=== PATIENT | female | born 1965 | race Caucasian/White ===

== ENCOUNTER 2018-03-05 10:56 | Emergency (ER) | payer BC, SELFPAY ==
[2018-03-05 10:59] VITALS: BP 139/76; PULSE 74; RESP 16; TEMP 37.1; O2SAT 100
--- NOTE | 2018-03-05 11:15 | ED.GENADUL ---
Disposition Clinical Impression: Headache Disposition: HOME Condition: Fair Instructions: General Headache (ED) Additional Instructions: During the time of grieving, please try to care for herself. Take frequent sips of fluids. Today. Taking medications as previously advised. If her headache is worse visual changes, vomiting, fever/chills or the new/worsening symptoms please seek care urgently once again. Tylenol and/or ibuprofen as needed for discomfort. Referrals: Lyn Sinclair NP [Primary Care Provider] - Medical Decision Making - Medical Decision Making Patient presents today with chief complaint of not feeling well. Patient was just here as a visitor grieving over her just passed. Patient is concerned she might be hypoglycemic. Patient reports that she has history of type 2 diabetes but she does report that she has had issues with hypoglycemia historically. Patient typically has glucometer with her but reports that she lost it in all of the tima on this morning. Patient appears teary and distraught but nontoxic. Vital signs within normal limits. Glucose was checked by nursing staff, and to be 187. I discussed this finding with the patient. I did try to encourage some gentle hydration. She reports that she is able to have small sips of fluids. In regard to the headache, patient reports that she has a mild frontal headache. No visual change. Neurologic exam is grossly intact. Pain came on slowly, no thunderclap quality. Given description, the patient's assessment this is likely associated with her intense grieving. We discussed new/worsening symptoms when to seek care urgently once again. I encouraged her to try to care for herself some during this difficult time. All of her questions and concerns were addressed and she is in agreement this plan. Son is present with her and voices agreement and my recommendations will help to care for his grieving mother. History of Present Illness - General Chief complaint: GenMedical Stated complaint: UNKNOWN Time Seen by Provider: 03/05/18 11:04 Source: patient, family, RN notes reviewed Mode of arrival: ambulatory Limitations: no limitations - History of Present Illness Initial comments: Patient is a 53-year-old female with history of type 2 diabetes presenting today for not feeling well. She is concerned she might be hypoglycemic. Patient was already in the department after her was brought here emergently and was found to be 10 on arrival. Patient's been very emotional and crying frequently. She began endorsing a low-grade headache. States that it came on slowly. States the headache is frontal. Associated headache with her crying. Reports it is a crying headache. Secondary to her emotional state, she has not been able to eat or drink today. She continues to decline any p.o. intake. Did not take any of her medications this morning. - Related Data Citalopram [CeleXA] 40 mg PO DAILY 12/29/12 LORazepam [Ativan] 0.5 mg PO as directed PRN 12/29/12 Bupropion HCl [Wellbutrin Xl] 150 mg PO QPM 03/24/13 Bupropion HCl [Wellbutrin Xl] 300 mg PO QAM #1 03/24/13 Cetirizine HCl [Zyrtec] 10 mg PO PRN PRN 05/30/15 Levalbuterol [Xopenex Hfa] 15 gm IH PRN PRN #1 inhaler 10/27/15 Lurasidone HCl [Latuda] 10 mg PO DAILY #30 10/27/15 Levothyroxine [Levothroid] 25 mcg PO DAILY 04/26/16 Calcium Carbonate [Tums Smoothies] 300 mg PO PRN PRN 02/26/17 Ranitidine HCl [Zantac] 150 mg PO BID PRN 06/28/17 Vitamin B Complex 1 each PO DAILY 06/28/17 Cyanocobalamin (Vitamin B-12) [Cyanocobalamin Injection] 1,000 mcg IJ Monthly #1 vial 02/14/18 Cholecalciferol (Vitamin D3) [Vitamin D3] 4,000 unit PO DAILY #90 tab-cap 02/21/18 Ferrous Sulfate [Iron] 325 mg PO TID #270 tab-cap 02/21/18 Folic Acid 1 mg PO DAILY #90 tab-cap 02/21/18 Lisinopril 1.25 mg PO DAILY #45 tab-cap 02/21/18 MetFORMIN [Glucophage] 1,000 mg PO BID #180 tab 02/21/18 Minocycline HCl 100 mg PO DAILY #10 tab-cap 02/21/18 Omeprazole 20 mg PO BID #180 tab-cap 02/21/18 Allergies Allergy/AdvReac Type Severity Reaction Status Date / Time doxycycline Allergy Severe tongue Unverified 03/05/18 11:07 swelling morphine Allergy itch and Unverified 03/05/18 11:07 hives zolpidem tartrate AdvReac Severe suicidal Unverified 03/05/18 11:07 [From Ambien] oxycodone HCl [From Percocet] AdvReac hallucinati Unverified 03/05/18 11:07 ons trazodone AdvReac anxiety Unverified 03/05/18 11:07 Review of Systems Constitutional: no symptoms reported. denies: chills, fever Eyes: denies: vision change Respiratory: no symptoms reported Cardiovascular: denies: chest pain, palpitations Gastrointestinal: denies: abdominal pain, nausea, vomiting Skin: denies: rash Neurological: as per HPI, headache. denies: weakness, numbness, paresthesias Past Medical History - Past Medical History Medical history: hyperlipidemia Anxiety, depression, diabetes General Exam - General Limitations: no limitations General appearance: alert, in no apparent distress (patient is tearing and is clearly upset) - Head Head exam: Present: atraumatic - Eye Eye exam: Present: normal apperance, PERRL. Absent: scleral icterus, conjunctival injection Pupils: Present: normal accommodation - Neck Neck exam: Present: normal inspection - Respiratory Respiratory exam: Present: normal lung sounds bilaterally. Absent: respiratory distress - Cardiovascular Cardiovascular Exam: Present: regular rate, normal rhythm, normal heart sounds - Extremities Exam Extremities exam: Present: normal inspection - Neurological Exam Neurological exam: Present: alert, CN II-XII intact, normal gait. Absent: motor sensory deficit - Psychiatric Psychiatric exam: Present: normal affect, normal mood - Skin Skin exam: Present: warm, dry, normal color Course Vital Signs - 24 hr 03/05/18 10:59 Temperature 37.1 C Pulse 74 Respiratory 16 Rate Blood Pressure 139/76 Pulse Oximetry 100
[2018-03-05 16:58] VITALS: RESP 16
== END 2018-03-05 11:35 | disposition home or self-care (01) ==
LOC: ER 06-20 08:18
PROVIDERS: Emergency Provider Emergency Medicine; PCP Nurse Practitioner Family
DX: R51 Headache (principal); Z63.4 Disappearance and death of family member; E11.9 Type 2 diabetes mellitus without complications; Z79.84 Long term (current) use of oral hypoglycemic drugs
CPT/HCPCS: 36416; 82962; 99282

== ENCOUNTER 2018-05-01 16:05 | Outpatient (CLI) | payer OTHER, SELFPAY ==
[2018-05-01 16:56] LABS: Abs Immature Grans 0.01 k/cumm (0.0-0.09); Absolute Basophil Count 0.05 k/cumm (0.0-0.2); Absolute Eosinophil Count 0.19 k/cumm (0.0-0.7); Absolute Monocyte Count 0.49 k/cumm (0.11-0.7); Absolute Neutrophil Count 6.79 k/cumm (1.2-6.7); Basophils % 0.6; Eosinophils % 2.2; HCT 31.5 % (36.0-46.0); HGB 9.3 g/dL (12.0-15.5); Immature Grans % 0.1; Lymphocytes % 13.7; Mean Corp. HGB Concentration 29.5 g/dL (32.0-36.0); Mean Corpuscular Hemoglobin 21.7 pg (27.0-33.0); Mean Corpuscular Volume 73.6 fL (80-95); Mean Platelet Volume 11.5 fL (8.0-11.0); Monocytes % 5.6; Neutrophils % 77.8; Platelet Count 288 x1000/uL (130-400); RBC 4.28 m/cumm (4.00-5.20); RBC Distribution Width 19.1 % (11.7-14.6); White Blood Cell Count 8.73 k/cumm (4.4-10.8)
[2018-05-01 17:38] LABS: Iron 30 ug/dL (50-175); Total Iron Binding Capacity 482 ug/dL (250-450); Transferrin Sat 6 % (15-50)
[2018-05-01 17:52] LABS: Ferritin 8 ng/mL (8-388)
[2018-05-01 18:03] LABS: Vitamin D 25 Total 15.9 ng/ml (30-100)
[2018-05-01 18:06] LABS: Diff Comment RBC Morph Reviewed
[2018-05-01 18:07] LABS: Anisocytosis 2+; Hypochromasia 2+; Microcytosis 3+
== END 2018-05-01 16:25 ==
PROVIDERS: PCP Nurse Practitioner Family; Visit Provider Nurse Practitioner Family
DX: D50.9 Iron deficiency anemia, unspecified (principal); E55.9 Vitamin D deficiency, unspecified
CPT/HCPCS: 36415; 82306; 82728; 83540; 83550; 85025

== ENCOUNTER 2018-08-21 16:28 | Outpatient (CLI) | payer OTHER, SELFPAY ==
[2018-08-21 17:31] LABS: Abs Immature Grans 0.01 k/cumm (0.0-0.09); Absolute Basophil Count 0.06 k/cumm (0.0-0.2); Absolute Eosinophil Count 0.23 k/cumm (0.0-0.7); Absolute Lymphocyte Count 1.65 k/cumm (1.2-3.4); Absolute Monocyte Count 0.49 k/cumm (0.11-0.7); Absolute Neutrophil Count 4.14 k/cumm (1.2-6.7); Basophils % 0.9; Eosinophils % 3.5; HCT 33.2 % (36.0-46.0); HGB 10.2 g/dL (12.0-15.5); Immature Grans % 0.2; Lymphocytes % 25.1; Mean Corp. HGB Concentration 30.7 g/dL (32.0-36.0); Mean Corpuscular Hemoglobin 23.9 pg (27.0-33.0); Mean Corpuscular Volume 77.8 fL (80-95); Mean Platelet Volume 11.8 fL (8.0-11.0); Monocytes % 7.4; Neutrophils % 62.9; Platelet Count 310 x1000/uL (130-400); RBC 4.27 m/cumm (4.00-5.20); RBC Distribution Width 17.1 % (11.7-14.6); White Blood Cell Count 6.58 k/cumm (4.4-10.8)
[2018-08-21 18:49] LABS: Iron 18 ug/dL (50-175); Total Iron Binding Capacity 423 ug/dL (250-450); Transferrin Sat 4 % (15-50)
[2018-08-21 19:02] LABS: Ferritin 7 ng/mL (8-388); TSH (W/Ref FT4) 3.85 uIU/mL (0.358-3.74)
[2018-08-21 19:38] LABS: FREE T4 0.96 ng/dL (0.76-1.46)
[2018-08-21 19:44] LABS: Vitamin D 25 Total 15.9 ng/ml (30-100)
[2018-08-22 09:52] LABS: Hemoglobin A1C 8.7 % (4.5-6.2)
== END 2018-08-21 16:48 ==
PROVIDERS: PCP Nurse Practitioner Family; Visit Provider Nurse Practitioner Family
DX: D50.9 Iron deficiency anemia, unspecified (principal); E55.9 Vitamin D deficiency, unspecified; E03.9 Hypothyroidism, unspecified; E11.9 Type 2 diabetes mellitus without complications
CPT/HCPCS: 36415; 82306; 82728; 83036; 83540; 83550; 84439; 84443; 85025

== ENCOUNTER 2018-09-12 13:28 | Outpatient (REF) | payer OTHER, SELFPAY | END 2018-09-12 13:48 | LOC: LBN 13:28 | PROVIDERS: PCP Nurse Practitioner Family; Visit Provider Family Medicine | DX: R39.9 Unspecified symptoms and signs involving the genitourinary system (principal) | CPT/HCPCS: 87077; 87086; 87186 ==

== ENCOUNTER 2020-05-09 01:19 | Outpatient (CLI) | payer MEDICAID, SELFPAY ==
--- NOTE | 2020-05-09 09:25 | DI.RAD_ITS ---
EXAM: XR CHEST 2V PA LATERAL CLINICAL HISTORY: positive Quantiferon-TB Gold,Z92.89,H/O TB SKIN TESTING TECHNIQUE: 2D digital imaging was performed. COMPARISON: CR CHEST 2 VIEWS PA,LAT from 05/17/2017 FINDINGS: MEDIASTINUM: Normal. HEART: Normal. PULMONARY VASCULATURE: Normal. LUNGS: Clear. PLEURAL SPACE: No pleural effusion or pneumothorax. BONE:Normal. OTHER FINDINGS:Normal. IMPRESSION: No acute pulmonary findings. DATA REPOSITORY: RADIATION DOSE DELIVERED:
== END 2020-05-09 01:39 ==
PROVIDERS: PCP Nurse Practitioner Family; Visit Provider Student in an Organized Health Care Education/Training Program
DX: R76.12 Nonspecific reaction to cell mediated immunity measurement of gamma interferon antigen response without active tuberculosis (principal); Z92.89 Personal history of other medical treatment
CPT/HCPCS: 71046

== ENCOUNTER 2020-06-22 04:02 | Outpatient (CLI) | payer MEDICAID, SELFPAY ==
[2020-06-22 16:40] LABS: Abs Immature Grans 0.02 10^3/uL (0.0-0.06); Absolute Basophil Count 0.04 10^3/uL (0.0-0.2); Absolute Eosinophil Count 0.24 10^3/uL (0.0-0.7); Absolute Lymphocyte Count 1.51 10^3/uL (1.2-3.4); Absolute Monocyte Count 0.36 10^3/uL (0.1-0.8); Absolute Neutrophil Count 3.83 10^3/uL (1.2-6.7); Basophils % 0.7; HCT 35.8 % (36.0-46.0); HGB 10.8 g/dL (11.2-15.7); Immature Grans % 0.3; Lymphocytes % 25.2; MCH 24.3 pg (27.0-33.0); MCHC 30.2 % (32.0-36.0); MCV 80.4 fL (80-95); MPV 10.9 fL (8.0-11.0); Neutrophils % 63.8; Nucleated RBC 0 %; Platelet Count 239 10^3/uL (130-400); RBC 4.45 10^6/uL (3.93-5.22); RDW 15.3 % (11.7-14.6); RDW-SD 44.6 fL
[2020-06-22 16:51] LABS: Prothrombin Time 9.9 sec (9.3-11.0)
[2020-06-22 17:28] LABS: ALT 21 U/L (14-59); AST 16 U/L (15-37); Alkaline Phosphatase 81 U/L (46-116); Anion Gap 10.4 mmol/L (3-11); BUN 18 mg/dL (7-18); Bilirubin, Total 0.2 mg/dL (0.2-1.0); CO2 26.6 mmol/L (21.0-32.0); CREATININE 0.99 mg/dL (0.55-1.02); Chloride 105 mmol/L (98-107); Estimated GFR 57.82 (mL/min/1.73m2); Glucose 70 mg/dL (74-106); Potassium 4.2 mmol/L (3.5-5.1); Sodium 142 mmol/L (136-145)
== END 2020-06-22 04:22 ==
PROVIDERS: PCP Nurse Practitioner Family; Visit Provider Nurse Practitioner Family
DX: R79.89 Other specified abnormal findings of blood chemistry (principal); Z22.7 Latent tuberculosis; Z51.81 Encounter for therapeutic drug level monitoring
CPT/HCPCS: 36415; 80053; 85025; 85610

== ENCOUNTER 2020-08-05 19:24 | Outpatient (REF) | payer MEDICAID, SELFPAY ==
[2020-08-05 20:08] LABS: C-Reactive Protein 0.18 mg/dL (0.0-0.3); TSH (W/Ref FT4) 2.81 uIU/mL (0.36-3.74)
[2020-08-05 20:46] LABS: ESR 24 mm/hr (0-30)
[2020-08-08 10:07] LABS: Hepatitis C Ab w Rflx HCV PCR Negative (Negative)
[2020-08-08 11:17] LABS: HIV-1/2 Ag & Ab Screen Negative (Negative)
== END 2020-08-05 19:44 ==
LOC: LBN 19:24
PROVIDERS: PCP Nurse Practitioner Family; Visit Provider Nurse Practitioner Family
DX: Z11.59 Encounter for screening for other viral diseases (principal); R63.4 Abnormal weight loss; E03.9 Hypothyroidism, unspecified; Z11.4 Encounter for screening for human immunodeficiency virus [HIV]
CPT/HCPCS: 85652; 86803; 87389; 84443; 86140

== ENCOUNTER 2020-10-12 04:14 | Outpatient (CLI) | payer MEDICAID, SELFPAY ==
[2020-10-12 17:14] LABS: Iron 17 ug/dL (50-170); Total Iron Binding Capacity 388 ug/dL (250-450); Transferrin Sat 4 % (15-50)
[2020-10-12 17:29] LABS: Ferritin 5 ng/mL (8-252)
== END 2020-10-12 04:15 | disposition home or self-care (01) ==
LOC: LBO 04:15
PROVIDERS: PCP Nurse Practitioner Family; Visit Provider Nurse Practitioner Family
DX: D50.9 Iron deficiency anemia, unspecified (principal)
CPT/HCPCS: 36415; 82728; 83540; 83550

== ENCOUNTER 2020-11-04 05:15 | Outpatient (RCR) | payer MEDICAID, SELFPAY ==
[2020-11-04] MEDS: Normal Saline Flush 10 ML SYR IVP (07:50)
[2020-11-04] MEDS: IRON SUCROSE COMPLEX 200 MG in Normal Saline 100 ML 50 MG IVPB (08:00)
== END 2020-11-18 23:59 | disposition home or self-care (01) ==
LOC: INF 05:15
PROVIDERS: PCP Nurse Practitioner Family; Visit Provider Nurse Practitioner Family
DX: D50.9 Iron deficiency anemia, unspecified (principal); D64.9 Anemia, unspecified
CPT/HCPCS: 96365; 96376; J1756

== ENCOUNTER 2021-01-03 02:30 | Outpatient (CLI) | payer MEDICAID, SELFPAY ==
[2021-01-03 10:35] LABS: HCT 33.7 % (36.0-46.0); HGB 10.1 g/dL (11.2-15.7)
[2021-01-03 11:31] LABS: Iron 37 ug/dL (50-170); Total Iron Binding Capacity 439 ug/dL (250-450); Transferrin Sat 8 % (15-50)
[2021-01-03 11:44] LABS: Ferritin 6 ng/mL (8-252)
== END 2021-01-03 02:31 | disposition home or self-care (01) ==
LOC: LBO 02:30
PROVIDERS: PCP Nurse Practitioner Family; Visit Provider Nurse Practitioner Family
DX: D50.9 Iron deficiency anemia, unspecified (principal)
CPT/HCPCS: 36415; 82728; 83540; 83550; 85014; 85018

== ENCOUNTER 2021-01-09 03:23 | Outpatient (CLI) | payer MEDICAID, SELFPAY ==
[2021-01-09 16:48] LABS: HCT 36.5 % (36.0-46.0); HGB 10.8 g/dL (11.2-15.7)
[2021-01-09 18:07] LABS: Iron 15 ug/dL (50-170); Total Iron Binding Capacity 437 ug/dL (250-450); Transferrin Sat 3 % (15-50)
[2021-01-09 18:20] LABS: Ferritin 5 ng/mL (8-252)
== END 2021-01-09 03:24 | disposition home or self-care (01) ==
LOC: LBO 03:23
PROVIDERS: PCP Nurse Practitioner Family; Visit Provider Nurse Practitioner Family
DX: D50.9 Iron deficiency anemia, unspecified (principal)
CPT/HCPCS: 36415; 82728; 83540; 83550; 85014; 85018

== ENCOUNTER 2021-01-10 02:49 | Outpatient (RCR) | payer MEDICAID, SELFPAY ==
[2021-01-10] MEDS: Normal Saline Flush 10 ML SYR IVP (14:05)
[2021-01-10] MEDS: IRON SUCROSE COMPLEX 200 MG in Normal Saline 100 ML 220 MG IVPB (14:05)
== END 2021-01-18 23:59 | disposition home or self-care (01) ==
LOC: INF 02:49
PROVIDERS: PCP Nurse Practitioner Family; Visit Provider Family Medicine
DX: D50.9 Iron deficiency anemia, unspecified (principal)
CPT/HCPCS: 96365; J1756

== ENCOUNTER 2021-01-17 22:10 | Emergency (ER) | payer MEDICAID, SELFPAY ==
--- NOTE | 2021-01-17 22:14 | W.ED.GENAD ---
Discharge Plan Disposition Patient Disposition: HOME Condition: Good Discharge Details Clinical Impression: Contusion, Ankle sprain Primary Care Provider: Lyn Sinclair ED Provider: Blanche Jaramillo Home Meds and New Rx's Prescriptions: Continued folic acid 1 mg tablet 1 mg PO DAILY Qty: 90 RF: 3 cholecalciferol (vitamin D3) 4,000 unit capsule 4,000 unit PO DAILY Qty: 90 RF: 3 aspirin 81 mg tablet,delayed release (DR/EC) 81 mg PO DAILY RF: 0 lactobacillus combination no.8 PO RF: 0 vitamin B complex Tablet 1 tab PO DAILY RF: 0 clobetasol 0.05 % cream 1 applic TP DAILY RF: 0 (DME) blood-glucose meter Misc 1 ea Miscellaneous DAILY Qty: 1 RF: 0 (DME) Blood Glucose Test Strip See Rx Instructions .ROUTE .MEDSUPPLY Qty: 100 RF: 3 (DME) FreeStyle [place] 14 Day [place] Misc See Rx Instructions .ROUTE .MEDSUPPLY Qty: 1 RF: 0 (DME) FreeStyle [place] 14 Day Sensor Kit See Rx Instructions .ROUTE .MEDSUPPLY Qty: 6 RF: 3 omega-3 fatty acids [Fish Oil Concentrate] 1,000 mg capsule 1,000 mg PO DAILY RF: 0 Metamucil (sugar) Powder 1 tbsp PO DAILY PRNRF: 0 docusate sodium [Colace] 100 mg capsule 100 mg PO DAILY RF: 0 cyanocobalamin (vitamin B-12) 1,000 MCG/1 ML solution 1,000 mcg IJ Monthly Qty: 1 RF: 0 lorazepam 0.5 mg tablet 0.5 mg PO BID RF: 0 levothyroxine 25 mcg tablet 25 mcg PO DAILY Qty: 90 RF: 3 albuterol sulfate 90 mcg/actuation HFA aerosol inhaler 1 - 2 puff inhalation Q4H PRN (Reason: shortness of breath or wheezing) Qty: 1 RF: 3 bupropion HCl [Wellbutrin XL] 300 mg tablet extended release 24 hr 300 mg PO QAM RF: 0 lorazepam 0.5 mg tablet See Rx Instructions PO QHS PRNRF: 0 pantoprazole 40 mg tablet,delayed release (DR/EC) 40 mg PO DAILY Qty: 90 RF: 3 Jardiance 25 mg tablet 25 mg PO DAILY AM Qty: 90 RF: 3 minocycline 100 mg tablet 100 mg PO DAILY PRN (Reason: scalp folliculitis) Qty: 10 RF: 0 metformin [Glucophage] 1,000 mg tablet 1,000 mg PO BID Qty: 180 RF: 0 Januvia 25 mg tablet 25 mg PO DAILY Qty: 90 RF: 0 atorvastatin 10 mg tablet 10 mg PO DAILY Qty: 90 RF: 0 cetirizine [Zyrtec] 10 MG tablet 10 mg PO PRN PRNRF: 0 Discharge Instructions Instructions: Ankle Sprain (ED), Contusion in Adults (ED) Additional Instructions: Imaging is reassuring for no new fracture. Please encourage rest, ice, elevation. Tylenol and/or ibuprofen as needed for discomfort. Please continue with splint and Joselo while pain persist. Please avoid activities that cause increased discomfort. If you develop any new or worsening symptoms please seek care urgently once again. Otherwise, please follow-up with primary care in 1 week for reevaluation. Stand Alone Forms: Work Release Referrals: Lyn Sinclair NP [Primary Care Provider] - Medical Decision Making Patient is a pleasant 55-year-old female presenting today with chief complaint of left lower extremity trauma. She reports that she has had 3 fracture to the proximal tibia which was managed nonoperatively several years ago. Also reports that she had disruption of the mortise of the left ankle requiring surgical repair and subsequent removal of hardware. States that this evening she fell from her bed and struck her knee between the bed and area of storage. Believes that she landed on a wheel leading to ecchymosis and swelling and discomfort of the left lateral lower extremity. Patient denies other injuries from the incident. Did not strike her head, no loss of consciousness. She denies any numbness or tingling. Denies any neck, back, chest, abdomen or pelvic pain. Has not taken anything for her discomfort as of yet. She did take a dose of Ativan prior to arrival she was quite anxious about this. On exam, patient appears nontoxic. She does have a focal area of ecchymosis and swelling in the proximal one third of the lateral left lower extremity. Knee appears to be uninvolved, full range of motion, no effusion or pain with palpation at the joint line. She does have some tenderness over the proximal fibula but pain is maximal in. She is in the area of ecchymosis.. Ecchymosis feels most consistent with soft tissue swelling. No palpable bony deformity. 2+ distal pulses, sensation is intact. She has good range of motion of the toes and ankle. She does have pain with palpation of the anterior ankle but no pain over the medial and lateral malleolus, no appreciable instability. Patient has been nonweightbearing. Will give Tylenol and ibuprofen for discomfort. Plan to obtain x-rays for evaluation for possible fracture. XR of left tib/fib reviewed by radiologist: FINDINGS: Bones/joints: Normal. Soft tissues: Normal. IMPRESSION: No acute findings. FINDINGS: Bones/joints: Normal. Soft tissues: Normal. IMPRESSION: No acute findings. Discussed the findings with the patient. Patient is able to weight-bear and walk with minimal discomfort at this time. Reassess with the patient's pain is. Does not seem to be over the fibula as much currently and is more anterior to this. She states that when she had broke her fibula historically, pain is more posterior and deep which she is not experiencing at this time. Diagnosis contusion and ankle sprain. Will apply ankle brace to help with stability and Joselo wrap for area of contusion. Encourage rest, ice and elevation. Tylenol and/or ibuprofen as needed for discomfort. Return precautions were discussed. Advise follow-up with primary care in 1 week for reevaluation. All of her questions and concerns were addressed and she is agreement with plan. HPI General Mode of arrival: wheelchair. Date/Time Provider Initiated Documentation: 01/17/21 22:12. Limitations to Documentation: no limitations. Information obtained by: patient and RN notes reviewed. History of Present Illness 55 year old F presents to the emergency department with the chief complaint of LLE trauma, described as moderate, with intensity rated at 6. Quality is described as aching, and is localized to the left and lower extremity. Patient reports no radiation. Patient started experiencing this hour(s) and it has been constant. Immobilization improves symptom(s), Movement worsens symptoms . Patient notes no other symptoms.. Patient did receive the following treatments prior to arrival, none Related Data Home Medications Medication Instructions Recorded Confirmed cetirizine [Zyrtec] 10 mg PO PRN PRN 05/30/15 10/21/20 cyanocobalamin (vitamin B-12) 1,000 mcg IJ Monthly #1 vial 02/14/18 01/17/21 cholecalciferol (vitamin D3) 100 4,000 unit PO DAILY #90 tab-cap 08/22/18 01/17/21 mcg (4,000 unit) capsule folic acid 1 mg tablet 1 mg PO DAILY #90 tab-cap 08/22/18 01/17/21 omega-3 fatty acids 1,000 mg 1,000 mg PO DAILY 10/31/18 01/17/21 capsule aspirin 81 mg tablet,delayed 81 mg PO DAILY 03/20/19 01/17/21 release lorazepam 0.5 mg tablet 0.5 mg PO BID tab 04/01/19 01/17/21 clobetasol 0.05 % topical cream 1 applic TP DAILY 09/25/19 10/21/20 lactobacillus combination no.8 PO 09/25/19 10/21/20 [Adult Probiotic] vitamin B complex 1 tab PO DAILY 09/25/19 01/17/21 blood sugar diagnostic #100 each 10/19/19 10/21/20 blood-glucose meter #1 unit 10/19/19 10/21/20 levothyroxine 25 mcg tablet 25 mcg PO DAILY #90 tab-cap 05/04/20 01/17/21 albuterol sulfate 90 mcg/actuation 1 - 2 puff INHALATION Q4H PRN #1 05/12/20 10/21/20 aerosol inhaler device flash glucose scanning reader #1 ea 05/27/20 10/21/20 flash glucose sensor #6 ea 05/27/20 10/21/20 bupropion HCl 300 mg 24 hr tablet, 300 mg PO QAM 06/27/20 01/17/21 extended release lorazepam 0.5 mg tablet See Rx Instructions PO QHS PRN 06/27/20 01/17/21 docusate sodium 100 mg capsule 100 mg PO DAILY 08/05/20 01/17/21 psyllium seed (sugar) oral powder 1 tbsp PO DAILY PRN 08/05/20 10/21/20 pantoprazole 40 mg tablet,delayed 40 mg PO DAILY #90 tab-cap 10/26/20 01/17/21 release empagliflozin 25 mg tablet 25 mg PO DAILY AM #90 tab-cap 11/10/20 01/17/21 minocycline 100 mg tablet 100 mg PO DAILY PRN #10 tab-cap 11/18/20 atorvastatin 10 mg tablet 10 mg PO DAILY #90 tab-cap 12/27/20 01/17/21 metformin 1,000 mg tablet 1,000 mg PO BID #180 tab-cap 12/27/20 01/17/21 sitagliptin 25 mg tablet 25 mg PO DAILY #90 tab-cap 12/27/20 01/17/21 Previous Rx's Medication Instructions Recorded cyanocobalamin (vitamin B-12) 1,000 mcg IJ Monthly #1 vial 02/14/18 cholecalciferol (vitamin D3) 100 4,000 unit PO DAILY #90 tab-cap 08/22/18 mcg (4,000 unit) capsule folic acid 1 mg tablet 1 mg PO DAILY #90 tab-cap 08/22/18 blood sugar diagnostic #100 each 10/19/19 blood-glucose meter #1 unit 10/19/19 levothyroxine 25 mcg tablet 25 mcg PO DAILY #90 tab-cap 05/04/20 albuterol sulfate 90 mcg/actuation 1 - 2 puff INHALATION Q4H PRN #1 05/12/20 aerosol inhaler device flash glucose scanning reader #1 ea 05/27/20 flash glucose sensor #6 ea 05/27/20 pantoprazole 40 mg tablet,delayed 40 mg PO DAILY #90 tab-cap 10/26/20 release empagliflozin 25 mg tablet 25 mg PO DAILY AM #90 tab-cap 11/10/20 minocycline 100 mg tablet 100 mg PO DAILY PRN #10 tab-cap 11/18/20 atorvastatin 10 mg tablet 10 mg PO DAILY #90 tab-cap 12/27/20 metformin 1,000 mg tablet 1,000 mg PO BID #180 tab-cap 12/27/20 sitagliptin 25 mg tablet 25 mg PO DAILY #90 tab-cap 12/27/20 Allergies Allergy/AdvReac Type Severity Reaction Status Date / Time doxycycline Allergy Severe tongue Verified 01/17/21 22:20 swelling amoxicillin Allergy Intermediate Swelling/Ed Verified 01/17/21 22:20 domingo metronidazole [From Flagyl] Allergy Unknown Other (See Verified 01/17/21 22:20 Comment) morphine Allergy Unknown itch and Verified 01/17/21 22:20 hives zolpidem tartrate AdvReac Severe suicidal Verified 01/17/21 22:20 [From Ambien] oxycodone HCl [From Percocet] AdvReac Unknown hallucinati Verified 01/17/21 22:20 ons trazodone AdvReac Unknown anxiety Verified 01/17/21 22:20 Review of Systems Constitutional Constitutional: Reports as per HPI, Denies chills, Denies fever(s), Denies headache(s) and Denies weakness ENT Ears, Nose, Mouth, and Throat: Denies headache(s) Cardiovascular Cardiovascular: Reports as per HPI Respiratory Respiratory: Reports as per HPI and Denies cough Musculoskeletal Musculoskeletal: Reports as per HPI and Denies tingling Integumentary/Breasts Skin/Breast: Reports as per HPI, Denies rash and Denies wounds Neurologic Neurologic: Reports as per HPI, Denies headache(s), Denies tingling, Denies paresthesias and Denies weakness [facility] Medical History Allergic rhinitis (05/12/12) Environmental--controlled with Zyrtec and prn Xopenex with known triggers such as moldy basements Anxiety and depression Managed by [facility] Carpal tunnel syndrome (03/09/13) [place] Chronic anemia Multifactorial, s/p gastric bypass with vitamin B12, folate, and iron deficiencies; baseline Hgb ~10 Diabetic retinopathy of both eyes (08/16/20) Esophageal stricture S/p dilatation in 06/2017 (Jennifer Wright) Folate deficiency (05/13/17) Folliculitis (03/14/12) Scalp; managed with Minocycline prn Gastroesophageal reflux disease (03/09/13) EGD 05/30/2015, again 02/2017 with [facility] Hyperlipidemia (03/09/13) 02/2019 labs: 10-year ASCVD risk = ~10% --> started on moderate intensity statin therapy Hypothyroidism (09/08/12) Dr. Westfall follows at [facility] Insomnia Iron deficiency anemia Latent tuberculosis by blood test NL CXR 05/09/2020; 06/09/20 [facility] ID consult --> proceed with 4mo rifampin regimen; complete 10/2020 Megaloblastic anemia (09/06/11) S/p gastric bypass Polycystic ovaries (03/09/13) Restless leg syndrome Sleep apnea (03/09/13) Type 2 diabetes mellitus without complication, without long-term current use of insulin [facility] Endocrinology in the past Vitamin D deficiency (03/14/12) MANAGED BY DR WESTFALL [facility]; dx'ed 2011 Vit D Surgical History EGD - MAC (02/26/17) EGD - MAC (07/02/17) EGD/COLONOSCOPY W/ MAC (05/30/15) DR. 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 What type of physical activity do you participate in: regular exercise Frequency: 5-6 times per week Do you feel safe at home: Yes Do you feel safe in your relationship?: Yes Exam Const General: cooperative, healthy appearing, comfortable, no acute distress, well developed and well groomed Nutritional Appearance: average body habitus and well nourished Orientation: alert and awake Resp Effort & Inspection: normal respiratory effort, able to speak in complete sentences and no respiratory distress Cardio Rate: regular rate Rhythm: regular rhythm Skin General skin exam: ecchymosis Full body images: 1. area of ecchymosis and swelling. No palpable deformity, feels to be more soft tissue swelling at this area. Neuro General: patient alert and patient awake Cognition: normal cognition Speech: speech normal Motor: muscle tone normal throughout Sensory Exam: no sensory deficits noted Extrem Ankle/foot/toe images: 1. Area of ecchymosis, swelling and pain. 2+ distal pulses. Full ROM of toes and ankle. Pain over anterior ankle. No obvious trauma to ankle. Pain over proximal fibula. No pain over the knee joint. Full ROM of knee, no effusion. Able to straight leg raise well. Psych Appearance: grossly normal and well kempt Mental Status: mental status grossly normal Speech and Movement: speech and movement normal
[2021-01-17 22:16] VITALS: BP 103/85; PULSE 81; RESP 18; TEMP 36.2; O2SAT 98
--- NOTE | 2021-01-17 22:30 | DI.RAD_ITS ---
Exam(s) XR TIB/FIB LT EXAM: XR TIB/FIB LT CLINICAL HISTORY: fall, ecchymosis and swelling lateral prox 1. TECHNIQUE: 2D digital imaging was performed. COMPARISON: No exams were available for comparison FINDINGS: No evidence of acute fracture of the tibia and fibula. There is a healed oblique fracture site in th e proximal 3rd of the fibula noted. IMPRESSION: As above but no acute fractures DATA REPOSITORY: RADIATION DOSE DELIVERED:
--- NOTE | 2021-01-17 22:30 | DI.RAD_ITS ---
Exam(s) XR ANKLE LT COMPLETE EXAM: XR ANKLE LT COMPLETE CLINICAL HISTORY: fall, previous surgery with removal of hardware. TECHNIQUE: 2D digital imaging was performed. COMPARISON: CR LEFT ANKLE COMPLETE from 01/07/2014 FINDINGS: There is evidence of previous hardware in the distal tibia-fibula which is been removed and there is no remaining radiopaque material. There is presently no evidence of acute fracture nor widening of t he mortise. Talar dome unremarkable. Parallel channels are noted in the distal tibia-fibula. No ra diographic evidence of osteomyelitis. Inferior calcaneal spur is noted. Subtalar joint appears unre markable. However, there is some degenerative changes on the dorsal aspect talonavicular joint. Tib ial talar joint appears unremarkable. IMPRESSION: DATA REPOSITORY: RADIATION DOSE DELIVERED:
[2021-01-17] MEDS: Ibuprofen 600 MG TAB PO (22:35)
[2021-01-17] MEDS: Acetaminophen 325 MG TAB 650 MG PO (22:35)
--- NOTE | 2021-01-17 23:12 | DI.VRAD_ITS ---
PROCEDURE INFORMATION: Exam: XR Left Ankle Exam date and time: 01/17/2021 10:33 PM Age: 55 years old Clinical indication: Injury or trauma; Blunt trauma; Ankle; Left; Injury date: 01/17/21; Injury details: Fall, previous surgery with removal of hardware; Prior surgery; Surgery date: 6+ months; Surgery type: Hardware and removal TECHNIQUE: Imaging protocol: XR Left ankle. Views: 3 or more views. Total images: 3 COMPARISON: No relevant prior studies available. FINDINGS: Bones/joints: Normal. Soft tissues: Normal. IMPRESSION: No acute findings. Dictated and Authenticated by: Gabriel Suárez MD. Ordering:WAYNE Mancia MD
--- NOTE | 2021-01-17 23:12 | DI.VRAD_ITS ---
PROCEDURE INFORMATION: Exam: XR Left Tibia and Fibula Exam date and time: 01/17/2021 10:33 PM Age: 55 years old Clinical indication: Injury or trauma; Blunt trauma; Lower leg; Left; Injury date: 01/17/21; Injury details: Fall, ecchymosis and swelling lateral prox 1/3; Prior surgery; Surgery date: 6+ months; Surgery type: Hardware and removal TECHNIQUE: Imaging protocol: XR Left tibia and fibula. Views: 2 views. Total images: 2 COMPARISON: No relevant prior studies available. FINDINGS: Bones/joints: Normal. Soft tissues: Normal. IMPRESSION: No acute findings. Dictated and Authenticated by: Gabriel Suárez MD. Ordering:WAYNE Mancia MD
== END 2021-01-17 23:40 | disposition home or self-care (01) ==
PROVIDERS: Emergency Provider Physician Assistant; PCP Nurse Practitioner Family
DX: S93.492A Sprain of other ligament of left ankle, initial encounter (principal); S80.12XA Contusion of left lower leg, initial encounter; W06.XXXA Fall from bed, initial encounter; Z87.81 Personal history of (healed) traumatic fracture
CPT/HCPCS: 99284; 73590; 73610; 99283

== ENCOUNTER 2021-02-14 03:11 | Outpatient (RCR) | payer MEDICAID, SELFPAY ==
[2021-02-03] MEDS: IRON SUCROSE COMPLEX 200 MG in Normal Saline 100 ML 220 MG IVPB (11:38)
[2021-02-03] MEDS: Normal Saline Flush 10 ML SYR IVP (11:39)
[2021-02-14 12:06] LABS: HCT 36.8 % (36.0-46.0); HGB 11.3 g/dL (11.2-15.7)
[2021-02-14] MEDS: IRON SUCROSE COMPLEX 300 MG in Normal Saline 250 ML 160 MG IVPB (12:21)
[2021-02-14] MEDS: Normal Saline Flush 10 ML SYR IVP (12:21)
[2021-02-14 12:22] LABS: Ferritin 49 ng/mL (8-252)
[2021-02-14 12:46] LABS: Total Iron Binding Capacity 363 ug/dL (250-450)
[2021-02-14 12:47] LABS: Iron 53 ug/dL (50-170); Transferrin Sat 15 % (15-50)
== END 2021-02-18 23:59 | disposition home or self-care (01) ==
LOC: INF 03:11
PROVIDERS: PCP Nurse Practitioner Family; Visit Provider Family Medicine
DX: D50.9 Iron deficiency anemia, unspecified (principal)
CPT/HCPCS: 36415; 96365; 96366; 82728; 83540; 83550; 85014; 85018; J1756

== ENCOUNTER 2021-03-17 02:15 | Outpatient (CLI) | payer MEDICAID, SELFPAY ==
[2021-03-17 11:53] LABS: HCT 39.6 % (36.0-46.0); HGB 12.5 g/dL (11.2-15.7)
[2021-03-17 12:55] LABS: Iron 92 ug/dL (50-170); Total Iron Binding Capacity 356 ug/dL (250-450)
[2021-03-17 13:05] LABS: Ferritin 68 ng/mL (8-252)
== END 2021-03-17 02:16 | disposition home or self-care (01) ==
PROVIDERS: PCP Nurse Practitioner Family; Visit Provider Nurse Practitioner Family
DX: D50.9 Iron deficiency anemia, unspecified (principal); Z98.84 Bariatric surgery status
CPT/HCPCS: 36415; 82728; 83540; 83550; 85014; 85018

== ENCOUNTER 2021-08-16 06:38 | Emergency (ER) | payer OTHER, SELFPAY ==
[2021-08-16 06:50] VITALS: BP 114/61; PULSE 67; RESP 16; TEMP 36.7; O2SAT 97
--- NOTE | 2021-08-16 07:03 | ED.GENADUL_ITS ---
Discharge Plan Disposition Patient Disposition: HOME Condition: Stable Discharge Details Clinical Impression: Depression Primary Care Provider: Lyn Sinclair ED Provider: Marcus Sage Home Meds and New Rx's Prescriptions: Continued folic acid 1 mg tablet 1 mg PO DAILY Qty: 90 RF: 3 cholecalciferol (vitamin D3) 4,000 unit capsule 4,000 unit PO DAILY Qty: 90 RF: 3 aspirin 81 mg tablet,delayed release (DR/EC) 81 mg PO DAILY RF: 0 lactobacillus combination no.8 PO RF: 0 vitamin B complex Tablet 1 tab PO DAILY RF: 0 clobetasol 0.05 % cream 1 applic TP DAILY RF: 0 (DME) blood-glucose meter Misc 1 ea Miscellaneous DAILY Qty: 1 RF: 0 chlorhexidine gluconate [Antiseptic Skin Clnsr(chlorhe)] 4 % liquid 1 applic topical DAILY Qty: 960 RF: 0 omega-3 fatty acids [Fish Oil Concentrate] 1,000 mg capsule 1,000 mg PO DAILY RF: 0 Metamucil (sugar) Powder 1 tbsp PO DAILY PRNRF: 0 docusate sodium [Colace] 100 mg capsule 100 mg PO DAILY RF: 0 albuterol sulfate 90 mcg/actuation HFA aerosol inhaler 1 - 2 puff inhalation Q4H PRN (Reason: shortness of breath or wheezing) Qty: 1 RF: 3 atorvastatin 10 mg tablet 10 mg PO DAILY Qty: 90 RF: 3 (DME) Blood Glucose Test Strip See Rx Instructions .ROUTE .MEDSUPPLY Qty: 100 RF: 3 Jardiance 25 mg tablet 25 mg PO DAILY AM Qty: 90 RF: 3 levothyroxine 25 mcg tablet 25 mcg PO DAILY Qty: 90 RF: 3 metformin 1,000 mg tablet 1,000 mg PO BID Qty: 180 RF: 3 pantoprazole 40 mg tablet,delayed release (DR/EC) 40 mg PO DAILY Qty: 90 RF: 3 Januvia 25 mg tablet 25 mg PO DAILY Qty: 90 RF: 3 cyanocobalamin (vitamin B-12) 1,000 MCG/1 ML solution 1,000 mcg IJ Monthly Qty: 1 RF: 0 bupropion HCl [Wellbutrin XL] 300 mg tablet extended release 24 hr 300 mg PO QAM RF: 0 minocycline 100 mg capsule 100 mg PO DAILY RF: 0 cetirizine [Zyrtec] 10 MG tablet 10 mg PO PRN PRNRF: 0 lorazepam 0.5 mg tablet 0.5 mg PO BID PRNRF: 0 lorazepam 0.5 mg tablet 1 mg PO HS RF: 0 Discharge Instructions Instructions: Depression (ED) Additional Instructions: follow up as scheduled with Dr. Waite today at 1130. you should be having frequent check ins with [facility] if you feel more ill or have worsening thoughts of self harm return to the emergency department Stand Alone Forms: Work Release Medical Decision Making <Mario Alberto Marr DO - Last Filed: 08/16/21 07:09> 56-year-old female with a past medical history of anxiety, reflux, type 2 diabetes, high cholesterol, reactive airway disease, who presents today for evaluation of depression and suicidality. Over the last 36 hours the patient has had a few notable life stressors, causing notable stress and strain. Today she states that I do not want to live anymore, I just want to feel like a normal person. She states that she would end her life by taking extra medications. Her daughter has removed the medications from her at her home. She denies any auditory or visual hallucinations. She denies any previous suicide attempts but does admit to a history of depression in the past. She has no other complaints at this time. No other modifying factors. Exam demonstrates a well-appearing female who is notably crying, currently very emotional, appearing notably sad. She does have a plan to harm herself however if she is truly seeking help point. I have reached out to mental health and inform them of the scenario. We will perform medical screening exams, case will be signed out to my colleague Dr. Sage for follow-up on labs, and then reaching out again to mental health for reassessment. <Marcus Sage MD - Last Filed: 08/16/21 10:18> pt met with arnold from [facility]. She has been calm and cooperative and after discussing with mental health and is safe for d/c with safety plan. She has an appointment with Dr. Waite today at 1130, family is going to administer her meds and she will have daily checkins with mental health. She currently denies si on my exam, endorsing feeling depressed and has normal affet. Return precautions given HPI <Mario Alberto Marr DO - Last Filed: 08/16/21 07:09> General Date/Time Provider Initiated Documentation: 08/16/21 06:49 . HPI Narrative: 56-year-old female with a past medical history of anxiety, reflux, type 2 diabetes, high cholesterol, reactive airway disease, who presents today for evaluation of depression and suicidality. Over the last 36 hours the patient has had a few notable life stressors, causing notable stress and strain. Today she states that I do not want to live anymore, I just want to feel like a normal person. She states that she would end her life by taking extra medications. Her daughter has removed the medications from her at her home. She denies any auditory or visual hallucinations. She denies any previous suicide attempts but does admit to a history of depression in the past. She has no other complaints at this time. No other modifying factors. Related Data Home Medications Medication Instructions Recorded Confirmed cetirizine [Zyrtec] 10 mg PO PRN PRN 05/30/15 08/16/21 cyanocobalamin (vitamin B-12) 1,000 mcg IJ Monthly #1 vial 02/14/18 08/16/21 cholecalciferol (vitamin D3) 100 4,000 unit PO DAILY #90 tab-cap 08/22/18 08/16/21 mcg (4,000 unit) capsule folic acid 1 mg tablet 1 mg PO DAILY #90 tab-cap 08/22/18 08/16/21 omega-3 fatty acids 1,000 mg 1,000 mg PO DAILY 10/31/18 08/16/21 capsule aspirin 81 mg tablet,delayed 81 mg PO DAILY 03/20/19 08/16/21 release clobetasol 0.05 % topical cream 1 applic TP DAILY 09/25/19 08/16/21 lactobacillus combination no.8 PO 09/25/19 08/11/21 [Adult Probiotic] vitamin B complex 1 tab PO DAILY 09/25/19 08/16/21 blood-glucose meter #1 unit 10/19/19 08/16/21 bupropion HCl 300 mg 24 hr tablet, 300 mg PO QAM 06/27/20 08/16/21 extended release docusate sodium 100 mg capsule 100 mg PO DAILY 08/05/20 08/16/21 psyllium seed (sugar) oral powder 1 tbsp PO DAILY PRN 08/05/20 08/16/21 chlorhexidine gluconate 4 % 1 applic TOPICAL DAILY #960 ml 01/27/21 08/16/21 topical liquid minocycline 100 mg capsule 100 mg PO DAILY 05/26/21 08/16/21 albuterol sulfate 90 mcg/actuation 1 - 2 puff INHALATION Q4H PRN #1 08/11/21 08/16/21 aerosol inhaler unit atorvastatin 10 mg tablet 10 mg PO DAILY #90 tab-cap 08/11/21 08/16/21 blood sugar diagnostic #100 each 08/11/21 08/16/21 empagliflozin 25 mg tablet 25 mg PO DAILY AM #90 tab-cap 08/11/21 08/16/21 levothyroxine 25 mcg tablet 25 mcg PO DAILY #90 tab-cap 08/11/21 08/16/21 metformin 1,000 mg tablet 1,000 mg PO BID #180 tab-cap 08/11/21 08/16/21 pantoprazole 40 mg tablet,delayed 40 mg PO DAILY #90 tab-cap 08/11/21 08/16/21 release sitagliptin 25 mg tablet 25 mg PO DAILY #90 tab-cap 08/11/21 08/16/21 lorazepam 0.5 mg PO BID PRN 08/16/21 08/16/21 lorazepam 1 mg PO HS 08/16/21 08/16/21 Previous Rx's Medication Instructions Recorded cyanocobalamin (vitamin B-12) 1,000 mcg IJ Monthly #1 vial 02/14/18 cholecalciferol (vitamin D3) 100 4,000 unit PO DAILY #90 tab-cap 08/22/18 mcg (4,000 unit) capsule folic acid 1 mg tablet 1 mg PO DAILY #90 tab-cap 08/22/18 blood-glucose meter #1 unit 10/19/19 chlorhexidine gluconate 4 % 1 applic TOPICAL DAILY #960 ml 01/27/21 topical liquid albuterol sulfate 90 mcg/actuation 1 - 2 puff INHALATION Q4H PRN #1 08/11/21 aerosol inhaler unit atorvastatin 10 mg tablet 10 mg PO DAILY #90 tab-cap 08/11/21 blood sugar diagnostic #100 each 08/11/21 empagliflozin 25 mg tablet 25 mg PO DAILY AM #90 tab-cap 08/11/21 levothyroxine 25 mcg tablet 25 mcg PO DAILY #90 tab-cap 08/11/21 metformin 1,000 mg tablet 1,000 mg PO BID #180 tab-cap 08/11/21 pantoprazole 40 mg tablet,delayed 40 mg PO DAILY #90 tab-cap 08/11/21 release sitagliptin 25 mg tablet 25 mg PO DAILY #90 tab-cap 08/11/21 Allergies Allergy/AdvReac Type Severity Reaction Status Date / Time doxycycline Allergy Severe tongue Verified 08/16/21 07:03 swelling amoxicillin Allergy Intermediate Swelling/Ed Verified 08/16/21 07:03 domingo morphine Allergy Unknown itch and Verified 08/16/21 07:03 hives zolpidem tartrate AdvReac Severe suicidal Verified 08/16/21 07:03 [From Ambien] metronidazole [From Flagyl] AdvReac Unknown GI UPSET Verified 08/16/21 07:03 oxycodone HCl [From Percocet] AdvReac Unknown hallucinati Verified 08/16/21 07:03 ons trazodone AdvReac Unknown anxiety Verified 08/16/21 07:03 General Stated Complaint: PsychEval SHAUNA: 2 Review of Systems <Mario Alberto Marr DO - Last Filed: 08/16/21 07:09> All systems reviewed & are unremarkable except as noted in HPI and below PFSH <Mario Alberto Marr DO - Last Filed: 08/16/21 07:09> All Active Problems (Updated 08/16/21 @ 07:09 by Mario Alberto Marr DO) Depression (Chronic) Neuropathy (Acute) Iron deficiency anemia (Acute) Diabetic retinopathy of both eyes (Chronic 08/16/20) Esophageal stricture (Chronic) S/p dilatation in 06/2017 (Jennifer Wright) Chronic anemia (Chronic) Multifactorial, s/p gastric bypass with vitamin B12, folate, and iron deficiencies; baseline Hgb ~10 Type 2 diabetes mellitus without complication, without long-term current use of insulin (Chronic) [facility] [place] Anxiety and depression (Chronic) Managed by [facility] Restless leg syndrome (Chronic) Insomnia (Chronic) Vitamin D deficiency (Chronic 03/14/12) [place]NAG[place] JOSEPH [facility] [place] Vit D Sleep apnea (Chronic 03/09/13) Polycystic ovaries (Chronic 03/09/13) Megaloblastic anemia (Chronic 09/06/11) S/p gastric bypass Hypothyroidism (Chronic 09/08/12) Hyperlipidemia (Chronic 03/09/13) 02/2019 labs: 10-year ASCVD risk = ~10% --> started on moderate intensity statin therapy Gastroesophageal reflux disease (Chronic 03/09/13) EGD 05/30/2015, again 02/2017 with [facility] Folliculitis (Chronic 03/14/12) Scalp; managed with Minocycline prn Folate deficiency (Chronic 05/13/17) Carpal tunnel syndrome (Chronic 03/09/13) [place] Allergic rhinitis (Chronic 05/12/12) Environmental--controlled with Zyrtec and prn Xopenex with known triggers such as moldy basements Medical History Latent tuberculosis by blood test NL CXR 05/09/2020; 06/09/20 [facility] [place] --> proceed with 4mo rifampin regimen; complete 10/2020 Surgical History EGD - MAC (02/26/17) EGD - MAC (07/02/17) EGD/COLONOSCOPY W/ MAC (05/30/15) DR. VIRAMONTES Endometrial Biopsy (04/11/16) History of local excision of skin lesion (06/06/21) Dr. Paez 1) pilar cyst scalp 2) nevus left nasal alar crease Family History Brother Colon cancer Daughter Asthma Son Asthma Hypertension Father Prostate cancer Depression Diabetes Heart disease Hypertension Paternal Grandmother Cancer Pancreatic Aunt Breast cancer Mother Diabetes Heart disease Hypertension Social History Smoking/Tobacco Use Status: Never Smoking risk assessment performed?: Yes Alcohol Intake: current Alcohol Intake frequency: holidays/special occasions only Drug use: Never Substance use type: does not use Adopted: No Caregiver/Support person: No Foster care: No Household members: significant other and children Housing: house Number of Children: 4 number of grandchildren: 0 Communication Needs: None Education Level: college Details: Associate's degree 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 Pets and animals: Yes (1 cat) Pets and animals: cat(s) Sexually active: Yes Do you think of yourself as: straight/heterosexual Current gender identity: female What is your relationship status?: living with partner How often do you talk on the phone with friends or family?: three or more times per week How often do you get together with friends or relatives?: three or more times per week Do you belong to any clubs or organized social groups?: no Panel score (0-1 are the most socially isolated patients): 2 NHANES result reviewed/action taken: Yes What type of physical activity do you participate in: none Frequency: 5-6 times per week Adry/Methodist: None Special adry needs: No Seatbelt use: always Drive intox or ride w/intox tow driver: No Do you feel safe at home: Yes Do you feel safe in your relationship?: Yes Exam <Mario Alberto Marr DO - Last Filed: 08/16/21 07:09> Narrative Exam Narrative: 1.Const: Well-nourished, Well-developed, appearing stated age 2.Eyes: PERRL, no conjunctival injection, and symmetrical lids. 3.ENT: Atraumatic external nose and ears. Moist MM. Neck: Symmetric, trachea midline, No thyromegaly. 4.CVS: +S1/S2, No murmurs or gallops. Peripheral pulses 2+ and equal in all extremities. Brisk capillary refill in all extremities. 5.RESP: Unlabored respiratory effort. Clear to auscultation bilaterally. No wheezes rales or rhonchi 6.GI: Soft, Nontender/Nondistended, No hepatosplenomegaly. No guarding or rebound. 7.MSK: Normocephalic/Atraumatic, Extremities w/o deformity or ttp No cyanosis or clubbing, Normal movement of all extremities 8.Skin: Warm, Dry. No rashes or lesions. 9.Neuro: bander and cellophaner machine II-XII grossly intact. Sensation grossly intact, no focal neurologic deficits. 10.Psych: (AAO) x3. Crying, notably emotional, very sad. Course <Mario Alberto Marr DO - Last Filed: 08/16/21 07:09> Vital Signs Vital signs: Vital Signs Temperature 36.7 C 08/16/21 06:50 Pulse 67 08/16/21 06:50 Respiratory Rate 16 08/16/21 06:50 Blood Pressure 114/61 08/16/21 06:50 Pulse Oximetry 97 08/16/21 06:50 Temperature 36.7 C 08/16/21 06:50 Temperature Source Skin 08/16/21 06:50 Pulse 67 08/16/21 06:50 Respiratory Rate 16 08/16/21 06:50 Respiratory Effort 08/16/21 06:50 Blood Pressure 114/61 08/16/21 06:50 Blood Pressure Position Sitting 08/16/21 06:50 Pulse Oximetry 97 08/16/21 06:50 Oxygen Delivery Method Room Air 08/16/21 06:50 Oxygen Flow Rate 0 08/16/21 06:50 Pain Level 6 08/16/21 06:50 Sign Out <Mario Alberto Marr DO - Last Filed: 08/16/21 07:09> Sign Out Data: Sign Out Comment: Depressed, suicidal. Needs medical clearance and then reach out to mental health. Last updated by Mario Alberto Marr DO at 08/16/21 07:09
[2021-08-16 07:34] LABS: Source Nasal/Nares
[2021-08-16 07:35] LABS: Abs Immature Grans 0.03 10^3/uL (0.0-0.06); Absolute Basophil Count 0.09 10^3/uL (0.0-0.2); Absolute Eosinophil Count 0.41 10^3/uL (0.0-0.7); Absolute Lymphocyte Count 1.59 10^3/uL (1.2-3.4); Absolute Monocyte Count 0.47 10^3/uL (0.1-0.8); Absolute Neutrophil Count 3.98 10^3/uL (1.2-6.7); Basophils % 1.4; Eosinophils % 6.2; HCT 41.2 % (36.0-46.0); HGB 12.9 g/dL (11.2-15.7); Immature Grans % 0.5; Lymphocytes % 24.2; MCH 28.2 pg (27.0-33.0); MCHC 31.3 % (32.0-36.0); MPV 10.9 fL (8.0-11.0); Monocytes % 7.2; Neutrophils % 60.5; Nucleated RBC 0 %; Platelet Count 221 10^3/uL (130-400); RBC 4.58 10^6/uL (3.93-5.22); RDW-SD 42.9 fL; WBC 6.57 10^3/uL (4.4-10.8)
[2021-08-16] MEDS: Ibuprofen 600 MG TAB (07:46)
[2021-08-16 07:53] LABS: *AMPHETAMINES SCREEN URINE Negative (Negative); *BARBITURATES SCREEN URINE Negative (Negative); *BENZODIAZEPINES SCREEN URINE Negative (Negative); Cannabinoids THC Negative (Negative); Cocaine Screen,Urine Negative (Negative); METHADONE URINE SCREEN Negative (Negative); OPIATES URINE SCREEN Negative (Negative)
[2021-08-16 07:55] LABS: Tricyclic Antidepressants Negative (Negative)
[2021-08-16 08:00] LABS: Acetaminophen < 2 ug/mL (10-30); Salicylate < 2.8 mg/dL (<2.8)
[2021-08-16 08:01] LABS: ALT 36 U/L (14-59); AST 23 U/L (15-37); Albumin 3.9 g/dL (3.4-5.0); Alkaline Phosphatase 106 U/L (46-116); Anion Gap 8.5 mmol/L (3-11); BUN 15 mg/dL (7-18); Bilirubin, Total 0.6 mg/dL (0.2-1.0); CO2 29.5 mmol/L (21.0-32.0); CREATININE 0.8 mg/dL (0.55-1.02); Calcium 9.5 mg/dL (8.5-10.1); Chloride 102 mmol/L (98-107); ETHANOL BLOOD < 3.0 mg/dL (<10); Glucose 105 mg/dL (74-106); Potassium 4.1 mmol/L (3.5-5.1); Sodium 140 mmol/L (136-145); TSH (W/Ref FT4) 7.15 uIU/mL (0.36-3.74); Total Protein 7.5 g/dL (6.4-8.2)
[2021-08-16 08:18] LABS: FREE T4 0.96 ng/dL (0.76-1.46)
[2021-08-16 10:23] VITALS: BP 127/70; PULSE 68; TEMP 36.7; O2SAT 97
--- NOTE | 2021-08-16 12:55 | PDOC.MHCN_ITS ---
Date of service: 08/16/21 Time of Service: 12:55 Mental Health Crisis Note Presenting Issue How did you arrive at the ED and why did you come: Pt arrived on 08.16.2021 via herself due to thoughts of wanting to . Precipitating Factors Pt reported that she is having thoughts of wanting to be but does not want to . She has thoughts to overdose on her Ativan however, reported when she has these thoughts she calls her daughter who holds on to them for her. She denied HI and NSSI. Pt is not showing any signs of delusions. Disposition BEHAVIOR: Pt is cooperative and circumstantial and repetitive in her report of events. She has clearly had a lot that has happened in her life the past few months and this has caused her a great deal of stress and inability to function outside of work. She has good insight and judgment at the same time. EYE CONTACT: Pt made fair eye contact. MOOD: Pt described her mood as depressed and anxious. AFFECT: Pt's affect is congruent with her mood. APPETITE: Pt reported her appetite is good. SLEEP(trouble falling/staying asleep: Pt reported her sleep is not good reporting only 3 hours a night. Plan Pt was discharged home with a excuse from work note for the remainder of the week. She will do daily check in calls with [facility] and will meet with Dr. Waite to discuss her sleep issues at 11:30 today. She will focus this week on self care and have a discussion with her family about chores and meals to get help from others. She will also ask her daughter to continue to hold the medications for the time being and only dispense what she needs for the day. Signature Clinician's Name/Title: Jemima Cabrera MS, [facility] Emergency Services Clinician, [facility]
[2021-08-16 15:08] LABS: COVID-19 PCR Negative (Negative)
== END 2021-08-16 10:36 | disposition home or self-care (01) ==
PROVIDERS: Student in an Organized Health Care Education/Training Program; Emergency Provider Emergency Medicine; PCP Nurse Practitioner Family
DX: F32.A Depression, unspecified (principal); R45.851 Suicidal ideations
CPT/HCPCS: 36415; 80053; 80307; 87635; 99283; 99285; 80320; 80329; 84439; 84443; 85025

== ENCOUNTER 2021-09-12 14:34 | Outpatient (CLI) | payer OTHER, SELFPAY ==
--- NOTE | 2021-09-12 10:30 | DI.RAD_ITS ---
Exam(s) XR LUMBAR SPINE COMPLETE EXAM: XR LUMBAR SPINE COMPLETE CLINICAL HISTORY: Dorsalgia, back pain s/p fall, M54.9, W19.XXXA TECHNIQUE: COMPARISON: No exams were available for comparison FINDINGS: Five views were obtained. The SI joints appear well maintained. The intervertebral disc spaces appe ar of normal height throughout the lumbar region. No compression fracture identified. There are mod erate hypertrophic degenerative changes of the facet joints throughout the lumbar region. Mild endpl ate hypertrophic changes are also noted. 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 RADIATION DOSE DELIVERED: Total DLP
--- NOTE | 2021-09-12 10:30 | DI.RAD_ITS ---
Exam(s) XR HIP RT COMPLETE AP PELVIS EXAM: XR HIP RT COMPLETE AP PELVIS CLINICAL HISTORY: Rt hip pain s/p fall on 09/06/21, M25.551, W19.XXX TECHNIQUE: COMPARISON: CR LEFT HIP COMPLETE from 09/15/2008 FINDINGS: Three views were obtained. The cartilaginous joint spaces of both hips appear fairly well maintained . There are hypertrophic degenerative changes of the acetabula E and greater trochanters of the femu rs bilaterally. No other significant bony abnormality seen. IMPRESSION: Mild DJD both hips. RADIATION DOSE DELIVERED: Total DLP
== END 2021-09-12 14:54 ==
LOC: DI 14:43
PROVIDERS: PCP Nurse Practitioner Family; Visit Provider Nurse Practitioner
DX: M54.59 Other low back pain (principal); M25.551 Pain in right hip; M47.816 Spondylosis without myelopathy or radiculopathy, lumbar region; M16.11 Unilateral primary osteoarthritis, right hip; Z91.81 History of falling
CPT/HCPCS: 72110; 73502

== ENCOUNTER 2022-06-17 10:21 | Emergency (ER) | payer OTHER, SELFPAY ==
[2022-06-17 10:29] VITALS: BP 138/69; PULSE 68; RESP 18; TEMP 36.3; O2SAT 97
--- NOTE | 2022-06-17 10:45 | DI.RAD_ITS ---
Exam(s) XR KNEE RT 4V+ EXAM: XR KNEE RT 4V+ CLINICAL HISTORY: fall/pain. TECHNIQUE: 2D digital imaging was performed. Four views. COMPARISON: No exams were available for comparison FINDINGS: BONES: No acute fracture is present. No bony destructive lesion is seen. JOINTS: The knee is normally aligned. No joint effusion is seen. Joint spaces are maintained SOFT TISSUE: Normal. IMPRESSION: Unremarkable radiographs of the right knee. DATA REPOSITORY: RADIATION DOSE DELIVERED:
--- NOTE | 2022-06-17 11:38 | DI.VRAD_ITS ---
PROCEDURE INFORMATION: Exam: XR Right Knee Exam date and time: 06/17/2022 11:24 AM Age: 57 years old Clinical indication: Injury or trauma; Fall; Sprain or strain; Patella or knee; Right TECHNIQUE: Imaging protocol: Radiologic exam of the Right knee. Views: 4 or more views. COMPARISON: CR RIGHT TIB/FIB 12/20/2016 16:10 FINDINGS: Bones/joints: No fracture or other osseous abnormality. Joint spaces are well preserved. No significant effusion. No varus or valgus angulation. Soft tissues: Normal. IMPRESSION: Normal knee. Dictated and Authenticated by: Babar Saeed MD. Ordering:NNAMDI Kelly MD
--- NOTE | 2022-06-17 11:42 | W.ED.GENAD ---
Discharge Plan Disposition Patient Disposition: Home Condition: Stable Discharge Details Clinical Impression: Pain in right knee Primary Care Provider: Lyn Sinclair ED Provider: Robin Luz Home Meds and New Rx's Prescriptions: Continued folic acid 1 mg tablet 1 mg PO DAILY Qty: 90 3RF cholecalciferol (vitamin D3) 4,000 unit capsule 4,000 unit PO DAILY Qty: 90 3RF aspirin 81 mg tablet,delayed release (DR/EC) 81 mg PO DAILY lactobacillus combination no.8 PO vitamin B complex Tablet 1 tab PO DAILY clobetasol 0.05 % cream 1 applic TP DAILY (DME) blood-glucose meter Misc 1 ea Miscellaneous DAILY Qty: 1 0RF Rx Instructions: Dx: E11.9 to maintain HbA1c less than 7%. No insulin. Please dispense brand covered by insurance. chlorhexidine gluconate [Antiseptic Skin Clnsr(chlorhe)] 4 % liquid 1 applic topical DAILY Qty: 960 0RF Rx Instructions: Rinse skin with water, then apply minimum amount needed to cover skin. Wash gently, then rinse. hydrocodone-acetaminophen 5-325 mg tablet 1 tab PO TID MDD 15mg PRN (Reason: pain) Qty: 9 0RF capsaicin 0.075 % cream 1 applic topical QID PRN (Reason: diabetic neuropathy) Qty: 120 1RF Rx Instructions: Avoid contact with eyes and mucous membranes. Gently rub into painful area until thoroughly absorbed. Wash hands with soap and water immediately after applying (unless hands are part of the treatment area). Do not wash area for at least 30 min after application. omega-3 fatty acids [Fish Oil Concentrate] 1,000 mg capsule 1,000 mg PO DAILY Metamucil (sugar) Powder 1 tbsp PO DAILY PRN docusate sodium [Colace] 100 mg capsule 100 mg PO DAILY albuterol sulfate 90 mcg/actuation HFA aerosol inhaler 1 - 2 puff inhalation Q4H PRN (Reason: shortness of breath or wheezing) Qty: 1 3RF Rx Instructions: Dispense brand of albuterol inhaler covered by patient's insurance magnesium 250 mg tablet 250 mg PO DAILY cyanocobalamin (vitamin B-12) 1,000 mcg tablet 2,000 mcg PO DAILY Qty: 180 3RF bupropion HCl [Wellbutrin XL] 300 mg tablet extended release 24 hr 300 mg PO QAM Rx Instructions: 05/14/20-[facility] note: increase to 300mg daily. per [facility] note-05/24/20-to take 300mg during winter Ailyn minocycline 100 mg capsule 100 mg PO DAILY atorvastatin 10 mg tablet 10 mg PO DAILY Qty: 90 3RF Jardiance 25 mg tablet 25 mg PO DAILY AM Qty: 90 3RF Rx Instructions: Administer once daily in the morning, with or without food levothyroxine 25 mcg tablet 25 mcg PO DAILY Qty: 90 3RF metformin 1,000 mg tablet 1,000 mg PO BID Qty: 180 3RF pantoprazole 40 mg tablet,delayed release (DR/EC) 40 mg PO DAILY Qty: 90 3RF Rx Instructions: Take 40 mg daily once daily at least 30-60 minutes before first meal of the day (DME) Blood Glucose Test Strip See Rx Instructions .ROUTE .MEDSUPPLY Qty: 100 0RF Rx Instructions: As directed to check daily morning fasting blood glucose. No insulin. Dispense covered brand. Januvia 25 mg tablet 25 mg PO DAILY Qty: 90 3RF cetirizine [Zyrtec] 10 MG tablet 10 mg PO PRN PRN lorazepam 0.5 mg tablet 0.5 mg PO BID PRN lorazepam 0.5 mg tablet 1 mg PO HS Discharge Instructions Instructions: Knee Pain (ED) Additional Instructions: X-ray of your knee is unremarkable. Wear knee wrapping as needed, advance activity as tolerated. Rest, elevate, cool and/or warm compresses every 2 hours for 20 minutes. [id number] medications as directed for symptomatic control. Please watch for new or worsening symptoms and return to the ER for any concerns. If conservative measures are not helping with your discomfort I recommend outpatient follow-up through your PCP and likely outpatient MRI. Discharge Data Discharge Date/Time-TO BE ENTERED AT DEPARTURE: 06/17/22 12:21 Medical Decision Making 57-year-old female reports mechanical fall directly onto her right knee 3 days ago. Has been ambulatory but reports ongoing pain. Clinically she appears well, nontoxic. Knee with full range of motion, stable. No laxity. Will obtain x-ray and reassess X-ray unremarkable. Discussed x-ray findings with patient and family. Declines crutches. We will apply a bulky knee wrap for stability. Discussed [id number] medications for symptomatic control and the importance of outpatient follow-up if conservative measures are not helping with her discomfort over the next week or so. Standard discharge and return precautions were provided. Patient understands, is agreeable to this plan, and has no additional questions or concerns upon discharge. This documentation was generated using [employer] dictation system, please disregard any oddities of phrase or misspellings. Imaging Data Radiologic Study: Attestation: I personally reviewed and interpreted this imaging study as follows: Imaging: X-Ray Radiologist's impression: PROCEDURE INFORMATION: Exam: XR Right Knee Exam date and time: 06/17/2022 11:24 AM Age: 57 years old Clinical indication: Injury or trauma; Fall; Sprain or strain; Patella or knee; Right TECHNIQUE: Imaging protocol: Radiologic exam of the Right knee. Views: 4 or more views. COMPARISON: CR RIGHT TIB/FIB 12/20/2016 16:10 FINDINGS: Bones/joints: No fracture or other osseous abnormality. Joint spaces are well preserved. No significant effusion. No varus or valgus angulation. Soft tissues: Normal. IMPRESSION: Normal knee. Thank you for allowing us to participate in the care of your patient. Sign Out No HPI General Mode of arrival: ambulatory. Date/Time Provider Initiated Documentation: 06/17/22 10:42. Limitations to Documentation: no limitations. Information obtained by: patient. History of Present Illness 57 year old F presents to the emergency department with the chief complaint of R knee pain, described as moderate, with intensity rated at 5. Quality is described as aching, and is localized to the right and lower extremity. Patient reports no radiation. Patient started experiencing this day(s) (3) and it has been constant. Immobilization improves symptom(s), Movement worsens symptoms . Patient notes no other symptoms.. Patient did receive the following treatments prior to arrival, NSAID Related Data Home Medications Medication Instructions Recorded Confirmed cetirizine 10 mg tablet (Zyrtec) 10 mg PO PRN PRN 05/30/15 06/08/22 cholecalciferol (vitamin D3) 100 4,000 unit PO DAILY #90 tab-caps 08/22/18 06/08/22 mcg (4,000 unit) capsule folic acid 1 mg tablet 1 mg PO DAILY #90 tab-caps 08/22/18 06/08/22 omega-3 fatty acids 1,000 mg 1,000 mg PO DAILY 10/31/18 06/17/22 capsule (Fish Oil Concentrate) aspirin 81 mg tablet,delayed 81 mg PO DAILY 03/20/19 06/08/22 release clobetasol 0.05 % topical cream 1 applic topical DAILY 09/25/19 06/08/22 lactobacillus combination no.8 PO 09/25/19 06/08/22 [Adult Probiotic] vitamin B complex 1 tab PO DAILY 09/25/19 06/17/22 blood-glucose meter #1 unit 10/19/19 06/08/22 bupropion HCl 300 mg 24 hr tablet, 300 mg PO QAM 06/27/20 06/08/22 extended release (Wellbutrin XL) docusate sodium 100 mg capsule 100 mg PO DAILY 08/05/20 06/08/22 (Colace) psyllium seed (sugar) oral powder 1 tbsp PO DAILY PRN 08/05/20 06/17/22 (Metamucil (sugar) oral powder) chlorhexidine gluconate 4 % 1 applic topical DAILY 01/27/21 06/08/22 topical liquid (Antiseptic Skin folliculitis prevention #960 mL Cleanser (chlorhexidine)) minocycline 100 mg capsule 100 mg PO DAILY 05/26/21 06/17/22 albuterol sulfate 90 mcg/actuation 1 - 2 puff inhalation Q4H PRN 08/11/21 06/08/22 aerosol inhaler shortness of breath or wheezing #1 unit lorazepam 0.5 mg tablet 0.5 mg PO BID PRN 08/16/21 06/17/22 lorazepam 0.5 mg tablet 1 mg PO HS 08/16/21 06/17/22 hydrocodone 5 mg-acetaminophen 325 1 tab PO TID PRN pain #9 tabs 09/12/21 06/08/22 mg tablet atorvastatin 10 mg tablet 10 mg PO DAILY #90 tab-caps 10/26/21 06/08/22 empagliflozin 25 mg tablet 25 mg PO DAILY AM #90 tab-caps 10/26/21 06/08/22 (Jardiance) levothyroxine 25 mcg tablet 25 mcg PO DAILY #90 tab-caps 10/26/21 06/08/22 metformin 1,000 mg tablet 1,000 mg PO BID #180 tab-caps 10/26/21 06/17/22 pantoprazole 40 mg tablet,delayed 40 mg PO DAILY #90 tab-caps 10/26/21 06/17/22 release capsaicin 0.075 % topical cream 1 applic topical QID PRN diabetic 11/24/21 06/08/22 neuropathy #120 grams cyanocobalamin (vitamin B-12) 2,000 mcg PO DAILY #180 tab-caps 03/08/22 06/08/22 1,000 mcg tablet magnesium 250 mg tablet 250 mg PO DAILY Leg cramps 03/08/22 06/17/22 blood sugar diagnostic (Blood #100 ea 04/16/22 06/08/22 Glucose Test strips) sitagliptin phosphate 25 mg tablet 25 mg PO DAILY #90 tab-caps 05/12/22 06/17/22 (Januvia) Previous Rx's Medication Instructions Recorded cholecalciferol (vitamin D3) 100 4,000 unit PO DAILY #90 tab-caps 08/22/18 mcg (4,000 unit) capsule folic acid 1 mg tablet 1 mg PO DAILY #90 tab-caps 08/22/18 blood-glucose meter #1 unit 10/19/19 chlorhexidine gluconate 4 % 1 applic topical DAILY 01/27/21 topical liquid (Antiseptic Skin folliculitis prevention #960 mL Cleanser (chlorhexidine)) albuterol sulfate 90 mcg/actuation 1 - 2 puff inhalation Q4H PRN 08/11/21 aerosol inhaler shortness of breath or wheezing #1 unit hydrocodone 5 mg-acetaminophen 325 1 tab PO TID PRN pain #9 tabs 09/12/21 mg tablet atorvastatin 10 mg tablet 10 mg PO DAILY #90 tab-caps 10/26/21 empagliflozin 25 mg tablet 25 mg PO DAILY AM #90 tab-caps 10/26/21 (Jardiance) levothyroxine 25 mcg tablet 25 mcg PO DAILY #90 tab-caps 10/26/21 metformin 1,000 mg tablet 1,000 mg PO BID #180 tab-caps 10/26/21 pantoprazole 40 mg tablet,delayed 40 mg PO DAILY #90 tab-caps 10/26/21 release capsaicin 0.075 % topical cream 1 applic topical QID PRN diabetic 11/24/21 neuropathy #120 grams cyanocobalamin (vitamin B-12) 2,000 mcg PO DAILY #180 tab-caps 03/08/22 1,000 mcg tablet blood sugar diagnostic (Blood #100 ea 04/16/22 Glucose Test strips) sitagliptin phosphate 25 mg tablet 25 mg PO DAILY #90 tab-caps 05/12/22 (Januvia) Allergies Allergy/AdvReac Type Severity Reaction Status Date / Time doxycycline Allergy Severe tongue Verified 06/17/22 10:33 swelling amoxicillin Allergy Intermediate Swelling/Ed Verified 06/17/22 10:33 domingo morphine Allergy Unknown itch and Verified 06/17/22 10:33 hives zolpidem tartrate AdvReac Severe suicidal Verified 06/17/22 10:33 [From Ambien] metronidazole [From Flagyl] AdvReac Unknown GI UPSET Verified 06/17/22 10:33 oxycodone HCl [From Percocet] AdvReac Unknown hallucinati Verified 06/17/22 10:33 ons trazodone AdvReac Unknown anxiety Verified 06/17/22 10:33 General Stated Complaint: Fall/Non TraumaCriteria SHAUNA: 4 Review of Systems Constitutional Constitutional: Denies fever(s) and Denies weakness Musculoskeletal Musculoskeletal: Reports arthralgias, Denies numbness, Reports stiffness and Denies tingling Integumentary/Breasts Skin/Breast: Denies erythema Neurologic Neurologic: Denies numbness, Denies tingling and Denies weakness PFSH All Active Problems Pain in right knee (Acute) Diabetic peripheral neuropathy (Acute) 12/19/21 Podiatry [facility] Vitamin B12 deficiency (Acute) Neuropathy (Acute) Iron deficiency anemia (Acute) Diabetic retinopathy of both eyes (Chronic 08/16/20) 08/29/21-mild bilat-[facility] Esophageal stricture (Chronic) S/p dilatation in 06/2017 (Jennifer Wright) Chronic anemia (Chronic) Multifactorial, s/p gastric bypass with vitamin B12, folate, and iron deficiencies; baseline Hgb ~10 Type 2 diabetes mellitus without complication, without long-term current use of insulin (Chronic) [facility] Endocrinology in the past Anxiety and depression (Chronic) Managed by [facility] Restless leg syndrome (Chronic) Insomnia (Chronic) Vitamin D deficiency (Chronic 03/14/12) MANAGED BY DR JOSEPH [facility]; dx'ed 2011 Vit D Sleep apnea (Chronic 03/09/13) Polycystic ovaries (Chronic 03/09/13) Megaloblastic anemia (Chronic 09/06/11) S/p gastric bypass Hypothyroidism (Chronic 09/08/12) Hyperlipidemia (Chronic 03/09/13) 02/2019 labs: 10-year ASCVD risk = ~10% --> started on moderate intensity statin therapy Gastroesophageal reflux disease (Chronic 03/09/13) EGD 05/30/2015, again 02/2017 with [facility] Folliculitis (Chronic 03/14/12) Scalp; managed with Minocycline prn Folate deficiency (Chronic 05/13/17) Carpal tunnel syndrome (Chronic 03/09/13) [place] Allergic rhinitis (Chronic 05/12/12) Environmental--controlled with Zyrtec and prn Xopenex with known triggers such as moldy basements Medical History Latent tuberculosis by blood test NL CXR 05/09/2020; 06/09/20 [facility] ID consult --> proceed with 4mo rifampin regimen; complete 10/2020 Surgical History EGD - MAC (02/26/17) EGD - MAC (07/02/17) EGD/COLONOSCOPY W/ MAC (05/30/15) DR. VIRAMONTES Endometrial Biopsy (04/11/16) History of local excision of skin lesion (06/06/21) Dr. Paez 1) pilar cyst scalp 2) nevus left nasal alar crease Family History Brother Colon cancer Daughter Asthma Son Asthma Hypertension Father Prostate cancer Depression Diabetes Heart disease Hypertension Paternal Grandmother Cancer Pancreatic Aunt Breast cancer Mother Diabetes Heart disease Hypertension Social History Smoking/Tobacco Use Status: Never Smoking risk assessment performed?: Yes Alcohol Intake: current Alcohol Intake frequency: holidays/special occasions only Drug use: Never Substance use type: does not use Adopted: No Caregiver/Support person: No Foster care: No Household members: significant other and children Housing: house Number of Children: 4 number of grandchildren: 0 Communication Needs: None Education Level: college Details: Associate's degree 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 Pets and animals: Yes (1 cat) Pets and animals: cat(s) Sexually active: Yes Do you think of yourself as: straight/heterosexual Current gender identity: female What is your relationship status?: living with partner How often do you talk on the phone with friends or family?: three or more times per week How often do you get together with friends or relatives?: three or more times per week Do you belong to any clubs or organized social groups?: no Panel score (0-1 are the most socially isolated patients): 2 NHANES result reviewed/action taken: Yes What type of physical activity do you participate in: none Frequency: 5-6 times per week Adry/Sikh: None Special adry needs: No Seatbelt use: always Drive intox or ride w/intox airport driver: No Do you feel safe at home: Yes Do you feel safe in your relationship?: Yes Exam Const General: cooperative, healthy appearing, comfortable and no acute distress Orientation: alert and awake [facility] Head: normal to inspection, normocephalic and atraumatic Eyes Conjunctivae: conjunctivae normal Neck Neck: normal visual inspection, full ROM, trachea midline and supple Resp Effort & Inspection: normal respiratory effort and able to speak in complete sentences Cardio Rate: regular rate Rhythm: regular rhythm Skin General skin exam: no rashes or lesions noted Neuro General: patient alert, patient awake, moves all extremities and no focal motor deficits Cognition: normal cognition Speech: speech normal Gait: antalgic (Slightly) Motor: muscle tone normal throughout Sensory Exam: no sensory deficits noted Extrem General: full ROM and capillary refill normal Other: Right knee anterior aspect with diffuse tenderness and centrally there is an abrasion. There is no erythema or warmth. Full range of motion. Knee is stable. Negative anterior draw sign. Hip and ankle unremarkable. Normal dorsalis pedal pulse and capillary refill. Psych Appearance: grossly normal Mental Status: mental status grossly normal Course Vital Signs Vital signs: Vital Signs Temperature 36.3 C L 06/17/22 10:29 Pulse 68 06/17/22 10:29 Respiratory Rate 18 06/17/22 10:29 Blood Pressure 138/69 06/17/22 10:29 Pulse Oximetry 97 06/17/22 10:29 Temperature 36.3 C L 06/17/22 10:29 Temperature Source Temporal Artery Scan 06/17/22 10:29 Pulse 68 06/17/22 10:29 Respiratory Rate 18 06/17/22 10:29 Respiratory Effort Non-Labored 06/17/22 10:33 Blood Pressure 138/69 06/17/22 10:29 Blood Pressure Position Sitting 06/17/22 10:29 Pulse Oximetry 97 06/17/22 10:29 Oxygen Delivery Method Room Air 06/17/22 10:29 Oxygen Flow Rate 0 06/17/22 10:29
== END 2022-06-17 12:21 | disposition home or self-care (01) ==
PROVIDERS: Emergency Provider Physician Assistant; PCP Nurse Practitioner Family
DX: G89.11 Acute pain due to trauma (principal); M25.561 Pain in right knee; W19.XXXA Unspecified fall, initial encounter
CPT/HCPCS: 99283; 73564; 99282

== ENCOUNTER 2022-08-06 16:03 | Outpatient (CLI) | payer BC, SELFPAY ==
--- NOTE | 2022-08-06 15:45 | DI.RAD_ITS ---
Exam(s) XR HAND RT COMPLETE XR WRIST RT COMPLETE EXAM: XR WRIST RT COMPLETE and XR hand right complete CLINICAL HISTORY: hand and wrist pain, weakness, M79.641, R29.898, W19.XXXA. TECHNIQUE: 2D digital imaging was performed of the right wrist. Six views were obtained. PA, later al and oblique views were obtained. COMPARISON: None. FINDINGS: BONES: No acute fracture is present. No bony destructive lesion is seen. There is a small benign-appe aring cyst in the ulnar styloid process. JOINTS: The carpal bones are normally aligned. There are moderate degenerative changes seen at the 1s t CMC joint with joint space narrowing and marginal osteophytes. SOFT TISSUE: Normal. 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 DATA REPOSITORY: RADIATION DOSE DELIVERED:
== END 2022-08-06 16:23 ==
PROVIDERS: PCP Nurse Practitioner Family; Visit Provider Nurse Practitioner
DX: M18.11 Unilateral primary osteoarthritis of first carpometacarpal joint, right hand (principal); R29.898 Other symptoms and signs involving the musculoskeletal system; W19.XXXA Unspecified fall, initial encounter
CPT/HCPCS: 73110; 73130

== ENCOUNTER 2022-09-07 00:50 | Outpatient (CLI) | payer BC, SELFPAY ==
--- OUTSIDE RECORDS SUMMARY | 2022-09-07 00:52 | XMS_ITS ---
Author Name Fernando Pearl Address [address] [place], [place] [id number] Organization [facility] Address [address] [place], [place] [address] Care Team Providers Care Shank Pinner Name Role Phone Fernando Pearl Unavailable [phone] PROBLEMS Type Condition ICD9-CM Code [id number] Code Onset Dates Condition Status SNOMED Code Problem Dyspareunia in female N94.10 Active 79537833 Problem History of endometrial ablation Z98.890 Active 035667547425860 Problem Polycystic ovaries E28.2 Active 08539 008 Problem Hirsutism L68.0 Active 908073314 Problem Rectocele N81.6 Active 228767307 Problem Acquired hypothyroidism E03.9 Active 109964323 ALLERGIES Substance Reaction Event Type Date Status Doxycycline tongue itches Drug Allergy Dec, Active Amoxicillin mouth swelling Drug Allergy Dec, Activ e Penicillin V Potassium mouth swelling Drug Allergy Dec, Active Morphine Sulfate hives Drug Allergy Dec, Acti ve Trazodone HCl hyperactivity Drug Allergy Dec, Acti ve Ambien suicidal Drug Allergy Dec, Active Percocet hallucination Drug Allergy Dec, Active ENCOUNTERS Encounter Location Date Diagnosis [facility] [address] [id number] Feb, [facility] [address] [facility] [address] [place], [place] [id number] November, [facility] [address] [place] [address] [id number] Oct, Pre-employment health screening examination Z02.[address] [id number] Oct, [facility] [address] [id number] 16 Jul, 2021 Encounter for screening laboratory testing for COVID-19 virus Z20.[address] [id number] 16 Jun, 2021 Dyspareunia in female N94.10 [facility] [address] [place] [address] [id number] May, [address] [id number] 04 Nov, 2020 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) w/o abn findings Z01.419 ; Encounter for screening for malignant neoplasm of cervix Z12.4 ; Breast cancer screening by mammogram Z12.31 ; History of endometrial ablation Z98.890 ; Candidiasis B37.9 and Dyspareunia in female N94.10 [facility] Occupational Health Department [address] [place] [address] [id number] 03 Sep, 2020 COVID-19 vaccine administered Z23 [facility] Occup[facility] Department [address] [place] [address] [id number] 11 Aug, 2020 COVID-19 vaccine administered Z23 [address] [id number] Feb, Encounter for other screening for malignant neoplasm of breast Z12.[address] [id number] Feb, LGSIL on Pap smear of cervix R87.612 and Vulvovaginitis bee albicans B37.[address] [id number] Aug, [address] [id number] Aug, LGSIL on Pap smear of cervix R87.612 and Screening examination for infectious disease Z11.[address] [id number] May, Vulvovaginitis bee albicans B37.[address] [id number] Feb, [address] [id number] Feb, LGSIL on Pap smear of cervix R87.612 ; 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) w/o abn findings Z01.419 ; Encounter for screening for malignant neoplasm of cervix Z12.4 and Screening for breast cancer Z12.[address] [id number] Dec, Vulvovaginitis bee albicans B37.3 ; Cervical cancer screening Z12.4 and Screening examination for infectious disease Z11.[address] [id number] Aug, [address] [id number] Oct, Acute vulvitis N76.[address] [id number] Sep, [address] [id number] Sep, Acute vulvitis N76.[address] [id number] Sep, [address] [id number] Mar, [address] [id number] Mar, 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) w/o abn findings Z01.419 ; Encounter for screening for malignant neoplasm of cervix Z12.4 ; Acquired hypothyroidism E03.9 ; Visit for screening mammogram Z12.31 ; Abnormal uterine bleeding (AUB) N93.9 and Rectocele N81.[address] [id number] Aug, Metrorrhagia 626.6 and Rectocele 618.04 [facility] [address] [place] [address] [place] [address] [id number] Jun, Hirsutism 704.1 and Polycystic ovarian disease 256.4 [facility] [address] [id number] Dec, FOLLOW-UP SURGERY NOS V67.00 [facility] Op [address] [place], [place] [id number] November, Menorrhagia 626.2 and Rectocele 618.04 UNKNOWN Oct, UNKNOWN Oct, [facility] [address] [id number] Oct, [address] [id number] Oct, [address] [id number] Oct, [address] [id number] Oct, Menorrhagia 626.2 and Rectocele 618.04 [facility] [address] [id number] Aug, Lump in breast 611.72 [facility] [address] [id number] Aug, Lump in breast 611.[address] [id number] Aug, IMMUNIZATIONS Vaccine Route Administration Date Status COVID-19 (Moderna BOOSTER) mRNA,LNP-S,PF 50 mcg/0.25mL dose IM Intramuscular Mar 12, 2022 Adminis tered COVID-19 (Moderna) mRNA,LNP- S,PF 100 mcg/0.5mL dose IM Intramuscular Jun 09, 2021 Administered COVID-19 (Moderna) mRNA,LNP- S,PF 100 mcg/0.5mL dose Unknown Aug 24, 2020 Administered COVID-19 (Moderna) mRNA,LNP- S,PF 100 mcg/0.5mL dose Unknown Jul 27, 2020 Administered SOCIAL HISTORY Qualifiers Date Former Smoker REASON FOR REFERRAL FUNCTIONAL STATUS PLAN OF CARE VITAL SIGNS Height 64.5 in 2020-11-22 Height 64.5 in 2020-03-09 Height 64.5 in 2019-09-09 Height 64.5 in 2019-03-11 Height 64.5 in 2019-01-14 Height 64.5 in 2016-10-19 Height 64.5 in 2016-04-11 Height 64.5 in 2013-09-14 Height N/A in 2012-06-30 Height N/A in 2012-01-11 Height 64.5 in 2011-10-22 Height 64.5 in 2011-09-13 Weight 158 lbs 2020-11-22 Weight 158.2 lbs 2020-03-09 Weight 159.2 lbs 2019-09-09 Weight 163.6 lbs 2019-03-11 Weight 175.2 lbs 2019-01-14 Weight 210.4 lbs 2016-10-19 Weight 215.6 lbs 2016-04-11 Weight 209.4 lbs 2013-09-14 Weight 202 lbs 2012-06-30 Weight 202.8 lbs 2012-01-11 Weight 206.6 lbs 2011-09-13 BMI 26.70 kg/m2 2020-11-22 BMI 26.73 kg/m2 2020-03-09 BMI 26.90 kg/m2 2019-09-09 BMI 27.65 kg/m2 2019-03-11 BMI 29.61 kg/m2 2019-01-14 BMI 35.55 kg/m2 2016-10-19 BMI 36.43 kg/m2 2016-04-11 BMI 35.38 kg/m2 2013-09-14 BMI 34.13 kg/m2 2012-06-30 BMI 34.27 kg/m2 2012-01-11 BMI 34.91 kg/m2 2011-09-13 Blood pressure systolic 130 mm Hg Blood pressure diastolic 68 mm Hg 2020-11 MEDICATIONS Medication Instructions Dosage Frequency Start Date End Date Duration Status Minocycline HCl 100 MG TK 1 T PO D FOR 7 TO 10 DAYS NEEDED FOR SCALP FOLLICULITIS 10 Active Zyrtec 10mg 1 24h Acti ve Omeprazole 20 MG Orally twice daily 1 capsule Not-Taki ng Ativan 0.5 MG Orally up to 2mg daily as needed Active Vitamin D3 1000 UNIT Orally Once a day 1 tablet 24h Active Atorvastatin Calcium 10 MG Orally Once a day 1 tablet 24h Active Januvia 25 MG 90 Ac tive Fish Oil 1000 MG Orally Once a day 1 capsule 24h Active Jardiance 25 MG Orally Once a day 1 tablet 24h Active Multivitamin - Orally Once a day 1 tablet 24h 30 day(s) Active Vitamin C 500 MG Orally Once a day 1 tablet 24h 30 day(s) Active Colace 100 MG Orally Once a day 1 capsule as needed 24h 30 day(s) Active metFORMIN HCl 1000 MG Orally Twice a day 1 tablet with meals 12h Active Folic Acid 1 MG Orally Once a day 1 tablet 24h 30 day(s) Active Clobetasol Propionate 0.05 % Externally Twice a day 1 application to affected area 12h Dec, 7 day(s) Active F79-Tisbrv 1 MG as directed Active Vitamin B12 1000 MCG Orally Once a day 1 tablet 24h 30 day(s) Active Pantoprazole Sodium 40 MG 90 Active Vitamin B Complex - as directed Active Cyanocobalamin 1000 MCG/ML 1 ml 30 day(s) Active Motrin IB 200 MG Orally every 6 hrs 1 tablet as needed 6h Active Estradiol 0.1 MG/GM Vaginal Three nights a week 1 gram as directed Jun, 90 days Active Wellbutrin XL 150 MG Orally Once a day 1 tablet in the morning 24h Active Ferrous Sulfate 325 (65 Fe) MG Orally Once a day 1 tablet 24h Not-Taki ng Venofer 20 MG/ML as directed Active Aspirin 81 81 MG Orally Once a day 1 tablet 24h 30 day(s) Active Levothyroxine Sodium 25 MCG 90 Active PROCEDURES Procedure Date Ordered Result Body Site COVID-19 (SARS-CoV-2) vaccine, 100 mcg/0.5mL dosage No v 2020 ZOHRA -PHONE E/M PHYS/QHP 5-10 MIN Aug 06, 2021 CRISTINA/WET MOUNT VAGINAL January 14, 2019 COLPOSCOPY CERVIX AND UPPER VAGINA Mar 11, 2019 ENDOMETRIAL BIOPSY W/O CERVICAL DILATION Apr 11, 2016 CRISTINA/WET [place]OUNT VAGINAL October 19, 2016 RESULTS Name Result Date Reference Range QUANTIFERON TB GOLD PLUS (474452) 2021-12 QuantiFERON Criteria Comment QuantiFERON TB1 Ag Value 0.44 QuantiFERON TB2 Ag Value 0.47 QuantiFERON Nil Value 0.00 QuantiFERON Mitogen Value >10.00 QuantiFERON TB Gold Plus Positive Neg ative COVID 19 (POS) SOFIA2 SARS Ag 2021-08-06 Flu A Flu B SARS negative MG MAMMOGRAPHY BILATERAL SCREENING -19 Pap Lb, rfx HPV all pth 2020-11-22 . Note: . Clinical history: DIAGNOSIS: Specimen adequacy: Additional comment: Recommendation: Performed by: Electronically signed by: Test ordered: Maturation index: Amended report: Addendum: QC reviewed by: Cytology history: Special procedure: QA comment: Diagnosis provided by: Source: Pathologist provided ICD9: Clinician provided ICD9: Interpretation LBP CPT Code Automation MG MAMMOGRAPHY BILATERAL SCREENING 2019-07 Pap Lb, rfx HPV all pth 2020-03-09 . Note: . Clinical history: DIAGNOSIS: Specimen adequacy: Additional comment: Recommendation: Performed by: Electronically signed by: Test ordered: Maturation index: Amended report: Addendum: QC reviewed by: Cytology history: Special procedure: QA comment: Diagnosis provided by: Source: Pathologist provided ICD9: Clinician provided ICD9: Interpretation LBP CPT Code Automation Pap Lb, Ct-Ng, rfx HPV all 2019-09-09 . Chlamydia, Nuc. Acid Amp Gonococcus, Nuc. Acid Amp Note: . Clinical history: DIAGNOSIS: Specimen adequacy: Additional comment: Recommendation: Performed by: Electronically signed by: Test ordered: Maturation index: Amended report: Addendum: QC reviewed by: Cytology history: Special procedure: QA comment: Diagnosis provided by: Source: Pathologist provided ICD9: Clinician provided ICD9: Interpretation LBP CPT Code Automation MG MAMMOGRAPHY BILATERAL SCREENING 2018-07 Pap Lb, Ct-Ng, rfx HPV all 2019-01-14 . Chlamydia, Nuc. Acid Amp Gonococcus, Nuc. Acid Amp Note: . Clinical history: DIAGNOSIS: Specimen adequacy: Additional comment: Recommendation: Performed by: Electronically signed by: Test ordered: Maturation index: Amended report: Addendum: QC reviewed by: Cytology history: Special procedure: QA comment: Diagnosis provided by: Source: Pathologist provided ICD9: Clinician provided ICD9: Interpretation LBP CPT Code Automation TSH / Reflexed FT4 2016-04-11 TSH 5.543 0.358-3.740 T4F 0.80 0.76-1.46 MG MAMMOGRAPHY BILATERAL SCREENING 2015-07 004 Pap Lb, rfx HPV all pth 2016-04-11 . Note: . 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, 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, Pre-employment TB screening orders, FYI-Estradiol rx, zohra diarrhea-de león escape silver-patient here, Point of Service COVID 19 Screening, Prior Auth needed , moderna, Open Cut Examiner est well woman , would like a refill of fluconazole, COVID-19 Vaccine Record Updated,COVID-19 Vaccine Administered, COVID-19 Vaccine Administered, Open Cut Examiner est well woman , COVID-19 VaccineRecord Updated, COVID-19 Vaccine Administered, * Mammogram needed, BREEDER HEN SERVICE TECHNICIAN 6 month follow up , she would like a refill Fluconazole and Clobetasol , HPV vaccine, BREEDER HEN SERVICE TECHNICIAN EST 6 MO F/U PAP, Diflucan refill, Schedule Mammogram , 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 , HPV vaccine not covered., ? Colpo, BREEDER HEN SERVICE TECHNICIAN vaginal irritation, vaginal irritation started over the weekend, on new med for DM that can cause yeast infections. Has tried Diflucan and otc topical things without improvement, Yeast infection wants diflucan, Rx failed, Wonders if two prescriptions, BREEDER HEN SERVICE TECHNICIAN rectal burning and extreme itchiness, Yeast Infection, , Would like Results if Available, please, BREEDER HEN SERVICE TECHNICIAN EST , BREEDER HEN SERVICE TECHNICIAN discharge, Pt states as above but It's pretty much gone away, Pt would like to dicuss the pain she has been having in her ovaries with you as well, BREEDER HEN SERVICE TECHNICIAN discharge, BREEDER HEN SERVICE TECHNICIAN discharge/req 03/30 appt, ENT-Laser to face, laser, discuss laser to face, BREEDER HEN SERVICE TECHNICIAN 6 week post op-still feeling tired. can feel some poky stitches when she takes a bath, davon 3 mo f/u left breast, OB ablation/rectocele repair, Preop Update, error, pre op phone call, Schedule surg , ins benefits, FYI benefits, BREEDER HEN SERVICE TECHNICIAN heavy cycles, Preop for endometrial ablation and rectocele repair, mammo, davon breast lump L. Pt noticed small lump 3 days ago left upper breast., FYI-consult Insurance Providers Health Insurance Type Health Plan Insurance Address Health Plan Insurance Phone Health Plan Insurance Name Health Plan Coverage Dates Member ID Patient Relationship to Subscriber Patient Address Patient Phone Patient Name Patient Date of Subscriber ID Subscriber Name Subscriber Date of Group No [facility] [address] [facility] [id number] [facility] self Linda Baldauf [id number] [employer] [address] [place] [address] [phone] [employer] [address] Linda Baldauf [id number] [place] [address] [facility] [id number] [place] self Linda Baldauf [id number] [facility] [address] [place] [id number] [facility] self Linda Baldauf [id number] [place] [address] [facility] [address] [phone] [place] Linda Baldauf [id number] [id number]
[2022-09-07 08:06] LABS: Abs Immature Grans 0.06 10^3/uL (0.0-0.06); Absolute Basophil Count 0.08 10^3/uL (0.0-0.2); Absolute Eosinophil Count 0.27 10^3/uL (0.0-0.7); Absolute Lymphocyte Count 1.36 10^3/uL (1.2-3.4); Absolute Monocyte Count 0.56 10^3/uL (0.1-0.8); Absolute Neutrophil Count 5.59 10^3/uL (1.2-6.7); Eosinophils % 3.4; HCT 40.8 % (36.0-46.0); Immature Grans % 0.8; Lymphocytes % 17.2; MCH 27.7 pg (27.0-33.0); MCHC 31.9 % (32.0-36.0); MCV 87 fL (80-95); MPV 11.2 fL (8.0-11.0); Monocytes % 7.1; Neutrophils % 70.5; Platelet Count 232 10^3/uL (130-400); RDW 13.6 % (11.7-14.6); RDW-SD 42.8 fL; WBC 7.92 10^3/uL (4.4-10.8)
[2022-09-07 08:54] LABS: Iron 71 ug/dL (50-170); Total Iron Binding Capacity 386 ug/dL (250-450); Transferrin Sat 18 % (15-50)
[2022-09-07 08:54] LABS: COMMENT (LAB VIEW ONLY) 133.73 mg/dL
[2022-09-07 09:16] LABS: Vitamin D 25 Total 38.5 ng/mL (30-100)
[2022-09-07 09:21] LABS: ALT 34 U/L (14-59); AST 22 U/L (15-37); Albumin 4.1 g/dL (3.4-5.0); Alkaline Phosphatase 127 U/L (46-116); Anion Gap 8.6 mmol/L (3-11); BUN 16 mg/dL (7-18); Bilirubin, Total 0.4 mg/dL (0.2-1.0); CO2 30.4 mmol/L (21.0-32.0); CREATININE 1.1 mg/dL (0.55-1.02); Calcium 9.5 mg/dL (8.5-10.1); Calculated LDL 88 mg/dL (<100); Chloride 101 mmol/L (98-107); Cholesterol 158 mg/dL (<200); Estimated GFR 57.88 (mL/min/1.73m2); Ferritin 17 ng/mL (8-252); Glucose 138 mg/dL (74-106); HDL Cholesterol 40 mg/dL (40-60); Potassium 3.7 mmol/L (3.5-5.1); Sodium 140 mmol/L (136-145); Total Protein 7.6 g/dL (6.4-8.2); Triglyceride 150 mg/dL (<150); Vitamin B12 1197 pg/mL (193-986)
== END 2022-09-07 00:51 | disposition home or self-care (01) ==
LOC: LBO 00:51
PROVIDERS: PCP Nurse Practitioner Family; Visit Provider Nurse Practitioner Family
DX: E11.9 Type 2 diabetes mellitus without complications (principal); D50.8 Other iron deficiency anemias; E55.9 Vitamin D deficiency, unspecified; E78.5 Hyperlipidemia, unspecified; E53.8 Deficiency of other specified B group vitamins
CPT/HCPCS: 36415; 80053; 80061; 82306; 82043; 82570; 82607; 82728; 83036; 83540; 83550; 85025

== ENCOUNTER 2023-01-03 20:02 | Emergency (ER) | payer OTHER, SELFPAY ==
--- NOTE | 2023-01-03 20:15 | RT.EKG_ITS ---
APPROVED REPORT Exam: Resting ECG Reason for Exam: chest pain Patient Location: E HR:69 bpm ECG Measurements Heart Rate 69 AXIS FL 138 P 48 QRSd 129 QRS -32 QT 406 T 66 QTc 437 Conclusion Sinus rhythm...normal P axis, V-rate 60- 99 IVCD, consider RBBB...QRSd>120mS, terminal axis(90,270) Left ventricular hypertrophy...multiple LVH criteria
[2023-01-03 20:21] VITALS: BP 149/68; PULSE 76; RESP 16; TEMP 36.4; O2SAT 100
--- OUTSIDE RECORDS SUMMARY | 2023-01-03 20:26 | XMS_ITS ---
Author Name Fernando Pearl Address [address] [place], [place] [id number] Organization [facility] Address [address] [place], [place] [address] Care Team Providers Care Spare Hand Name Role Phone Fernando Pearl Unavailable [phone] PROBLEMS Type Condition ICD9-CM Code [id number] Code Onset Dates Condition Status SNOMED Code Problem Dyspareunia in female N94.10 Active 32775715 Problem History of endometrial ablation Z98.890 Active 858147879799610 Problem Polycystic ovaries E28.2 Active 85014 008 Problem Hirsutism L68.0 Active 422437905 Problem Rectocele N81.6 Active 882608263 Problem Acquired hypothyroidism E03.9 Active 284140431 ALLERGIES Substance Reaction Event Type Date Status Amoxicillin mouth swelling Drug Allergy Dec, Activ e Percocet hallucination Drug Allergy Dec, Active Penicillin V Potassium mouth swelling Drug Allergy Dec, Active Morphine Sulfate hives Drug Allergy Dec, Acti ve Trazodone HCl hyperactivity Drug Allergy Dec, Acti ve Ambien suicidal Drug Allergy Dec, Active Doxycycline tongue itches Drug Allergy Dec, Active ENCOUNTERS Encounter Location Date Diagnosis [facility] [address] [place] [address] [id number] Feb, [facility] [address] [facility] [address] [place], [place] [id number] November, [facility] [address] [place] [address] [id number] Oct, Pre-employment health screening examination Z02.[address] [id number] Oct, [facility] [address] [id number] 16 Jul, 2021 Encounter for screening laboratory testing for COVID-19 virus Z20.[address] [id number] 16 Jun, 2021 Dyspareunia in female N94.10 [facility] [address] [place] [address] [id number] May, [address] [id number] 04 Nov, 2020 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) (routine) w/o abn findings Z01.419 ; Encounter for screening for malignant neoplasm of cervix Z12.4 ; Breast cancer screening by mammogram Z12.31 ; History of endometrial ablation Z98.890 ; Candidiasis B37.9 and Dyspareunia in female N94.10 [facility] Occupational Health Department [address] [place] [address] [id number] 03 Sep, 2020 COVID-19 vaccine administered Z23 [facility] Occupational Health Department [address] [place] [address] [id number] 11 Aug, 2020 COVID-19 vaccine administered Z23 [address] [id number] Feb, Encounter for other screening for malignant neoplasm of breast Z12.[address] [id number] Feb, LGSIL on Pap smear of cervix R87.612 and Vulvovaginitis bee albicans B37.[address] [id number] Aug, [address] [id number] Aug, LGSIL on Pap smear of cervix R87.612 and Screening examination for infectious disease Z11.[address] [id number] May, Vulvovaginitis bee albicans B37.[address] [id number] Feb, [address] [id number] Feb, LGSIL on Pap smear of cervix R87.612 ; Encntr for 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) (routine) w/o abn findings Z01.419 ; Encounter for screening for malignant neoplasm of cervix Z12.4 and Screening for breast cancer Z12.[address] [id number] Dec, Vulvovaginitis bee albicans B37.3 ; Cervical cancer screening Z12.4 and Screening examination for infectious disease Z11.[address] [id number] Aug, [address] [id number] Oct, Acute vulvitis N76.[address] [id number] Sep, [address] [id number] Sep, Acute vulvitis N76.[address] [id number] Sep, [address] [id number] Mar, [address] [id number] Mar, Encntr for 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) (routine) w/o abn findings Z01.419 ; Encounter for screening for malignant neoplasm of cervix Z12.4 ; Acquired hypothyroidism E03.9 ; Visit for screening mammogram Z12.31 ; Abnormal uterine bleeding (AUB) N93.9 and Rectocele N81.[address] [id number] Aug, Metrorrhagia 626.6 and Rectocele 618.04 [facility] [address] [place] [address] [place] [address] [id number] Jun, Hirsutism 704.1 and Polycystic ovarian disease 256.4 [facility] [address] [id number] Dec, FOLLOW-UP SURGERY NOS V67.00 [facility] Op [address] [place], [place] [id number] November, Menorrhagia 626.2 and Rectocele 618.04 UNKNOWN Oct, UNKNOWN Oct, [facility] [address] [id number] Oct, [address] [id number] Oct, [address] [id number] Oct, [address] [id number] Oct, Menorrhagia 626.2 and Rectocele 618.04 [facility] [address] [id number] Aug, Lump in breast 611.72 [facility] [address] [id number] Aug, Lump in breast 611.[address] [id number] Aug, IMMUNIZATIONS Vaccine Route Administration Date Status [...] affected area 12h Dec, 7 day(s) Active D36-Zshpfp 1 MG as directed Active Vitamin B12 [...] vaccine, 100 mcg/0.5mL dosage No v 2020 COLPOSCOPY CERVIX AND UPPER VAGINA Mar 11, 2019 ZOHRA -PHONE E/M PHYS/QHP 5-10 MIN Aug 06, 2021 ENDOMETRIAL BIOPSY W/O CERVICAL DILATION Apr 11, 2016 CRISTINA/WET MOUNT VAGINAL October 19, 2016 CRISTINA/WET MOUNT VAGINAL January 14, 2019 RESULTS Name Result Date Reference Range QUANTIFERON TB GOLD PLUS (397011) 2021-12 QuantiFERON Criteria Comment QuantiFERON TB1 Ag [...] LEFT 2011-09-13 REASON FOR VISIT #4 Moderna, ROLLED HAM LACER well woman, ROLLED HAM LACER well woman, Pre-employment TB screening orders, FYI-Estradiol rx, zohra diarrhea-de león escape silver-patient here, Point of Service COVID 19 Screening, Prior Auth needed , moderna, 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 Colpo, ROLLED HAM LACER vaginal irritation, vaginal irritation started over the weekend, on new med for DM that can cause yeast infections. Has tried Diflucan and otc topical things without improvement, Yeast infection wants diflucan, Rx failed, Wonders if two prescriptions, ROLLED HAM LACER rectal burning and extreme itchiness, Yeast Infection, , Would like Results if Available, please, ROLLED HAM LACER EST , ROLLED HAM LACER discharge, Pt states as above but It's pretty much gone away, Pt would like to dicuss the pain she has been having in her ovaries with you as well, ROLLED HAM LACER discharge, ROLLED HAM LACER discharge/req 03/30 appt, ENT-Laser to face, laser, discuss laser to face, ROLLED HAM LACER 6 week post op-still feeling tired. can feel some poky stitches when she takes a bath, davon 3 mo f/u left breast, OB ablation/rectocele repair, Preop Update, error, pre op phone call, Schedule surg , ins benefits, FYI benefits, ROLLED HAM LACER heavy cycles, Preop for endometrial ablation and [...] Subscriber Name Subscriber Date of Group No [place] [address] [facility] [id number] [place] self Linda Baldauf [id number] [facility] [address] [facility] [address] [facility] self Linda Baldauf [id number] [facility] [address] [facility] [id number] [facility] self Linda Baldauf [id number] [place] [address] [facility] [address] [phone] [place] Linda Baldauf [id number] [employer] [address] [place] [address] [employer] [address] Linda Baldauf [id number]
[2023-01-03 20:39] LABS: Bilirubin Negative (Negative); Blood Negative (Negative); Clarity Clear (Clear); Glucose >=1000 mg/dL (Negative); Ketones Negative (Negative); Leukocyte Esterase Negative (Negative); Nitrite Negative (Negative); Urobilinogen 0.2 mg/dL (Up to 0.2)
--- NOTE | 2023-01-03 20:45 | DI.RAD_ITS ---
Exam(s) XR PORTABLE CHEST AP EXAM: XR PORTABLE CHEST AP CLINICAL HISTORY: Atypical chest pain. TECHNIQUE: 2D digital imaging was performed. COMPARISON: CR XR CHEST 2V PA LATERAL from 05/09/2020 FINDINGS: Single AP portable view. Heart size is upper normal. The mediastinum is not widened. Lungs are clear. No infiltrates nor obvious pleural effusions. IMPRESSION: No acute pulmonary findings on this single AP portable view of the chest. DATA REPOSITORY: RADIATION DOSE DELIVERED:
[2023-01-03 20:54] VITALS: RESP 18
[2023-01-03 21:12] LABS: Abs Immature Grans 0.02 10^3/uL (0.0-0.06); Absolute Basophil Count 0.05 10^3/uL (0.0-0.2); Absolute Eosinophil Count 0.45 10^3/uL (0.0-0.7); Absolute Lymphocyte Count 1.72 10^3/uL (1.2-3.4); Absolute Monocyte Count 0.59 10^3/uL (0.1-0.8); Absolute Neutrophil Count 4.56 10^3/uL (1.2-6.7); Basophils % 0.7; Eosinophils % 6.1; HCT 34.3 % (36.0-46.0); Immature Grans % 0.3; Lymphocytes % 23.3; MCH 27.5 pg (27.0-33.0); MCHC 32.1 % (32.0-36.0); MCV 86 fL (80-95); Neutrophils % 61.6; Platelet Count 231 10^3/uL (130-400); RDW 13.5 % (11.7-14.6); RDW-SD 42.3 fL; WBC 7.39 10^3/uL (4.4-10.8)
[2023-01-03 21:40] LABS: D-Dimer 294 ng/mlFEU (<500)
[2023-01-03 21:42] LABS: ALT 28 U/L (14-59); AST 18 U/L (15-37); Albumin 3.7 g/dL (3.4-5.0); Alkaline Phosphatase 108 U/L (46-116); Anion Gap 11.1 mmol/L (3-11); BUN 19 mg/dL (7-18); Bilirubin, Total 0.3 mg/dL (0.2-1.0); CO2 26.9 mmol/L (21.0-32.0); Calcium 9.3 mg/dL (8.5-10.1); Chloride 105 mmol/L (98-107); Glucose 159 mg/dL (74-106); Potassium 3.9 mmol/L (3.5-5.1); Sodium 143 mmol/L (136-145); Total Protein 7.1 g/dL (6.4-8.2)
[2023-01-03 21:43] LABS: NT-proBNP 109 pg/mL (<300); Troponin I < 50 ng/L (<or=60)
--- NOTE | 2023-01-03 21:52 | DI.VRAD_ITS ---
PROCEDURE INFORMATION: Exam: XR Chest Exam date and time: 01/03/2023 21:09 Age: 57 years old Clinical indication: Pain; Chest pressure; Additional info: Chest pain TECHNIQUE: Imaging protocol: Radiologic exam of the chest. Views: 1 view. COMPARISON: CR XR CHEST 2V PA LATERAL 05/09/2020 09:20 FINDINGS: Lungs: No consolidation. Pleural spaces: No pleural effusion. No pneumothorax. Heart/Mediastinum: No cardiomegaly. Bones/joints: No acute fracture. IMPRESSION: Negative portable chest. Dictated and Authenticated by: Maria M Foley MD. Ordering:CRYSTAL Sierra MD
[2023-01-03 22:00] VITALS: BP 129/60; PULSE 66; RESP 13; O2SAT 99
--- NOTE | 2023-01-03 22:23 | W.ED.GENAD ---
Discharge Plan Disposition Patient Disposition: Home Discharge Details Clinical Impression: Atypical chest pain, Near syncope Primary Care Provider: Lyn Sinclair ED Provider: Rigo Hardy Home Meds and New Rx's Prescriptions: Continued aspirin 81 mg tablet,delayed release (DR/EC) 81 mg PO DAILY lactobacillus combination no.8 PO vitamin B complex Tablet 1 tab PO DAILY clobetasol 0.05 % cream 1 applic TP DAILY chlorhexidine gluconate [Antiseptic Skin Clnsr(chlorhe)] 4 % liquid 1 applic topical DAILY Qty: 960 0RF Rx Instructions: Rinse skin with water, then apply minimum amount needed to cover skin. Wash gently, then rinse. hydrocodone-acetaminophen 5-325 mg tablet 1 tab PO TID MDD 15mg PRN (Reason: pain) Qty: 9 0RF capsaicin 0.075 % cream 1 applic topical QID PRN (Reason: diabetic neuropathy) Qty: 120 1RF Rx Instructions: Avoid contact with eyes and mucous membranes. Gently rub into painful area until thoroughly absorbed. Wash hands with soap and water immediately after applying (unless hands are part of the treatment area). Do not wash area for at least 30 min after application. omega-3 fatty acids [Fish Oil Concentrate] 1,000 mg capsule 1,000 mg PO DAILY Metamucil (sugar) Powder 1 tbsp PO DAILY PRN docusate sodium [Colace] 100 mg capsule 100 mg PO DAILY magnesium 250 mg tablet 250 mg PO DAILY bupropion HCl [Wellbutrin XL] 150 mg tablet extended release 24 hr 150 mg PO QAM minocycline 100 mg capsule 100 mg PO DAILY (DME) blood-glucose meter Misc See Rx Instructions .Route Qty: 1 0RF Rx Instructions: as directed to check daily morning fasting blood glucose.ONE TOUCH GLUCOMETER to use with the one touch ultra test strips. DX E11.9, to maintain HbA1c less than 7%. No insulin. bupropion HCl [Wellbutrin XL] 300 mg tablet extended release 24 hr 300 mg PO QPM Rx Instructions: 12/03/19-[facility] [place] note: increase to 300mg daily. per [facility] [place] note-05/24/20-to take 300mg during winter caleb-Rosemarie albuterol sulfate 90 mcg/actuation HFA aerosol inhaler 1 - 2 puff inhalation .Q4-6H PRN (Reason: shortness of breath or wheezing) Qty: 1 3RF Rx Instructions: Dispense brand of albuterol inhaler covered by patient's insurance (DME) Blood Glucose Test Strip See Rx Instructions .ROUTE .MEDSUPPLY Qty: 100 3RF Rx Instructions: As directed to check blood glucose daily. No insulin. Dispense covered brand. cetirizine [Zyrtec] 10 mg tablet 10 mg PO DAILY PRN (Reason: allergy symptoms) Qty: 90 3RF cholecalciferol (vitamin D3) 100 mcg (4,000 unit) capsule 4,000 unit PO DAILY Qty: 90 3RF cyanocobalamin (vitamin B-12) 1,000 mcg tablet 2,000 mcg PO DAILY Qty: 180 3RF Jardiance 25 mg tablet 25 mg PO DAILY AM Qty: 90 3RF Rx Instructions: Administer once daily in the morning, with or without food folic acid 1 mg tablet 1 mg PO DAILY Qty: 90 3RF (DME) lancets Misc See Rx Instructions .ROUTE .MEDSUPPLY Qty: 100 3RF Rx Instructions: As directed to check blood glucose daily. No insulin. Dispense covered brand. Januvia 25 mg tablet 25 mg PO DAILY Qty: 90 3RF atorvastatin 10 mg tablet 10 mg PO DAILY Qty: 90 3RF levothyroxine 25 mcg tablet 25 mcg PO DAILY Qty: 90 3RF metformin 1,000 mg tablet 1,000 mg PO BID Qty: 180 3RF pantoprazole 40 mg tablet,delayed release (DR/EC) 40 mg PO DAILY Qty: 90 3RF Rx Instructions: Take 40 mg daily once daily at least 30-60 minutes before first meal of the day lorazepam 0.5 mg tablet 0.5 mg PO BID PRN lorazepam 0.5 mg tablet 1 mg PO HS Discharge Data Discharge Date/Time-TO BE ENTERED AT DEPARTURE: 01/03/23 22:53 Medical Decision Making Exam without evidence of volume overload so doubt heart failure. EKG without signs of active ischemia. Given the timing of pain to ER presentation, single troponin was negative so doubt NSTEMI. Presentation not consistent with acute PE (Wells low risk _ PERC negative_),pneumothorax (not visualized on chest xr), thoracic aortic dissection, pericarditis, tamponade, pneumonia (no infectious symptoms, clear chest xr), myocarditis (no recent illness, neg trop). HEART score:1 discharge patient home with PMD follow up. Differential Diagnosis Differential Diagnosis: Atypical chest pain/near syncope/cardiac dysrhythmia. Medical Records Medical records reviewed: Yes I reviewed the patient's medical records. Imaging Data Radiologic Study: Attestation: I personally reviewed and interpreted this imaging study as follows: Imaging: X-Ray Lab Data Lab results reviewed: Yes I reviewed the patient's lab results. ECG Data Attestation: I personally reviewed and interpreted this ECG (s) as follows: (Nonspecific intraventricular conduction delay. No ST changes consistent with ischemia) HPI General Date/Time Provider Initiated Documentation: 01/03/23 20:31. Limitations to Documentation: no limitations. Information obtained by: patient. HPI Narrative: Patient with a [id number]-[id number] diabetic history also with a history of a surgical gastric bypass now presents to the emergency department after having an episode of acute onset of dizziness and chest heaviness. 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 She states that once she got into her car and was driving home she felt weak slightly dizzy and had to cake puller her car. She presented to the emergency department and in route began to experience some atypical chest heaviness that was nonradiating not associate with diaphoresis or shortness of breath. Patient denies unilateral leg swelling or pain. States that she had a stress test performed 2 years ago that was normal when she was having similar symptoms. Her symptoms have improved since presenting to the emergency department and shortly after presentation she was chest pain-free. Related Data Home Medications Medication Instructions Recorded Confirmed omega-3 fatty acids 1,000 mg 1,000 mg PO DAILY 10/31/18 01/03/23 capsule (Fish Oil Concentrate) aspirin 81 mg tablet,delayed 81 mg PO DAILY 03/20/19 01/03/23 release clobetasol 0.05 % topical cream 1 applic topical DAILY 09/25/19 01/03/23 lactobacillus combination no.8 PO 09/25/19 09/14/22 [Adult Probiotic] vitamin B complex 1 tab PO DAILY 09/25/19 01/03/23 docusate sodium 100 mg capsule 100 mg PO DAILY 08/05/20 01/03/23 (Colace) psyllium seed (sugar) oral powder 1 tbsp PO DAILY PRN 08/05/20 01/03/23 (Metamucil (sugar) oral powder) chlorhexidine gluconate 4 % 1 applic topical DAILY 01/27/21 09/14/22 topical liquid (Antiseptic Skin folliculitis prevention #960 mL Cleanser (chlorhexidine)) minocycline 100 mg capsule 100 mg PO DAILY 05/26/21 01/03/23 lorazepam 0.5 mg tablet 0.5 mg PO BID PRN 08/16/21 01/03/23 lorazepam 0.5 mg tablet 1 mg PO HS 08/16/21 01/03/23 hydrocodone 5 mg-acetaminophen 325 1 tab PO TID PRN pain #9 tabs 09/12/21 01/03/23 mg tablet capsaicin 0.075 % topical cream 1 applic topical QID PRN diabetic 11/24/21 01/03/23 neuropathy #120 grams magnesium 250 mg tablet 250 mg PO DAILY Leg cramps 03/08/22 01/03/23 blood-glucose meter #1 ea 07/02/22 09/14/22 bupropion HCl 150 mg 24 hr tablet, 150 mg PO QAM 08/06/22 01/03/23 extended release (Wellbutrin XL) bupropion HCl 300 mg 24 hr tablet, 300 mg PO QPM 08/06/22 01/03/23 extended release (Wellbutrin XL) albuterol sulfate 90 mcg/actuation 1 - 2 puff inhalation .Q4-6H PRN 08/10/22 01/03/23 aerosol inhaler shortness of breath or wheezing #1 unit blood sugar diagnostic (Blood #100 ea 08/10/22 09/14/22 Glucose Test strips) cetirizine 10 mg tablet (Zyrtec) 10 mg PO DAILY PRN allergy 08/10/22 01/03/23 symptoms #90 tabs cholecalciferol (vitamin D3) 100 4,000 unit PO DAILY #90 tab-caps 08/10/22 09/14/22 mcg (4,000 unit) capsule cyanocobalamin (vitamin B-12) 2,000 mcg PO DAILY #180 tab-caps 08/10/22 01/03/23 1,000 mcg tablet empagliflozin 25 mg tablet 25 mg PO DAILY AM #90 tab-caps 08/10/22 01/03/23 (Jardiance) folic acid 1 mg tablet 1 mg PO DAILY #90 tab-caps 08/10/22 01/03/23 lancets #100 ea 08/10/22 09/14/22 sitagliptin phosphate 25 mg tablet 25 mg PO DAILY #90 tab-caps 08/10/22 01/03/23 (Januvia) atorvastatin 10 mg tablet 10 mg PO DAILY #90 tab-caps 12/21/22 01/03/23 levothyroxine 25 mcg tablet 25 mcg PO DAILY #90 tab-caps 12/21/22 01/03/23 metformin 1,000 mg tablet 1,000 mg PO BID #180 tab-caps 12/21/22 01/03/23 pantoprazole 40 mg tablet,delayed 40 mg PO DAILY #90 tab-caps 12/21/22 01/03/23 release Previous Rx's Medication Instructions Recorded chlorhexidine gluconate 4 % 1 applic topical DAILY 01/27/21 topical liquid (Antiseptic Skin folliculitis prevention #960 mL Cleanser (chlorhexidine)) hydrocodone 5 mg-acetaminophen 325 1 tab PO TID PRN pain #9 tabs 09/12/21 mg tablet capsaicin 0.075 % topical cream 1 applic topical QID PRN diabetic 11/24/21 neuropathy #120 grams blood-glucose meter #1 ea 07/02/22 albuterol sulfate 90 mcg/actuation 1 - 2 puff inhalation .Q4-6H PRN 08/10/22 aerosol inhaler shortness of breath or wheezing #1 unit blood sugar diagnostic (Blood #100 ea 08/10/22 Glucose Test strips) cetirizine 10 mg tablet (Zyrtec) 10 mg PO DAILY PRN allergy 08/10/22 symptoms #90 tabs cholecalciferol (vitamin D3) 100 4,000 unit PO DAILY #90 tab-caps 08/10/22 mcg (4,000 unit) capsule cyanocobalamin (vitamin B-12) 2,000 mcg PO DAILY #180 tab-caps 08/10/22 1,000 mcg tablet empagliflozin 25 mg tablet 25 mg PO DAILY AM #90 tab-caps 08/10/22 (Jardiance) folic acid 1 mg tablet 1 mg PO DAILY #90 tab-caps 08/10/22 lancets #100 ea 08/10/22 sitagliptin phosphate 25 mg tablet 25 mg PO DAILY #90 tab-caps 08/10/22 (Januvia) atorvastatin 10 mg tablet 10 mg PO DAILY #90 tab-caps 12/21/22 levothyroxine 25 mcg tablet 25 mcg PO DAILY #90 tab-caps 12/21/22 metformin 1,000 mg tablet 1,000 mg PO BID #180 tab-caps 12/21/22 pantoprazole 40 mg tablet,delayed 40 mg PO DAILY #90 tab-caps 12/21/22 release Allergies Allergy/AdvReac Type Severity Reaction Status Date / Time doxycycline Allergy Severe tongue Verified 01/03/23 20:30 swelling amoxicillin Allergy Intermediate Swelling/Ed Verified 01/03/23 20:30 domingo morphine Allergy Unknown itch and Verified 01/03/23 20:30 hives zolpidem tartrate AdvReac Severe suicidal Verified 01/03/23 20:30 [From Ambien] metronidazole [From Flagyl] AdvReac Unknown GI UPSET Verified 01/03/23 20:30 oxycodone HCl [From Percocet] AdvReac Unknown hallucinati Verified 01/03/23 20:30 ons trazodone AdvReac Unknown anxiety Verified 01/03/23 20:30 General Stated Complaint: GenMedical SHAUNA: 3 Review of Systems Narrative: CONST: Negative for fever, body aches and chills. HENT: Negative for neck pain/stiffness, headache, congestion, sore throat, swelling. EYES: Negative for discharge/pain or vision changes. RESP: Negative for cough/hemoptysis and shortness of breath. CV: + chest pain, difficulty breathing, palpitations. ABD: Negative pain, nausea, vomiting. : Negative increase frequency, dysuria, blood in urine or stool. MUSC: Negative for muscle aches, edema. SKIN: Negative rash, lesions/sores. NEURO: Negative headache,+dizziness, weakness. PFSH All Active Problems (Updated 01/03/23 @ 22:25 by Rigo Hardy MD) Atypical chest pain (Acute) Near syncope (Acute) Diabetic macular edema, left eye (Acute 09/07/22) Diabetic peripheral neuropathy (Acute) 12/19/21 Podiatry [facility] Vitamin B12 deficiency (Acute) Neuropathy (Acute) Iron deficiency anemia (Acute) Diabetic retinopathy of both eyes (Chronic 08/16/20) 08/29/21-mild [facility] Chronic anemia (Chronic) Multifactorial, s/p gastric bypass with vitamin B12, folate, and iron deficiencies; baseline Hgb ~10 Type 2 diabetes mellitus without complication, without long-term current use of insulin (Chronic) [facility] Endocrinology in the past Anxiety and depression (Chronic) Managed by [facility] [place] Restless leg syndrome (Chronic) Insomnia (Chronic) Vitamin D deficiency (Chronic 03/14/12) Sleep apnea (Chronic 03/09/13) Polycystic ovaries (Chronic 03/09/13) Megaloblastic anemia (Chronic 09/06/11) S/p gastric bypass Hypothyroidism (Chronic 09/08/12) Hyperlipidemia (Chronic 03/09/13) 02/2019 labs: 10-year ASCVD risk = ~10% --> started on moderate intensity statin therapy Gastroesophageal reflux disease (Chronic 03/09/13) EGD 05/30/2015, again 02/2017 with [facility] Folliculitis (Chronic 03/14/12) Scalp; managed with Minocycline prn Folate deficiency (Chronic 05/13/17) Carpal tunnel syndrome (Chronic 03/09/13) [place] Allergic rhinitis (Chronic 05/12/12) Environmental--controlled with Zyrtec and prn Xopenex with known triggers such as moldy basements Medical History (Updated 01/03/23 @ 22:25 by Rigo Hardy MD) Esophageal stricture S/p dilatation in 06/2017 (Jennifer Wright) Latent tuberculosis by blood test NL CXR 05/09/2020; 06/09/20 [facility] ID consult --> proceed with 4mo rifampin regimen; complete 10/2020 Surgical History EGD - MAC (02/26/17) EGD - MAC (07/02/17) EGD/COLONOSCOPY W/ MAC (05/30/15) DR. VIRAMONTES Endometrial Biopsy (04/11/16) History of local excision of skin lesion (06/06/21) Dr. Paez 1) pilar cyst scalp 2) nevus left nasal alar crease Family History Brother Colon cancer Daughter Asthma Son Asthma Hypertension Father Prostate cancer Depression Diabetes Heart disease Hypertension Paternal Grandmother Cancer Pancreatic Aunt Breast cancer Mother Diabetes Heart disease Hypertension Social History Smoking/Tobacco Use Status: Never Smoking risk assessment performed?: Yes Alcohol Intake: current Alcohol Intake frequency: holidays/special occasions only Drug use: Never Substance use type: does not use Adopted: No Caregiver/Support person: No Foster care: No Household members: significant other and children Housing: house Number of Children: 4 number of grandchildren: 0 Communication Needs: None Education Level: college Details: Associate's degree 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 Pets and animals: Yes (1 cat) Pets and animals: cat(s) Sexually active: Yes Do you think of yourself as: straight/heterosexual Current gender identity: female What is your relationship status?: living with partner How often do you talk on the phone with friends or family?: three or more times per week How often do you get together with friends or relatives?: three or more times per week Do you belong to any clubs or organized social groups?: no Panel score (0-1 are the most socially isolated patients): 2 NHANES result reviewed/action taken: Yes What type of physical activity do you participate in: none Frequency: 5-6 times per week Adry/Zoroastrianism: None Special adry needs: No Seatbelt use: always Drive intox 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 EYES lids/conjunctiva normal. EARS/NOSE/THROAT Mucous membranes moist, nares normal, lips/teeth normal uvula midline without oral pharyngeal erythema, exudate or swelling No lymphangitis/lymphedema. HEAD/NECK normocephalic atraumatic, no facial trauma, neck is supple. RESPIRATORY respiratory effort normal, speaks in full sentences, no tripod position, no accessory muscle use. Lungs clear to auscultation without rhonchi, wheezes, rales CARDIAC Regular rate and rhythm, no edema. ABDOMINAL Soft, ND/NT. No evidence of fluid wave. No pulsatile masses on exam, rebound tenderness, Yang sign or pain over Mcburney's point. MUSCLES/EXTREMITIES No abnormal range of motion, no swelling. SKIN Warm, pink and dry. No rashes, dermatoses, petechiae or lesions. NEUROLOGICAL Speech is clear and appropriate. Normal level of consciousness. Gait and coordination are normal. 5/5 strength in all extremities. PSYCH Normal mood and affect. Judgement/competence is appropriate Course Reevaluation(s) Reevaluation: Atypical chest pain in the setting of a patient with cha-xkwdecq-cgnmcgjbm diabetes. EKG nonischemic troponin negative x1 D-dimer negative. Patient asymptomatic at this time has good outpatient follow-up suitable for discharge. Vital Signs Vital signs: Vital Signs Temperature 36.4 C L 01/03/23 20:21 Pulse 76 01/03/23 20:21 Respiratory Rate 16 01/03/23 20:21 Blood Pressure 149/68 H 01/03/23 20:21 Pulse Oximetry 100 01/03/23 20:21 Temperature 36.4 C L 01/03/23 20:21 Pulse 76 01/03/23 20:21 Respiratory Rate 18 01/03/23 20:54 Respiratory Effort Normal, Non-Labored 01/03/23 20:54 Respiratory Depth Normal 01/03/23 20:54 Respiratory Pattern Normal 01/03/23 20:54 Blood Pressure 149/68 H 01/03/23 20:21 Blood Pressure Position Sitting 01/03/23 20:21 Pulse Oximetry 100 01/03/23 20:21 Oxygen Delivery Method Room Air 01/03/23 20:21 Oxygen Flow Rate 0 01/03/23 20:21 Pain Level 3 01/03/23 20:21 Comment back and L shoulder hurt 01/03/23 20:21 Lab/Test Results Lab/Test Results: Laboratory Tests Range/Units 01/03/23 01/03/23 01/03/23 20:20 21:03 21:03 WBC (4.4-10.8) 10^3/uL RBC (3.93-5.22) 10^6/uL Hgb (11.2-15.7) g/dL Hct (36.0-46.0) % MCV (80-95) fL MCH (27.0-33.0) pg MCHC (32.0-36.0) % RDW (11.7-14.6) % Plt Count (130-400) 10^3/uL MPV (8.0-11.0) fL Immature Gran % Neutrophils % Lymphocytes % Monocytes % Eosinophils % Basophils % Nucleated RBC % (0.0-0.3) % Absolute Neutrophils (1.2-6.7) 10^3/uL Absolute Lymphocytes (1.2-3.4) 10^3/uL Absolute Monocytes (0.1-0.8) 10^3/uL Absolute Eosinophils (0.0-0.7) 10^3/uL Absolute Basophils (0.0-0.2) 10^3/uL D-Dimer (<500) ng/mlFEU 294 Sodium (136-145) mmol/L Potassium (3.5-5.1) mmol/L Chloride (98-107) mmol/L Carbon Dioxide (21.0-32.0) mmol/L Anion Gap (3-11) mmol/L BUN (7-18) mg/dL Creatinine (0.55-1.02) mg/dL Est GFR (CKD-EPI 2020) (mL/min/1.73m2) Glucose (74-106) mg/dL Calcium (8.5-10.1) mg/dL Magnesium (1.8-2.4) mg/dL Total Bilirubin (0.2-1.0) mg/dL AST (15-37) U/L ALT (14-59) U/L Alkaline Phosphatase (46-116) U/L Troponin I (<or=60) ng/L NT-Pro-B Natriuret Pep (<300) pg/mL 109 Total Protein (6.4-8.2) g/dL Albumin (3.4-5.0) g/dL Urine Color (Yellow) Yellow Urine Clarity (Clear) Clear Urine pH (5-8) 5.0 Ur Specific [place] (1.005-1.025) 1.020 Urine Protein (Negative) mg/dL Negative Urine Ketones (Negative) mg/dL Negative Urine Blood (Negative) Negative Urine Nitrite (Negative) Negative Urine Bilirubin (Negative) Negative Urine Urobilinogen (Up to 0.2) mg/dL 0.2 Ur Leukocyte Esterase (Negative) Negative Urine Glucose (Negative) mg/dL >=1000 H Range/Units 01/03/23 01/03/23 21:03 21:03 WBC (4.4-10.8) 10^3/uL 7.39 RBC (3.93-5.22) 10^6/uL 4.00 Hgb (11.2-15.7) g/dL 11.0 L Hct (36.0-46.0) % 34.3 L MCV (80-95) fL 86 MCH (27.0-33.0) pg 27.5 MCHC (32.0-36.0) % 32.1 RDW (11.7-14.6) % 13.5 Plt Count (130-400) 10^3/uL 231 MPV (8.0-11.0) fL 11.0 Immature Gran % 0.3 Neutrophils % 61.6 Lymphocytes % 23.3 Monocytes % 8.0 Eosinophils % 6.1 Basophils % 0.7 Nucleated RBC % (0.0-0.3) % 0.0 Absolute Neutrophils (1.2-6.7) 10^3/uL 4.56 Absolute Lymphocytes (1.2-3.4) 10^3/uL 1.72 Absolute Monocytes (0.1-0.8) 10^3/uL 0.59 Absolute Eosinophils (0.0-0.7) 10^3/uL 0.45 Absolute Basophils (0.0-0.2) 10^3/uL 0.05 D-Dimer (<500) ng/mlFEU Sodium (136-145) mmol/L 143 Potassium (3.5-5.1) mmol/L 3.9 Chloride (98-107) mmol/L 105 Carbon Dioxide (21.0-32.0) mmol/L 26.9 Anion Gap (3-11) mmol/L 11.1 H BUN (7-18) mg/dL 19 H Creatinine (0.55-1.02) mg/dL 1.0 Est GFR (CKD-EPI 2020) (mL/min/1.73m2) 64.90 Glucose (74-106) mg/dL 159 H Calcium (8.5-10.1) mg/dL 9.3 Magnesium (1.8-2.4) mg/dL 2.0 Total Bilirubin (0.2-1.0) mg/dL 0.3 AST (15-37) U/L 18 ALT (14-59) U/L 28 Alkaline Phosphatase (46-116) U/L 108 Troponin I (<or=60) ng/L < 50 NT-Pro-B Natriuret Pep (<300) pg/mL Total Protein (6.4-8.2) g/dL 7.1 Albumin (3.4-5.0) g/dL 3.7 Urine Color (Yellow) Urine Clarity (Clear) Urine pH (5-8) Ur Specific [place] (1.005-1.025) Urine Protein (Negative) mg/dL Urine Ketones (Negative) mg/dL Urine Blood (Negative) Urine Nitrite (Negative) Urine Bilirubin (Negative) Urine Urobilinogen (Up to 0.2) mg/dL Ur Leukocyte Esterase (Negative) Urine Glucose (Negative) mg/dL
[2023-01-03 22:30] VITALS: BP 131/67; PULSE 64; RESP 21; O2SAT 98
== END 2023-01-03 22:53 | disposition home or self-care (01) ==
PROVIDERS: Emergency Provider Emergency Medicine; PCP Nurse Practitioner Family
DX: R42 Dizziness and giddiness (principal); R07.89 Other chest pain; F41.9 Anxiety disorder, unspecified; R55 Syncope and collapse; E11.9 Type 2 diabetes mellitus without complications
CPT/HCPCS: 36415; 80053; 93005; 99284; 71045; 81003; 83735; 83880; 84484; 85025; 85379; 93010

== ENCOUNTER 2023-01-20 16:05 | Emergency (ER) | payer OTHER, SELFPAY ==
[2023-01-20] VITALS (47 sets, daily range): BP systolic 113–163; BP diastolic 57–94; PULSE 59–92; RESP 8–28; TEMP 36.3; O2SAT 97–100
--- NOTE | 2023-01-20 16:00 | RT.EKG_ITS ---
APPROVED REPORT Exam: Resting ECG Reason for Exam: chest pain Patient Location: E HR:79 bpm ECG Measurements Heart Rate 79 AXIS NM 122 P 27 QRSd 127 QRS -39 QT 398 T 33 QTc 457 Conclusion Sinus rhythm...normal P axis, V-rate 60- 99 Right bundle branch block...QRSd>120, terminal axis(90,270)
--- NOTE | 2023-01-20 16:30 | DI.RAD_ITS ---
Exam(s) XR CHEST 2V PA LATERAL EXAM: XR CHEST 2V PA LATERAL CLINICAL HISTORY: severe chest pain TECHNIQUE: 2D digital imaging was performed. COMPARISON: CR,XR XR PORTABLE CHEST AP from 01/03/2023 FINDINGS: HEART: Normal size. Aorta: Not dilated. PULMONARY VASCULATURE: Normal. LUNGS: Clear. PLEURAL SPACE: No pleural effusion or pneumothorax. BONE:Unremarkable for age. IMPRESSION: No acute abnormality. DATA REPOSITORY: RADIATION DOSE DELIVERED:
[2023-01-20 16:56] LABS: Abs Immature Grans 0.02 10^3/uL (0.0-0.06); Absolute Basophil Count 0.07 10^3/uL (0.0-0.2); Absolute Eosinophil Count 0.33 10^3/uL (0.0-0.7); Absolute Lymphocyte Count 1.79 10^3/uL (1.2-3.4); Absolute Monocyte Count 0.59 10^3/uL (0.1-0.8); Absolute Neutrophil Count 3.55 10^3/uL (1.2-6.7); Basophils % 1.1; Eosinophils % 5.2; HCT 38.1 % (36.0-46.0); HGB 12.2 g/dL (11.2-15.7); Immature Grans % 0.3; Lymphocytes % 28.2; MCH 27.2 pg (27.0-33.0); MCV 85 fL (80-95); MPV 10.9 fL (8.0-11.0); Monocytes % 9.3; Neutrophils % 55.9; Platelet Count 285 10^3/uL (130-400); RBC 4.48 10^6/uL (3.93-5.22); RDW-SD 40.2 fL; WBC 6.35 10^3/uL (4.4-10.8)
--- NOTE | 2023-01-20 17:17 | W.ED.GENAD ---
Discharge Plan Disposition Patient Disposition: Home Condition: Good Discharge Details Clinical Impression: Atypical chest pain Primary Care Provider: Lyn Sinclair ED Provider: Rigo Hardy Home Meds and New Rx's Prescriptions: New lorazepam [Ativan] 0.5 mg tablet 0.5 mg PO DAILY MDD 1 mg PRN (Reason: anxiety) Qty: 10 0RF Continued aspirin 81 mg tablet,delayed release (DR/EC) 81 mg PO DAILY lactobacillus combination no.8 PO vitamin B complex Tablet 1 tab PO DAILY clobetasol 0.05 % cream 1 applic TP DAILY chlorhexidine gluconate [Antiseptic Skin Clnsr(chlorhe)] 4 % liquid 1 applic topical DAILY Qty: 960 0RF Patient Comments: does not take anymore Rx Instructions: Rinse skin with water, then apply minimum amount needed to cover skin. Wash gently, then rinse. capsaicin 0.075 % cream 1 applic topical QID PRN (Reason: diabetic neuropathy) Qty: 120 1RF Patient Comments: does not use Rx Instructions: Avoid contact with eyes and mucous membranes. Gently rub into painful area until thoroughly absorbed. Wash hands with soap and water immediately after applying (unless hands are part of the treatment area). Do not wash area for at least 30 min after application. omega-3 fatty acids [Fish Oil Concentrate] 1,000 mg capsule 1,000 mg PO DAILY Metamucil (sugar) Powder 1 tbsp PO DAILY PRN docusate sodium [Colace] 100 mg capsule 100 mg PO DAILY magnesium 250 mg tablet 250 mg PO DAILY bupropion HCl [Wellbutrin XL] 150 mg tablet extended release 24 hr 150 mg PO QAM (DME) blood-glucose meter [facility] [place] See Rx Instructions .Route Qty: 1 0RF Rx Instructions: as directed to check daily morning fasting blood glucose.ONE TOUCH GLUCOMETER to use with the one touch ultra test strips. DX E11.9, to maintain HbA1c less than 7%. No insulin. minocycline 100 mg capsule 100 mg PO DAILY bupropion HCl [Wellbutrin XL] 300 mg tablet extended release 24 hr 300 mg PO QPM Rx Instructions: 12/03/19-[facility] note: increase to 300mg daily. per [facility] note-05/24/20-to take 300mg during winter caleb-CRupesh albuterol sulfate 90 mcg/actuation HFA aerosol inhaler 1 - 2 puff inhalation .Q4-6H PRN (Reason: shortness of breath or wheezing) Qty: 1 3RF Rx Instructions: Dispense brand of albuterol inhaler covered by patient's insurance (DME) Blood Glucose Test Strip See Rx Instructions .ROUTE .MEDSUPPLY Qty: 100 3RF Rx Instructions: As directed to check blood glucose daily. No insulin. Dispense covered brand. cholecalciferol (vitamin D3) 100 mcg (4,000 unit) capsule 4,000 unit PO DAILY Qty: 90 3RF cyanocobalamin (vitamin B-12) 1,000 mcg tablet 2,000 mcg PO DAILY Qty: 180 3RF Jardiance 25 mg tablet 25 mg PO DAILY AM Qty: 90 3RF Rx Instructions: Administer once daily in the morning, with or without food folic acid 1 mg tablet 1 mg PO DAILY Qty: 90 3RF (DME) lancets Misc See Rx Instructions .ROUTE .MEDSUPPLY Qty: 100 3RF Rx Instructions: As directed to check blood glucose daily. No insulin. Dispense covered brand. Januvia 25 mg tablet 25 mg PO DAILY Qty: 90 3RF atorvastatin 10 mg tablet 10 mg PO DAILY Qty: 90 3RF levothyroxine 25 mcg tablet 25 mcg PO DAILY Qty: 90 3RF metformin 1,000 mg tablet 1,000 mg PO BID Qty: 180 3RF pantoprazole 40 mg tablet,delayed release (DR/EC) 40 mg PO DAILY Qty: 90 3RF Rx Instructions: Take 40 mg daily once daily at least 30-60 minutes before first meal of the day cetirizine [Zyrtec] 10 mg tablet 10 mg PO PRN PRN (Reason: allergy symptoms) lorazepam 0.5 mg tablet 0.5 mg PO BID PRN lorazepam 0.5 mg tablet 1 mg PO HS Discharge Instructions Instructions: Chest Pain (ED) Additional Instructions: Please follow-up as an outpatient with your PCP and you have been provided a referral to cardiology. Should you have a repeat episode of your symptoms please return emergency department immediately for repeat EKG. She develop any other symptoms outlined in your discharge instructions that are of concern such as shortness of breath one-sided leg swelling or concerns for any other reason these would also be indications to return to the room. Referrals: Pascale Nickerson MD [ [facility]FF [facility]YSICIAN] - 1 day (Please call for for follow up appointment. ) Niles Smith [ NON-[facility] STAFF PHYSICIAN] - Medical Decision Making EKG shows a right bundle branch block no ST changes consistent with ischemia unchanged from previous. Reviewed all her EKGs back to 2010 and it appears that this is a newer development that initially was slowly progressing. Unclear etiology of patient's developing bundle branch block. Patient is already taken aspirin. Will obtain a troponin. Restratify patient and determine disposition. Exam without evidence of volume overload so doubt heart failure. EKG without signs of active ischemia. Given the timing of pain to ER presentation, delta troponin_ was negative_ so doubt NSTEMI. Presentation not consistent with acute PE , negative DDIMER on previous ED visit,pneumothorax (not visualized on chest xr), thoracic aortic dissection, pericarditis, tamponade, pneumonia (no infectious symptoms, clear chest xr), myocarditis (no recent illness, neg trop). HEART score:3 so plan to discharge patient home with PMD follow up with Cardiology. PMD has ordered outpatient echocardiogram. HPI General Date/Time Provider Initiated Documentation: 01/20/23 16:30. HPI Narrative: Patient with a history of significant anxiety, type 2 diabetes, hypercholesterolemia presents the emergency department with complaints of palpitations, anxiety, pain in the left jaw and a sharp left-sided chest pain. Patient seen in the emergency department 2 weeks ago for atypical chest pain. She was evaluated in the ED with serial troponin serial EKGs and D-dimer which was negative. In the interim saw her primary care provider 48 hours ago who is going to set her up for an echocardiogram. 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 States that she has been using her prescribed Ativan for increased levels of anxiety. Currently she is out of this prescription and is concerns that this will affect her ability to function at work and deal with the stress of work. Before her nap this afternoon where she woke up with chest pain and she stated that she was in her normal state of health with no chest pain no shortness of breath no lower leg edema, no unilateral leg edema. She was in her normal state of health. Patient transported by private vehicle to the emergency department. Related Data Home Medications Medication Instructions Recorded Confirmed omega-3 fatty acids 1,000 mg 1,000 mg PO DAILY 10/31/18 01/20/23 capsule (Fish Oil Concentrate) aspirin 81 mg tablet,delayed 81 mg PO DAILY 03/20/19 01/20/23 release clobetasol 0.05 % topical cream 1 applic topical DAILY 09/25/19 01/18/23 lactobacillus combination no.8 PO 09/25/19 01/18/23 [Adult Probiotic] vitamin B complex 1 tab PO DAILY 09/25/19 01/20/23 docusate sodium 100 mg capsule 100 mg PO DAILY 08/05/20 01/20/23 (Colace) psyllium seed (sugar) oral powder 1 tbsp PO DAILY PRN 08/05/20 01/20/23 (Metamucil (sugar) oral powder) chlorhexidine gluconate 4 % 1 applic topical DAILY 01/27/21 01/18/23 topical liquid (Antiseptic Skin folliculitis prevention #960 mL Cleanser (chlorhexidine)) minocycline 100 mg capsule 100 mg PO DAILY 05/26/21 01/20/23 lorazepam 0.5 mg tablet 0.5 mg PO BID PRN 08/16/21 01/20/23 lorazepam 0.5 mg tablet 1 mg PO HS 08/16/21 01/20/23 capsaicin 0.075 % topical cream 1 applic topical QID PRN diabetic 11/24/21 01/18/23 neuropathy #120 grams magnesium 250 mg tablet 250 mg PO DAILY Leg cramps 03/08/22 01/20/23 bupropion HCl 150 mg 24 hr tablet, 150 mg PO QAM 08/06/22 01/20/23 extended release (Wellbutrin XL) bupropion HCl 300 mg 24 hr tablet, 300 mg PO QPM 08/06/22 01/20/23 extended release (Wellbutrin XL) albuterol sulfate 90 mcg/actuation 1 - 2 puff inhalation .Q4-6H PRN 08/10/22 01/20/23 aerosol inhaler shortness of breath or wheezing #1 unit blood sugar diagnostic (Blood #100 ea 08/10/22 01/18/23 Glucose Test strips) cholecalciferol (vitamin D3) 100 4,000 unit PO DAILY #90 tab-caps 08/10/22 01/20/23 mcg (4,000 unit) capsule cyanocobalamin (vitamin B-12) 2,000 mcg PO DAILY #180 tab-caps 08/10/22 01/20/23 1,000 mcg tablet empagliflozin 25 mg tablet 25 mg PO DAILY AM #90 tab-caps 08/10/22 01/20/23 (Jardiance) folic acid 1 mg tablet 1 mg PO DAILY #90 tab-caps 08/10/22 01/20/23 lancets #100 ea 08/10/22 01/18/23 sitagliptin phosphate 25 mg tablet 25 mg PO DAILY #90 tab-caps 08/10/22 01/20/23 (Januvia) atorvastatin 10 mg tablet 10 mg PO DAILY #90 tab-caps 12/21/22 01/20/23 levothyroxine 25 mcg tablet 25 mcg PO DAILY #90 tab-caps 12/21/22 01/20/23 metformin 1,000 mg tablet 1,000 mg PO BID #180 tab-caps 12/21/22 01/20/23 pantoprazole 40 mg tablet,delayed 40 mg PO DAILY #90 tab-caps 12/21/22 01/20/23 release blood-glucose meter #1 ea 01/18/23 01/18/23 cetirizine 10 mg tablet (Zyrtec) 10 mg PO PRN PRN allergy symptoms 01/20/23 01/20/23 lorazepam 0.5 mg tablet (Ativan) 0.5 mg PO DAILY PRN anxiety #10 01/20/23 tabs Previous Rx's Medication Instructions Recorded chlorhexidine gluconate 4 % 1 applic topical DAILY 01/27/21 topical liquid (Antiseptic Skin folliculitis prevention #960 mL Cleanser (chlorhexidine)) capsaicin 0.075 % topical cream 1 applic topical QID PRN diabetic 11/24/21 neuropathy #120 grams albuterol sulfate 90 mcg/actuation 1 - 2 puff inhalation .Q4-6H PRN 08/10/22 aerosol inhaler shortness of breath or wheezing #1 unit blood sugar diagnostic (Blood #100 ea 08/10/22 Glucose Test strips) cholecalciferol (vitamin D3) 100 4,000 unit PO DAILY #90 tab-caps 08/10/22 mcg (4,000 unit) capsule cyanocobalamin (vitamin B-12) 2,000 mcg PO DAILY #180 tab-caps 08/10/22 1,000 mcg tablet empagliflozin 25 mg tablet 25 mg PO DAILY AM #90 tab-caps 08/10/22 (Jardiance) folic acid 1 mg tablet 1 mg PO DAILY #90 tab-caps 08/10/22 lancets #100 ea 08/10/22 sitagliptin phosphate 25 mg tablet 25 mg PO DAILY #90 tab-caps 08/10/22 (Januvia) atorvastatin 10 mg tablet 10 mg PO DAILY #90 tab-caps 12/21/22 levothyroxine 25 mcg tablet 25 mcg PO DAILY #90 tab-caps 12/21/22 metformin 1,000 mg tablet 1,000 mg PO BID #180 tab-caps 12/21/22 pantoprazole 40 mg tablet,delayed 40 mg PO DAILY #90 tab-caps 12/21/22 release blood-glucose meter #1 ea 01/18/23 lorazepam 0.5 mg tablet (Ativan) 0.5 mg PO DAILY PRN anxiety #10 01/20/23 tabs Allergies Allergy/AdvReac Type Severity Reaction Status Date / Time doxycycline Allergy Severe tongue Verified 01/20/23 16:15 swelling amoxicillin Allergy Intermediate Swelling/Ed Verified 01/20/23 16:15 domingo morphine Allergy Unknown itch and Verified 01/20/23 16:15 hives zolpidem tartrate AdvReac Severe suicidal Verified 01/20/23 16:15 [From Ambien] metronidazole [From Flagyl] AdvReac Unknown GI UPSET Verified 01/18/23 14:27 oxycodone HCl [From Percocet] AdvReac Unknown hallucinati Verified 01/20/23 16:15 ons trazodone AdvReac Unknown anxiety Verified 01/20/23 16:15 General Stated Complaint: Chest Pain SHAUNA: 3 Review of Systems Narrative: REVIEW OF SYSTEMS: CONST: Negative for fever, body aches and chills. HENT: Negative for neck pain/stiffness, headache, congestion, sore throat, swelling. EYES: Negative for discharge/pain or vision changes. RESP: Negative for cough/hemoptysis and shortness of breath. CV: Ne ABD: Negative pain, nausea, vomiting. : Negative increase frequency, dysuria, blood in urine or stool. MUSC: Negative for muscle aches, edema. SKIN: Negative rash, lesions/sores. NEURO: Negative headache, dizziness, weakness. PFSH All Active Problems (Updated 01/20/23 @ 20:09 by Rigo Hardy MD) Atypical chest pain (Acute) LVH (left ventricular hypertrophy) (Acute) RBBB (Acute) Atypical chest pain (Acute) Near syncope (Acute) Diabetic macular edema, left eye (Acute 09/07/22) Diabetic peripheral neuropathy (Acute) 12/19/21 Podiatry [facility] Vitamin B12 deficiency (Acute) Neuropathy (Acute) Iron deficiency anemia (Acute) Diabetic retinopathy of both eyes (Chronic 08/16/20) 08/29/21-mild bilat-[facility] Chronic anemia (Chronic) Multifactorial, s/p gastric bypass with vitamin B12, folate, and iron deficiencies; baseline Hgb ~10 Type 2 diabetes mellitus without complication, without long-term current use of insulin (Chronic) [facility] in the past Anxiety and depression (Chronic) Managed by [facility] Restless leg syndrome (Chronic) Insomnia (Chronic) Vitamin D deficiency (Chronic 03/14/12) Sleep apnea (Chronic 03/09/13) Polycystic ovaries (Chronic 03/09/13) Megaloblastic anemia (Chronic 09/06/11) S/p gastric bypass Hypothyroidism (Chronic 09/08/12) Hyperlipidemia (Chronic 03/09/13) 02/2019 labs: 10-year ASCVD risk = ~10% --> started on moderate intensity statin therapy Gastroesophageal reflux disease (Chronic 03/09/13) EGD 05/30/2015, again 02/2017 with [facility] Folliculitis (Chronic 03/14/12) Scalp; managed with Minocycline prn Folate deficiency (Chronic 05/13/17) Carpal tunnel syndrome (Chronic 03/09/13) [place] Allergic rhinitis (Chronic 05/12/12) Environmental--controlled with Zyrtec and prn Xopenex with known triggers such as moldy basements Medical History Esophageal stricture S/p dilatation in 06/2017 (Jennifer Wright) Latent tuberculosis by blood test NL CXR 05/09/2020; 06/09/20 [facility] consult --> proceed with 4mo rifampin regimen; complete 10/2020 Surgical History EGD - MAC (02/26/17) EGD - MAC (07/02/17) EGD/COLONOSCOPY W/ MAC (05/30/15) DR. VIRAMONTES Endometrial Biopsy (04/11/16) History of local excision of skin lesion (06/06/21) Dr. Paez 1) pilar cyst scalp 2) nevus left nasal alar crease Family History Brother Colon cancer Daughter Asthma Son Asthma Hypertension Father Prostate cancer Depression Diabetes Heart disease Hypertension Paternal Grandmother Cancer Pancreatic Aunt Breast cancer Mother Diabetes Heart disease Hypertension Social History Smoking/Tobacco Use Status: Never Smoking risk assessment performed?: Yes Alcohol Intake: current Alcohol Intake frequency: holidays/special occasions only Drug use: Never Substance use type: does not use Adopted: No Caregiver/Support person: No Foster care: No Household members: significant other and children Housing: house Number of Children: 4 number of grandchildren: 0 Communication Needs: None Education Level: college Details: Associate's degree 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 Pets and animals: Yes (1 cat) Pets and animals: cat(s) Sexually active: Yes Do you think of yourself as: straight/heterosexual Current gender identity: female What is your relationship status?: living with partner How often do you talk on the phone with friends or family?: three or more times per week How often do you get together with friends or relatives?: three or more times per week Do you belong to any clubs or organized social groups?: no Panel score (0-1 are the most socially isolated patients): 2 NHANES result reviewed/action taken: Yes What type of physical activity do you participate in: none Frequency: 5-6 times per week Adry/Anabaptism: None Special adry needs: No Seatbelt use: always Drive intox or ride w/intox solo truck driver: No Do you feel safe at home: Yes Do you feel safe in your relationship?: Yes Exam Narrative Exam Narrative: GENERAL APPEARANCE NAD, activity normal for age, well developed/ well nourished, no cyanosis, pallor, or diaphoresis. EYES lids/conjunctiva normal. EARS/NOSE/THROAT Mucous membranes moist, nares normal, lips/teeth normal uvula midline without oral pharyngeal erythema, exudate or swelling No lymphangitis/lymphedema. HEAD/NECK normocephalic atraumatic, no facial trauma, neck is supple. RESPIRATORY respiratory effort normal, speaks in full sentences, no tripod position, no accessory muscle use. Lungs clear to auscultation without rhonchi, wheezes, rales CARDIAC Regular rate and rhythm, no edema. ABDOMINAL Soft, ND/NT. No evidence of fluid wave. No pulsatile masses on exam, rebound tenderness, Yang sign or pain over Mcburney's point. MUSCLES/EXTREMITIES No abnormal range of motion, no swelling. SKIN Warm, pink and dry. No rashes, dermatoses, petechiae or lesions. NEUROLOGICAL Speech is clear and appropriate. Normal level of consciousness. Gait and coordination are normal. 5/5 strength in all extremities. PSYCH anxious in appearance on initial presentation. Tearful. Judgement/competence is appropriate Course Reevaluation(s) Time: 19:48 Reevaluation: Patient asymptomatic at this time heart rate is 70 she states that she is much less anxious. She intermittently takes a small dose of Ativan to combat panic attacks and anxiety disorder and has requested a short-term prescription while she receives the proper refill from her mental health professional. I feel like this is reasonable. At this time with no EKG signs of ischemia and no symptoms if her delta troponin is negative I feel she is suitable for discharge. Unclear etiology of the patient's right bundle on EKG but it is moderate to minimal and review of all her old EKGs it appears as though its been slowly developing. An echocardiogram will certainly help elucidate the etiology of this EKG finding. It is not an acute change today. I discussed this with the patient and she is in agreement with this plan. Time: 20:08 Reevaluation #2: 3-hour interval troponin is below detectable threshold and the patient is asymptomatic. Suitable for outpatient management at this time with the understanding that should she have a repeat episode of chest pain she is to return the emergency department immediately for repeat EKG and evaluation. Vital Signs Vital signs: Vital Signs Temperature 36.3 C L 01/20/23 16:07 Pulse 88 01/20/23 16:07 Respiratory Rate 20 01/20/23 16:07 Blood Pressure 152/94 H 01/20/23 16:07 Pulse Oximetry 100 01/20/23 16:07 Temperature 36.3 C L 01/20/23 16:07 Temperature Source Oral 01/20/23 16:07 Pulse 62 01/20/23 17:16 Pulse 61 01/20/23 17:16 Respiratory Rate 8 L 01/20/23 17:16 Respiratory Effort Normal, Non-Labored 01/20/23 16:31 Respiratory Depth Shallow 01/20/23 16:31 Blood Pressure 116/88 01/20/23 17:16 Blood Pressure Mean 94 01/20/23 17:16 Blood Pressure Position Supine 01/20/23 16:07 Pulse Oximetry 99 01/20/23 17:16 Oxygen Delivery Method Room Air 01/20/23 16:07 Oxygen Flow Rate 0 01/20/23 16:07 Lab/Test Results Lab/Test Results: Laboratory Tests Range/Units 01/20/23 16:20 WBC (4.4-10.8) 10^3/uL 6.35 RBC (3.93-5.22) 10^6/uL 4.48 Hgb (11.2-15.7) g/dL 12.2 Hct (36.0-46.0) % 38.1 MCV (80-95) fL 85 MCH (27.0-33.0) pg 27.2 MCHC (32.0-36.0) % 32.0 RDW (11.7-14.6) % 13.0 Plt Count (130-400) 10^3/uL 285 MPV (8.0-11.0) fL 10.9 Immature Gran % 0.3 Neutrophils % 55.9 Lymphocytes % 28.2 Monocytes % 9.3 Eosinophils % 5.2 Basophils % 1.1 Nucleated RBC % (0.0-0.3) % 0.0 Absolute Neutrophils (1.2-6.7) 10^3/uL 3.55 Absolute Lymphocytes (1.2-3.4) 10^3/uL 1.79 Absolute Monocytes (0.1-0.8) 10^3/uL 0.59 Absolute Eosinophils (0.0-0.7) 10^3/uL 0.33 Absolute Basophils (0.0-0.2) 10^3/uL 0.07 PAWSS Have you Been Recently Intoxicated or Drunk Within the Last 30 days?: No Have you Ever Experienced Previous Episodes of Alcohol Withdrawal?: No Have you ever Experienced Withdrawal Seizures?: No Have you ever Experienced Delirium Tremens(DT)s?: No Have you ever undergone Alcohol Rehabilitation Treatment (i.e, inpt ot outpatient treatment programs)?: No Have you ever Experienced Blackouts?: No Have you ever Combined Alcohol with other Downers within the last 90 days?: No Have you ever Combined Alcohol with any other Substance of Abuse during the last 90 days?: No Result: 0
[2023-01-20 17:23] LABS: ALT 32 U/L (14-59); AST 21 U/L (15-37); Albumin 3.9 g/dL (3.4-5.0); Alkaline Phosphatase 110 U/L (46-116); BUN 16 mg/dL (7-18); Bilirubin, Total 0.5 mg/dL (0.2-1.0); CREATININE 1.2 mg/dL (0.55-1.02); Calcium 9.4 mg/dL (8.5-10.1); Chloride 103 mmol/L (98-107); Estimated GFR 52.14 (mL/min/1.73m2); Glucose 91 mg/dL (74-106); Magnesium 1.8 mg/dL (1.8-2.4); NT-proBNP 185 pg/mL (<300); Potassium 3.9 mmol/L (3.5-5.1); Sodium 142 mmol/L (136-145); Total Protein 7.6 g/dL (6.4-8.2); Troponin I < 50 ng/L (<or=60)
[2023-01-20] MEDS: Acetaminophen 500 MG TAB 1000 MG PO (17:24)
--- NOTE | 2023-01-20 17:32 | DI.VRAD_ITS ---
PROCEDURE INFORMATION: Exam: XR Chest Exam date and time: 01/20/2023 5:10 PM Age: 57 years old Clinical indication: Other: Severe chest pain TECHNIQUE: Imaging protocol: Radiologic exam of the chest. Views: 2 views. COMPARISON: CR XR PORTABLE CHEST AP 01/03/2023 9:09 PM FINDINGS: Lungs: Unremarkable. No consolidation. Pleural spaces: Unremarkable. No pleural effusion. No pneumothorax. Heart/Mediastinum: Unremarkable. No cardiomegaly. Bones/joints: Unremarkable. IMPRESSION: No acute findings. Dictated and Authenticated by: Vahe Delgadillo MD. Ordering:CRYSTAL Sierra MD
--- NOTE | 2023-01-20 18:15 | RT.EKG_ITS ---
APPROVED REPORT Exam: Resting ECG Reason for Exam: chest pain repeat EKG Patient Location: E HR:63 bpm ECG Measurements Heart Rate 63 AXIS WV 126 P 24 QRSd 128 QRS -34 QT 429 T 22 QTc 439 Conclusion Sinus rhythm...normal P axis, V-rate 60- 99 IVCD, consider RBBB...QRSd>120mS, terminal axis(90,270)
[2023-01-20 20:01] LABS: Troponin I < 50 ng/L (<or=60)
== END 2023-01-20 20:29 | disposition home or self-care (01) ==
PROVIDERS: Emergency Provider Emergency Medicine; PCP Nurse Practitioner Family
DX: R07.89 Other chest pain (principal); R51.9 Headache, unspecified; F41.9 Anxiety disorder, unspecified
CPT/HCPCS: 36416; 80053; 82962; 93005; 99284; 71046; 83735; 83880; 84484; 85025; 93010

== ENCOUNTER 2023-07-16 15:36 | Outpatient (REF) | payer OTHER, SELFPAY ==
[2023-07-16 15:01] LABS: Abs Immature Grans 0.03 10^3/uL (0.0-0.06); Absolute Basophil Count 0.08 10^3/uL (0.0-0.2); Absolute Eosinophil Count 0.67 10^3/uL (0.0-0.7); Absolute Lymphocyte Count 1.25 10^3/uL (1.2-3.4); Absolute Monocyte Count 0.55 10^3/uL (0.1-0.8); Absolute Neutrophil Count 4.31 10^3/uL (1.2-6.7); Basophils % 1.2; Eosinophils % 9.7; HCT 33.7 % (36.0-46.0); HGB 10.4 g/dL (11.2-15.7); Immature Grans % 0.4; Lymphocytes % 18.1; MCH 25.2 pg (27.0-33.0); MCHC 30.9 % (32.0-36.0); MCV 82 fL (80-95); MPV 12.1 fL (8.0-11.0); Neutrophils % 62.6; Platelet Count 236 10^3/uL (130-400); RBC 4.13 10^6/uL (3.93-5.22); RDW 14.2 % (11.7-14.6); RDW-SD 41.7 fL; WBC 6.89 10^3/uL (4.4-10.8)
[2023-07-16 15:21] LABS: ALT 29 U/L (14-59); AST 21 U/L (15-37); Albumin 3.5 g/dL (3.4-5.0); Alkaline Phosphatase 120 U/L (46-116); Anion Gap 7.7 mmol/L (3-11); BUN 19 mg/dL (7-18); Bilirubin, Total 0.4 mg/dL (0.2-1.0); CO2 29.3 mmol/L (21.0-32.0); Chloride 106 mmol/L (98-107); Estimated GFR 64.49 (mL/min/1.73m2); Glucose 189 mg/dL (74-106); Lipase 60 U/L (16-77); Potassium 4.4 mmol/L (3.5-5.1); Sodium 143 mmol/L (136-145); Total Protein 6.4 g/dL (6.4-8.2)
== END 2023-07-16 15:37 | disposition home or self-care (01) ==
LOC: LBN 15:36
PROVIDERS: PCP Nurse Practitioner Family; Visit Provider Physician Assistant
DX: B34.9 Viral infection, unspecified (principal); E11.9 Type 2 diabetes mellitus without complications; E03.9 Hypothyroidism, unspecified; D50.9 Iron deficiency anemia, unspecified
CPT/HCPCS: 80053; 83690; 85025

== ENCOUNTER 2023-08-03 13:30 | Emergency (ER) | payer OTHER, SELFPAY ==
[2023-08-03 13:33] VITALS: BP 138/58; PULSE 84; RESP 18; TEMP 37.4; O2SAT 99
--- NOTE | 2023-08-03 13:41 | ED.GENADUL_ITS ---
HPI General Stated Complaint: Orthopedic SHAUNA: 4 Date/Time Provider Initiated Documentation: 08/03/23 13:41. HPI Narrative: MDM Chronic conditions affecting the care of the patient: [] History obtained from an outside historian: [] External record review: [] [Diagnostic interpretations performed by me: Per my independent interpretation chest x-ray shows: Per my independent interpretation EKG shows: ]Medications: [] Social determinants of health affecting disposition: [] Management discussed with: [] Treatment/interventions considered: [] Response to therapies provided: [] HPI [ ] Exam General: Well-appearing in no acute distress speaking in complete sentences. Head: Normocephalic, atraumatic. Eye:[Pupils equal, round reactive to light.] Extraocular eye movements intact. No conjunctival injection. No scleral icterus. Ear, nose, mouth, throat: Grossly normal inspection. Normal voice, handling secretions normally. Neck: Trachea midline. Cardiovascular: Well-perfused distal extremities. Respiratory: Nonlabored respiration. Gastrointestinal: Nondistended abdomen. Musculoskeletal: No edema. Moving all 4 extremities spontaneously. Skin: Normal for age and race, grossly normal temperature and turgor. No acute rash. Neurologic: Alert and appropriate, no apparent acute deficits. Psychiatric: Mood and manner are appropriate. Grooming and personal hygiene are appropriate. Related Data Home Medications Medication Instructions Recorded Confirmed omega-3 fatty acids 1,000 mg 1,000 mg PO DAILY 10/31/18 08/03/23 capsule (Fish Oil Concentrate) aspirin 81 mg tablet,delayed 81 mg PO DAILY 03/20/19 08/03/23 release clobetasol 0.05 % topical cream 1 applic topical DAILY 09/25/19 08/03/23 lactobacillus combination no.8 1 cap PO DAILY 09/25/19 08/03/23 vitamin B complex 1 tab PO DAILY 09/25/19 08/03/23 docusate sodium 100 mg capsule 100 mg PO DAILY 08/05/20 08/03/23 (Colace) psyllium seed (sugar) oral powder 1 tbsp PO DAILY PRN 08/05/20 08/03/23 (Metamucil (sugar) oral powder) minocycline 100 mg capsule 100 mg PO DAILY 05/26/21 08/03/23 lorazepam 0.5 mg tablet 0.5 mg PO BID PRN 08/16/21 08/03/23 lorazepam 0.5 mg tablet 1 mg PO HS 08/16/21 08/03/23 magnesium 250 mg tablet 250 mg PO DAILY Leg cramps 03/08/22 08/03/23 bupropion HCl 300 mg 24 hr tablet, 300 mg PO QPM 08/06/22 08/03/23 extended release (Wellbutrin XL) albuterol sulfate 90 mcg/actuation 1 - 2 puff inhalation .Q4-6H PRN 08/10/22 08/03/23 aerosol inhaler shortness of breath or wheezing #1 unit cholecalciferol (vitamin D3) 100 4,000 unit PO DAILY #90 tab-caps 08/10/22 08/03/23 mcg (4,000 unit) capsule cyanocobalamin (vitamin B-12) 2,000 mcg (2 x 1,000 mcg) PO DAILY 08/10/22 08/03/23 1,000 mcg tablet #180 tab-caps empagliflozin 25 mg tablet 25 mg PO DAILY AM #90 tab-caps 08/10/22 08/03/23 (Jardiance) folic acid 1 mg tablet 1 mg PO DAILY #90 tab-caps 08/10/22 08/03/23 lancets #100 ea 08/10/22 08/03/23 atorvastatin 10 mg tablet 10 mg PO DAILY #90 tab-caps 12/21/22 08/03/23 levothyroxine 25 mcg tablet 25 mcg PO DAILY #90 tab-caps 12/21/22 08/03/23 metformin 1,000 mg tablet 1,000 mg PO BID #180 tab-caps 12/21/22 08/03/23 pantoprazole 40 mg tablet,delayed 40 mg PO DAILY #90 tab-caps 12/21/22 08/03/23 release cetirizine 10 mg tablet (Zyrtec) 10 mg PO PRN PRN allergy symptoms 01/20/23 08/03/23 lorazepam 0.5 mg tablet (Ativan) 0.5 mg PO DAILY PRN anxiety #10 01/20/23 08/03/23 tabs linagliptin 5 mg tablet 5 mg PO DAILY #90 tabs 02/15/23 08/03/23 blood sugar diagnostic (Blood #100 ea 03/18/23 08/03/23 Glucose Test strips) blood-glucose meter #1 ea 03/18/23 08/03/23 capsaicin 0.075 % topical cream 1 applic topical QID PRN diabetic 04/05/23 08/03/23 neuropathy #120 grams Previous Rx's Medication Instructions Recorded albuterol sulfate 90 mcg/actuation 1 - 2 puff inhalation .Q4-6H PRN 08/10/22 aerosol inhaler shortness of breath or wheezing #1 unit cholecalciferol (vitamin D3) 100 4,000 unit PO DAILY #90 tab-caps 08/10/22 mcg (4,000 unit) capsule cyanocobalamin (vitamin B-12) 2,000 mcg (2 x 1,000 mcg) PO DAILY 08/10/22 1,000 mcg tablet #180 tab-caps empagliflozin 25 mg tablet 25 mg PO DAILY AM #90 tab-caps 08/10/22 (Jardiance) folic acid 1 mg tablet 1 mg PO DAILY #90 tab-caps 08/10/22 lancets #100 ea 08/10/22 atorvastatin 10 mg tablet 10 mg PO DAILY #90 tab-caps 12/21/22 levothyroxine 25 mcg tablet 25 mcg PO DAILY #90 tab-caps 12/21/22 metformin 1,000 mg tablet 1,000 mg PO BID #180 tab-caps 12/21/22 pantoprazole 40 mg tablet,delayed 40 mg PO DAILY #90 tab-caps 12/21/22 release lorazepam 0.5 mg tablet (Ativan) 0.5 mg PO DAILY PRN anxiety #10 01/20/23 tabs linagliptin 5 mg tablet 5 mg PO DAILY #90 tabs 02/15/23 blood sugar diagnostic (Blood #100 ea 03/18/23 Glucose Test strips) blood-glucose meter #1 ea 03/18/23 capsaicin 0.075 % topical cream 1 applic topical QID PRN diabetic 04/05/23 neuropathy #120 grams Allergies Allergy/AdvReac Type Severity Reaction Status Date / Time doxycycline Allergy Severe tongue Verified 08/03/23 13:36 swelling amoxicillin Allergy Intermediate Swelling/Ed Verified 08/03/23 13:36 domingo morphine Allergy Unknown itch and Verified 08/03/23 13:36 hives zolpidem tartrate AdvReac Severe suicidal Verified 08/03/23 13:36 [From Ambien] metronidazole [From Flagyl] AdvReac Unknown GI UPSET Verified 08/03/23 13:36 oxycodone HCl [From Percocet] AdvReac Unknown hallucinati Verified 08/03/23 13:36 ons trazodone AdvReac Unknown anxiety Verified 08/03/23 13:36 [facility] Active Problems (Updated 04/06/23 @ 08:49 by yLn Sinclair NP) LVH (left ventricular hypertrophy) (Acute) RBBB (Acute) Diabetic macular edema, left eye (Acute 09/07/22) Diabetic peripheral neuropathy (Acute) 12/19/21 Podiatry [facility] Vitamin B12 deficiency (Acute) Iron deficiency anemia (Acute) Diabetic retinopathy of both eyes (Chronic 08/16/20) 08/29/21-mild bilat-[facility] Chronic anemia (Chronic) Multifactorial, s/p gastric bypass with vitamin B12, folate, and iron deficiencies; baseline Hgb ~10 Type 2 diabetes mellitus without complication, without long-term current use of insulin (Chronic) [facility] [place] past Anxiety and depression (Chronic) Managed by [facility] Restless leg syndrome (Chronic) Insomnia (Chronic) Vitamin D deficiency (Chronic 03/14/12) Sleep apnea (Chronic 03/09/13) Polycystic ovaries (Chronic 03/09/13) Megaloblastic anemia (Chronic 09/06/11) S/p gastric bypass Hypothyroidism (Chronic 09/08/12) Hyperlipidemia (Chronic 03/09/13) 02/2019 labs: 10-year ASCVD risk = ~10% --> started on moderate intensity statin therapy Gastroesophageal reflux disease (Chronic 03/09/13) EGD 05/30/2015, again 02/2017 with [facility] Folliculitis (Chronic 03/14/12) Scalp; managed with Minocycline prn Folate deficiency (Chronic 05/13/17) Carpal tunnel syndrome (Chronic 03/09/13) [place] Allergic rhinitis (Chronic 05/12/12) Environmental--controlled with Zyrtec and prn Xopenex with known triggers such as moldy basements Medical History (Updated 04/06/23 @ 08:49 by Lyn Sinclair NP) Latent tuberculosis by blood test NL CXR 05/09/2020; 06/09/20 [facility] [place] consult --> proceed with 4mo rifampin regimen; complete 10/2020 Esophageal stricture S/p dilatations in the past (most recent with [facility]) Surgical History History of local excision of skin lesion (06/06/21) Dr. Paez 1) pilar cyst scalp 2) nevus left nasal alar crease Endometrial Biopsy (04/11/16) EGD/COLONOSCOPY W/ MAC (05/30/15) DR. VIRAMONTES EGD - MAC (07/02/17) EGD - MAC (02/26/17) Family History Brother Colon cancer Daughter Asthma Son Asthma Hypertension Father Prostate cancer Depression Diabetes Heart disease Hypertension Paternal Grandmother Cancer Pancreatic Aunt Breast cancer Mother Diabetes Heart disease Hypertension Social History Smoking/Tobacco Use Status: Never Smoking risk assessment performed?: Yes Alcohol Intake: current Alcohol Intake frequency: holidays/special occasions only Drug use: Never Substance use type: does not use Adopted: No Caregiver/Support person: No Foster care: No Household members: significant other and children Housing: house Number of Children: 4 number of grandchildren: 0 Communication Needs: None Education Level: college Details: Associate's degree 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 Pets and animals: Yes (1 cat) Pets and animals: cat(s) Sexually active: Yes Do you think of yourself as: straight/heterosexual Current gender identity: female What is your relationship status?: living with partner How often do you talk on the phone with friends or family?: three or more times per week How often do you get together with friends or relatives?: three or more times per week Do you belong to any clubs or organized social groups?: no Panel score (0-1 are the most socially isolated patients): 2 NHANES result reviewed/action taken: Yes What type of physical activity do you participate in: none Frequency: 5-6 times per week Adry/Congregation: None Special adry needs: No Seatbelt use: always Drive intox or ride w/intox refrigerated 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 driver: No Do you feel safe at home: Yes Do you feel safe in your relationship?: Yes Course Vital Signs Vital signs: Vital Signs Temperature 37.4 C 08/03/23 13:33 Pulse 84 08/03/23 13:33 Respiratory Rate 18 08/03/23 13:33 Blood Pressure 138/58 L 08/03/23 13:33 Pulse Oximetry 99 08/03/23 13:33 Temperature 37.4 C 08/03/23 13:33 Temperature Source Skin 08/03/23 13:33 Pulse 84 08/03/23 13:33 Respiratory Rate 18 08/03/23 13:33 Blood Pressure 138/58 L 08/03/23 13:33 Blood Pressure Position Sitting 08/03/23 13:33 Pulse Oximetry 99 08/03/23 13:33 Oxygen Delivery Method Room Air 08/03/23 13:33 Oxygen Flow Rate 0 08/03/23 13:33 Pain Level 6 08/03/23 13:33 Medical Decision Making Quality:SDOH Health Related Social Needs: No Data to Display Discharge Plan Discharge Details Chief Complaint: Orthopedic Primary Care Provider: Lyn Sinclair ED Provider: Barron Carrasco Home Meds and New Rx's Prescriptions: No Action aspirin 81 mg tablet,delayed release (DR/EC) 81 mg PO DAILY lactobacillus combination no.8 [Adult Probiotic] 1 cap PO DAILY vitamin B complex Tablet 1 tab PO DAILY clobetasol 0.05 % cream 1 applic TP DAILY omega-3 fatty acids [Fish Oil Concentrate] 1,000 mg capsule 1,000 mg PO DAILY Metamucil (sugar) Powder 1 tbsp PO DAILY PRN docusate sodium [Colace] 100 mg capsule 100 mg PO DAILY magnesium 250 mg tablet 250 mg PO DAILY capsaicin 0.075 % cream 1 applic topical QID PRN (Reason: diabetic neuropathy) Qty: 120 1RF Patient Comments: does not use Rx Instructions: Avoid contact with eyes and mucous membranes. Gently rub into painful area until thoroughly absorbed. Wash hands with soap and water immediately after a pplying (unless hands are part of the treatment area). Do not wash area for at least 30 min after application. minocycline 100 mg capsule 100 mg PO DAILY bupropion HCl [Wellbutrin XL] 300 mg tablet extended release 24 hr 300 mg PO QPM Rx Instructions: 12/03/19-[facility] note: increase to 300mg daily. per HS note-05/24/20-to take 300mg during winter caleb-Rosemarie albuterol sulfate 90 mcg/actuation HFA aerosol inhaler 1 - 2 puff inhalation .Q4-6H PRN (Reason: shortness of breath or wheezing) Qty: 1 3RF Rx Instructions: Dispense brand of albuterol inhaler covered by patient's insurance cholecalciferol (vitamin D3) 100 mcg (4,000 unit) capsule 4,000 unit PO DAILY Qty: 90 3RF cyanocobalamin (vitamin B-12) 1,000 mcg tablet 2,000 mcg PO DAILY Qty: 180 3RF Jardiance 25 mg tablet 25 mg PO DAILY AM Qty: 90 3RF Rx Instructions: Administer once daily in the morning, with or without food folic acid 1 mg tablet 1 mg PO DAILY Qty: 90 3RF (DME) lancets [facility] See Rx Instructions .ROUTE .MEDSUPPLY Qty: 100 3RF Rx Instructions: As directed to check blood glucose daily. No insulin. Dispense covered brand. atorvastatin 10 mg tablet 10 mg PO DAILY Qty: 90 3RF levothyroxine 25 mcg tablet 25 mcg PO DAILY Qty: 90 3RF metformin 1,000 mg tablet 1,000 mg PO BID Qty: 180 3RF pantoprazole 40 mg tablet,delayed release (DR/EC) 40 mg PO DAILY Qty: 90 3RF Rx Instructions: Take 40 mg daily once daily at least 30-60 minutes before first meal of the day linagliptin 5 mg tablet 5 mg PO DAILY Qty: 90 3RF (DME) Blood Glucose Test Strip See Rx Instructions .ROUTE .MEDSUPPLY Qty: 100 3RF Rx Instructions: As directed to check blood glucose daily. No insulin. Dispense covered brand. (DME) blood-glucose meter [facility] [place] See Rx Instructions .Route Qty: 1 0RF Rx Instructions: as directed to check daily morning fasting blood glucose.ONE TOUCH GLUCOMETER to use with the one touch ultra test strips. DX E11.9, to maintain HbA1c less than 7%. No insulin. cetirizine [Zyrtec] 10 mg tablet 10 mg PO PRN PRN (Reason: allergy symptoms) lorazepam [Ativan] 0.5 mg tablet 0.5 mg PO DAILY MDD 1 mg PRN (Reason: anxiety) Qty: 10 0RF lorazepam 0.5 mg tablet 0.5 mg PO BID PRN lorazepam 0.5 mg tablet 1 mg PO HS
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
--- NOTE | 2023-08-03 14:00 | DI.CT_ITS ---
Exam(s) CT THORACIC LUMBAR SPINE WO EXAM: CT THORACIC LUMBAR SPINE WO CLINICAL HISTORY: Lumbar spinal pain. TECHNIQUE: Imaging Protocol: Axial computed tomography images with coronal and sagittal reformatted images were created and reviewed. CONTRAST MATERIAL: Intravenous: None COMPARISON: CT CT PELVIC WO from 08/03/2023 FINDINGS: THORACIC SPINAL COLUMN: No evidence of compression fracture or listhesis. There is no facet malalign ment. No acute compromise of the spinal canal. LUMBOSACRAL SPINAL COLUMN: No evidence of fracture or listhesis. No pars defects. No osseous lesion s. No acute compromise of the spinal canal. IMPRESSION: No significant acute osseous findings in the thoracic and lumbar spinal columns. RADIATION DOSE DELIVERED: 1557.01 mGy.cm Total DLP DATA REPOSITORY: All CT scans at this facility are submitted to the National Radiology Data Registry (NRDR) Dose Index Registry (DIR) with the [employer] (A[employer]). RADIATION OPTIMIZATION: All CT scans at this facility use at least one of these dose optimization te chniques: automated exposure control; mA and/or kV adjustment per patient size (includes targeted exa ms where dose is matched to clinical indication); or iterative reconstruction.
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
--- NOTE | 2023-08-03 14:00 | DI.CT_ITS ---
Exam(s) CT PELVIC WO EXAM: CT PELVIC WO CLINICAL HISTORY: Left-sided SI joint pain trauma. TECHNIQUE: Imaging Protocol: Axial computed tomography images with coronal and sagittal reformatted images were created and reviewed CONTRAST MATERIAL: Intravenous: none Oral: None COMPARISON: No exams were available for comparison FINDING: PELVIS: OSSEOUS: No pelvic nor hip fractures evident.No significant osseous lesions evident.Sacroiliac joints appear unremarkable. No sacral fractures evident. No pubic rami fractures. No coccyx fracture. ANTERIOR ABDOMINAL WALL/GI:No evidence of significant anterior abdominal wall nor inguinal hernia in the pelvis evident. There is an anastomosis in a bowel loop in left side of the pelvis. No evidence of bowel obstruction. No free air. No abscess. Appendix is not included in the field of view here .Entire sigmoid is not included in the field of view. There is no obvious diverticulitis.No free flu id in the pelvis. LYMPH NODES: There is no intrapelvic nor inguinal adenopathy. URINARY BLADDER: No calculi nor obvious masses evident REPRODUCTIVE: Age-appropriate. IMPRESSION: 1. No acute osseous findings, as per request. 2. Bowel anastomosis noted in the pelvis. No bowel obstruction, free air, nor abscess in the pelvis. 3. RADIATION DOSE DELIVERED: Total DLP DATA REPOSITORY: All CT scans at this facility are submitted to the National Radiology Data Registry (NRDR) Dose Index Registry (DIR) with the [employer] (ACR). RADIATION OPTIMIZATION: All CT scans at this facility use at least one of these dose optimization te chniques: automated exposure control; mA and/or kV adjustment per patient size (includes targeted exa ms where dose is matched to clinical indication); or iterative reconstruction.
[2023-08-03] MEDS: HYDROmorphone 2 MG TAB 1 MG PO (14:43)
[2023-08-03] MEDS: Acetaminophen 500 MG TAB 1000 MG PO (14:43)
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
--- NOTE | 2023-08-03 15:37 | DI.VRAD_ITS ---
PROCEDURE INFORMATION: Exam: CT Thoracic Spine Without Contrast Exam date and time: 08/03/2023 2:53 PM Age: 58 years old Clinical indication: Other: Lumbar spine pain TECHNIQUE: Imaging protocol: Computed tomography of the thoracic spine without contrast. Radiation optimization: All CT scans at this facility use at least one of these dose optimization techniques: automated exposure control; mA and/or kV adjustment per patient size (includes targeted exams where dose is matched to clinical indication); or iterative reconstruction. COMPARISON: CR XR CHEST 2V PA LATERAL 01/20/2023 5:10 PM FINDINGS: Bones/joints: There is no evidence of acute fracture.There is no evidence of malalignment or dislocation. Soft tissues: Unremarkable. IMPRESSION: There is no evidence of acute fracture.There is no evidence of malalignment or dislocation. PROCEDURE INFORMATION: Exam: CT Lumbar Spine Without Contrast Exam date and time: 08/03/2023 2:53 PM Age: 58 years old Clinical indication: Other: Lumbar spine pain TECHNIQUE: Imaging protocol: Computed tomography of the lumbar spine without contrast. Radiation optimization: All CT scans at this facility use at least one of these dose optimization techniques: automated exposure control; mA and/or kV adjustment per patient size (includes targeted exams where dose is matched to clinical indication); or iterative reconstruction. COMPARISON: CT PELVIC WO 08/03/2023 2:53 PM FINDINGS: Bones/joints: There is no evidence of acute fracture.There is no evidence of malalignment or dislocation. Broad-based disc bulge at L5/S1 may represent degenerative disc disease. Soft tissues: Unremarkable. IMPRESSION: 1. There is no evidence of acute fracture.There is no evidence of malalignment or dislocation. 2. Broad-based disc bulge at L5/S1 may represent degenerative disc disease. Dictated and Authenticated by: Joanna Leon MD. Ordering:HEYDI Mart MD
== END 2023-08-03 16:08 | disposition home or self-care (01) ==
PROVIDERS: Emergency Provider Emergency Medicine; PCP Nurse Practitioner Family
DX: M25.552 Pain in left hip (principal); M54.50 Low back pain, unspecified; Z91.81 History of falling; W19.XXXA Unspecified fall, initial encounter
CPT/HCPCS: 99284; 71045; 72128; 72131; 72192; 99283

== ENCOUNTER 2023-08-03 21:03 | Emergency (ER) | payer OTHER, SELFPAY ==
[2023-08-03 21:07] VITALS: BP 147/54; PULSE 72; RESP 16; TEMP 36.7; O2SAT 98
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
[2023-08-03] MEDS: HYDROmorphone 2 MG TAB PO (21:44)
[2023-08-03] MEDS: Lidocaine 5% Patch 1 PATCH TP (21:44)
[2023-08-03] MEDS: HYDROmorphone 2 MG TAB 4 MG PO (22:25)
== END 2023-08-03 22:27 | disposition home or self-care (01) ==
PROVIDERS: Emergency Provider Emergency Medicine; PCP Nurse Practitioner Family
DX: S70.02XA Contusion of left hip, initial encounter (principal); E11.319 Type 2 diabetes mellitus with unspecified diabetic retinopathy without macular edema; Z79.82 Long term (current) use of aspirin; Z79.84 Long term (current) use of oral hypoglycemic drugs; W07.XXXA Fall from chair, initial encounter; Y93.89 Activity, other specified
CPT/HCPCS: 99283

== ENCOUNTER 2023-12-27 05:46 | Outpatient (CLI) | payer OTHER, SELFPAY ==
--- NOTE | 2023-12-27 10:59 | W.NUTRFU ---
Date of service: 12/27/23 Time of Service: 09:00 Nutrition Note NOTE: Linda comes in for referred nutrition appt for diabetes education/mgt - A1C was 7.5 at appointment with provider in last month Linda has type II diabetes and has needed insulin in the past during but reports she is not taking insulin currently and prefers to avoid it. She takes 1gm Metformin BID and 100mg Januvia daily. She reports being getting symptoms of low glucose at ~100mg/dL. She reports being lactose sensitive and resulting diarrhea from lactose can contribute to hypoglycemia for her. Mostly drinks water and tea, occasional soda and juice. 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 She takes B12 supplment and reprts PICA symptoms when it gets low - used to receive injections. She takes 5,000IU vitamin D3 and has increaed and decreased depending on level of sun exposure and lab levels. She also takes folic acid and a fish oil supplement recommended by her eye dr. She reports no exercise and often feels exhausted from work. She has a history of gastric bp surgery and 24 years ago and the last 1.5 yrs has started gaining significant weight back with ~3kg wt gain x 2years. Estimated energy needs: 1732kcals (REEx1.3), 129g protein (30% of kcals) Reviewed recommended goal of ~170g total carbs per day with <30coming from added sugars and goal of increasing fiber to 25-30g of this total as well. Reviewed food sources, reading labels and tips on increasing fiber. Linda's job responsibilities and demand for time away from consistent food intake does seem to be a significant barrier for her to have a routine healthy diet. We discussed setting up an ideal meal plan with at least 3 meals and 0-2planned snacks per day so she can have a reference for what an ideal day is going to look like. Then the work comes with trouble shooting and coming up with convenient foods she can pair up quickly for meals and snacks when time is short. Reviewed suggestions like cottage cheese, fruit and nuts or baby carrots with hummus and small yogurt. Linda will continue to try to do a better job with being proactive with meal planning so she is not left to eat whatever is available at the time she is able to eat. She took my card with contact info should she want more extensive help with menu planning or follow up visits Time Spent in Nutritional Counseling and Treatment: 45 minutes
== END 2023-12-27 05:47 | disposition home or self-care (01) ==
LOC: DS 05:46
PROVIDERS: PCP Nurse Practitioner Family; Visit Provider Dietitian, Registered
DX: E11.9 Type 2 diabetes mellitus without complications (principal); Z79.84 Long term (current) use of oral hypoglycemic drugs; Z71.3 Dietary counseling and surveillance
CPT/HCPCS: 00123; 97802

== ENCOUNTER 2024-05-15 09:40 | Outpatient (CLI) | payer OTHER, SELFPAY ==
[2024-05-15 09:04] LABS: Abs Immature Grans 0.02 10^3/uL (0.0-0.06); Absolute Basophil Count 0.05 10^3/uL (0.0-0.2); Absolute Eosinophil Count 0.27 10^3/uL (0.0-0.7); Absolute Lymphocyte Count 1.42 10^3/uL (1.2-3.4); Absolute Monocyte Count 0.42 10^3/uL (0.1-0.8); Absolute Neutrophil Count 3.86 10^3/uL (1.2-6.7); Basophils % 0.8 %; Eosinophils % 4.5 %; HCT 32.9 % (36.0-46.0); Immature Grans % 0.3 %; Lymphocytes % 23.5 %; MCH 24.2 pg (27.0-33.0); MCHC 30.4 % (32.0-36.0); MCV 80 fL (80-95); MPV 11.1 fL (8.0-11.0); Neutrophils % 63.9 %; Platelet Count 227 10^3/uL (130-400); RBC 4.13 10^6/uL (3.93-5.22); RDW 16.8 % (11.7-14.6); RDW-SD 48.1 fL; WBC 6.04 10^3/uL (4.4-10.8)
[2024-05-15 09:18] LABS: Hemoglobin A1C 6.9 % (<5.7)
--- OUTSIDE RECORDS SUMMARY | 2024-05-15 09:45 | XMS_ITS | Encounter Summary ---
Author Organization [facility] Address [address] [place] [address] Care Team Providers Care Avionics Systems Integration Specialist Name Role Phone Lashae Castaneda BUILDING COMPONENTS DESIGNER Primary Care Provider [phone] Encounter Details Date Type Department Care Team (Latest Contact Info) Description 05/30/2015 15:34 EST - 05/30/2015 23:59 EST Hospital Encounter [address] [address] Unknown, Provider, Discharge Disposition: Home or Self Care Social History Tobacco Use Types Packs/Day Years Used Date Smoking Tobacco: Never Assessed Sex and Gender Information Value Date Recorded Sex Assigned at Not on file Gender Identity Not on file Sexual Orientation Not on file documented as of this encounter Discharge Disposition Disposition Code Departure Means Destination Home or Self [facility] documented in this encounter Plan of Treatment Not on file documented as of this encounter Visit Diagnoses Not on filedocumented in this encounter Care Teams Avionics Systems Integration Specialist Relationship Specialty Start Date End Date Lashae Castaneda NP [address] [place] [address] PCP - General 07/10/10 documented as of this encounter
--- OUTSIDE RECORDS SUMMARY | 2024-05-15 09:45 | XMS_ITS | Encounter Summary ---
Author Organization [facility] Address [address] [place] [address] Care Team Providers Care Stain Dipper Name Role Phone Unavailable Primary Care Provider Unavailabl e Encounter Details Date Type Department Care Team (Late st Contact Info) Description 10/06/2007 Results Only [facility] [place] [facility] [address] [place] [address] Lashae Pardo, DATABASE REPORT WRITER [address] [place] [id number] Social History Tobacco Use Types Packs/Day Years Used Date Smoking Tobacco: Never Assessed Sex and Gender Information Value Date Recorded Sex Assigned at Not on file Gender Identity Not on file Sexual Orientation Not on file documented as of this encounter Plan of Treatment Not on file documented as of this encounter Procedures Procedure Name Priority Date/Time Associated Diagnosis Comments CYTOPATHOLOGY Routine 10/06/2007 0:00 EDT documented in this encounter Results * CYTOPATHOLOGY (10/06/2007 0:00 EDT) Pathology Report: CYTOPATHOLOGY REPORT Reports generated via electronic interface contain original data; however they are lacking the format of the original report. Caution should be taken when reading/interpreti ng unformatted reports. Name: ? LEOLINDA CONNELLY ? Accession #: ? [id number] : ? 1965 (Age: 42) ??F ?Collect Date: ? 10/06/2007 Location: ? [facility] ? Receive Date: ? 10/06/2007 Provider: ?LASHAE PARDO DATABASE REPORT WRITER Copy to: ? Specimen/Source: ?ThinPrep Pap Test, Endocervix, processed on PovioPrep Imaging System, with manual evaluation Last Menstrual Period: ? 09/24/07 Other: ? HPVA - HPV testing requested if ASC-US on the current ThinPrep Pap test. ? SPECIMEN ADEQUACY ? Satisfactory for Evaluation - transformation zone component present GENERAL CATEGORIZATION ? Negative for Intraepithelial Lesion or Malignancy INTERPRETATION ? Reactive cellular changes associated with inflammation present (includes repair). ? Document reviewed and electronically signed by: ? DEO CRAWFORD MD ? Report Date: ??10/15/2007 15:38 End of Report ADELFO CAMPOVERDE 10/06/2007 10/06/2007 Lashae Pardo NP PATHOLOGY ORDERABLE S Performing Organization Address City/State/[facility] Co de Phone Number ADELFO CAMPOVERDE [address] [place] [address] documented in this encounter Visit Diagnoses Not on filedocumented in this encounter
--- OUTSIDE RECORDS SUMMARY | 2024-05-15 09:45 | XMS_ITS | Encounter Summary ---
Author Organization [facility] Address [address] [place] [address] Care Team Providers Care Forestry Technician Name Role Phone Lashae Pardo NP Primary Care Provider Encounter Details Date Type Department Care Team (Late st Contact Info) Description 05/30/2015 Results Only [facility] [phone] Dakota Resendez, DO [address] [facility] [address] [place], [place] [phone] Social History Tobacco Use Types Packs/Day Years Used Date Smoking Tobacco: Never Assessed Sex and Gender Information Value Date Recorded Sex Assigned at Not on file Gender Identity Not on file Sexual Orientation Not on file documented as of this encounter Plan of Treatment Not on file documented as of this encounter Procedures Procedure Name Priority Date/Time Associated Diagnosis Comments SURGICAL PATHOLOGY Routine 05/30/2015 18 :16 EST documented in this encounter Results * SURGICAL PATHOLOGY (05/30/2015 18:16 EST) Pathology Report: SURGICAL PATHOLOGY REPORT Reports generated via electronic interface contain original data; however they are lacking the format of the original report. Caution should be taken when reading/interpret ing unformatted reports. Name: ? LINDA GARCIA ? Accession #: ? [id number] ? : ? 1965 (Age: 50) ??F ? Collect Date: ? 05/30/2015 ? Location: ? [facility] ? Receive Date: ? 05/30/2015 ? Provider: DAKOTA RESENDEZ DO Copy to: LASHAE PARDO RADIOLOGY TRANSCRIPTIONIST ? Final Pathologic Diagnosis: A. ??STOMACH, GASTRIC REMNANT, BIOPSY: - Gastric body mucosa with reactive (chemical) gastropathy. B. ??ESOPHAGUS, DISTAL, BIOPSY: - Squamous mucosa with mild reactive changes. C. ??ESOPHAGUS, PROXIMAL, BIOPSY: - Squamous mucosa with no specific pathologic features. Document reviewed and electronically signed by: MARICRUZ WANG MD Report ??Date: 06/02/2015 17:15 By the signature above, the attending physician certifies that he/she has personally conducted a gross and/or microscopic examination of the described specimens and rendered or confirmed the above diagnosis. Specimen(s) Received: A. ?Bx gastric remnant B. ? Bx distal esophagus C. ? Bx proximal esophagus Clinical History: GERD, dysphagia Gross Description: A. ?Received in formalin labelled with proper patient identification (initials B, B) and biopsy gastric remnant are three pink-giordano tissues (0.3 x 0.2 x 0.1 cm to 0.5 x 0.4 x 0.2 cm). Entirely submitted in block A1. B. ?Received in formalin labelled with proper patient identification (initials B, B) and biopsy distal esophagus are three white tissues (0.3 x 0.2 x 0.1 cm to 0.5 x 0.4 x 0.1 cm). Entirely submitted in block B1. C. ?Received in formalin labelled with proper patient identification (initials B, B) and biopsy proximal esophagus are two white tissues (0.4 x 0.3 x 0.1 cm and 0.4 x 0.3 x 0.1 cm). Entirely submitted in block C1. Luba Shanks 05/31/2015 9:01 AM End of Report [facility] 05/30/2015 18:1 6 EST 05/30/2015 18:16 EST Dakota Resendez DO PATHOLOGY ORDER BANDAR [facility] [address] [place] [address] documented in this encounter Visit Diagnoses Not on filedocumented in this encounter Care Teams Forestry Technician Relationship Specialty Start Date End Date Lashae Pardo, RADIOLOGY TRANSCRIPTIONIST [address] [place] [phone] PCP - General 07/10/10 documented as of this encounter
--- OUTSIDE RECORDS SUMMARY | 2024-05-15 09:45 | XMS_ITS | Encounter Summary ---
Author Organization [facility] Address [address] [place] [address] Care Team Providers Care Straightening Press Operator Helper Name Role Phone Lashae Castaneda NP Primary Care Provider Encounter Details Date Type Department Care Team (Late st Contact Info) Description 07/02/2017 Results Only [facility] [phone] Dakota Resendez, DO [address] [facility] [address] [place], [place] [address] Social History Tobacco Use Types Packs/Day Years Used Date Smoking Tobacco: Never Assessed Sex and Gender Information Value Date Recorded Sex Assigned at Not on file Gender Identity Not on file Sexual Orientation Not on file documented as of this encounter Plan of Treatment Not on file documented as of this encounter Procedures Procedure Name Priority Date/Time Associated Diagnosis Comments SURGICAL PATHOLOGY Routine 07/02/2017 18 :31 EST documented in this encounter Results * SURGICAL PATHOLOGY (07/02/2017 18:31 EST) Pathology Report: SURGICAL PATHOLOGY REPORT Reports generated via electronic interface contain original data; however they are lacking the format of the original report. Caution should be taken when reading/interpreting unformatted reports. Name: ? LINDA GARCIA ? Accession #: ? [id number] ? : ? 1965 (Age: 52) ??F ? Collect Date: ? 07/02/2017 ? Location: ? [facility] ? Receive Date: ? 07/02/2017 ? Provider: DAKOTA RESENDEZ DO Copy to: ANAY IYER FULL SERVICE VENDING DRIVER ? Final Pathologic Diagnosis: GASTROJEJUNAL ANASTOMOSIS, BIOPSY: - Enteric and gastric-type mucosa with marked chronic inflammation and regenerative changes. - See comment. Comment: These biopsies show changes consistent with an anastomotic site. ??There is a marked degree of chronic inflammation and regenerative hyperplasia. Immunohistochemical stain for Helicobacter pylori performed on a previous biopsy from this site ([id number]; February 2017) and was found to be negative. ??This case was reviewed at the intradepartmental GI consensus conference. ?? Document reviewed and electronically signed by: MARICRUZ WANG MD Report ??Date: 07/05/2017 15:24 By the signature above, the attending physician certifies that he/she has personally conducted a gross and/or microscopic examination of the described specimens and rendered or confirmed the above diagnosis. Specimen(s) Received: Bx gastrojejunal anastomosis Clinical History: GERD; gastrojejunal anastomosis stricture Gross Description: ? Received in formalin labelled with proper patient identification (initials B, B) and gastrojejunal anastomosis bx are four white tissues (0.4 x 0.1 x 0.1 cm to 0.1 x 0.1 x 0.1 cm). Entirely submitted in 1 and 2. Jeremy Trejo 07/03/2017 9:04 AM End of Report [facility] 07/02/2017 18:3 1 EST 07/02/2017 18:31 EST Dakota Resendez DO PATHOLOGY ORDER BANDAR [facility] [address] [place] [address] documented in this encounter Visit Diagnoses Not on filedocumented in this encounter Care Teams Straightening Press Operator Helper Relationship Specialty Start Date End Date Lashae Castaneda, CULINARY MANAGER [address] [place] [phone] PCP - General 07/10/10 documented as of this encounter
--- OUTSIDE RECORDS SUMMARY | 2024-05-15 09:45 | XMS_ITS | Encounter Summary ---
Author Organization [facility] Address [address] [place] [address] Care Team Providers Care Glass Belt Sander Name Role Phone Lashae Castaneda NP Primary Care Provider Encounter Details Date Type Department Care Team (Late st Contact Info) Description 09/07/2020 Results Only [facility] - Main [place] [address] [place], [place] [address] Joselo Segura MD [facility] [address] [place] [address] Social History Tobacco Use Types Packs/Day Years Used Date Smoking Tobacco: Never Assessed Interpersonal Safety Answer Date Record ed Physically Hurt Never 2020 Verbally Threaten Not on file 2020 Sex and Gender Information Value Date Recorded Sex Assigned at Not on file Gender Identity Not on file Sexual Orientation Not on file documented as of this encounter Plan of Treatment Not on file documented as of this encounter Procedures Procedure Name Priority Date/Time Associated Diagnosis Comments POCT GLUCOSE, INTERFACED Routine 09/07/2020 14:45 EST documented in this encounter Results * (ABNORMAL) POCT GLUCOSE, INTERFACED (09/07/2020 14:45 EST) Glucose, POC 142(H) 70 - 100 mg/dL 09/07/2020 16:15 EST [facility] 09/07/2020 14:4 5 EST 09/07/2020 16:15 EST Joselo Segura MD POINT OF CARE TEST O RDERABLES [facility] [address] [place] [address] documented in this encounter Visit Diagnoses Not on filedocumented in this encounter Care Teams Glass Belt Sander Relationship Specialty Start Date End Date Lashae Castaneda, SUPERVISOR QUALITY CONTROL [address] [place] [phone] PCP - General 07/10/10 documented as of this encounter
--- OUTSIDE RECORDS SUMMARY | 2024-05-15 09:45 | XMS_ITS | Referral Summary ---
Author Organization [facility] Address [address] [place] [address] Care Team Providers Care Esthetician Makeup Artist Name Role Phone Lashae Castaneda HULL GRINDER Primary Care Provider [phone] Social History Tobacco Use Types Packs/Day Years Used Date Smoking Tobacco: Never Assessed Interpersonal Safety Answer Date Record ed Physically Hurt Never 2020 Verbally Threaten Not on file 2020 Sex and Gender Information Value Date Recorded Sex Assigned at Not on file Gender Identity Not on file Sexual Orientation Not on file Plan of Treatment Not on file Procedures Procedure Name Priority Date/Time Associated Diagnosis Comments HEPATITIS C AB W REFLEX TO HCV RNA BY PCR Routine 08/05/2020 16:55 EST from Last 3 Months or Most Recently Relevant to Health Maintenance Results * HEPATITIS C AB W REFLEX TO HCV RNA BY PCR (08/05/2020 16:55 EST) Hep C Antibody Negative Negative 08/08/2020 10:04 EST [facility] Blood VENOUS BLOOD / Unknown 08/05/2020 16:55 EST 08/07/2020 16:23 EST Provider Outr Resulting Lab CHEMISTRY & BLOOD GAS ORDERABLES [facility] [address] [place] [address] from Last 3 Months or Most Recently Relevant to Health Maintenance Care Teams Esthetician Makeup Artist Relationship Specialty Start Date End Date Lashae Castaneda NP [address] [place] [address] [facility] - General 07/10/10
--- OUTSIDE RECORDS SUMMARY | 2024-05-15 09:45 | XMS_ITS | Encounter Summary ---
Author Organization [facility] Address [address] [place] [address] Care Team Providers Care Grinder Operator Automatic Name Role Phone Unavailable Primary Care Provider Unavailabl e Encounter Details Date Type Department Care Team (Late st Contact Info) Description 12/22/2002 Results Only [facility] - [place] conversion [address] [place] [address] Lashae Pardo, EDI CONSULTANT [address] [place] [phone] Social History Tobacco Use Types Packs/Day Years Used Date Smoking Tobacco: Never Assessed Sex and Gender Information Value Date Recorded Sex Assigned at Not on file Gender Identity Not on file Sexual Orientation Not on file documented as of this encounter Plan of Treatment Not on file documented as of this encounter Procedures Procedure Name Priority Date/Time Associated Diagnosis Comments CYTOPATHOLOGY Routine 12/22/2002 0:00 EDT documented in this encounter Results * CYTOPATHOLOGY (12/22/2002 0:00 EDT) Pathology Report: CYTOPATHOLOGY REPORT Reports generated via electronic interface contain original data; however they are lacking the format of the original report. Caution should be taken when reading/interpreti ng unformatted reports. Name: ? LEOLINDA CONNELLY ? Accession #: ? [id number] : ? 1965 (Age: 37) ??F ?Collect Date: ? 12/22/2002 Location: ? [facility] ? Receive Date: ? 12/25/2002 Provider: ?LASHAE PARDO EDI CONSULTANT Copy to: ? Specimen/Source: ?ThinPrep Pap Test, Cervix/Endocervix Last Menstrual Period: ? 11/21/02 ? SPECIMEN ADEQUACY ? Satisfactory for Evaluation - transformation zone component present GENERAL CATEGORIZATION ? Negative for Intraepithelial Lesion or Malignancy ? Document reviewed and electronically signed by: ? PEREZ Mendez(ASCP) ? Report Date: ??12/29/2002 08:23 End of Report [facility] 12/22/2002 12/25/2002 Lashae Pardo NP PATHOLOGY ORDERABLE S [facility] [address] [place] [address] documented in this encounter Visit Diagnoses Not on filedocumented in this encounter
--- OUTSIDE RECORDS SUMMARY | 2024-05-15 09:45 | XMS_ITS | Encounter Summary ---
Author Organization [facility] Address [address] [place] [address] Care Team Providers Care Skin Tanner Name Role Phone Lashae Castaneda DIETITIAN RESEARCH Primary Care Provider Encounter Details Date Type Department Care Team (Latest Contact Info) Description 02/26/2017 8:14 EDT - 02/26/2017 23:59 EDT Hospital Encounter [address] [address] Unknown, Provider, Discharge Disposition: Home or Self Care Social History Tobacco Use Types Packs/Day Years Used Date Smoking Tobacco: Never Assessed Sex and Gender Information Value Date Recorded Sex Assigned at Not on file Gender Identity Not on file Sexual Orientation Not on file documented as of this encounter Discharge Disposition Disposition Code Departure Means Destination Home or Self Group Home documented in this encounter Plan of Treatment Not on file documented as of this encounter Visit Diagnoses Not on filedocumented in this encounter Care Teams Skin Tanner Relationship Specialty Start Date End Date Lashae Castaneda NP [address] [place] [phone] PCP - General 07/10/10 documented as of this encounter
--- OUTSIDE RECORDS SUMMARY | 2024-05-15 09:45 | XMS_ITS | Encounter Summary ---
Author Organization [facility] Address [address] [place] [address] Care Team Providers Care Insurance Premium Auditor Name Role Phone Lashae Castaneda BIGHT MAKER Primary Care Provider [phone] Encounter Details Date Type Department Care Team (Latest Contact Info) Description 04/12/2016 8:16 EDT - 04/12/2016 23:59 EDT Hospital Encounter [address] [address] Unknown, Provider, Discharge Disposition: Home or Self Care Social History Tobacco Use Types Packs/Day Years Used Date Smoking Tobacco: Never Assessed Sex and Gender Information Value Date Recorded Sex Assigned at Not on file Gender Identity Not on file Sexual Orientation Not on file documented as of this encounter Discharge Disposition Disposition Code Departure Means Destination Home or Self Senior Living documented in this encounter Plan of Treatment Not on file documented as of this encounter Visit Diagnoses Not on filedocumented in this encounter Care Teams Insurance Premium Auditor Relationship Specialty Start Date End Date Lashae Castaneda NP [address] [place] [phone] PCP - General 07/10/10 documented as of this encounter
--- OUTSIDE RECORDS SUMMARY | 2024-05-15 09:45 | XMS_ITS | Encounter Summary ---
Author Organization [facility] Address [address] [place] [address] Care Team Providers Care Pitting Machine Operator Name Role Phone Unavailable Primary Care Provider Unavailabl e Encounter Details Date Type Department Care Team (Late st Contact Info) Description 06/08/2004 Results Only [facility] - Maple conversion [address] [place] [address] Lashae Pardo, EDUCATION OFFICER [address] [place] [phone] Social History Tobacco Use Types Packs/Day Years Used Date Smoking Tobacco: Never Assessed Sex and Gender Information Value Date Recorded Sex Assigned at Not on file Gender Identity Not on file Sexual Orientation Not on file documented as of this encounter Plan of Treatment Not on file documented as of this encounter Procedures Procedure Name Priority Date/Time Associated Diagnosis Comments CYTOPATHOLOGY Routine 06/08/2004 0:00 EST documented in this encounter Results * CYTOPATHOLOGY (06/08/2004 0:00 EST) Pathology Report: CYTOPATHOLOGY REPORT Reports generated via electronic interface contain original data; however they are lacking the format of the original report. Caution should be taken when reading/interpreti ng unformatted reports. Name: ? LEOLINDA CONNELLY ? Accession #: ? [id number] : ? 1965 (Age: 39) ??F ?Collect Date: ? 06/08/2004 Location: ? [facility] ? Receive Date: ? 06/12/2004 Provider: ?LASHAE PARDO EDUCATION OFFICER Copy to: ? Specimen/Source: ?ThinPrep Pap Test, Cervix/Endocervix Last Menstrual Period: ? 05/10/04 ? SPECIMEN ADEQUACY ? Satisfactory for Evaluation - transformation zone component present GENERAL CATEGORIZATION ? Negative for Intraepithelial Lesion or Malignancy INTERPRETATION ? Fungal organisms present morphologically consistent with Yudelka species. ? Document reviewed and electronically signed by: ? PEREZ Archer(ASCP) ? Report Date: ??06/21/2004 07:40 End of Report [facility] 06/08/2004 06/12/2004 Lashae Pardo NP PATHOLOGY ORDERABLE S [facility] [address] [place] [address] documented in this encounter Visit Diagnoses Not on filedocumented in this encounter
--- OUTSIDE RECORDS SUMMARY | 2024-05-15 09:45 | XMS_ITS | Encounter Summary ---
Author Organization [facility] Address [address] [place] [address] Care Team Providers Care Housing Project Manager Name Role Phone Unavailable Primary Care Provider Unavailabl e Encounter Details Date Type Department Care Team (Late st Contact Info) Description 07/07/[address] [facility] - [facility] ([facility] [address] [place], [place] [phone] Dakota Resendez, [address] [facility] [address] [place] [address] Social History Tobacco Use Types Packs/Day Years Used Date Smoking Tobacco: Never Assessed Sex and Gender Information Value Date Recorded Sex Assigned at Not on file Gender Identity Not on file Sexual Orientation Not on file documented as of this encounter Plan of Treatment Not on file documented as of this encounter Procedures Procedure Name Priority Date/Time Associated Diagnosis Comments SURGICAL PATHOLOGY Routine 07/07/2010 0:00 EST documented in this encounter Results * SURGICAL PATHOLOGY (07/07/2010 0:00 EST) Pathology Report: SURGICAL PATHOLOGY REPORT ? Reports generated via electronic interface contain original data; ? however they are lacking the format of the original report. ? Caution should be taken when reading/interpreti ng unformatted reports. ? Name: ? LINDA GARCIA ? Accession #: ? [id number] ? : ? 1965 (Age: 45) ??F ? Collect Date: ? 07/07/2010 ? Location: ? [facility] ? Receive Date: ? 07/07/2010 ? Provider: DAKOTA RESENDEZ DO ? Copy to: DIA L PARDO FRAME CARVER SPINDLE ? Final Pathologic Diagnosis: ? A. ?Gastrojejunostom y anastomosis, biopsies: ? 1. ?Gastric body mucosa with reactive gastropathy associated with ? foveolar hyperplasia, consistent with anastomotic site. ? B. ?Esophagus, distal, biopsies: ? 1. ?Squamous mucosa with histologic features of mild reflux esophagitis. ? 2. ? Gastric body type mucosa with foveolar hyperplasia. ? 3. ? Negative for specialized intestinal metaplasia/Negativ e for dysplasia. ? Document reviewed and electronically signed by: ? MARICRUZ WANG MD ? Report ??Date: 07/10/2010 16:44 ? By the signature above, the attending physician certifies that he/she has ? personally conducted a gross and/or microscopic examination of the described ? specimens and rendered or confirmed the above diagnosis. ? Specimen(s) Received: ? A. ?Gastrojejunostom y anastomosis ? B. ? Distal esophagus bx ? Clinical History: ? Epigastric pain, s/p gastric bypass, GERD, anemia ? Gross Description: ? Received in [place]'s fixative labelled Linda Garcia and ? gastrojejunostomy anastomosis are two irregular pieces of giordano-pink soft tissue measuring 0.3 x 0.2 x 0.2 cm and 0.3 x 0.2 x 0.2 cm. ??The specimens are entirely submitted in (A). ? Received in [facility]'s fixative labelled Linda Garcia and distal esophagus biopsy are two irregular pieces of giordano-pink soft tissue measuring 0.2 x 0.2 x ?? 0.2 cm and 0.3 x 0.3 x 0.3 cm. ??The specimens are entirely submitted in (B). (A. Horn). ? End of Report ? ADELFO CAMPOVERDE 07/07/2010 07/07/2010 19: 36 EST Dakota Resendez DO PATHOLOGY ORDER BANDAR [facility] [address] [place] [address] documented in this encounter Visit Diagnoses Not on filedocumented in this encounter
--- OUTSIDE RECORDS SUMMARY | 2024-05-15 09:45 | XMS_ITS | Encounter Summary ---
Author Organization [facility] Address [address] [place] [address] Care Team Providers Care Drying Equipment Operator Name Role Phone Unavailable Primary Care Provider Unavailabl e Encounter Details Date Type Department Care Team (Late st Contact Info) Description 10/22/2006 Results Only [facility] - Maple conversion [address] [place] [address] Dakota Resendez, DO [address] [facility] [address] [place], [place] [address] Social History Tobacco Use Types Packs/Day Years Used Date Smoking Tobacco: Never Assessed Sex and Gender Information Value Date Recorded Sex Assigned at Not on file Gender Identity Not on file Sexual Orientation Not on file documented as of this encounter Plan of Treatment Not on file documented as of this encounter Procedures Procedure Name Priority Date/Time Associated Diagnosis Comments SURGICAL PATHOLOGY Routine 10/22/2006 0:00 EDT documented in this encounter Results * SURGICAL PATHOLOGY (10/22/2006 0:00 EDT) Pathology Report: SURGICAL PATHOLOGY REPORT Reports generated via electronic interface contain original data; however they are lacking the format of the original report. Caution should be taken when reading/interpreti ng unformatted reports. Name: ? LINDA GARCIA ? Accession #: ? [id number] ? : ? 1965 (Age: 41) ??F ? Collect Date: ? 10/22/2006 ? Location: ? [facility] ? Receive Date: ? 10/22/2006 ? Provider: DAKOTA RESENDEZ DO Copy to: DIA PARDO QUALITY ASSURANCE QA LAB TECHNICIAN ? Final Pathologic Diagnosis: A. ?Stomach, antrum, biopsy: 1. ?Oxyphilic mucosa with no specific histopathologic features. 2. ? No Helicobacter pylori-like microorganisms identified on H+E stain. B. ?Esophagus, distal, biopsy: 1. ?Squamocolumnar mucosa with epithelial reactive changes and chronic inflammation. 2. ? No intestinal metaplasia identified. C. ?Esophagus, mid, biopsy: 1. ?Squamous mucosa with mild reactive changes. D. ?Esophagus, proximal, biopsy: 1. ?Squamous mucosa with mild reactive changes. Document reviewed and electronically signed by: Emiliano Ball MD Report ??Date: 10/24/2006 15:07 By the signature above, the attending physician certifies that he/she has personally conducted a gross and/or microscopic examination of the described specimens and rendered or confirmed the above diagnosis. Specimen(s) Received: A. ?Bx antrum (#1) B. ? Distal esophagus (#2) C. ? Mid esophagus (#3) D. ? Proximal esophagus (#4) Clinical History: ? Dysplasia & reflux; S/P gastric bypass Gross Description: ? Received in [employer]'s fixative labelled Carmine and bx antrum #1 is a giordano-pink irregular soft tissue fragment which measures 0.3 x 0.2 x 0.2 cm. This is submitted entirely as (A). Received in [place]'s fixative labelled Boldauf and #2 ??bx distal esophagus are three giordano-pink irregular soft tissue fragments which range in size from 0.2 x 0.2 x 0.2 cm to 0.4 x 0.2 x 0.1 cm. ??These are submitted entirely as (B). Received in [employer]'s fixative labelled Boldauf and bx mid esophagus #3 are two giordano-pink irregular soft tissue fragments which measure 0.2 x 0.2 x 0.1 cm and 0.7 x 0.2 x 0.1 cm. ??These are submitted entirely as (C). Received in [employer]'s fixative labelled Boldauf and bx proximal esophagus #4 is a giordano-pink irregular soft tissue fragment which measure 0.3 x 0.2 x 0.2 cm. ??This is submitted entirely as (D). ??(Dr. Dela Cruz)/[facility] End of Report ADELFO CAMPOVERDE 10/22/2006 10/22/2006 15: 32 EDT Dakota Resendez DO PATHOLOGY ORDER BANDAR [facility] [address] [place] [address] documented in this encounter Visit Diagnoses Not on filedocumented in this encounter
--- OUTSIDE RECORDS SUMMARY | 2024-05-15 09:45 | XMS_ITS | Encounter Summary ---
Author Organization [facility] Address [address] [place] [address] Care Team Providers Care Teaching Artist Name Role Phone Lashae Castaneda NP Primary Care Provider [phone] Encounter Details Date Type Department Care Team (Late st Contact Info) Description 11/30/2011 Results Only [facility] Laboratory Services - [facility] ([facility] [address] [place], [place] [phone] Ryan Hylton MD [address] [place] [address] Social History Tobacco Use Types Packs/Day Years Used Date Smoking Tobacco: Never Assessed Sex and Gender Information Value Date Recorded Sex Assigned at Not on file Gender Identity Not on file Sexual Orientation Not on file documented as of this encounter Plan of Treatment Not on file documented as of this encounter Procedures Procedure Name Priority Date/Time Associated Diagnosis Comments SURGICAL PATHOLOGY Routine 11/30/2011 0:00 EDT documented in this encounter Results * SURGICAL PATHOLOGY (11/30/2011 0:00 EDT) Pathology Report: SURGICAL PATHOLOGY REPORT Reports generated via electronic interface contain original data; however they are lacking the format of the original report. Caution should be taken when reading/interpreti ng unformatted reports. Name: ? CLIFTONARMANDOOLIVIERLINDA ? Accession #: ? [id number] ? : ? 1965 (Age: 46) ??F ? Collect Date: ? 11/30/2011 ? Location: ? [facility] ? Receive Date: ? 11/30/2011 ? Provider: RYAN HYLTON MD Copy to: ? Final Pathologic Diagnosis: A. ?Skin of groin, right, shave biopsy: 1. ?Melanocytic nevus, intradermal type. ??See comment. ? B. ?? Endometrium, curettage: ? 1. ?? Proliferative endometrium with focal stromal breakdown. ? 2. ?? Scant benign endocervical tissue. ? 3. ?? No cytologic atypia identified. Comment: ? Specimen (A) was reviewed in consultation with Dr. Soniya Odell who agrees with the diagnosis. ??(Dr. Cancino)/[facility] Document reviewed and electronically signed by: RASTA CANCINO MD Report ??Date: 12/04/2011 09:03 By the signature above, the attending physician certifies that he/she has personally conducted a gross and/or microscopic examination of the described specimens and rendered or confirmed the above diagnosis. Specimen(s) Received: A. ?Skin tag right groin B. ? Endometrial curettings Clinical History: ? Menorrhagia; rectocele; skin tag; clinical diagnosis code: ??626.2, 618.04 Gross Description: ? Received in formalin labelled Linda Garcia and skin tag right groin is a 0.4 x 0.3 x 0.4 cm shave biopsy of a giordano-pink, wrinkled papule. ??The margin is inked blue. ??The specimen is bisected and entirely submitted as (A). Received in formalin labelled Baldauf, Linda and endometrial curettings is a 2.5 x 2.5 x 0.5 cm aggregate of multiple irregular, giordano-pink soft tissue fragments admixed with blood clot. ??The specimen is entirely submitted as (B1) through (B3). ??(Dr. Tuttle)/[facility] End of Report [facility] 11/30/2011 11/30/2011 16: 07 EDT Ryan Hylton MD PATHOLOGY ORDERABLES [facility] [address] [place] [address] documented in this encounter Visit Diagnoses Not on filedocumented in this encounter Care Teams Teaching Artist Relationship Specialty Start Date End Date Lashae Castaneda NP [address] [place] [address] PCP - General 07/10/10 documented as of this encounter
--- OUTSIDE RECORDS SUMMARY | 2024-05-15 09:45 | XMS_ITS | Encounter Summary ---
Author Organization [facility] Address [address] [place] [address] Care Team Providers Care Motorcycle Mechanic Name Role Phone Lashae Castaneda NP Primary Care Provider [phone] Encounter Details Date Type Department Care Team (Late st Contact Info) Description 04/11/2016 Results Only [facility]- [facility] [phone] Ryan Hylton MD [address] [place] [phone] Social History Tobacco Use Types Packs/Day Years Used Date Smoking Tobacco: Never Assessed Sex and Gender Information Value Date Recorded Sex Assigned at Not on file Gender Identity Not on file Sexual Orientation Not on file documented as of this encounter Plan of Treatment Not on file documented as of this encounter Procedures Procedure Name Priority Date/Time Associated Diagnosis Comments SURGICAL PATHOLOGY Routine 04/11/2016 18 :21 EDT documented in this encounter Results * SURGICAL PATHOLOGY (04/11/2016 18:21 EDT) Pathology Report: SURGICAL PATHOLOGY REPORT Reports generated via electronic interface contain original data; however they are lacking the format of the original report. Caution should be taken when reading/interpret ing unformatted reports. Name: ? LINDA GARCIA ? Accession #: ? [id number] ? : ? 1965 (Age: 51) ??F ? Collect Date: ? 04/11/2016 ? Location: ? [facility] ? Receive Date: ? 04/13/2016 ? Provider: RYAN HYLTON MD Copy to: ED LARA HEAVY MOBILE EQUIPMENT OPERATOR ? Final Pathologic Diagnosis: ENDOMETRIUM, BIOPSY: - ??Scant strips of superficial endometrium with tubal metaplasia and benign endocervical mucosa. Document reviewed and electronically signed by: GA HART MD Report ??Date: 04/16/2016 16:17 By the signature above, the attending physician certifies that he/she has personally conducted a gross and/or microscopic examination of the described specimens and rendered or confirmed the above diagnosis. Specimen(s) Received: Endometrial biopsy Clinical History: Abnormal uterine bleeding; clinical diagnosis code: N93.9 Gross Description: ? Received in formalin labelled with proper patient identification (initials B, B) and endometrial biopsy is an aggregate of giordano-brown to red friable tissue (0.5 x 0.3 x 0.2 cm in aggregate). Submitted in toto in 1. Dr. Peters 04/14/2016 8:56 AM End of Report [facility] 04/11/2016 18:2 1 EDT 04/13/2016 18:21 EDT Ryan Hylton MD PATHOLOGY ORDERABLES [facility] [address] [place] [address] documented in this encounter Visit Diagnoses Not on filedocumented in this encounter Care Teams Motorcycle Mechanic Relationship Specialty Start Date End Date Lashae Castaneda NP [address] [place] [phone] PCP - General 07/10/10 documented as of this encounter
--- OUTSIDE RECORDS SUMMARY | 2024-05-15 09:45 | XMS_ITS | Encounter Summary ---
Author Organization [facility] Address [address] [place] [address] Care Team Providers Care Commercial Finance Manager Name Role Phone Lashae Castaneda NP Primary Care Provider Encounter Details Date Type Department Care Team (Late st Contact Info) Description 02/26/2017 Results Only [facility]- [facility] [phone] Dakota Resendez, DO [address] [facility] [address] [place], [place] [phone] Social History Tobacco Use Types Packs/Day Years Used Date Smoking Tobacco: Never Assessed Sex and Gender Information Value Date Recorded Sex Assigned at Not on file Gender Identity Not on file Sexual Orientation Not on file documented as of this encounter Plan of Treatment Not on file documented as of this encounter Procedures Procedure Name Priority Date/Time Associated Diagnosis Comments SURGICAL PATHOLOGY Routine 02/26/2017 17 :29 EDT documented in this encounter Results * SURGICAL PATHOLOGY (02/26/2017 17:29 EDT) Pathology Report: SURGICAL PATHOLOGY REPORT Reports generated via electronic interface contain original data; however they are lacking the format of the original report. Caution should be taken when reading/interpreting unformatted reports. Name: ? LINDA GARCIA ? Accession #: ? [id number] ? : ? 1965 (Age: 52) ??F ? Collect Date: ? 02/26/2017 ? Location: ? [facility] ? Receive Date: ? 02/26/2017 ? Provider: DAKOTA RESENDEZ DO Copy to: ANAY Fernando IYER COMPUTER ART INSTRUCTOR ? Final Pathologic Diagnosis: GASTRIC JEJUNUM ANASTOMOSIS, BIOPSY: - ??Ulcer bed and necroinflammatory exudate. See comment. - ??Gastric oxyntic mucosa with reactive (chemical) gastropathy. Comment: ----- Immunoperoxidase staining was performed on this case to further characterize the lesion. ? ANTIBODY(CLONE)(BLOC K):RESULT H. pylori (Rabbit Monoclonal (SP48), [place]) (1) negative: ? NOTE: ??One or more of the reagents used in immunoperoxidase testing in this case may not have been cleared or approved by the U.S. Food and Drug Administration (FDA). ??The FDA has determined that such clearance or approval is not necessary. ??These tests are used for clinical purposes. ??They should not be regarded as investigational or for research. ??These reagents' performance characteristics have been determined by the [facility]. ??The positive and negative controls worked appropriately. ??If immunoperoxidase staining has been performed on alcohol fixed cytology specimens, which has not been fully validated, the assays should be interpreted with caution and correlated with clinical data. ??This laboratory is certified under the Clinical Laboratory Improvement Amendments of 1988 (CLIA-88) as qualified to perform high complexity clinical laboratory testing. ?? ___ Document reviewed and electronically signed by: MEIR PRADO MD Report ??Date: 02/28/2017 11:34 By the signature above, the attending physician certifies that he/she has personally conducted a gross and/or microscopic examination of the described specimens and rendered or confirmed the above diagnosis. Specimen(s) Received: Gastric jejunum anastomosis bx Clinical History: Dysphagia Gross Description: ? Received in formalin labelled with proper patient identification (initials B, B) and gastric jejunum anastomosis bx are three fragments of giordano-pink tissue ranging from 0.2-0.4 cm in greatest dimension in addition to an aggregate of smith-brown soft tissue (0.5 x 0.5 x 0.1 cm). The specimens are submitted entirely in 1 and 2. DOMINIQUE Summers (ASCP) 02/27/2017 8:24 AM End of Report [facility] 02/26/2017 17:2 9 EDT 02/26/2017 17:29 EDT Dakota Resendez DO PATHOLOGY ORDER BANDAR [facility] [address] [place] [address] documented in this encounter Visit Diagnoses Not on filedocumented in this encounter Care Teams Commercial Finance Manager Relationship Specialty Start Date End Date Lashae Castaneda, KRISTI [address] [place] [address] PCP - General 07/10/10 documented as of this encounter
--- OUTSIDE RECORDS SUMMARY | 2024-05-15 09:45 | XMS_ITS | Encounter Summary ---
Author Organization [facility] Address [address] [place] [address] Care Team Providers Care Author Name Role Phone Unavailable Primary Care Provider Unavailabl e Encounter Details Date Type Department Care Team (Late st Contact Info) Description 06/21/2005 Results Only [facility] - [facility] [address] [place] [address] Lashae Pardo, MAYONNAISE MIXER [address] [place] [address] Social History Tobacco Use Types Packs/Day Years Used Date Smoking Tobacco: Never Assessed Sex and Gender Information Value Date Recorded Sex Assigned at Not on file Gender Identity Not on file Sexual Orientation Not on file documented as of this encounter Plan of Treatment Not on file documented as of this encounter Procedures Procedure Name Priority Date/Time Associated Diagnosis Comments CYTOPATHOLOGY Routine 06/21/2005 0:00 EST documented in this encounter Results * CYTOPATHOLOGY (06/21/2005 0:00 EST) Pathology Report: CYTOPATHOLOGY REPORT Reports generated via electronic interface contain original data; however they are lacking the format of the original report. Caution should be taken when reading/interpreti ng unformatted reports. Name: ? LEOLINDA CONNELLY ? Accession #: ? [id number] : ? 1965 (Age: 40) ??F ?Collect Date: ? 06/21/2005 Location: ? [facility] ? Receive Date: ? 06/22/2005 Provider: ?LASHAE PARDO MAYONNAISE MIXER Copy to: ? Specimen/Source: ?ThinPrep Pap Test, Cervix, processed on PARKE NEW YORKPrep Imaging System, with manual evaluation Last Menstrual Period: ? 05/28/05 ? SPECIMEN ADEQUACY ? Satisfactory for Evaluation - transformation zone component present GENERAL CATEGORIZATION ? Negative for Intraepithelial Lesion or Malignancy ? Document reviewed and electronically signed by: ? PEREZ Joyce(ASCP) ? Report Date: ??06/25/2005 16:09 End of Report [facility] 06/21/2005 06/22/2005 Lashae Pardo NP PATHOLOGY ORDERABLE S [facility] [address] [place] [address] documented in this encounter Visit Diagnoses Not on filedocumented in this encounter
--- OUTSIDE RECORDS SUMMARY | 2024-05-15 09:45 | XMS_ITS | Encounter Summary ---
Author Organization [facility] Address [address] [place] [address] Care Team Providers Care Pizza Cook Name Role Phone Lashae Castaneda NP Primary Care Provider Encounter Details Date Type Department Care Team (Late st Contact Info) Description 08/06/2020 Lab Requisition [facility] Pathology & Laboratory Medicine - [facility] [address] [place] [address] Outr Resulting Lab, Provider Social History Tobacco Use Types Packs/Day Years [...] Procedure Name Priority Date/Time Associated Diagnosis Comments HIV 1/2 ANTIGEN AND ANTIBODY, 4TH GENERATION Routine 08/05/2020 16:55 EST documented in this encounter Results * HIV 1/2 ANTIGEN AND ANTIBODY, 4TH GENERATION (08/05/2020 16:55 EST) HIV 1 and 2 Antibody/p24 Antigen, 4th Generation Negative Negative 08/08/2020 11:13 EST [facility] Comment: If acute HIV-1 infection is suspected in a high risk ??patient, submit plasma specimen for HIV-1 RNA quantitation test. Fourth Generation assay performed on the Siemens Redeemaur. Blood VENOUS BLOOD / Unknown 08/05/2020 16:55 EST 08/07/2020 16:23 EST Provider Outr Resulting Lab IMMUNOLOGY A ND SEROLOGY ORDERABLES [facility] [address] [place] [address] documented in this encounter Visit Diagnoses Not on filedocumented in this encounter Care Teams Pizza Cook Relationship Specialty Start Date End Date Lashae Castaneda, INTERNATIONAL FLIGHT ATTENDANT [address] [place] [address] PCP - General 07/10/10 documented as of this encounter
--- OUTSIDE RECORDS SUMMARY | 2024-05-15 09:45 | XMS_ITS | Encounter Summary ---
Author Organization [facility] Address [address] [place] [address] Care Team Providers Care Records Assistant Name Role Phone Lashae Castaneda NP Primary Care Provider [phone] Encounter Details Date Type Department Care Team (Late st Contact Info) Description 08/06/2020 Lab Requisition [facility] Pathology & Laboratory Medicine - [facility] [address] [place] [address] Outr Resulting Lab, Provider Social History Tobacco [...] RNA BY PCR Routine 08/05/2020 16:55 EST documented in this encounter Results * HEPATITIS C AB W REFLEX TO HCV RNA BY PCR (08/05/2020 16:55 EST) Hep C Antibody Negative Negative 08/08/2020 10:04 EST [facility] Blood VENOUS BLOOD / Unknown 08/05/2020 16:55 EST 08/07/2020 16:23 EST Provider Outr Resulting Lab CHEMISTRY & BLOOD GAS ORDERABLES [facility] [address] [place] [address] documented in this encounter Visit Diagnoses Not on filedocumented in this encounter Care Teams Records Assistant Relationship Specialty Start Date End Date Lashae Castaneda, KRISTI [address] [place] [address] PCP - General 07/10/10 documented as of this encounter
--- OUTSIDE RECORDS SUMMARY | 2024-05-15 09:45 | XMS_ITS | Encounter Summary ---
Author Organization [facility] Address [address] [place] [address] Care Team Providers Care Career Technology Teacher Name Role Phone Lashae Castaneda DIRECTOR OF ELEMENTARY EDUCATION Primary Care Provider [phone] Encounter Details Date Type Department Care Team (Latest Contact Info) Description 07/02/2017 15:42 EST - 07/02/2017 23:59 EST Hospital Encounter [address] [address] Unknown, Provider, Discharge Disposition: Home or Self Care Social History Tobacco Use Types Packs/Day Years Used Date Smoking Tobacco: Never Assessed Sex and Gender Information Value Date Recorded Sex Assigned at Not on file Gender Identity Not on file Sexual Orientation Not on file documented as of this encounter Discharge Disposition Disposition Code Departure Means Destination Home or Self Prison documented in this encounter Plan of Treatment Not on file documented as of this encounter Visit Diagnoses Not on filedocumented in this encounter Care Teams Career Technology Teacher Relationship Specialty Start Date End Date Lashae Castaneda NP [address] [place] [phone] PCP - General 07/10/10 documented as of this encounter
--- OUTSIDE RECORDS SUMMARY | 2024-05-15 09:45 | XMS_ITS | Encounter Summary ---
Author Organization [facility] Address [address] [place] [address] Care Team Providers Care Mining Speculator Name Role Phone Unavailable Primary Care Provider Unavailabl e Encounter Details Date Type Department Care Team (Late st Contact Info) Description 03/09/2009 Orders Only [facility] - [facility] [place] [address] [place], [place] [phone] Lashae Pardo, KRISTI [address] [place] [phone] Social History Tobacco Use Types Packs/Day Years Used Date Smoking Tobacco: Never Assessed Sex and Gender Information Value Date Recorded Sex Assigned at Not on file Gender Identity Not on file Sexual Orientation Not on file documented as of this encounter Plan of Treatment Not on file documented as of this encounter Procedures Procedure Name Priority Date/Time Associated Diagnosis Comments CYTOPATHOLOGY Routine 03/09/2009 0:00 EDT documented in this encounter Results * CYTOPATHOLOGY (03/09/2009 0:00 EDT) Pathology Report: CYTOPATHOLOGY REPORT ? Reports generated via electronic interface contain original data; ? however they are lacking the format of the original report. ? Caution should be taken when reading/interpreti ng unformatted reports. ? Name: ? LINDA GARCIA ? Accession #: ? [id number] ? : ? 1965 (Age: 44) ??F ?Collect Date: ? 03/09/2009 ? Location: ? [facility] ? Receive Date: ? 03/09/2009 ? Provider: ?LASHAE L PARDO SPECIAL NEEDS NANNY ? Copy to: ? Specimen/Source: ?Pap Test, Cervix, ThinPrep Imaging System with manual ?? evaluation ? Last Menstrual Period: ? 07/10/09 ? Other: ? HPVA - HPV testing requested if ASC-US on the current ThinPrep Pap test. ? SPECIMEN ADEQUACY ? Satisfactory for Evaluation ? - transformation zone component present ? GENERAL CATEGORIZATION ? Negative for Intraepithelial Lesion or Malignancy ? Document reviewed and electronically signed by: ? Serina [place], [place](ASCP) ? Report Date: ??03/15/2009 10:31 ? End of Report ? [facility] 03/09/2009 03/09/2009 Lashae Pardo NP PATHOLOGY ORDERABLE S [facility] [address] [place] [address] documented in this encounter Visit Diagnoses Not on filedocumented in this encounter
--- OUTSIDE RECORDS SUMMARY | 2024-05-15 09:45 | XMS_ITS | Encounter Summary ---
Author Organization [facility] Address [address] [place] [address] Care Team Providers Care Fruit Grader Operator Name Role Phone Unavailable Primary Care Provider Unavailabl e Encounter Details Date Type Department Care Team (Late st Contact Info) Description 06/19/2010 Results Only [facility] Laboratory Services - [facility] ([facility] [address] [place], [place] [address] Lashae Pardo, KRISTI [address] [place] [phone] Social History Tobacco Use Types Packs/Day Years Used Date Smoking Tobacco: Never Assessed Sex and Gender Information Value Date Recorded Sex Assigned at Not on file Gender Identity Not on file Sexual Orientation Not on file documented as of this encounter Plan of Treatment Not on file documented as of this encounter Procedures Procedure Name Priority Date/Time Associated Diagnosis Comments CYTOPATHOLOGY Routine 06/19/2010 0:00 EST documented in this encounter Results * CYTOPATHOLOGY (06/19/2010 0:00 EST) Pathology Report: CYTOPATHOLOGY REPORT ? Reports generated via electronic interface contain original data; ? however they are lacking the format of the original report. ? Caution should be taken when reading/interpreti ng unformatted reports. ? Name: ? LINDA GARCIA ? Accession #: ? [id number] ? : ? 1965 (Age: 45) ??F ?Collect Date: ? 06/19/2010 ? Location: ? [facility] ? Receive Date: ? 06/20/2010 ? Provider: LASHAE L PARDO CABLE TOOL OPERATOR ? Copy to: ? Final Report ? SPECIMEN ADEQUACY ? Satisfactory for Evaluation ? - transformation zone component present ? GENERAL CATEGORIZATION ? Negative for Intraepithelial Lesion or Malignancy ? Last Menstural Period: 11/28/10 ? Specimen/Source: ??Pap Test, Cervix, ThinPrep Imaging System with manual ? evaluation ? Document reviewed and electronically signed by: ? Mikala Nogueiralogg, CT(ASCP) ? Report ??Date: 06/22/2010 13:25 ? HPV with Pap Test ? Date Ordered: ? 06/22/2010 ? Status: ?? Signed Out ?Date Complete: ? 06/27/2010 ? By: ??System Interface ? Date Reported: ? 06/27/2010 ? Interpretation ? RESULT: Negative for HPV types 16, 18, 31, 33, 35, 39, 45, 51, 52, ? 56, 58, 59, and 68. ? Comments ? Document reviewed and electronically signed by: ? System Interface ? Report date: 06/27/2010 ? By the signature above, the attending physician certifies that he/she has ? personally conducted a gross and/or microscopic examination of the described ? specimens and rendered or confirmed the above diagnosis. ? End of Report ? [facility] 06/19/2010 06/20/2010 Lashae Pardo CABLE TOOL OPERATOR PATHOLOGY ORDERABLE S [facility] [address] [place] [address] documented in this encounter Visit Diagnoses Not on filedocumented in this encounter
--- OUTSIDE RECORDS SUMMARY | 2024-05-15 09:45 | XMS_ITS | Clinical Summary ---
Author Organization [facility] Address [address] [place] [address] Care Team Providers Care Manager Shipping Name Role Phone Lashae Castaneda NP Primary Care Provider [phone] Social History Tobacco Use Types Packs/Day Years Used Date Smoking Tobacco: Never Assessed Interpersonal Safety Answer Date Record ed Physically Hurt Never 2020 Verbally Threaten Not on file 2020 Sex and Gender Information Value Date Recorded Sex Assigned at Not on file Gender Identity Not on file Sexual Orientation Not on file Plan of Treatment Health Maintenance Due Date Last Done Comments RSV Immunization ( o r 60+ Years) (1 - 1-dose 60+ series) 2023 Hepatitis C Screen Completed 08/05/2020 COVID-19 Vaccine Completed 07/26/2023 Procedures Procedure Name Priority Date/Time Associated Diagnosis Comments HEPATITIS C AB W REFLEX TO HCV RNA BY PCR Routine 08/05/2020 16:55 EST from Last 3 Months or Most Recently Relevant to Health Maintenance Results * HEPATITIS C AB W REFLEX TO HCV RNA BY PCR (08/05/2020 16:55 EST) Hep C Antibody Negative Negative 08/08/2020 10:04 EST [facility] Blood VENOUS BLOOD / Unknown 08/05/2020 16:55 EST 08/07/2020 16:23 EST Provider Outr Resulting Lab CHEMISTRY & BLOOD GAS ORDERABLES [facility] [address] [place] [address] from Last 3 Months or Most Recently Relevant to Health Maintenance Care Teams Manager Shipping Relationship Specialty Start Date End Date Lashae Castaneda, PROJECT ACCOUNTANT [facility] [address] [facility] [address] [place] [phone] PCP - General 07/10/10
--- OUTSIDE RECORDS SUMMARY | 2024-05-15 09:45 | XMS_ITS | Encounter Summary ---
Author Organization [facility] Address [address] [place] [address] Care Team Providers Care Social Worker Masters Name Role Phone Unavailable Primary Care Provider Unavailabl e Encounter Details Date Type Department Care Team (Late st Contact Info) Description 08/06/2006 Results Only [facility] [address] [place] [address] Lashae Pardo, BACKUP SAWYER [address] [place] [address] Social History Tobacco Use Types [...] Priority Date/Time Associated Diagnosis Comments CYTOPATHOLOGY Routine 08/06/2006 0:00 EST documented in this encounter Results * CYTOPATHOLOGY (08/06/2006 0:00 EST) Pathology Report: CYTOPATHOLOGY REPORT Reports generated via electronic interface contain original data; however they are lacking the format of the original report. Caution should be taken when reading/interpreti ng unformatted reports. Name: ? LINDA GARCIA ? Accession #: ? [id number] : ? 1965 (Age: 41) ??F ?Collect Date: ? 08/06/2006 Location: ? [facility] ? Receive Date: ? 08/07/2006 Provider: ?LASHAE PARDO BACKUP SAWYER Copy to: ? Specimen/Source: ?ThinPrep Pap Test, Cervix/Endocervix, processed on [employer] ThinPrep Imaging System, with manual evaluation Last Menstrual Period: ? 07/31/06 Other: ? HPVA - HPV testing requested if ASC-US on the current ThinPrep Pap test. ? SPECIMEN ADEQUACY ? Satisfactory for Evaluation - transformation zone component present GENERAL CATEGORIZATION ? Negative for Intraepithelial Lesion or Malignancy ? Document reviewed and electronically signed by: ? PEREZ Spears(ASCP) ? Report Date: ??08/09/2006 09:47 End of Report ADELFO CAMPOVERDE 08/06/2006 08/07/2006 Lashae Pardo NP PATHOLOGY ORDERABLE S ADELFO CAMPOVERDE [address] [place] [address] documented in this encounter Visit Diagnoses Not on filedocumented in this encounter
--- OUTSIDE RECORDS SUMMARY | 2024-05-15 09:46 | XMS_ITS | Encounter Summary ---
[facility] [place] [address] Care Team Providers Care Valve Seater Operator Name Role Phone Lyn Sinclair APRN Primary Care Provider Encounter Details Date Type Department Care Team (Latest Contact Info) Description 04/07/2024 Travel Social History Tobacco Use Types Packs/Day Years Used Date Smoking Tobacco: Never Smokeless Tobacco: Never Sex and Gender Information Value Date Recorded Sex Assigned at Female 10/25/2022 12:28 AM EDT Gender Identity Female 10/25/2022 12:28 AM EDT Sexual Orientation Straight 10/25/2022 12 :28 AM EDT documented as of this encounter Plan of Treatment Not on file documented as of this encounter Visit Diagnoses Not on filedocumented in this encounter Care Teams Valve Seater Operator Relationship Specialty Start Date End Date Lyn Sinclair APRN PCP - General Family Medicine 07/17/17 04/20/24 documented as of this encounter
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
--- OUTSIDE RECORDS SUMMARY | 2024-05-15 09:46 | XMS_ITS | Encounter Summary ---
[facility] [place] [address] Care Team Providers Care Branch Operations Specialist Name Role Phone Lyn Sinclair APRN Primary Care Provider Encounter Details Date Type Department Care Team (Latest Contact Info) Description 03/29/2023 Travel Social History Tobacco Use Types Packs/Day [...] on filedocumented in this encounter Care Teams Branch Operations Specialist Relationship Specialty Start Date End Date Lyn Sinclair APRN PCP - General Family Medicine 07/17/17 04/20/24 documented as of this encounter
--- OUTSIDE RECORDS SUMMARY | 2024-05-15 09:46 | XMS_ITS | Encounter Summary ---
[place] [address] Care Team Providers Care Switchboard Operator Name Role Phone Lyn Sinclair APRN Primary Care Provider [phone] Reason for Referral * Diagnostic Test (STAT) - Closed Specialty Diagnoses / Procedures Referred By Contac t Referred To Contact Cardiology Diagnoses LVH (left ventricular hypertrophy) RBBB (right bundle branch block) Other chest pain Syncope and collapse Procedures Echocardiogram Transthoracic Lyn Sinclair APRN [address] [address] [facility] [place] [address] Referral ID Status Reason Start Date Expiration Date V isits Requested Visits Authorized [id number] Closed Specialty Service Requested 01/24/2023 01/24/2024 1 1 Reason for Visit * Diagnostic Test (STAT) - Closed Specialty Diagnoses / Procedures Referred By Contac t Referred To Contact Cardiology Diagnoses LVH (left ventricular hypertrophy) RBBB (right bundle branch block) Other chest pain Syncope and collapse Procedures Echocardiogram Transthoracic Lyn Sinclair APRN [address] [place] [address] [facility] [place] [address] Referral ID Status Reason Start Date Expiration Date V isits Requested Visits Authorized [id number] Closed Specialty Service Requested 01/24/2023 01/24/2024 1 1 Encounter Details Date Type Department Care Team (Latest Contact Info) Description 02/26/2023 9:58 AM EDT - 02/26/2023 10:42 AM EDT Hospital Encounter [place] [address] Yahir Lyn E, MOTOR RACER [address] [facility] [address] [place] [address] LVH (left ventricular hypertrophy); RBBB (right bundle branch block); Other chest pain; Syncope and collapse Discharge Disposition: Home Social History Tobacco Use Types Packs/Day Years Used Date Smoking Tobacco: Never Smokeless Tobacco: Never Sex and Gender Information Value Date Recorded Sex Assigned at Female 10/25/2022 12:28 AM EDT Gender Identity Female 10/25/2022 12:28 AM EDT Sexual Orientation Straight 10/25/2022 12 :28 AM EDT documented as of this encounter Medications at Time of Discharge Medication Sig Dispensed Refills Start Date End Date lactobacillus combination no.8 3 billion cell Capsule 09/25/2019 fish oil-omega-3 fatty acids (Fish Oil) 1,000 mg capsule daily. 10/31/2018 psyllium (METAMUCIL) Powder as needed. 08/05/2020 cetirizine (ZyrTEC) 10 mg tablet as needed. 08/27/2022 estradioL (ESTRACE) 0.01 % (0.1 mg/gram) Cream Place vaginally as needed. 01/02/2023 minocycline (Minocin) 100 mg capsule Take 100 mg by mouth every other day. 05/26/2021 cyanocobalamin, Vitamin B-12, 1,000 mcg/mL Solution Inject as directed every 30 days. omega-3 acid ethyl esters (Lovaza) 1 gram Capsule Take 1 g by mouth daily. aspirin EC 81 mg Tablet, Delayed Release (E.C.) Take 81 mg by mouth daily. folic acid (Folvite) 1 mg Tablet Take 1 mg by mouth daily. docusate sodium (Colace) 100 mg Capsule Take 100 mg by mouth as needed. Betamethasone Valerate (Luxiq) 0.12 % Foam 05/01/2021 clobetasoL (Temovate) 0.05 % Ointment Apply 1 each topically as needed. 12/27/2020 Premarin 0.625 mg/gram Cream Place vaginally three times a week. 02/13/2021 metFORMIN (GLUCOPHAGE) 1,000 mg Tablet Take 1,000 mg by mouth 2 times daily. 03/16/2021 pantoprazole EC (Protonix) 40 mg Tablet, Delayed Release (E.C.) 03/21/2021 buPROPion XL (Wellbutrin XL) 300 mg Tablet Extended Release 24 hr 05/12/2021 Jardiance 25 mg Tablet Take 25 mg by mouth daily. 06/06/2020 FreeStyle Carina 14 Day Preston Misc 05/30/2020 FreeStyle Carina 14 Day Sensor Kit Inject 1 each subcutaneously every 14 days. 05/31/2020 atorvastatin (Lipitor) 10 mg Tablet Take 10 mg by mouth daily. 05/10/2020 Januvia 25 mg Tablet Take 25 mg by mouth daily. 05/11/2020 cholecalciferol, Vitamin D3, 1,000 unit Capsule Take 1,000 Units by mouth daily. b complex vitamins Capsule Take 1 capsule by mouth daily. cyanocobalamin 1,000 mcg Tablet Take 3,000 mcg by mouth daily. ACCU-CHEK WANDER PLUS TEST STRP Strip 1 each by Other route 5 times daily. Dx code E11.9 Check glucose 5 times daily 450 each 3 07/17/2017 levothyroxine (SYNTHROID) 25 mcg Tablet Take 1 tablet by mouth daily. 90 tablet 06/05/2017 omeprazole (PRILOSEC) 20 mg Capsule, Delayed Release(E.C.) Take 20 mg by mouth daily. 01/30/2016 Lancets (ACCU-CHEK MULTICLIX LANCET) Misc 1 each by Misc.(Non-Drug; Combo Route) route 2 times daily. Diagnosis code 250.00 180 each 3 03/09/2013 Blood-Glucose Meter Misc Use 1-2 times daily 1 each 0 11/24/2012 LORazepam (ATIVAN) 0.5 mg tablet 0.5mg, PO, Q8H,PRN 07/24/2010 albuterol (VENTOLIN HFA) 90 mcg/Actuation inhaler Inhale into the lungs as needed. 07/24/2010 documented as of this encounter Plan of Treatment Not on file documented as of this encounter Procedures Procedure Name Priority Date/Time Associated Diagnosis Comments ECHO COMPLETE STAT 02/26/2023 11:01 AM EDT LVH (left ventricular hypertrophy) RBBB (right bundle branch block) Other chest pain Syncope and collapse documented in this encounter Results * ECHO COMPLETE (02/26/2023 11:01 AM EDT) Anatomical Region Laterality Modality Cardiac Other 02/26/2023 10:2 7 AM EDT Narrative 02/26/2023 11:07 AM EDT ? Echocardiogram Report Name: LINDA GARCIA ?Study Date: 02/26/2023 10:27 AMBP: 129/50 mmHg ? Patient Location: 4A ? HR: 82 : 1965 ? Height: 165 cm ? Account: [id number] Age: 58 yrs ? Weight: 71 kg Gender: Female ?BSA: 1.8 m2 Ordering Physician: LYN SINCLAIR Referring Physician: LYN SICNLAIR Performed By: Kai Aguilar RDCS Reason For Study: Syncope, chest pain, ECG changes Exam Location: [facility]. Interpretation Summary Left ventricle is of normal size. Left ventricular systolic function is hyperdynamic. The left ventricular ejection fraction is 74% by Valerio's biplane. There are no segmental wall motion abnormalities. The right ventricle is of normal size. Right ventricular systolic function is normal. There is no hemodynamically significant valve disease. No prior for comparison. Procedure Complete-[id number]. Satisfactory quality. There is normal sinus rhythm. Left Ventricle Left ventricle is of normal size. There is no ventricular septal defect. Wall thickness is normal. Left ventricular systolic function is hyperdynamic. The left ventricular ejection fraction is 74% by Valerio's biplane. There are no segmental wall motion abnormalities. Right Ventricle The right ventricle is of normal size. Right ventricular systolic function is normal. Left Atrium The left atrium is normal. The interatrial septum is thickened. Right Atrium The right atrium is normal. Aortic Valve The aortic valve is tricuspid. The aortic valve is mildly thickened. There is no aortic stenosis. There is trace aortic regurgitation. Mitral Valve The mitral valve is structurally and functionally normal. There is trace mitral regurgitation. Tricuspid Valve The tricuspid valve is structurally normal. There is mild tricuspid regurgitation. Pulmonic Valve The pulmonic valve appears to be structurally and functionally normal. Great Arteries The aortic root is of normal size. No abnormalities are identified. Venous Inferior vena cava is normal in size. Inferior vena cava collapse greater than 50% with respiration. Pericardium/Pleural The pericardium appears normal. Hemodynamics The peak right ventricular systolic pressure is 26 mmHg. The estimated right atrial pressure is 3mmHg. Left ventricular diastolic function is normal. Left ventricular filling pressure is normal. Ejection Fraction ?2D Measurements ? Volumes EF(MOD-bp): 74.1 % ?IVSd: 0.87 cm ?LAV(MOD- bp) Indexed: ?LVIDd: 4.0 cm ?LVIDs: 2.2 cm ?24.2 ml/m2 ?LVPWd: 0.92 cm ? RA A4Cs_phl: 11.1 cm2 ? EDV (MOD-bp) Index: 37.1 ?LV mass(C)d: 108.5 grams ? ESV (MOD-bp) Index: 9.6 ?LV mass(C)dI: 60.9 grams/m2 ?SV(LVOT): 70.6 ml ?Ao root diam: 2.9 cm ? LV Stroke Volume: 70.6 ml ?Ao root diam index: 1.6 ?asc Aorta Diam: 3.4 cm ? SI(LVOT): 39.6 ml/m2 ?LVOT diam: 2.0 cm Doppler TR max david: 239.0 cm/sec LV V1 VTI: 22.8 cm LVOT max Velocity: 125.3 cm/sec MV E max david: 81.4 cm/sec MV A max david: 128.6 cm/sec MV E/A: 0.63 MV dec time: 0.21 sec Lat Peak E' David: 9.7 cm/sec E/ e' (lat): 8.4 Med Peak E' David: 8.2 cm/sec E/e' (med): 9.9 E/e' Average: 9.2 I ?WMSI = 1.00 ? % Normal = 100 ?Segments ??Size X - Cannot ?2 - ?4 - ?1-2 ? small Interpret ?1 - Normal ?? Hypokinetic 3 - Akinetic Dyskinetic ?? 3-5 ? moderate 5 - ? 6-14 ?large Aneurysmal ?15-16 ?? diffuse Procedure Note Baldemar Pitts MD - 02/26/2023 Echocardiogram Report Name: LINDA GARCIA Study Date: 310:27 AMBP: 129/50 mmHg Patient Location: HR: 82 : 1965 Height: 165 cm Account: [id number] Age: 58 yrs Weight: 71 kg Gender: Female BSA: 1.8 m2 Ordering Physician: LYN SINCLAIR Referring Physician: LYN SINCLAIR Performed By: Kai Aguilar RDCS Reason For Study: Syncope, chest pain, ECG changes Exam Location: [facility]. Interpretation Summary Left ventricle is of normal size. Left ventricular systolic function is hyperdynamic. The left ventricular ejection fraction is 74% by Valerio'sbiplane. There are no segmental wall motion abnormalities. The right ventricle is of normal size. Right ventricular systolic functionis normal. There is no hemodynamically significant valve disease. No prior for comparison. Procedure Complete-[id number]. Satisfactory quality. There is normal sinus rhythm. Left Ventricle Left ventricle is of normal size. There is no ventricular septal defect.Wall thickness is normal. Left ventricular systolic function is hyperdynamic.The left ventricular ejection fraction is 74% by Valerio's biplane. There are nosegmental wall motion abnormalities. Right Ventricle The right ventricle is of normal size. Right ventricular systolic functionis normal. Left Atrium The left atrium is normal. The interatrial septum is thickened. Right Atrium The right atrium is normal. Aortic Valve The aortic valve is tricuspid. The aortic valve is mildly thickened. Thereis no aortic stenosis. There is trace aortic regurgitation. Mitral Valve The mitral valve is structurally and functionally normal. There is tracemitral regurgitation. Tricuspid Valve The tricuspid valve is structurally normal. There is mild tricuspidregurgitation. Pulmonic Valve The pulmonic valve appears to be structurally and functionally normal. Great Arteries The aortic root is of normal size. No abnormalities are identified. Venous Inferior vena cava is normal in size. Inferior vena cava collapse greaterthan 50% with respiration. Pericardium/Pleural The pericardium appears normal. Hemodynamics The peak right ventricular systolic pressure is 26 mmHg. The estimatedright atrial pressure is 3mmHg. Left ventricular diastolic function is normal.Left ventricular filling pressure is normal. Ejection Fraction 2D Measurements Volumes EF(MOD-bp): 74.1 % IVSd: 0.87 cm LAV(MOD-bp)Indexed: LVIDd: 4.0 cm LVIDs: 2.2 cm 24.2 ml/m2 LVPWd: 0.92 cm RA A4Cs_phl: 11.1cm2 EDV (MOD-bp)Index: 37.1 LV mass(C)d: 108.5 grams ESV (MOD-bp)Index: 9.6 LV mass(C)dI: 60.9 grams/m2 SV(LVOT): 70.6ml Ao root diam: 2.9 cm LV Stroke Volume:70.6 ml Ao root diam index: 1.6 asc Aorta Diam: 3.4 cm SI(LVOT): 39.6ml/m2 LVOT diam: 2.0 cm Doppler TR max david: 239.0 cm/sec LV V1 VTI: 22.8 cm LVOT max Velocity: 125.3 cm/sec MV E max david: 81.4 cm/sec MV A max david: 128.6 cm/sec MV E/A: 0.63 MV dec time: 0.21 sec Lat Peak E' David: 9.7 cm/sec E/ e' (lat): 8.4 Med Peak E' David: 8.2 cm/sec E/e' (med): 9.9 E/e' Average: 9.2 I WMSI = 1.00 % Normal = 100 SegmentsSize X - Cannot 2 - 4 - 1-2small Interpret 1 - Normal Hypokinetic 3 - Akinetic Dyskinetic 3-5moderate 5 - 6-14large Aneurysmal 15-16diffuse Lyn Sinclair APRN ECHO ORDERABLES documented in this encounter Visit Diagnoses Diagnosis LVH (left ventricular hypertrophy) Cardiomegaly RBBB (right bundle branch block) Right bundle branch block Other chest pain Syncope and collapse documented in this encounter Care Teams Switchboard Operator Relationship Specialty Start Date End Date Lyn Sinclair APRN PCP - General Family Medicine 07/17/17 04/20/24 documented as of this encounter
--- OUTSIDE RECORDS SUMMARY | 2024-05-15 09:46 | XMS_ITS | Encounter Summary ---
[place] [address] Care Team Providers Care Telephone Maintainer Name Role Phone Lyn Sinclair APRN Primary Care Provider Encounter Details Date Type Department Care Team (Latest Contact Info) Description 03/29/2023 1:35 PM EDT Laboratory Appointment Lab [address] [id number] Restless leg syndrome Social History Tobacco Use Types Packs/Day Years [...] Procedure Name Priority Date/Time Associated Diagnosis Comments TSH CASCADE Routine 03/29/2023 1:42 PM EDT Restless leg syndrome HEMOGRAM Routine 03/29/2023 1:42 PM EDT Restless leg syndrome DIFFERENTIAL, AUTOMATED Routine 03/29/2023 1:42 PM EDT Restless leg syndrome IRON AND TIBC Routine 03/29/2023 1:42 PM EDT Restless leg syndrome CBC (WITH DIFF) Routine 03/29/2023 1:42 PM EDT Restless leg syndrome FERRITIN Routine 03/29/2023 1:42 PM EDT Restless leg syndrome COMPREHENSIVE METABOLIC PANEL Routine 03/29/2023 1:42 PM EDT Restless leg syndrome documented in this encounter Results * Differential, Automated (03/29/2023 1:42 PM EDT) Neutrophil % 67.3 % [facility] Neutrophil Absolute 5.01 1.70 - 6.10 x10(3)/[facility] Lymph % 19.6 % [facility] Lymphocytes Abs 1.5 0.9 - 3.2 x10(3)/[facility] LABORATORY Monocyte % 6.8 % [facility] Monocyte Abs 0.5 0.3 - 0.9 x10(3)/[facility] Eos % 5.0 % [facility] Eosinophils Abs 0.4 0.0 - 0.4 x10(3)/[facility] Basophil % 0.9 % [facility] Baso Absolute 0.1 0.0 - 0.1 x10(3)/[facility]ORATORY Immature Gran % 0.40 % [facility] Comment: Immature granulocytes(IG's)percentage and absolute count will include metamyelocytes, myelocytes, and promyelocytes. Blood smears from CBCs yielding IG's will be scanned manually for concordance. If this scan disagrees with the automated IG or if promyelocytes are noted, a manual differential will be performed. Immature Gran Absolute 0.03 0.00 - 0.04 x10(3)/[facility]ORY Blood 03/29/2023 1:42 PM EDT 03/29/2023 1:52 PM EDT Narrative Resulting Agency Comment Spec In Lab Lyn Sinclair APRN HEMATOLOGY ORDERABL ES Performing Organization Address City/[facility]/ZIP Co de Phone Number [facility] [place] [address] * (ABNORMAL) Hemogram (03/29/2023 1:42 PM EDT) White Blood Cell 7.4 4.0 - 9.5 x10(3)/mc L [facility] Red Blood Cell 4.11 4.00 - 5.21 x10(6)/mc L [facility] Hemoglobin 11.1(L) 11.7 - 15.5 g/dL [facility] Hematocrit 34.3(L) 35.7 - 45.8 % [facility] Mean Cell Volume 83.5 82.6 - 94.4 fL [facility] Mean Cell Hemoglobin 27.0(L) 27.1 - 32.0 pg [facility] Mean Cell Hemoglobin Concentration 32.4 31.7 - 35.0 g/dL [facility] Platelet 239 145 - 357 x10(3)/mc L [facility] RDW Standard Deviation 40.5 37.0 - 46.0 fL [facility] RDW coefficient of variation 13.3 11.5 - 14.1 % [facility] Mean Platelet Volume 11.3 7.6 - 12.9 fL [facility] NRBC% auto 0.0 % [facility] NRBC Absolute 0.000 0.000 - 0.000 x10(3)/mc L [facility] Blood 03/29/2023 1:42 PM EDT 03/29/2023 1:52 PM EDT Narrative Resulting Agency Comment Spec In Lab Lyn Sinclair APRN HEMATOLOGY ORDERABL ES Performing Organization Address City/[facility]/ZIP Co de Phone Number [facility] [place] [address] * (ABNORMAL) Ferritin (03/29/2023 1:42 PM EDT) Pathologist [facility] Ferritin 9(L) 30 - 400 ng/mL [facility] Comment: Pediatric reference ranges not verified at [facility], interpret with caution. Reference ranges for females greater than 50 years of age approach values for men, i.e., 30-400 ng/mL. Blood 03/29/2023 1:42 PM EDT 03/29/2023 1:52 PM EDT Narrative Resulting Agency Comment Spec In Lab Lyn Fernando CokerYahir CLINICAL NURSING DIRECTOR CHEMISTRY ORDERABLE S Performing Organization Address City/[facility]/ZIP Co de Phone Number [facility] [place] [address] * (ABNORMAL) Iron and TIBC (03/29/2023 1:42 PM EDT) Iron 44 30 - 150 mcg/dL [facility] TIBC 417 250 - 450 mcg/dL [facility] Iron Saturation 11(L) 20 - 50 % [facility] Blood 03/29/2023 1:42 PM EDT 03/29/2023 1:52 PM EDT Narrative Resulting Agency Comment Spec In Lab Lyn Fernando Yahir HARDINGN CHEMISTRY ORDERABLE S Performing Organization Address [facility] Co de Phone Number [facility] [place] [address] * TSH [place] (03/29/2023 1:42 PM EDT) Thyroid Stimulating Hormone 3.57 0.27 - 4.20 mcIU/mL [facility] Comment: Reference Interval (mcIU/mL): Females: ??First Trimester: 0.23-3.88 ??Second Trimester: 0.22-3.90 ??Third Trimester: 0.44-4.66 Blood 03/29/2023 1:42 PM EDT 03/29/2023 1:52 PM EDT Narrative Resulting Agency Comment Spec In Lab Lyn Fernando Yahir HARDINGN CHEMISTRY ORDERABLE S Performing Organization Address [facility] Co de Phone Number [facility] [place] [address] * (ABNORMAL) Comprehensive metabolic panel (non-fasting) (03/29/2023 1:42 PM EDT) Glucose 133 65 - 199 mg/dL [facility] Comment:Diabetes: >=200 mg/d L plus symptoms Blood Urea Nitrogen 18 8 - 18 mg/dL [facility] Creatinine 0.94 0.70 - 1.20 mg/dL [facility] Sodium 142 135 - 145 mmol/L [facility] Potassium 4.5 3.5 - 5.0 mmol/L [facility] Comment: Please note: ??Patients with WBC >100,000 may have falsely elevated Potassium levels. ??For accurate Potassium quantification in these patients send serum separator tube (gold top) for subsequent determinations. ??Contact the Clinical Chemistry Laboratory if there are any questions. Chloride 105 98 - 107 mmol/L [facility] Carbon Dioxide 24 22 - 31 mmol/L [facility] Anion Gap 13 5 - 15 mmol/L [facility] Calcium 9.5 8.5 - 10.5 mg/dL [facility] Protein, Total 7.0 6.1 - 8.0 g/dL [facility] Albumin 4.3 3.2 - 5.2 g/dL [facility] Aspartate Aminotransferase 15 0 - 30 unit/L [facility] Alanine Aminotransferase 10 0 - 30 unit/L [facility] Alkaline Phosphatase 123(H) 35 - 105 unit/L [facility] Bilirubin, Total 0.3 0.2 - 1.3 mg/dL [facility] Est Glomerular Filtration Rate 69 >=60 mL/min/1. 73 m?? [facility] Comment: This patient's estimated GFR was calculated using the 2020 CKD-EPI equation. The estimated GFR can vary from the measured GFR by up to 30% in the absence of rapidly changing kidney function. Assessment of the estimated GFR is not appropriate when creatinine concentrations are rapidly changing. For clinical situations in which a more precise estimate of GFR is necessary, consider alternative methods of GFR estimation such as a 24-hour urine creatinine clearance. Assignment of CKD stage 1-5 for patients with an eGFR near the transition point between stages may be based on clinical assessment of muscle mass and symptoms in addition to eGFR. Blood 03/29/2023 1:42 PM EDT 03/29/2023 1:52 PM EDT Narrative Resulting Agency Comment Spec In Lab Lyn Sinclair APRN CHEMISTRY ORDERABLE S [facility] [place] [address] documented in this encounter Visit Diagnoses Diagnosis Restless leg syndrome Restless legs syndrome (RLS) documented in this encounter Care Teams Telephone Maintainer Relationship Specialty Start Date End Date Lyn Sinclair APRN PCP - General Family Medicine 07/17/17 04/20/24 documented as of this encounter
--- OUTSIDE RECORDS SUMMARY | 2024-05-15 09:46 | XMS_ITS | Encounter Summary ---
Author Organization [facility] [place] [address] Care Team Providers Care Golf Sales Manager Name Role Phone Lyn Sinclair APRN Primary Care Provider [phone] Encounter Details Date Type Department Care Team (Late st Contact Info) Description 10/25/2022 Orders Only [place] [address] Suzanne Traore POWER HOUSE ENGINEER [facility] [place] [address] Social History Tobacco Use Types Packs/Day Years [...] Procedure Name Priority Date/Time Associated Diagnosis Comments MUMPS ANTIBODY, IGG Routine 10/25/2022 1 1:07 AM EDT documented in this encounter Results * Mumps Antibody, IgG (10/25/2022 11:07 AM EDT) Mumps Antibody IgG Positive Positive [facility] Comment: A positive result for this assay is considered to be an indicator of positive immune status. Blood Venous Draw / Unknown 10/25/2022 11:07 AM EDT 10/25/2022 1:02 PM EDT Narrative Resulting Agency Comment Spec In Lab Suzanne Traore POWER HOUSE ENGINEER IMMUNOLOGY ORDERABLE S Performing Organization Address City/State/[facility] Co de Phone Number [facility] [place] [address] documented in this encounter Visit Diagnoses Not on filedocumented in this encounter Care Teams Golf Sales Manager Relationship Specialty Start Date End Date Lyn Sinclair APRN PCP - General Family Medicine 07/17/17 04/20/24 documented as of this encounter
--- OUTSIDE RECORDS SUMMARY | 2024-05-15 09:46 | XMS_ITS | Encounter Summary ---
Author Organization [facility] [place] [address] Care Team Providers Care Slope Tender Name Role Phone Valentina Garnica APRN Primary Care Provider [phone] Encounter Details Date Type Department Care Team (Latest Contact Info) Description 04/21/2024 Travel Social History Tobacco Use Types Packs/Day [...] on filedocumented in this encounter Care Teams Slope Tender Relationship Specialty Start Date End Date Valentina Garnica APRN [address] [place], [place] [id number] PCP - General Internal Medicine 04/21/24 documented as of this encounter
--- OUTSIDE RECORDS SUMMARY | 2024-05-15 09:46 | XMS_ITS | Encounter Summary ---
[place] [address] Care Team Providers Care Business Objects Name Role Phone Lyn Sinclair APRN Primary Care Provider [phone] Encounter Details Date Type Department Care Team (Late st Contact Info) Description 10/25/2022 Orders Only [place] [address] Suzanne Traore FRINGING MACHINE OPERATOR [facility] [place] [address] Social History Tobacco Use Types Packs/Day Years [...] Procedure Name Priority Date/Time Associated Diagnosis Comments VARICELLA ZOSTER ANTIBODY, IGG Routine 10/25/2022 11:07 AM EDT documented in this encounter Results * Varicella zoster Antibody, IgG (10/25/2022 11:07 AM EDT) Varicella Zoster Antibody IgG Positive Positive [facility] Comment: A positive result for this assay is considered to be an indicator of positive immune status. Blood Venous Draw / Unknown 10/25/2022 11:07 AM EDT 10/25/2022 1:02 PM EDT Narrative Resulting Agency Comment Spec In Lab Suzanne Traore FRINGING MACHINE OPERATOR IMMUNOLOGY ORDERABLE S Performing Organization Address City/State/[facility] Co de Phone Number [facility] [place] [address] documented in this encounter Visit Diagnoses Not on filedocumented in this encounter Care Teams Business Objects Relationship Specialty Start Date End Date Lyn Sinclair APRN PCP - General Family Medicine 07/17/17 04/20/24 documented as of this encounter
--- OUTSIDE RECORDS SUMMARY | 2024-05-15 09:46 | XMS_ITS | Encounter Summary ---
[facility] [place] [address] Care Team Providers Care Muleser Name Role Phone Lyn Sinclair APRN Primary Care Provider [phone] Encounter Details Date Type Department Care Team (Latest Contact Info) Description 03/17/2024 Travel Social History Tobacco Use Types Packs/Day [...] on filedocumented in this encounter Care Teams Muleser Relationship Specialty Start Date End Date Lyn Sinclair APRN PCP - General Family Medicine 07/17/17 04/20/24 documented as of this encounter
--- OUTSIDE RECORDS SUMMARY | 2024-05-15 09:46 | XMS_ITS | Encounter Summary ---
Author Organization [facility] [place] [address] Care Team Providers Care Elementary Assistant Teacher Name Role Phone Lyn Sinclair APRN Primary Care Provider [phone] Encounter Details Date Type Department Care Team (Late st Contact Info) Description 04/07/2024 3:00 PM EDT Office [place] [id number] Suzanne Traore APRN [facility] [place] [address] Coccyx contusion, initial encounter (Primary Dx); Contusion of lower back, initial encounter Social History Tobacco Use Types Packs/Day Years Used Date Smoking Tobacco: Never Smokeless Tobacco: Never Sex and Gender Information Value Date Recorded Sex Assigned at Female 10/25/2022 12:28 AM EDT Gender Identity Female 10/25/2022 12:28 AM EDT Sexual Orientation Straight 10/25/2022 12 :28 AM EDT documented as of this encounter Last Filed Vital Signs Vital Sign Reading Time Taken Comments Blood Pressure 129/61 04/07/2024 3:18 PM EDT Pulse 70 04/07/2024 3:18 PM EDT Temperature - - Respiratory Rate - - Oxygen Saturation - - Inhaled Oxygen Concentration - - Weight - - Height - - Body Mass Index - - documented in this encounter Patient Instructions * Patient Instructions* Suzanne Traore APRN - 04/07/2024 3:00 PM EDT Continue Ketorolace 10 mg at bedtime tonight then you may take 10 mg orally every 4-6 hours as needed for pain, not to exceed 40 mg per day for the following 4 days. NO ADDITIONAL IBUPROFEN CONTAINING PRODUCTS, TYLENOL IS OKAY. You may use lidoderm patches 1-2 applied to lower back at a time, on for 12 hours then off for 12 hours. numerical analysis group manager a donut pillow to sit on. Follow up in 1-2 weeks. documented in this encounter Progress Notes * Suzanne Traore APRN - 04/07/2024 3:00 PM EDT Images from the original note were not included. Occupational and Environmental Medicine HISTORY OF PRESENT ILLNESS Linda Garcia is a 59 y.o. female patient who presents to Occupational Medicine with complaint(s)of work related injury. 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 The leg of the stool came up and made contact with her tailbone. HPI: Increased discomfort with climbing stairs, going from standing to sitting or sitting ot standing. Pain level of 5/10 that is constant that climbs to an 8/10. Pain is a constant 3/10 in the thoracic back where she hit the cabinet. No difficulty with bowel or bladder movements, just increased discomfort. No bloody stools. No blood in her urine. She is finding it very difficult to find a comfortable position to sit or sleep in. She has not tried any additional tylenol with this. She feels a sensation of numbness across the lower back down into the tailbone in a triangle shape, does not radiate down into legs. No weakness with lifting her legs to walk, just increased pain. Was able to stand right away and bear weight. Management of Injury to date: Taking Motrin 600 mg during the day and 800 mg at bedtime with some relief, but not great relief. RELEVANT PAST MEDICAL HISTORY none RELEVANT CURRENT MEDICATIONS none ROS Pertinent positive findings discussed above. No other findings on review of constitutional visual, cardiovascular, respiratory, gastrointestinal, genitourinary, musculoskeletal, dermatologic, neurological, psychiatric, endocrine, hematologic or immunologic systems, except as noted. PHYSICAL EXAMINATION There were no vitals taken for this visit. Physical Exam Constitutional: General: She is not in acute distress. HENT: Head: Normocephalic and atraumatic. Musculoskeletal: Cervical back: Normal range of motion. Thoracic back: Tenderness present. No bony tenderness. Lumbar back: Tenderness present. No bony tenderness. Normal range of motion. Negative right straight leg raise test and negative left straight leg raise test. Skin: Findings: Ecchymosis present. Neurological: Mental Status: She is alert. Sensory: Sensation is intact. Motor: Motor function is intact. Coordination: Heel to Owens Test normal. Gait: Gait is intact. Deep Tendon Reflexes: Reflexes are normal and symmetric. RELEVANT IMAGING STUDIES pending ASSESSMENT Linda Garcia is a 59 y.o. female patient who presents status post fall from stool with direct impact of leg of stool into sacral/coccygeal region and ecchymosis present on exam today, no crepitus.X-ray to confirm no fracture and patient was given IM ketorolac for pain control then continued on a 4-day regimen of oral ketorolac as this has been previously helpful to her. Also given a prescription for lidoderm patches to apply to the lower lumbar region. PLAN Treatment plan: Pain control to promote movement, x-ray to rule out fracture and follow up in two weeks Diagnostic orders: plain films Medication orders/pain management: Prescription pain medication indicated, see order associated with this diagnosis. Physical therapy: not indicated Specialty Referrals: not indicated Work status: No functional restrictions are indicated based on Linda's current clinical evaluation,however management of the injury/illness is ongoing and Maximal Medical Improvement (MMI) has not been reached at this time. The [place] WC form was completed today; if completed, a copy was given to the employee to share with their telemarketing manager. Causality: It is my professional opinion that Linda's injury/illness was caused by or is directly related to the employment-related incident/exposure described. Follow-up plan: Will plan to see Linda Garcia in 2 weeks to re-assess their condition and/or functional status. Recovery duration timeframe based on [place]: Coccyx contusion or other: case prediction = 25 days, date 05/04; population median = 58 days, date06/06 Linda Garcia voiced understanding of the discussion and the treatment/follow- up plan. Suzanne Traore APRN 04/07/2024 documented in this encounter Plan of Treatment Not on file documented as of this encounter Results * XR Sacrum & Coccyx (Generic) (04/07/2024 4:29 PM EDT) [employer] WORKSTATION ID [id number] RAD Anatomical Region Laterality Modality Pelvis, Hip, L-spine N/A Digital Rad iography Impressions 04/09/2024 8:39 AM EDT Normal sacrum/coccyx radiographs. Thank you for letting us participate in the care of this patient. ??If you are a health care provider and have any questions regarding this report, please contact the number below. ??For patients who have questions please contact the health laboratory animal caretaker that requested your imaging first. ? Electronically signed by: Argentina Pruitt MD, [facility] ([phone]), at 04/09/2024 8:39 AM Narrative 04/09/2024 8:39 AM EDT EXAMINATION: XR SACRUM AND COCCYX (GENERIC) CLINICAL HISTORY: status post fall from chair height to floor and chair leg came into contact with sacrum S30.0XXA, Contusion of lower back and pelvis, initial encounter TECHNIQUE: AP and lateral sacrococcygeal radiographs (3 images) COMPARISON: None FINDINGS: No fracture or destructive bone lesion. Normal alignment at the lumbosacral and sacrococcygeal junctions. Preserved spacing and alignment at the sacroiliac joints and hips without erosion or periostitis. Surgical clips in the abdomen. Scant vascular calcifications. No focal soft tissue abnormality. Procedure Note Argentina Pruitt MD - 04/09/2024 EXAMINATION: XR SACRUM AND COCCYX (GENERIC) CLINICAL HISTORY: status post fall from chair height to floor and chairleg came into contact with sacrum S30.0XXA, Contusion of lower back and pelvis, initial encounter TECHNIQUE: AP and lateral sacrococcygeal radiographs (3 images) COMPARISON: None FINDINGS: No fracture or destructive bone lesion. Normal alignment at the lumbosacral and sacrococcygeal junctions. Preserved spacing and alignment at the sacroiliac joints and hipswithout erosion or periostitis. Surgical clips in the abdomen. Scant vascular calcifications. No focalsoft tissue abnormality. IMPRESSION Normal sacrum/coccyx radiographs. Thank you for letting us participate in the care of this patient. If youare a health care provider and have any questions regarding this report,please contact the number below. For patients who have questions please contactthe health laboratory animal caretaker that requested your imaging first. Electronically signed by: Argentina Pruitt MD, [facility]([phone]), at 04/09/2024 8:39 AM Suzanne Marre CYNTHIA IMG DX ORDERABLES documented in this encounter Visit Diagnoses Diagnosis Coccyx contusion, initial encounter- Primary Contusion of lower back, initial encounter Coccyx contusion, initial encounter documented in this encounter Administered Medications Inactive Administered Medications - up to 3 most recent administrations Medication Order MAR Action Action Date Dose Rate Site ketorolac (Toradol) (30 mg/mL) injection 30 mg 30 mg, Intramuscular, ONCE, 1 dose, On Sat04/07/24 at 1600, Routine Given 04/07/2024 4:00 PM EDT 30 mg Left Deltoid documented in this encounter Care Teams Elementary Assistant Teacher Relationship Specialty Start Date End Date Lyn Sinclair, CYNTHIA PCP - General Family Medicine 07/17/17 04/20/24 documented as of this encounter
--- OUTSIDE RECORDS SUMMARY | 2024-05-15 09:46 | XMS_ITS | Encounter Summary ---
Author Organization [facility] [place] [address] Care Team Providers Care Sprinkler Inspector Name Role Phone Valentina Garnica APRN Primary Care Provider [phone] Encounter Details Date Type Department Care Team (Late st Contact Info) Description 04/21/2024 3:30 PM EDT Office [place] [phone] Suzanne Traore APRN [facility] [place] [address] Coccyx contusion, subsequent encounter (Primary Dx); Contusion of lower back, subsequent encounter Social History Tobacco Use Types Packs/Day Years Used Date Smoking Tobacco: Never Smokeless Tobacco: Never Sex and Gender Information Value Date Recorded Sex Assigned at Female 10/25/2022 12:28 AM EDT Gender Identity Female 10/25/2022 12:28 AM EDT Sexual Orientation Straight 10/25/2022 12 :28 AM EDT documented as of this encounter Last Filed Vital Signs Vital Sign Reading Time Taken Comments Blood Pressure 118/54 04/21/2024 3:01 PM EDT Pulse 70 04/21/2024 3:01 PM EDT Temperature - - Respiratory Rate - - Oxygen Saturation - - Inhaled Oxygen Concentration - - Weight - - Height - - Body Mass Index - - documented in this encounter Progress Notes * Suzanne Traore, OR ASSISTANT - 04/21/2024 3:30 PM EDT Occupational and Environmental Medicine HISTORY OF PRESENT ILLNESS Linda Garcia is a 59 y.o. female patient who presents to Occupational Medicine with complaint(s)of work related injury. 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 Her coccyx imaging was negative for any fractures. She reports improvement since our last visit. Continues to have discomfortwith stairs and use of the foot to pump stretchers up, but otherwise noting significant improvementfrom prior visit. No longer using Lidoderm patches and denies any new symptoms. Occasional sharp spa sm type pain to the left of the sacral area, but nothing worse than previously reported. Injury History Date of Injury: 04/05/24 Mechanism/description [...] immunologic systems, except as noted. PHYSICAL EXAMINATION BP 118/54 (BP Location (NBP): Left arm, Patient Position: Sitting, BP Cuff Sizes: Adult (25-34 cm)) Pulse 70 Physical Exam Constitutional: General: She is not in acute distress. HENT: Head: Normocephalic and atraumatic. Musculoskeletal: Cervical back: Normal range of motion. Lumbar back: Normal range of motion. Negative right straight leg raise test and negative left straight leg raise test. Comments: Normal heel and toe walk, reports of increased sacral discomfort with toe walk Neurological: Mental Status: She is alert. Motor: Motor function is intact. Gait: Gait is intact. Deep Tendon Reflexes: Reflexes are normal and symmetric. RELEVANT IMAGING STUDIES XR Sacrum & Coccyx (Generic) Narrative: EXAMINATION: XR SACRUM AND COCCYX (GENERIC) CLINICAL [...] vascular calcifications. No focal soft tissue abnormality. Impression: Normal sacrum/coccyx radiographs. Thank you for letting us participate in the care of this patient. If you are a health care provider and have any questions regarding this report, please contact the number below. For patients who have questions please contact the health care transition mgr that requested your imaging first. Electronically signed by: Argentina Pruitt MD, [facility] ([phone]), at 04/09/2024 8:39 AM ASSESSMENT Linda Garcia is a 59 y.o. female patient who presents status post fall from stool with direct impact of leg of stool into sacral/coccygeal region. X-ray imaging confirmed no fracture and patient treated conservatively with Ketorolac and Lidoderm patches with good relief of pain. Anticipate full resolution over the course of the next few weeks. PLAN Treatment plan: No new treatment, advised on exercises Diagnostic orders: none Medication orders/pain management: None. Physical therapy: not indicated Specialty Referrals: not indicated Work status: No functional restrictions are indicated based on Linda's current clinical evaluation,however management of the injury/illness is ongoing and Maximal Medical Improvement (MMI) has not been reached at this time. The [place] WC form was completed today; if completed, a copy was given to the employee to share with their strategic accounts manager. Causality: It is my professional opinion that Martis injury/illness was caused by or is directly related to the employment-related incident/exposure described. Follow-up plan: Will plan to see Linda Garcia in prn to re-assess their condition and/or functional status. Recovery duration timeframe based on [place]: Coccyx contusion or other: case prediction = 25 days, date 05/04; population median = 58 days, date06/06 Linda Garcia voiced understanding of the discussion and the treatment/follow- up plan. Suzanne Traore APRN 04/21/2024 documented in this encounter Plan of Treatment Not on file documented as of this encounter Visit Diagnoses Diagnosis Coccyx contusion, subsequent encounter- Primary Contusion of lower back, subsequent encounter documented in this encounter Care Teams Sprinkler Inspector Relationship Specialty Start Date End Date Valentina Garnica APRN [address] [facility] [place] [address] PCP - General Internal Medicine 04/21/24 documented as of this encounter
--- OUTSIDE RECORDS SUMMARY | 2024-05-15 09:46 | XMS_ITS | Clinical Summary ---
Author Organization [facility] [place] [address] Care Team Providers Care Car Repairer Name Role Phone Valentina Garnica Silvia MARIE Primary Care Provider [phone] Allergies Active Allergy Reactions Criticality Noted Date Comments Amoxicillin Other (See Comments) Medium 01/12/2022 mouth swelling Doxycycline Hcl Other (See Comments) High 04/26/2014 Tongue swelling Metronidazole 01/18/2023 Other Reaction(s): GI UPSET Morphine Sulfate Itching Medium Oxycodone Hcl Other (See Comments) 01/20/2023 Oxycodone-Acetaminophen Other (See Comments) Medium hallucinations Penicillin Medium 01/21/2023 Other Reaction(s): mouth swelling Trazodone Anxiety Medium 05/07/2011 Zolpidem Medium 01/12/2022 Other Reaction(s): suicidal, Suicidal ideation Zolpidem Tartrate Other (See Comments) High 01/21/20 23 Medications Medication Sig Dispensed Refills Start Date End Date Status LORazepam (ATIVAN) 0.5 mg tablet 0.5mg, PO, Q8H,PRN 07/24/2010 Act willem albuterol (VENTOLIN HFA) 90 mcg/Actuation inhaler Inhale into the lungs as needed. 07/24/2010 Active Blood-Glucose Meter Misc Use 1-2 times daily 1 each 0 11/24/2012 Active Lancets (ACCU-CHEK MULTICLIX LANCET) Mis 1 each by [facility]Non-Drug; Combo Route) route 2 times daily. Diagnosis code 250.00 180 each 3 03/09/2013 Active omeprazole (PRILOSEC) 20 mg Capsule, Delayed Release(E.C.) Take 20 mg by mouth daily. 01/30/2016 Active levothyroxine (SYNTHROID) 25 mcg Tablet Take 1 tablet by mouth daily. 90 tablet 06/05/2017 Active cholecalciferol, Vitamin D3, 1,000 unit Capsule Take 1,000 Units by mouth daily. Active b complex vitamins Capsule Take 1 capsule by mouth daily. Active cyanocobalamin 1,000 mcg Tablet Take 3,000 mcg by mouth daily. Active ACCU-CHEK WANDER PLUS TEST STRP Strip 1 each by Other route 5 times daily. Dx code E11.9 Check glucose 5 times daily 450 each 3 07/17/2017 Active Additional Information Patient taking differently:1 each OtherPRN, (No instructions reported), Reported on 06/13/2021 Jardiance 25 mg Tablet Take 25 mg by mouth daily. 06/06/2020 Active FreeStyle Carina 14 Day [place] Misc 05/30/2020 Active FreeStyle Carina 14 Day Sensor Kit Inject 1 each subcutaneously every 14 days. 05/31/2020 Active atorvastatin (Lipitor) 10 mg Tablet Take 10 mg by mouth daily. 05/10/2020 Active Januvia 25 mg Tablet Take 25 mg by mouth daily. 05/11/2020 Active Betamethasone Valerate (Luxiq) 0.12 % Foam 05/01/2021 Active clobetasoL (Temovate) 0.05 % Ointment Apply 1 each topically as needed. 12/27/2020 Active Premarin 0.625 mg/gram Cream Place vaginally three times a week. 02/13/2021 Active metFORMIN (GLUCOPHAGE) 1,000 mg Tablet Take 1,000 mg by mouth 2 times daily. 03/16/2021 Active pantoprazole EC (Protonix) 40 mg Tablet, Delayed Release (E.C.) 03/21/2021 Active buPROPion XL (Wellbutrin XL) 300 mg Tablet Extended Release 24 hr 05/12/2021 Active cyanocobalamin, Vitamin B-12, 1,000 mcg/mL Solution Inject as directed every 30 days. Active omega-3 acid ethyl esters (Lovaza) 1 gram Capsule Take 1 g by mouth daily. Active aspirin EC 81 mg Tablet, Delayed Release (E.C.) Take 81 mg by mouth daily. Active folic acid (Folvite) 1 mg Tablet Take 1 mg by mouth daily. Active docusate sodium (Colace) 100 mg Capsule Take 100 mg by mouth as needed. Active lactobacillus combination no.8 3 billion cell Capsule 09/25/2019 Active fish oil-omega-3 fatty acids (Fish Oil) 1,000 mg capsule daily. 10/31/2018 Active psyllium (METAMUCIL) Powder as needed. 08/05/2020 Active cetirizine (ZyrTEC) 10 mg tablet as needed. 08/27/2022 Active estradioL (ESTRACE) 0.01 % (0.1 mg/gram) Cream Place vaginally as needed. 01/02/2023 Active Tradjenta 5 mg tablet Take 5 mg by mouth daily. 05/06/2023 Active minocycline (Minocin) 100 mg capsule Take 100 mg by mouth every other day. 05/26/2021 Active atovaquone-proguan iL (Malarone) 250-100 mg tabletIndications: Counseling about travel Take 1 tablet by mouth daily. Take one dose the day before entering a malarious area. Take the whole time you are in a malarious area. Continue to take 7 days after leaving malarious area. 26 tablet 03/18/2024 Active azithromycin (Zithromax) 500 mg tabletIndications: Counseling about travel Take 1 tablet by mouth daily. Take one dose when diarrhea is accompanied by fever. Wait 24 hours, if symptoms persist, continue with second and third dose on day two and three. 3 tablet 03/18/2024 Active typhoid (VIVOTIF) Capsule, Delayed Release(E.C.)Indic ations:Counseling about travel Take 1 capsule by mouth every other day. Keep medication refridgerated. Do not eat or drink one hour before taking or for two hours after taking. Take with lukewarm water. 4 capsule 03/18/2024 Active Active Problems Problem Noted Date Diagnosed Date Acid reflux 01/21/2023 Acquired hypothyroidism 01/21/2023 Anxiety 01/21/2023 Depression 01/21/2023 Familial hypercholesterolemia 01/21/2023 Hirsutism 01/21/2023 History of endometrial ablation 01/21/2023 Pain in female genitalia on intercourse 01/22/20 Panic disorder 01/21/2023 Polycystic ovary syndrome 01/21/2023 Rectocele 01/21/2023 Chest pain 10/29/2018 Vitamin D deficiency 11/24/2012 Warts 09/01/2012 DM2 (diabetes mellitus, type 2) 07/22/1994 Anemia Dyslipidemia Hypertension Obesity Overview (09/26/2010): s/p gastric bypass 07/21/99 Vitamin D deficiency Resolved Problems Problem Noted Date Diagnosed Date Resolved Date CIS - GERD 01/21/2023 Encounters Date Type Department Care Team Description 05/08/2024 Travel 04/21/2024 3:30 PM EDT Office [place] [address] Suzanne Traore APRN Coccyx contusion, subsequent encounter (Primary Dx); Contusion of lower back, subsequent encounter 04/21/2024 Travel 04/16/2024 3:30 PM EDT Clinical [place] [phone] Aleksander Arellano, RN Counseling about travel 04/16/2024 Travel 04/14/2024 [place] [address] Aleksander Arellano, RN 04/14/2024 Orders [place] [address] Dixon Yee MD Counseling about travel 04/07/2024 4:10 PM EDT - 04/07/2024 11:59 PM EDT Hospital Encounter XRay at [address] [place] [phone] Suzanne Traore APRN Coccyx contusion, initial encounter Discharge Disposition: Home 04/07/2024 3:00 PM EDT Office [place] [phone] Suzanne Traore APRN Coccyx contusion, initial encounter (Primary Dx); Contusion of lower back, initial encounter 04/07/2024 Travel 03/17/2024 3:00 PM EDT Office [place] [phone] Aleksander Arellano, RN Counseling about travel 03/17/2024 Travel 03/11/2024 [place] [address] Demetra Rao LNA 03/03/2024 [place] [address] Unknown Appointment from Last 3 Months Immunizations Name Administration Dates Next Due Covid-19 (Moderna Spikevax) 12yrs+ ([id number]) 05/08/2024,07/26/2023 Hepatitis A Adult (Havrix, Vaqta) 03/17/2024 Hepatitis B Recombinant Adju vanted (HepLisav-B) 04/16/2024,03/17/2024 Influenza Quadrivalent, Pres ervative Free 04/19/2023,05/14/2022,06/02/2021,05/06,04/21/2018,04/23/2015 Influenza Trivalent, Preservative Free Pneumococcal 13-Valent Conju gate (Prevnar 13) 04/25/2016 Pneumococcal 23-Valent Polys accharide (Pneumovax 23) 10/06/2007 Td Adult (Decavac, Tenivac) 04/19/2011 Tdap (Adacel, Boostrix) 04/28/2021 Yellow Fever Vaccine 04/16/2024 Zoster Recombinant (ShingRix) 11/03/2021, 022 Social History Tobacco Use Types Packs/Day Years Used Date Smoking Tobacco: Never Smokeless Tobacco: Never Tobacco Cessation:Counseling Given: Not Answered Sex and Gender Information Value Date Recorded Sex Assigned at Female 10/25/2022 12:28 AM EDT Gender Identity Female 10/25/2022 12:28 AM EDT Sexual Orientation Straight 10/25/2022 12 :28 AM EDT Last Filed Vital Signs Vital Sign Reading Time Taken Comments Blood Pressure 118/54 04/21/2024 3:01 PM EDT Pulse 70 04/21/2024 3:01 PM EDT Temperature 36.1 ??C (96.9 ??F) 03/17/2024 2:54 PM ED T Respiratory Rate 16 03/17/2024 2:54 PM EDT Oxygen Saturation 100% 03/17/2024 2:54 PM EDT Inhaled Oxygen Concentration - - Weight 77.1 kg (170 lb) 03/17/2024 2:54 PM EDT Height 165.1 cm (5' 5) 03/17/2024 2:54 PM EDT Body Mass Index 28.29 03/17/2024 2:54 PM EDT Plan of Treatment Health Maintenance Due Date Last Done Comments CT Colonography 1963 Colonoscopy 1963 Colorectal Cancer Screening 1963 FIT DNA 1963 FIT 1963 Sigmoidoscopy (10 year) with FIT yearly 1963 Sigmoidoscopy 1963 DM Opthalmology Exam 1973 HIV screen 1981 Hepatitis C Screening 1981 HPV test 1993 PAP Smear 1993 Breast Cancer Share Decision Needed 2003 Breast Cancer screening 2003 DM Hemoglobin A1c 10/15/2017 07/17/2017, , 04/26/2014, Additional history exists Advance Directive 2018 DM Urine Microalbumin yearly 07/17/2018, 04/25/2016, 04/26/2014, Additional history exists DM Creatinine yearly 03/29/2024 03/29/2023, 07/17/2017, 04/25/2016, Additional history exists Pneumococcal Vaccine: At-Ris k 5-64yrs (3 of 3 - PPSV23 or PCV20) 02/22/2028 04/25/2016, 10/06/2007 Tetanus/Diphtheria/Pertussis Vaccines (2 - Td or Tdap) 04/28/2031 04/28/2021, 04/19/2011 Lipid Screening Discontinued 07/17/2017, 1011/2015, 04/26/2014, Additional history exists Zoster vaccine Completed 11/03/2021, 08/11/2021 Diabetes Screening (HgbA1C o r Glucose) Discontinued 03/29/2023, 07/17/2017, 07/17/2017, Additional history exists Covid-19 Vaccine Completed 05/08/2024, 11/2023, 03/12/2022, Additional history exists Influenza (Flu) vaccine Completed 05/08/20, 04/19/2023, 05/14/2022, Additional history exists Procedures Procedure Name Priority Date/Time Associated Diagnosis Comments XR SACRUM AND COCCYX Routine 04/07/2024 4:29 PM EDT Coccyx contusion, initial encounter COMPREHENSIVE METABOLIC PANEL Routine 03/29/2023 1:42 PM EDT Restless leg syndrome U ALBUMIN/CRE RATIO Routine 07/17/2017 3 :41 PM EST Type 2 diabetes mellitus without complication, unspecified termite treater insulin use status HDL/CHOL PROFILE Routine 07/17/2017 3:34 PM EST Type 2 diabetes mellitus without complication, unspecified long-term insulin use status HEMOGLOBIN A1C Routine 07/17/2017 3:34 PM EST Type 2 diabetes mellitus without complication, unspecified long-term insulin use status from Last 3 Months or Most Recently Relevant to Health Maintenance Results * XR Sacrum & Coccyx (Generic) (04/07/2024 4:29 PM EDT) Five minutes WORKSTATION ID [id number] RAD Anatomical Region Laterality Modality Pelvis, Hip, L-spine N/A Digital Rad iography Impressions 04/09/2024 8:39 AM EDT Normal sacrum/coccyx radiographs. Thank you for letting us participate in the care of this patient. ??If you are a health care provider and have any questions regarding this report, please contact the number below. ??For patients who have questions please contact the health customer care representative that requested your imaging first. ? Electronically signed by: Argentina Pruitt MD, [facility] ([phone]), at 04/09/2024 8:39 AM Narrative 04/09/2024 8:39 [...] patients who have questions please contactthe health customer care representative that requested your imaging first. Electronically signed by: Argentina Pruitt MD, [facility]([phone]), at 04/09/2024 8:39 AM Suzanne Traore APRN IMG DX ORDERABLES * (ABNORMAL) Comprehensive metabolic panel (non-fasting) (03/29/2023 1:42 PM EDT) Glucose 133 65 - 199 mg/dL [facility] Comment:Diabetes: >=200 mg/d L plus symptoms Blood Urea Nitrogen 18 8 - 18 mg/dL [facility] Creatinine 0.94 0.70 - 1.20 mg/dL [facility] Sodium 142 135 - 145 mmol/L [facility] Potassium 4.5 3.5 - 5.0 mmol/L [facility] Comment: Please note: ??Patients with WBC >100,000 may have falsely elevated Potassium levels. ??For accurate Potassium quantification in these patients send serum separator tube (gold top) for subsequent determinations. ??Contact the Clinical Chemistry Laboratory if there are any questions. Chloride 105 98 - 107 mmol/L [facility] Carbon Dioxide 24 22 - 31 mmol/L [facility] Anion Gap 13 5 - 15 mmol/L [facility] Calcium 9.5 8.5 - 10.5 mg/dL [facility] Protein, Total 7.0 6.1 - 8.0 g/dL [facility] Albumin 4.3 3.2 - 5.2 g/dL [facility] Aspartate Aminotransferase 15 0 - 30 unit/L [facility] Alanine Aminotransferase 10 0 - 30 unit/L [facility] Alkaline Phosphatase 123(H) 35 - 105 unit/L [facility] Bilirubin, Total 0.3 0.2 - 1.3 mg/dL [facility] Est Glomerular Filtration Rate 69 >=60 mL/min/1. 73 m?? [facility] Comment: This patient's estimated GFR was [...] Resulting Agency Comment Spec In Lab Lyn Lory Sinclair CYNTHIA CHEMISTRY ORDERABLE S Performing Organization Address [facility]/ZIP Co de Phone Number [facility] [place] [address] * U Albumin/Cre Ratio (07/17/2017 3:41 PM EST) Albumin / Creatinin Ratio, Urine 3 0 - 29 mcg/mg Cr [facility] Comment: Reference Ranges: <30 mcg/mg: Normal 30-300 mcg/mg: Moderately increased albuminuria.* >300 mcg/mg: Severely increased albuminuria. * ACEI or ARB recommended if diabetic; suggested if BP>130/80 without diabetes ACEI or ARB strongly recommended if diabetic; recommended if BP>130/80 without diabetes Two of three specimens collected within a 3 to 6 month period should be abnormal before considering a patient to have albuminuria. Transient causes: exercise, fever, infection, CHF, marked hyperglycemia or hypertension. Persistent albuminuria indicates CKD and is an independent risk factor for ASCVD. ADA Standards of Medical Care in Diabetes-2016; KDIGO: Kidney International Supplements (2012) 2, 357? 362 Albumin, Urine 3.3 mg/L [facility] Creatinine, Urine 126 mg/dL [facility] Urine specimen (specimen) 07/17/2017 3:41 PM EST 07/17/2017 3:47 PM EST Narrative Resulting Agency Comment Spec In Lab Ambreen Vora SHERIFF SERGEANT URINE ORDERABLES Performing Organization Address City/[facility]/ZIP Co de Phone Number [facility] [place] [address] * (ABNORMAL) HDL/Cholesterol Profile (07/17/2017 3:34 PM EST) Cholesterol, Total 160 <=239 mg/dL [facility] HDL Cholesterol 23(L) >=40 mg/dL [facility] Cholesterol/HDL Ratio 7.[address] [facility] Chol/HDL Interpretation See Note [facility] Comment: Lipid management should be guided by a patient? s ASCVD risk, goals and preferences. ACC/AHA Guidelines recommend high intensity statin if clinical ASCVD or LDL greater than or equal to 190 mg/dL. http://Employee Benefit Plans.com/RRM-EXS-Hnmmnagdr Measure LDL if Total Cholesterol minus HDL Cholesterol is greater than 220 mg/dL. Adults aged 40-75 with LDL 70-189 mg/dL should have their 10 year ASCVD risk estimated with the ACC/AHA ASCVD risk electrical line worker http://tools.acc.org/IGEWC-Otez-Uofkafjhq/ Statin should be discussed if risk greater than or equal to 7.5% in non-diabetics. With diabetes, moderate intensity statin is recommended if risk less than 7.5%, high intensity if risk greater than or equal to 7.5%. Annual lipid monitoring on statins is not necessary. Lifestyle modification is a critical component of ASCVD risk reduction. Blood specimen (specimen) 07/17/2017 3:34 PM EST 07/17/2017 3:45 PM EST Narrative Resulting Agency Comment Spec In Lab Ambreen Vora APRN CHEMISTRY ORDERABLE S [facility] [place] [address] * (ABNORMAL) Hemoglobin A1c (07/17/2017 3:34 PM EST) Hemoglobin A1c 7.7(H) 4.3 - 5.6 % [facility] Comment: Reference Range: 4.3 - 5.6% 5.7 - 6.4% - Increased Risk of Developing Diabetes Mellitus >=6.5% - Consistent with diagnosis of Diabetes Mellitus In the absence of hyperglycemia (i.e. plasma glucose > 200 mg/dL) or classic symptoms of hyperglycemia a repeat measurement of HbA1c should be performed on a separate sample to confirm the diagnosis. Diagnosis and Classification of Diabetes Mellitus, Diabetes Care 2013; 36: Suppl. 1, T31-93 Estimated Average Glucose 174 mg/dL [facility] Comment: eAG equivalents for HbA1c percentages: HbA1c(%) ?eAG(mg/dL) 6.0 ?126 6.5 ?140 7.0 ?154 7.5 ?169 8.0 ?183 8.5 ?197 9.0 ?212 9.5 ?226 10.0 ? 240 Limitations: The eAG calculation has not been validated on women, individuals below 18 years old and above 70 years old, and individuals with hemoglobinopathies. Additional resources are available on the ADA website. Mayank BRISENO, Tomeka J, Hussein R, et al. ??Translating the A1C assay into estimated average glucose values. ??Diabetes Care 2008:31(8):3142-0472. Blood specimen (specimen) 07/17/2017 3:34 PM EST 07/17/2017 3:45 PM EST Narrative Resulting Agency Comment Spec In Lab Ambreen Vora SHERIFF SERGEANT CHEMISTRY ORDERABLE S Performing Organization Address City/State/[facility] Co de Phone Number [facility] [place] [address] from Last 3 Months or Most Recently Relevant to Health Maintenance Care Teams Car Repairer Relationship Specialty Start Date End Date Valentina Garnica APRN [address] [place] [address] PCP - General Internal Medicine 04/21/24
--- OUTSIDE RECORDS SUMMARY | 2024-05-15 09:46 | XMS_ITS | Encounter Summary ---
[place] [address] Care Team Providers Care Staff Writer Name Role Phone Lyn Sinclair APRN Primary Care Provider [phone] Encounter Details Date Type Department Care Team (Late st Contact Info) Description 03/11/2024 Telephone [place] [phone] Demetra Rao LNA Social History Tobacco Use Types Packs/Day Years Used Date Smoking Tobacco: Never Smokeless Tobacco: Never Sex and Gender Information Value Date Recorded Sex Assigned at Female 10/25/2022 12:28 AM EDT Gender Identity Female 10/25/2022 12:28 AM EDT Sexual Orientation Straight 10/25/2022 12 :28 AM EDT documented as of this encounter Miscellaneous Notes * Telephone Encounter - Demetra Rao LNA - 03/11/2024 2:05 PM EDT Called and left a message for the patient in regards to completing travel questionnaire and immunizations form before appointment on Saturday(03/17) and to call with any questions. documented in this encounter Plan of Treatment Not on file documented as of this encounter Visit Diagnoses Not on filedocumented in this encounter Care Teams Staff Writer Relationship Specialty Start Date End Date Lyn Sinclair, GLASS INSTALLER PCP - General Family Medicine 07/17/17 04/20/24 documented as of this encounter
--- OUTSIDE RECORDS SUMMARY | 2024-05-15 09:46 | XMS_ITS | Encounter Summary ---
[place] [address] Care Team Providers Care Haul Truck Driver Name Role Phone Lyn Sinclair APRN Primary Care Provider Encounter Details Date Type Department Care Team (Late st Contact Info) Description 03/17/2024 3:00 PM EDT Office [place] [phone] Aleksander Arellano, RN Counseling about travel Social History Tobacco Use Types Packs/Day Years Used Date Smoking Tobacco: Never Smokeless Tobacco: Never Sex and Gender Information Value Date Recorded Sex Assigned at Female 10/25/2022 12:28 AM EDT Gender Identity Female 10/25/2022 12:28 AM EDT Sexual Orientation Straight 10/25/2022 12 :28 AM EDT documented as of this encounter Last Filed Vital Signs Vital Sign Reading Time Taken Comments Blood Pressure 137/63 03/17/2024 2:54 PM EDT Pulse 69 03/17/2024 2:54 PM EDT Temperature 36.1 ??C (96.9 ??F) 03/17/2024 2:54 PM ED T Respiratory Rate 16 03/17/2024 2:54 PM EDT Oxygen Saturation 100% 03/17/2024 2:54 PM EDT Inhaled Oxygen Concentration - - Weight 77.1 kg (170 lb) 03/17/2024 2:54 PM EDT Height 165.1 cm (5' 5) 03/17/2024 2:54 PM EDT Body Mass Index 28.29 03/17/2024 2:54 PM EDT documented in this encounter Progress Notes * Aleksander Arellano, RN - 03/17/2024 3:00 PM EDT Adult Travel Clinic Reason for Visit: Linda Garcia is a 59 y.o. female patient who comes to travel clinic today for pre-travel evaluation, vaccination and traveler's health education. Traveler reports some international travel experience. 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 Patient will be traveling with the group to perform medical operations for locals and will have some side trips to do adventures. A discussion about Npep was had due to patient doing medical operations and risk of exposure to blood and bodily fluids. Patient was educated on Npep and was advised to check with trip organizers if they already had a plan for this. If not, patient will reach out to RN to coordinate coverage. Medical History: Medical problems: Patient Active Problem List Diagnosis Code Anemia D64.9 Dyslipidemia E78.5 Hypertension I10 Obesity E66.9 DM2 (diabetes mellitus, type 2) E11.9 Vitamin D deficiency E55.9 Warts B07.9 Vitamin D deficiency E55.9 Chest pain R07.9 Acid reflux K21.9 Acquired hypothyroidism E03.9 Anxiety F41.9 Depression F32.A Familial hypercholesterolemia E78.01 Hirsutism L68.0 History of endometrial ablation Z98.890 Pain in female genitalia on intercourse N94.10 Panic disorder F41.0 Polycystic ovary syndrome E28.2 Rectocele N81.6 Current Outpatient Medications Medication Sig Dispense Refill atovaquone-proguaniL (Malarone) 250-100 mg tablet Take 1 tablet by mouth daily. Take one dose the day before entering a malarious area. Take the whole time you are in a malarious area. Continue to take 7 days after leaving malarious area. 26 tablet 0 azithromycin (Zithromax) 500 mg tablet Take 1 tablet by mouth daily. Take one dose when diarrhea isaccompanied by fever. Wait 24 hours, if symptoms persist, continue with second and third dose on day two and three. 3 tablet 0 typhoid (VIVOTIF) Capsule, Delayed Release(E.C.) Take 1 capsule by mouth every other day. Keep medication refridgerated. Do not eat or drink one hour before taking or for two hours after taking. Takewith lukewarm water. 4 capsule 0 lactobacillus combination no.8 3 billion cell Capsule fish oil-omega-3 fatty acids (Fish Oil) 1,000 mg capsule daily. psyllium (METAMUCIL) Powder as needed. cetirizine (ZyrTEC) 10 mg tablet as needed. estradioL (ESTRACE) 0.01 % (0.1 mg/gram) Cream Place vaginally as needed. Tradjenta 5 mg tablet Take 5 mg by mouth daily. minocycline (Minocin) 100 mg capsule Take 100 mg by mouth every other day. cyanocobalamin, Vitamin B-12, 1,000 mcg/mL Solution Inject [...] needed. Betamethasone Valerate (Luxiq) 0.12 % Foam clobetasoL (Temovate) 0.05 % Ointment Apply 1 each topically as needed. Premarin 0.625 mg/gram Cream Place vaginally three times a week. metFORMIN (GLUCOPHAGE) 1,000 mg Tablet Take 1,000 mg by mouth 2 times daily. pantoprazole EC (Protonix) 40 mg Tablet, Delayed Release (E.C.) buPROPion XL (Wellbutrin XL) 300 mg Tablet Extended Release 24 hr Jardiance 25 mg Tablet Take 25 mg by mouth daily. FreeStyle Carina 14 Day [place] Misc FreeStyle Carina 14 Day Sensor Kit Inject 1 each subcutaneously every 14 days. atorvastatin (Lipitor) 10 mg Tablet Take 10 mg by mouth daily. Januvia 25 mg Tablet Take 25 mg by mouth daily. cholecalciferol, Vitamin D3, [...] tablet by mouth daily. 90 tablet 0 omeprazole (PRILOSEC) 20 mg Capsule, Delayed Release(E.C.) Take 20 mg by mouth daily. Lancets (ACCU-CHEK MULTICLIX LANCET) Misc 1 each by [facility].(Non-Drug; Combo Route) route 2 times daily. Diagnosis code 250.00 180 each 3 Blood-Glucose Meter Misc Use 1-2 times daily 1 each 0 LORazepam (ATIVAN) 0.5 mg tablet 0.5mg, PO, Q8H,PRN albuterol (VENTOLIN HFA) 90 mcg/Actuation inhaler Inhale into the lungs as needed. (Patient taking differently: Inhale into the lungs as needed.) No current facility-administered medications for this visit. Immunosuppression: none Other? Functional or anatomical asplenia, thymus gland disorder, MS?: no History of adverse vaccine reactions: no History of latex, egg or beesting allergy: no or ?: no Patient advised to carry all medications in carry on luggage. Travel Health and Safety Issues: A discussion of travel health hazards and safety issues was done, including the following topics: traffic-accidents (alcohol, seatbelts), crime, alcohol related issues, sun exposure/heat illness, Schistosomiasis and other fresh water exposures, rabies, HIV infection/Hepatitis /other STD's, control, TB, DVT prevention, Embassy info, Health Insurance coverage/[employer], COVID-19. Discussed food and water precautions and patient handout provided. The following strategies were recommended for the management of traveler's diarrhea according to severity: For treatment of mild diarrhea: hydration and over the counter antidiarrheal recommended. For treatment of diarrhea accompanied by fever or systemic illness: hydration and empiric treatmentwith antibiotic recommended. A prescription for Azithromycin 500 mg daily x 3 days sent to pharmacy. Discussed antibiotic use, resistance and colonization issues. Advised to use antibiotics only for more severe symptoms, fever or worsening diarrhea. For severe or bloody diarrhea, or diarrhea accompanied by vomiting: patient advised to seek medicaltreatment. Vector-borne Disease Prevention Discussed insect bite prevention to reduce risk of malaria, dengue, chikungunya and other insect borne illnesses. Handout given. Malaria Risk: Significant risk of malaria on this itinerary. Discussed malaria chemoprophylaxis and possible sideeffects. Prescription for Malarone was given to the patient. Altitude: This trip does not involve high altitude. Rabies- Discussed increased risk of animal exposures and prevalence of rabies while traveling and that all exposures need to be treated as being at risk for rabies infection. Discussed animal avoidance, wound care and need for post-exposure prophylaxis. Discussed rabies vaccine. Immunizations Immunization History Administered Date(s) Administered Covid-19 (Moderna SPIKEVAX 2022) Vaccine 50mcg( 12yrs+) 07/26/2023 Hepatitis A Adult (HavRix, Vaqta) 03/17/2024 Hepatitis B Recombinant, Adjuvanted (HepLisav-B) 03/17/2024 Influenza Quadrivalent, Preservative Free 04/23/2015, 04/21/2018, 05/06/2020, 06/02/2021, 05/14/2022, 04/19/2023 Moderna Covid-19 Monovalent 12Yr+ (Comb Fixer 100mcg) 07/27/2020, 08/24/2020, 06/09/2021, 03/12/2022 Pneumococcal Conjugate (Prevnar 13) 04/25/2016 Pneumococcal Polysaccharide (Pneumovax 23) 10/06/2007 Td Adult, Absorbed, Preservative Free 04/19/2011 Tdap 04/28/2021 Zoster (ShingRix), Recombinant 08/11/2021, 11/03/2021 Immunization Discussion Patient has a history of receiving the Hepatitis B vaccination with no immune response. Patient recived Engerix in the past and with recent studies, it was discussed about trying the HepLisav to obtain immunity. RN stressed to patient that with risk increased on this trip for Hep B, patient should receive first HepLisav vaccine. Patient agreed. Patient was given first Hepatitis A vaccination in clinic today. Patient will follow up with PCP orlocal pharmacy in 6 months for second shot. Patient had Typhoid vaccination pills ordered to local pharmacy. Patient had recent TDAP and is up to date on childhood vaccines, MMR, Polio. Traveler given an official International Certificate of Vaccine or Prophylaxis (ICVP) for vaccine(s) received, and advised to carry original card with travel. Follow-up Recommendations: Advised to continue to follow COVID-19 precautions including masking on public conveyances and other crowded indoor settings, social distancing when possible and good hand hygeine. Discussed having aback up plan ready to be implemented in the event of testing positive while traveling. Advised traveler to contact [facility] if travel plans change or other concerns arise. Patient advised to call travel clinic if they return from trip with any illness. Time spent in travel counselin minutes. Vaccine information sheets given. documented in this encounter Plan of Treatment Not on file documented as of this encounter Visit Diagnoses Diagnosis Counseling about travel Other specified counseling documented in this encounter Care Teams Haul Truck Driver Relationship Specialty Start Date End Date Lyn Sinclair, INVENTORY CONTROL PLANNER PCP - General Family Medicine 07/17/17 04/20/24 documented as of this encounter
--- OUTSIDE RECORDS SUMMARY | 2024-05-15 09:46 | XMS_ITS | Encounter Summary ---
Author Organization [facility] [place] [address] Care Team Providers Care Aix Architect Name Role Phone Lyn Sinclair APRN Primary Care Provider [phone] Encounter Details Date Type Department Care Team (Latest Contact Info) Description 07/09/2023 Travel Social History Tobacco Use Types Packs/Day [...] on filedocumented in this encounter Care Teams Aix Architect Relationship Specialty Start Date End Date Lyn Sinclair APRN PCP - General Family Medicine 07/17/17 04/20/24 documented as of this encounter
--- OUTSIDE RECORDS SUMMARY | 2024-05-15 09:46 | XMS_ITS | Encounter Summary ---
[place] [address] Care Team Providers Care Inspector Integrated Circuits Name Role Phone Lyn Sinclair APRN Primary Care Provider [phone] Reason for Visit * Reason Comments Suture / Staple Removal Encounter Details Date Type Department Care Team (Late st Contact Info) Description 06/13/2021 3:30 PM EST Office Visit Dermatology at [address] [place] [phone] Indra Paez MD [address] [place] [address], [facility] [place], [place] [id number] Visit for suture removal Social History Tobacco Use Types Packs/Day Years Used Date Smoking Tobacco: Never Smokeless Tobacco: Never Sex and Gender Information Value Date Recorded Sex Assigned at Female 10/25/2022 12:28 AM EDT Gender Identity Female 10/25/2022 12:28 AM EDT Sexual Orientation Straight 10/25/2022 12 :28 AM EDT documented as of this encounter Progress Notes * Indra Paez MD - 06/13/2021 3:30 PM EST Problem: Follow-up for suture removal and biopsy results Linda follows up and had an uneventful postoperative course. She is here for suture removal. We do not yet have her biopsy results back. 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 Sutures removed 2. May DC wound care instructions 3. Return to clinic 1 year for repeat check. If doing well at that time, further visits can be prn. 4. We will notify patient of her biopsy results when these are available. CC: Lyn Sinclair APRN documented in this encounter Plan of Treatment Not on file documented as of this encounter Visit Diagnoses Diagnosis Visit for suture removal Encounter for removal of sutures documented in this encounter Care Teams Inspector Integrated Circuits Relationship Specialty Start Date End Date Lyn Sinclair APRN PCP - General Family Medicine 07/17/17 04/20/24 documented as of this encounter
--- OUTSIDE RECORDS SUMMARY | 2024-05-15 09:46 | XMS_ITS | Encounter Summary ---
Author Organization [place] [address] Care Team Providers Care Hog Sticker Name Role Phone Lyn Sinclair APRN Primary Care Provider Encounter Details Date Type Department Care Team (Latest Contact Info) Description 04/19/2023 Travel Social History Tobacco Use Types Packs/Day [...] on filedocumented in this encounter Care Teams Hog Sticker Relationship Specialty Start Date End Date Lyn Sinclair APRN PCP - General Family Medicine 07/17/17 04/20/24 documented as of this encounter
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
--- OUTSIDE RECORDS SUMMARY | 2024-05-15 09:46 | XMS_ITS | Encounter Summary ---
Author Organization [facility] [place] [address] Care Team Providers Care Inorganic Chemistry Professor Name Role Phone Lyn Sinclair APRN Primary Care Provider Encounter Details Date Type Department Care Team (Latest Contact Info) Description 07/26/2023 Travel Social History Tobacco Use Types Packs/Day [...] on filedocumented in this encounter Care Teams Inorganic Chemistry Professor Relationship Specialty Start Date End Date Lyn Sinclair APRN PCP - General Family Medicine 07/17/17 04/20/24 documented as of this encounter
--- OUTSIDE RECORDS SUMMARY | 2024-05-15 09:46 | XMS_ITS | Encounter Summary ---
Author Organization [facility] Address [facility] [place] [address] Care Team Providers Care Hand Bunch Maker Name Role Phone Lyn Sinclair APRN Primary Care Provider Encounter Details Date Type Department Care Team (Latest Contact Info) Description 06/06/2023 4:30 PM EST - 06/06/2023 11:59 PM [facility] Hospital Encounter XRay at [address] [place] [address] Suzanne Traore APRN [facility] [place] [address] Right hand pain Discharge Disposition: Home Social History Tobacco Use [...] mg/gram) Cream Place vaginally as needed. 01/02/2023 Tradjenta 5 mg tablet Take 5 mg by mouth daily. 05/06/2023 minocycline (Minocin) 100 mg capsule Take 100 [...] mouth daily. 06/06/2020 FreeStyle Carina 14 Day [place] Misc 05/30/2020 FreeStyle Carina 14 Day Sensor [...] Inhale into the lungs as needed. 07/24/2010 fluconazole (Diflucan) 200 mg tablet Take 200 mg by mouth as needed. 05/07/2023 09/04/2023 documented as of this encounter Plan of Treatment Not on file documented as of this encounter Procedures Procedure Name Priority Date/Time Associated Diagnosis Comments XR HAND MIN 3 VIEWS RIGHT Routine 06/06/2023 4:36 PM EST Right hand pain documented in this encounter Results * XR Hand Min [...] who have questions please contact the health acute care physical therapist that requested your imaging first. ? Electronically signed by: Alanis Georges MD, [facility] ([phone]), at 06/06/2023 10:03 PM Narrative 06/06/2023 10:03 PM EST EXAMINATION: XR [...] patients who have questions please contactthe health acute care physical therapist that requested your imaging first. Suznane Traore APRN IMG DX ORDERABLES documented in this encounter Visit Diagnoses Diagnosis Right hand pain Pain in limb documented in this encounter Care Teams Hand Bunch Maker Relationship Specialty Start Date End Date Lyn Sinclair APRN PCP - General Family Medicine 07/17/17 04/20/24 documented as of this encounter
--- OUTSIDE RECORDS SUMMARY | 2024-05-15 09:46 | XMS_ITS | Encounter Summary ---
Author Organization [facility] Address [facility] [place] [address] Care Team Providers Care White Work Cleaner Name Role Phone Lyn Sinclair APRN Primary Care Provider Encounter Details Date Type Department Care Team (Latest Contact Info) Description 06/06/2023 4:07 PM EST - 06/06/2023 4:29 PM [facility] Hospital Encounter XRay at [address] [place] [address] Suzanne Traore APRN [facility] [place] [address] Pain in right wrist; Right hand pain Discharge Disposition: Home Social [...] mouth daily. 06/06/2020 FreeStyle Carina 14 Day [place] Misc 05/30/2020 FreeStyle Carina 14 Day Sensor [...] as of this encounter Plan of Treatment Scheduled Orders Name Type Priority Associated Diagnoses Orde r Schedule XR Hand Min 3 views Left (Generic) Imaging Routine Right hand pain 1 Occurrences starting 06/06/2023 until 06/06/2023 documented as of this encounter Procedures Procedure Name Priority Date/Time Associated Diagnosis Comments XR WRIST 3 VIEWS RIGHT Routine 06/06/2023 4:23 PM EST Pain in right wrist documented in this encounter Results * XR Wrist 3 Views Right (06/06/2023 [...] who have questions please contact the health group care worker that requested your imaging first. ? Narrative [...] patients who have questions please contactthe health group care worker that requested your imaging first. Suzanne Traore APRN IMG DX ORDERABLES documented in this encounter Visit Diagnoses Diagnosis Pain in right wrist Pain in joint, forearm Right hand pain Pain in limb documented in this encounter Care Teams White Work Cleaner Relationship Specialty Start Date End Date Lyn Sinclair APRN PCP - General Family Medicine 07/17/17 04/20/24 documented as of this encounter
--- OUTSIDE RECORDS SUMMARY | 2024-05-15 09:46 | XMS_ITS | Encounter Summary ---
Author Organization [facility] [place] [address] Care Team Providers Care General Engineer Name Role Phone Lyn Sinclair APRN Primary Care Provider [phone] Reason for Visit * Reason Onset Date Comments Palpitations 03/27/2023 Encounter Details Date Type Department Care Team (Late st Contact Info) Description 03/27/2023 Telephone Cardiology at [address] [phone] Ena Cortes, RN Palpitations Social History Tobacco Use Types Packs/Day Years Used Date Smoking Tobacco: Never Smokeless Tobacco: Never Sex and Gender Information Value Date Recorded Sex Assigned at Female 10/25/2022 12:28 AM EDT Gender Identity Female 10/25/2022 12:28 AM EDT Sexual Orientation Straight 10/25/2022 12 :28 AM EDT documented as of this encounter Miscellaneous Notes * Telephone Encounter - Ena Cortes, RN - 03/27/2023 2:39 PM EDT Call to Linda to follow up on the request for an appointment with Dr. Smith at the [facility]. Notes from the ER provider were helpful, comments were there that Linda was referred to cardiology,but there is no referral and not response from PCP. Linda's next appointment with PCP is this March 29. She has outstanding messages with the PCP about orders for lab work to be done before Saturday appointment. Her current PCP is leaving the practice and another one has not been chosen/assigned. Regarding echocardiogram -Linda has viewed it on [facility]. It would be more meaningful to her if a staffing executive explained it. The Holter report showed nothing and she was asymptomatic while she wore it. She comments that perhaps the symptoms that day she went to the ER were anxiety/stress related. She still wishes to see a staffing executive and prefers Dr. Smith who is known to her. She has only Mondays and Fridays off. Recommendation: AWAIT notice from PCP about a referral this Saturday; if/when referral is received anappointment could be scheduled on a Saturday. documented in this encounter Plan of Treatment Not on file documented as of this encounter Visit Diagnoses Not on filedocumented in this encounter Care Teams General Engineer Relationship Specialty Start Date End Date Lyn Sinclair APRN PCP - General Family Medicine 07/17/17 04/20/24 documented as of this encounter
--- OUTSIDE RECORDS SUMMARY | 2024-05-15 09:46 | XMS_ITS | Encounter Summary ---
[place] [address] Care Team Providers Care Medical Lab Technician Name Role Phone Lyn Sinclair APRN Primary Care Provider Encounter Details Date Type Department Care Team (Latest Contact Info) Description 03/28/2023 Transcribe [place] [address] Lyn Sinclair APRN [address] [phone] Restless leg syndrome Social History Tobacco Use [...] documented as of this encounter Results * (ABNORMAL) Comprehensive metabolic panel (non-fasting) (03/29/2023 1:42 PM EDT) Glucose 133 65 - 199 mg/dL [facility] Comment:Diabetes: >=200 mg/d L plus symptoms Blood Urea Nitrogen 18 8 - 18 mg/dL [facility] Creatinine 0.94 0.70 - 1.20 mg/dL [facility] Sodium 142 135 - 145 mmol/L [facility] Potassium 4.5 3.5 - 5.0 mmol/L [facility] Comment: Please note: ??Patients with WBC >100,000 may have falsely elevated Potassium levels. ??For accurate Potassium quantification in these patients send serum separator tube (gold top) for subsequent determinations. ??Contact the Clinical Chemistry Laboratory if there are any questions. Chloride 105 98 - 107 mmol/L [facility] Carbon Dioxide 24 22 - 31 mmol/L [facility] Anion Gap 13 5 - 15 mmol/L [facility] Calcium 9.5 8.5 - 10.5 mg/dL [facility] Protein, Total 7.0 6.1 - 8.0 g/dL [facility] Albumin 4.3 3.2 - 5.2 g/dL [facility] Aspartate Aminotransferase 15 0 - 30 unit/L [facility] Alanine Aminotransferase 10 0 - 30 unit/L [facility] Alkaline Phosphatase 123(H) 35 - 105 unit/L [facility] Bilirubin, Total 0.3 0.2 - 1.3 mg/dL [facility] Est Glomerular Filtration Rate 69 >=60 mL/min/1. 73 m?? [facility] Comment: This patient's estimated GFR [...] Lab Lyn Sinclair APRN CHEMISTRY ORDERABLE S [facility] [place] [place] [address] * TSH [place] (03/29/2023 1:42 PM EDT) Thyroid Stimulating Hormone 3.57 0.27 - 4.20 mcIU/mL [facility] Comment: Reference Interval (mcIU/mL): Females: ??First Trimester: 0.23-3.88 ??Second Trimester: 0.22-3.90 ??Third Trimester: 0.44-4.66 Blood 03/29/2023 1:42 PM EDT 03/29/2023 1:52 PM EDT Narrative Resulting Agency Comment Spec In Lab Lyn Sinclair APRN CHEMISTRY ORDERABLE S Performing Organization Address [facility] Co de Phone Number [facility] [address] * (ABNORMAL) Iron and TIBC (03/29/2023 1:42 PM EDT) Iron 44 30 - 150 mcg/dL [facility] TIBC 417 250 - 450 mcg/dL [facility] Iron Saturation 11(L) 20 - 50 % [facility] Blood 03/29/2023 1:42 PM EDT 03/29/2023 1:52 PM EDT Narrative Resulting Agency Comment Spec In Lab Lyn Sinclair APRN CHEMISTRY ORDERABLE S [facility] [place] [address] * (ABNORMAL) Ferritin (03/29/2023 1:42 PM EDT) Ferritin 9(L) 30 - 400 ng/mL [facility] Comment: Pediatric reference ranges not verified at [facility], interpret with caution. Reference ranges for females greater than 50 years of age approach values for men, i.e., 30-400 ng/mL. Blood 03/29/2023 1:42 PM EDT 03/29/2023 1:52 PM EDT Narrative Resulting Agency Comment Spec In Lab Lyn Sinclair APRN CHEMISTRY ORDERABLE S [facility] [place] [address] documented in this encounter Visit Diagnoses Diagnosis Restless leg syndrome Restless legs syndrome (RLS) documented in this encounter Care Teams Medical Lab Technician Relationship Specialty Start Date End Date Lyn Sinclair APRN PCP - General Family Medicine 07/17/17 04/20/24 documented as of this encounter
--- OUTSIDE RECORDS SUMMARY | 2024-05-15 09:46 | XMS_ITS | Encounter Summary ---
[place] [address] Care Team Providers Care Insole Tack Puller Hand Name Role Phone Lyn Sinclair APRN Primary Care Provider [phone] Encounter Details Date Type Department Care Team (Late st Contact Info) Description 04/14/2024 Telephone [place] [phone] Aleksander Arellano, RN Social History Tobacco Use Types Packs/Day Years Used Date Smoking Tobacco: Never Smokeless Tobacco: Never Sex and Gender Information Value Date Recorded Sex Assigned at Female 10/25/2022 12:28 AM EDT Gender Identity Female 10/25/2022 12:28 AM EDT Sexual Orientation Straight 10/25/2022 12 :28 AM EDT documented as of this encounter Miscellaneous Notes * Telephone Encounter - Aleksander Arellano RN - 04/14/2024 11:15 AM EDT Patient and RN have been in communication via email. Patient reached out to RN with concerns that with her upcoming trip, she may be leaving [facility] at some point and was inquiring about Yellow Fever Vaccine. Recent guidelines do show that if patient was to leave [facility] for other local [place], they will need a YF vaccine to get back in. Patient is above 60yrs old, with precautions for YF vaccine. RN discussed possible risk and side effects of vaccine. RN also discussed with Dr. Dixon Yee. After a review it was decided that patient has no immunocompromising conditions and would be safe to administer vaccine. Patient will come in for two vaccines. documented in this encounter Plan of Treatment Not on file documented as of this encounter Visit Diagnoses Not on filedocumented in this encounter Care Teams Insole Tack Puller Hand Relationship Specialty Start Date End Date Lyn Sinclair, CYNTHIA PCP - General Family Medicine 07/17/17 04/20/24 documented as of this encounter
--- OUTSIDE RECORDS SUMMARY | 2024-05-15 09:46 | XMS_ITS | Encounter Summary ---
Author Organization [place] [address] Care Team Providers Care Basting Puller Name Role Phone Lyn Sinclair APRN Primary Care Provider Encounter Details Date Type Department Care Team (Latest Contact Info) Description 04/16/2024 Travel Social History Tobacco Use Types Packs/Day [...] on filedocumented in this encounter Care Teams Basting Puller Relationship Specialty Start Date End Date Lyn Sinclair APRN PCP - General Family Medicine 07/17/17 04/20/24 documented as of this encounter
--- OUTSIDE RECORDS SUMMARY | 2024-05-15 09:46 | XMS_ITS | Encounter Summary ---
[place] [address] Care Team Providers Care Finance Director Name Role Phone Lyn Sinclair APRN Primary Care Provider Encounter Details Date Type Department Care Team (Late st Contact Info) Description 03/29/2023 Transcribe [place] [address] Lyn Sinclair APRN [address] [phone] Social History Tobacco Use Types Packs/Day Years [...] on filedocumented in this encounter Care Teams Finance Director Relationship Specialty Start Date End Date Lyn Sinclair APRN PCP - General Family Medicine 07/17/17 04/20/24 documented as of this encounter
--- OUTSIDE RECORDS SUMMARY | 2024-05-15 09:46 | XMS_ITS | Encounter Summary ---
Author Organization [facility] Address [facility] [place] [address] Care Team Providers Care Physician Representative Name Role Phone Lyn Sinclair APRN Primary Care Provider [phone] Encounter Details Date Type Department Care Team (Latest Contact Info) Description 04/07/2024 4:10 PM EDT - 04/07/2024 11:59 PM EDT Hospital Encounter XRay at [address] [place] [address] Suzanne Traore APRN [facility] [place] [address] Coccyx contusion, initial encounter Discharge Disposition: Home Social History Tobacco Use [...] Sig Dispensed Refills Start Date End Date atovaquone-proguaniL (Malarone) 250-100 mg tabletIndications:Co unseling about travel Take 1 tablet by mouth daily. Take one dose the day before entering a malarious area. Take the whole time you are in a malarious area. Continue to take 7 days after leaving malarious area. 26 tablet 03/18/2024 azithromycin (Zithromax) 500 mg tabletIndications:Co unseling about travel Take 1 tablet by mouth daily. Take one dose when diarrhea is accompanied by fever. Wait 24 hours, if symptoms persist, continue with second and third dose on day two and three. 3 tablet 03/18/2024 typhoid (VIVOTIF) Capsule, Delayed Release(E.C.)Indicat ions:Counseling about travel Take 1 capsule by mouth every other day. Keep medication refridgerated. Do not eat or drink one hour before taking or for two hours after taking. Take with lukewarm water. 4 capsule 03/18/2024 lactobacillus combination no.8 3 billion cell Capsule [...] mouth daily. 06/06/2020 FreeStyle Carina 14 Day [place] Misc 05/30/2020 FreeStyle Carina 14 Day Sensor [...] mouth daily. 01/30/2016 Lancets (ACCU-CHEK MULTICLIX LANCET) Mis 1 each by [facility]Non-Drug; Combo Route) route 2 times daily. Diagnosis code 250.00 180 each 3 03/09/2013 Blood-Glucose Meter Mis Use 1-2 times daily 1 each 0 11/24/2012 LORazepam (ATIVAN) 0.5 mg tablet 0.5mg, PO, Q8H,PRN 07/24/2010 albuterol (VENTOLIN HFA) 90 mcg/Actuation inhaler Inhale into the lungs as needed. 07/24/2010 ketorolac (Toradol) 10 mg tabletIndications:Co ccyx contusion, initial encounter Take 1 tablet by mouth daily for 1 day, THEN 1 tablet every 6 hours as needed for Pain (not to exceed 40 mg per day) for up to 4 days. 5 tablet 04/07/2024 04/12/2024 lidocaine (Lidoderm) 5% Adhesive Patch, MedicatedIndications :Contusion of lower back, initial encounter Apply 1-2 patches to the lower back daily. (leave on for 12 hours and remove for 12 hours) 30 patch 04/07/2024 04/21/2024 documented as of this encounter Plan of Treatment Not on file documented as of this encounter Procedures Procedure Name Priority Date/Time Associated Diagnosis Comments XR SACRUM AND COCCYX Routine 04/07/2024 4:29 PM EDT Coccyx contusion, initial encounter documented in this encounter Results * XR Sacrum & Coccyx (Generic) (04/07/2024 4:29 PM EDT) WORKSTATION ID [id number] RAD Anatomical Region Laterality Modality Pelvis, Hip, L-spine N/A Digital Rad iography Impressions 04/09/2024 8:39 AM EDT Normal sacrum/coccyx radiographs. Thank you for letting us participate in the care of this patient. ??If you are a health care provider and have any questions regarding this report, please contact the number below. ??For patients who have questions please contact the health lead caregiver that requested your imaging first. ? Narrative 04/09/2024 8:39 AM EDT EXAMINATION: XR [...] patients who have questions please contactthe health lead caregiver that requested your imaging first. Electronically signed by: Argentina Pruitt MD, [facility]([phone]), at 04/09/2024 8:39 AM Suzanne Traore WELDER OXYHYDROGEN IMG DX ORDERABLES documented in this encounter Visit Diagnoses Diagnosis Coccyx contusion, initial encounter documented in this encounter Care Teams Physician Representative Relationship Specialty Start Date End Date Lyn Sinclair APRN PCP - General Family Medicine 07/17/17 04/20/24 documented as of this encounter
--- OUTSIDE RECORDS SUMMARY | 2024-05-15 09:46 | XMS_ITS | Encounter Summary ---
Author Organization [facility] Address [facility] [place] [address] Care Team Providers Care Signal Tester Name Role Phone Lyn Sinclair APRN Primary Care Provider Encounter Details Date Type Department Care Team (Late st Contact Info) Description 04/14/2024 Orders Only [place] [address] Dixon Yee MD [facility] [place] [address] Counseling about travel Social History Tobacco Use [...] counseling documented in this encounter Care Teams Signal Tester Relationship Specialty Start Date End Date Lyn Sinclair APRN PCP - General Family Medicine 07/17/17 04/20/24 documented as of this encounter
--- OUTSIDE RECORDS SUMMARY | 2024-05-15 09:46 | XMS_ITS | Encounter Summary ---
[place] [address] Care Team Providers Care Emergency Medical Tech Name Role Phone Lyn Sinclair APRN Primary Care Provider Encounter Details Date Type Department Care Team (Late st Contact Info) Description 01/23/2023 Telephone Cardiology at [address] [place] [address] Ena Cortes, RN Social History Tobacco Use Types Packs/Day Years Used Date Smoking Tobacco: Never Smokeless Tobacco: Never Sex and Gender Information Value Date Recorded Sex Assigned at Female 10/25/2022 12:28 AM EDT Gender Identity Female 10/25/2022 12:28 AM EDT Sexual Orientation Straight 10/25/2022 12 :28 AM EDT documented as of this encounter Miscellaneous Notes * Telephone Encounter - Ena Cortes, RN - 01/24/2023 8:50 AM EDT Review done of incoming documents from [facility] emergency and primary care in past 3 weeks. ER workup for atypical chest pain was negative for cardiac. Referral to cardiology is documented by ED provider. PCP does not include a referral to cardiology. This is a non-urgent referral to cardiology per ED provider. Will re-establish an appointment but as a NEW PATIENT not as FOLLOW UP. * Telephone Encounter - Ena Cortes RN - 01/23/2023 7:27 AM EDT ----- Message from Ambreen Newberry sent at 01/21/2023 2:59 PM EDT ----- Regarding: RE: request records please: [facility] emergency summary and EKG within past 60 days Request for records was faxed. ----- Message ----- From: Ena Cortes RN Sent: 01/21/2023 2:19 PM EDT To: Ambreen Newberry Subject: request records please: [facility] emergency summa# ----- Message ----- From: Flaco Sanabria Sent: 01/21/2023 12:25 PM EDT To: [facility] Akila, I have scheduled this pt for a follow up visit with Dr Smith on 04/04 but if you think you can get her in sooner, that would be great. Flaco documented in this encounter Plan of Treatment Not on file documented as of this encounter Visit Diagnoses Not on filedocumented in this encounter Care Teams Emergency Medical Tech Relationship Specialty Start Date End Date Lyn Sinclair APRN PCP - General Family Medicine 07/17/17 04/20/24 documented as of this encounter
--- OUTSIDE RECORDS SUMMARY | 2024-05-15 09:46 | XMS_ITS | Encounter Summary ---
Author Organization [facility] [place] [address] Care Team Providers Care Watcher Automat Long Goods Name Role Phone Lyn Sinclair APRN Primary Care Provider [phone] Encounter Details Date Type Department Care Team (Late st Contact Info) Description 10/25/2022 Orders Only [place] [phone] Suzanne Traore BIG DATA SOLUTIONS ARCHITECT [facility] [place] [address] Social History Tobacco Use Types Packs/Day Years [...] Procedure Name Priority Date/Time Associated Diagnosis Comments MEASLES (RUBEOLA) ANTIBODY, IGG Routine 10/25/2022 11:07 AM EDT documented in this encounter Results * Measles (Rubeola) Antibody, IgG (10/25/2022 11:07 AM EDT) Rubeola Antibody IgG Positive Positive [facility] Comment: A positive result for this assay is considered to be an indicator of positive immune status. Blood Venous Draw / Unknown 10/25/2022 11:07 AM EDT 10/25/2022 1:02 PM EDT Narrative Resulting Agency Comment Spec In Lab Suzanne Traore BIG DATA SOLUTIONS ARCHITECT IMMUNOLOGY ORDERABLE S [facility] [place] [address] documented in this encounter Visit Diagnoses Not on filedocumented in this encounter Care Teams Watcher Automat [employer] Goods Relationship Specialty Start Date End Date Lyn Sinclair APRN PCP - General Family Medicine 07/17/17 04/20/24 documented as of this encounter
--- OUTSIDE RECORDS SUMMARY | 2024-05-15 09:46 | XMS_ITS | Encounter Summary ---
Author Organization [facility] [place] [address] Care Team Providers Care Hydrometallurgical Engineer Name Role Phone Lyn Sinclair APRN Primary Care Provider [phone] Encounter Details Date Type Department Care Team (Latest Contact Info) Description 04/16/2024 3:30 PM EDT Clinical Support [place] [phone] Aleksander Arellano, RN Counseling about travel Social History Tobacco Use Types Packs/Day Years Used Date Smoking Tobacco: Never Smokeless Tobacco: Never Sex and Gender Information Value Date Recorded Sex Assigned at Female 10/25/2022 12:28 AM EDT Gender Identity Female 10/25/2022 12:28 AM EDT Sexual Orientation Straight 10/25/2022 12 :28 AM EDT documented as of this encounter Progress Notes * Aleksander Arellano RN - 04/16/2024 3:30 PM EDT Patient came into clinic today to receive second Hepatitis B vaccine and Yellow Fever vaccine. Patient was given yellow fever subq on right arm and Hep B IM on left arm. Patient was monitored for 10 minutes after injection and patient tolerated it well. documented in this encounter Plan of Treatment Not on file documented as of this encounter Visit Diagnoses Diagnosis Counseling about travel Other specified counseling documented in this encounter Care Teams Hydrometallurgical Engineer Relationship Specialty Start Date End Date Lyn Sinclair APRN PCP - General Family Medicine 07/17/17 04/20/24 documented as of this encounter
--- OUTSIDE RECORDS SUMMARY | 2024-05-15 09:46 | XMS_ITS | Encounter Summary ---
[place] [address] Care Team Providers Care Hydroelectric Production Technician Name Role Phone Lyn Sinclair APRN Primary Care Provider Encounter Details Date Type Department Care Team (Late st Contact Info) Description 01/21/2023 Abstract Cardiology at [address] [place] [address] Ena Cortes, RN Social History [...] on filedocumented in this encounter Care Teams Hydroelectric Production Technician Relationship Specialty Start Date End Date Lyn Sinclair APRN PCP - General Family Medicine 07/17/17 04/20/24 documented as of this encounter
--- OUTSIDE RECORDS SUMMARY | 2024-05-15 09:46 | XMS_ITS | Encounter Summary ---
Author Organization [facility] [place] [address] Care Team Providers Care Sock Lining Examiner Name Role Phone Lyn Sinclair APRN Primary Care Provider Encounter Details Date Type Department Care Team (Latest Contact Info) Description 02/25/2023 Travel Social History Tobacco Use Types Packs/Day [...] on filedocumented in this encounter Care Teams Sock Lining Examiner Relationship Specialty Start Date End Date Lyn Sinclair APRN PCP - General Family Medicine 07/17/17 04/20/24 documented as of this encounter
--- OUTSIDE RECORDS SUMMARY | 2024-05-15 09:46 | XMS_ITS | Encounter Summary ---
[place] [address] Care Team Providers Care Bundle Shaker Name Role Phone Valentina Garnica APRN Primary Care Provider [phone] Reason for Visit * Reason Onset Date Comments Appointment 03/03/2024 Encounter Details Date Type Department Care Team (Late st Contact Info) Description 03/03/2024 Telephone [place] [phone] Unknown None Appointment Social History Tobacco Use Types Packs/Day Years Used Date Smoking Tobacco: Never Smokeless Tobacco: Never Sex and Gender Information Value Date Recorded Sex Assigned at Female 10/25/2022 12:28 AM EDT Gender Identity Female 10/25/2022 12:28 AM EDT Sexual Orientation Straight 10/25/2022 12 :28 AM EDT documented as of this encounter Miscellaneous Notes * Telephone Encounter - Pam Olson - 03/03/2024 10:07 AM EDT Clinic Coverage - Reason for Call: Appointment Scheduling PCP: Lyn Sinclair APRN / Treating provider: Message: Patient called and is requesting to [facility] Reason for travel: work Caller Name (If other than patient): Self Relationship to Patient (if other than self): Patient Callback number: [phone] Or [phone]- [phone] Best time you are available: Any Route Per Clinic Coverage Page documented in this encounter Plan of Treatment Not on file documented as of this encounter Visit Diagnoses Not on filedocumented in this encounter Care Teams Bundle Shaker Relationship Specialty Start Date End Date Valentina Garnica, CYNTHIA [address] [place] [address] PCP - General Internal Medicine 04/21/24 documented as of this encounter
--- OUTSIDE RECORDS SUMMARY | 2024-05-15 09:46 | XMS_ITS | Encounter Summary ---
[facility] [place] [address] Care Team Providers Care Chronic Condition Nurse Name Role Phone Lyn Sinclair APRN Primary Care Provider [phone] Encounter Details Date Type Department Care Team (Late st Contact Info) Description 10/25/2022 Orders Only [place] [address] Suzanne Traore FRUIT OR NUT FARM WORKER [facility] [place] [address] Social History Tobacco Use Types Packs/Day Years [...] Procedure Name Priority Date/Time Associated Diagnosis Comments RUBELLA ANTIBODY, IGG Routine 10/25/2022 11:07 AM EDT documented in this encounter Results * Rubella Antibody, IgG (10/25/2022 11:07 AM EDT) Rubella Antibody IgG Positive Positive [facility] Comment: Please note: ??A positive result for this assay indicates that antibody levels are >or= 10.0 IU/mL and is considered to be an indicator of positive immune status. Blood Venous Draw / Unknown 10/25/2022 11:07 AM EDT 10/25/2022 11:21 AM EDT Narrative Resulting Agency Comment Spec In Lab Suzanne Traore FRUIT OR NUT FARM WORKER CHEMISTRY ORDERABLES [facility] [place] [phone] documented in this encounter Visit Diagnoses Not on filedocumented in this encounter Care Teams Chronic Condition Nurse Relationship Specialty Start Date End Date Lyn Sinclair, CYNTHIA PCP - General Family Medicine 07/17/17 04/20/24 documented as of this encounter
--- OUTSIDE RECORDS SUMMARY | 2024-05-15 09:46 | XMS_ITS | Encounter Summary ---
Author Organization [facility] [place] [address] Care Team Providers Care Neurology Stroke Physician Name Role Phone Lyn Sinclair APRN Primary Care Provider Encounter Details Date Type Department Care Team (Latest Contact Info) Description 06/06/2023 Travel Social History Tobacco Use Types Packs/Day [...] on filedocumented in this encounter Care Teams Neurology Stroke Physician Relationship Specialty Start Date End Date Lyn Sinclair APRN PCP - General Family Medicine 07/17/17 04/20/24 documented as of this encounter
--- OUTSIDE RECORDS SUMMARY | 2024-05-15 09:46 | XMS_ITS | Encounter Summary ---
[facility] [place] [address] Care Team Providers Care Senior Sql Dba Name Role Phone Valentina Garnica APRN Primary Care Provider [phone] Encounter Details Date Type Department Care Team (Latest Contact Info) Description 05/08/2024 Travel Social History Tobacco Use Types Packs/Day [...] on filedocumented in this encounter Care Teams Senior Sql Dba Relationship Specialty Start Date End Date Valentina Garnica APRN [address] [place], [place] [address] PCP - General Internal Medicine 04/21/24 documented as of this encounter
--- OUTSIDE RECORDS SUMMARY | 2024-05-15 09:46 | XMS_ITS | Encounter Summary ---
[place] [address] Care Team Providers Care Chief Nurse Executive Name Role Phone Lyn Sinclair APRN Primary Care Provider Encounter Details Date Type Department Care Team (Latest Contact Info) Description 02/26/2023 10:43 AM EDT - 02/26/2023 11:59 PM EDT Hospital Encounter [place] [address] Lyn Sinclair APRN [address] [place] [phone] RBBB (right bundle branch block); LVH (left ventricular hypertrophy); Syncope and collapse Discharge Disposition: Home Social [...] mouth daily. 06/06/2020 FreeStyle Carina 14 Day [place] Misc 05/30/2020 FreeStyle Carina 14 Day Sensor [...] Procedure Name Priority Date/Time Associated Diagnosis Comments HOLTER MONITOR 48 HOUR Routine 02/26/2023 10:58 AM EDT RBBB (right bundle branch block) LVH (left ventricular hypertrophy) Syncope and collapse documented in this encounter Results * Holter Monitor 48hr (02/26/2023 10:58 AM EDT) Hookup Date [id number] [facility] SYSTEM Hookup Time [facility] Acquisition Duration [id number] S [facility] #QRS COMPLEXES [id number] HEART LAB SYSTEM # OF VENTRICULAR ECTOPICS 0 HEARTLAB SYSTEM # OF VENTRICULAR BIGEMINAL CYCLES 0 HEARTLAB SYSTEM # OF VENTRICULAR COUPLETS 0 HEARTLAB SYSTEM # OF SUPRAVENTRICULAR ECTOPICS 111 HEARTLAB SYSTEM # OF SUPRAVENTRICULAR ISOLATED BEATS 85 HEARTLAB SYSTEM # OF SUPRAVENTRICULAR COUPLETS 1 [facility] SYSTEM Avg. Heart Rate 72 BPM HEAR TLAB SYSTEM Max. Heart Rate 99 BPM HEAR TLAB SYSTEM Min. Heart Rate 53 BPM HEAR TLAB SYSTEM Max. Heart Rate Time/Date [id number] [facility] Min. Heart Rate Time/Date [id number] [facility] INTERPRETATION Beats in tachycardia (>100 bpm) 0 % total The patient reported that there were no symptoms during the monitoring period. [facility]ART[facility] SYSTEM Anatomical Region Laterality Modality Other 02/26/2023 10:5 4 AM EDT Narrative 03/06/2023 3:19 PM EDT Images from the original result were not included. [facility] Holter Monitor Report Linda Montgomerylópez 1965 Study Indication: Syncope and collapse General Data: Total duration of recordin hours The minimum heart rate: 53 bpm The average heart rate: 72 bpm The maximum heart rate: 99 bpm Rhythm Analysis: 1. ??The predominant underlying rhythm was sinus with no extraordinarily slow or fast periods 2. ??Relatively infrequent supraventricular ectopy (primarily isolated PACs with 1 atrial couplet and no runs of SVT) 3. ??No ventricular ectopy 4. ??No atrial fibrillation or flutter Note: ??The full PDF version of this Zio evaluation is available for review. ??For medical providers accessing via the electronic medical record, the PDF can be found on the Chart Review > Media tab. ??For patients accessing the study from [facility] (My Chart), click on the link or links found in the IMAGES area below the text of the report. ? Jamey Beck MD, FA, FACC Lyn Sinclair APRN CARDIAC SERVICES OR DERABLES documented in this encounter Visit Diagnoses Diagnosis RBBB (right bundle branch block) Right bundle branch block LVH (left ventricular hypertrophy) Cardiomegaly Syncope and collapse documented in this encounter Care Teams Chief Nurse Executive Relationship Specialty Start Date End Date Lyn Sinclair APRN PCP - General Family Medicine 07/17/17 04/20/24 documented as of this encounter
--- OUTSIDE RECORDS SUMMARY | 2024-05-15 09:46 | XMS_ITS | Encounter Summary ---
Author Organization [facility] [place] [address] Care Team Providers Care Load Out Person Name Role Phone Lyn Sinclair APRN Primary Care Provider [phone] Encounter Details Date Type Department Care Team (Latest Contact Info) Description 10/25/2022 Travel Social History Tobacco Use Types Packs/Day [...] on filedocumented in this encounter Care Teams Load Out Person Relationship Specialty Start Date End Date Lyn Sinclair APRN PCP - General Family Medicine 07/17/17 04/20/24 documented as of this encounter
--- OUTSIDE RECORDS SUMMARY | 2024-05-15 09:47 | XMS_ITS | Encounter Summary ---
Author Organization [facility] [place] [address] Care Team Providers Care Emergency Vehicle Operations Instructor Name Role Phone Lyn Sinclair APRN Primary Care Provider [phone] Reason for Visit * Reason Comments Chest Pain Encounter Details Date Type Department Care Team (Latest Contact Info) Description 03/30/2019 3:00 PM EDT Ext Surgery or Single Event [address] [place] [address] Niles Smith MD [facility] [place] [address] Chest pain, unspecified type Social History Tobacco Use Types Packs/Day Years [...] Procedure Name Priority Date/Time Associated Diagnosis Comments ECG SCAN 03/30/2019 12:00 AM EDT STRESS TEST, EXERCISE (TREADMILL) Routine 03/30/2019 documented in this encounter Results * Stress Test, Exercise (Treadmill) (03/30/2019) Anatomical Region Laterality Modality Other Narrative 03/30/2019 Exercise Stress Test- Final Report ?? Linda Silvia Jose : 1965 [facility] Primary Physician: ??Lyn Sinclair APRN ??Indication: Chest pain, atypical Date: 03/30/2019 Details: Medication: none pertinent Risk Factors: ??Family History, DM, Cholesterol Resting EKG: NSR ?Resting BP: 144/76 Summary: Max Exercise: Time: ??5m11s ??Stage: ??II ??Richy ??METs: ??7.05 Max HR: ? 150 (representing 91% of MPHR) Max BP: ??206/84 RPP: ??30.9k HR Deceleration: ??normal Ischemia?: ??None grossly apparent Arrhythmias?: ??None Reason for Termination: dyspnea Montoya Treadmill Score: + 5 (low risk) Impression: Exercise EKG was with much artifact; within the bounds of this limitation, there appeared enough diagnostic QRS complexes to determine that there were no diagnostic EKG changes. ??Thus, this is a negative exercise treadmill test. Electronically Signed: Niles Smith MD, 03/30/2019 7:28 PM Historical Provider CARDIAC SERVICES ORDERABLES * SCAN DOC: ECG (03/30/2019 12:00 AM EDT) Narrative 03/30/2019 12:00 AM EDT Ordered by an unspecified provider. Scanning Provider MEDIA MGR SCAN EXT O RDR/RSLT documented in this encounter Visit Diagnoses Diagnosis Chest pain, unspecified type documented in this encounter Care Teams Emergency Vehicle Operations Instructor Relationship Specialty Start Date End Date Lyn Sinclair APRN PCP - General Family Medicine 07/17/17 04/20/24 documented as of this encounter
--- OUTSIDE RECORDS SUMMARY | 2024-05-15 09:47 | XMS_ITS | Encounter Summary ---
Author Organization [facility] [place] [address] Care Team Providers Care Weapons Electrical Engineering Officer Name Role Phone Lyn Sinclair APRN Primary Care Provider [phone] Reason for Visit * Reason Comments Diabetes Encounter Details Date Type Department Care Team (Late st Contact Info) Description 07/17/2017 4:00 PM EST Office Visit [place] [address] Ambreen Vora [facility] [place] [address] Type 2 diabetes mellitus without complication, unspecified prison insulin use status Social History Tobacco Use Types Packs/Day Years Used Date Smoking Tobacco: Never Smokeless Tobacco: Never Sex and Gender Information Value Date Recorded Sex Assigned at Female 10/25/2022 12:28 AM EDT Gender Identity Female 10/25/2022 12:28 AM EDT Sexual Orientation Straight 10/25/2022 12 :28 AM EDT documented as of this encounter Last Filed Vital Signs Vital Sign Reading Time Taken Comments Blood Pressure 129/64 07/17/2017 4:10 PM EST Pulse 68 07/17/2017 4:10 PM EST Temperature - - Respiratory Rate - - Oxygen Saturation - - Inhaled Oxygen Concentration - - Weight 85.1 kg (187 lb 9.6 oz) 07/17/2017 4:10 P M EST Height 165.1 cm (5' 5) 07/17/2017 4:10 PM EST Body Mass Index 31.22 07/17/2017 4:10 PM EST documented in this encounter Patient Instructions * Patient Instructions* Ambreen Vora APRN - 07/17/2017 4:00 PM EST Only take 1/2 of the metformin 1,000mg tablet daily Simple habit Meditate [employer] documented in this encounter Progress Notes * Ambreen Vora APRN - 07/17/2017 4:00 PM EST Previous visit to Endocrinology on 04/26/2016. REASON FOR VISIT: Follow up type 2 DM in good overall control, hyperlipidemia, overweight, vitamin D insufficiency, hypothyroidism. BRIEF HISTORY: Presents and states she would like to fill [employer] in on what has been happening with her health. In December she started vomiting. She was not able to keep anything down. Had an endoscopy in February, had an ulcer and a stricture. Glipizide was stopped because she was having levels of glucose as low as the 30s. DIABETES REGIMEN: Metformin 1000 mg in a.m. DATE OF DIAGNOSIS OF DIABETES: 1994. Prevention strategies are up to date. REVIEW OF SYSTEMS: Depression and mood: Takes medication for depression, Celexa and Latuda, has counseling. Has anxiety. Eyes: No recent vision changes. No recent headaches or chest pain or shortness of breath. GI symptoms: States she is vomiting less but occasionally still vomits. Has pica, eats chalk. Sleep pattern is usually okay. Extremities are okay. PAST MEDICAL HISTORY: Type 2 DM, hypertension, hypothyroidism, vitamin D deficiency, depression, B12 deficiency, hyperlipidemia, asthma, GERD, folliculitis on the scalp, torn posterior tibial tendon, gastric ulcer 2016. PAST SURGICAL HISTORY: Tibial fracture and ORIF, uterine ablation, rectocele, complicated by an arterial bleed, gastric bypass 1998, panniculectomy, x2, ventral hernia. PHYSICAL EXAM: Appearance: She appears in good health. Weight 187 pounds. She has lost 25 pounds since previous visit to Endocrinology. Blood pressure 129/64. Eyes: No retinopathy with green light exam. Neck: No thyromegaly or lymphadenopathy. Heart: Regular rate and rhythm. Lungs are clear to auscultation. Feet: Skin is normal. Pulses are normal. Neuro: Normal sensation to 10 Gs of pressure. Several labs were done today. Results not available during the office visit at the time of dictation. Hemoglobin A1c 7.7%. IMPRESSION AND PLAN: 1. DM type 2 with recent low glucose levels. Advised to only take 1/2 of the metformin 1000 mg tablet to avoid glucose levels below 80. 2. Hypothyroidism. Follow up after TSH result. 3. High stress at work. Advised meditating. Patient states she tends to worry a lot. Return to office in 4 months. Will check hemoglobin A1c. SBGM up to 5 times a day. Prescription sent for test strips. Reason for higher frequency testing is to avoid severe hypoglycemia and avoid severe hyperglycemia in the setting of gastric bypass surgery and recent vomiting. Patient also states she has been feeling dizzy at times and when she has symptoms the glucose level is not low. Advised to follow up with PCP regarding dizziness symptoms. This was a 39-minute office visit with 27 minutes spent counseling face to face with patient in the management of glucose levels, reviewing target glucose levels are between 90 and 130 before meals as much as possible, advising to only take half of the metformin 1000 mg daily. Recent Results (from the past 72 hour(s)) Basic Metabolic Panel (non-fasting) Result Value Ref Range Glucose Lvl 177 65 - 199 mg/dL BUN 11 8 - 18 mg/dL Creatinine 0.75 0.70 - 1.20 mg/dL Sodium 140 135 - 145 mmol/L Potassium 3.8 3.5 - 5.0 mmol/L Chloride 103 98 - 107 mmol/L CO2 23 22 - 31 mmol/L Anion Gap 14 5 - 15 mmol/L Calcium 9.0 8.5 - 10.5 mg/dL Estimated GFR >60 >=60 Hemoglobin A1c Result Value Ref Range Hemoglobin A1C 7.7 (H) 4.3 - 5.6 % Est Avg Gluc 174 mg/dL TSH Result Value Ref Range TSH 2.95 0.27 - 4.20 mlU/ML HDL/Cholesterol Profile Result Value Ref Range Chol, Total 160 <=239 mg/dL HDL 23 (L) >=40 mg/dL Chol/HDL Ratio 7.0 ratio Chol/HDL Interpretation See Note LDL Cholesterol, Direct Result Value Ref Range LDL Chol Direct 120 <=190 mg/dL U Albumin/Cre Ratio Result Value Ref Range Alb/Cr Ratio, Random 3 0 - 29 mcg/mg Cr U Albumin Conc, Random 3.3 mg/L U Creatinine 126 mg/dL documented in this encounter Plan of Treatment Not on file documented as of this encounter Results * U Albumin/Cre Ratio (07/17/2017 3:41 PM EST) Albumin / Creatinin Ratio, Urine 3 0 - 29 mcg/mg Cr [facility] Comment: Reference Ranges: <30 mcg/mg: [...] 2, 357? 362 Albumin, Urine 3.3 mg/L [facility] Creatinine, Urine 126 mg/dL [facility] Urine specimen (specimen) 07/17/2017 3:41 PM EST 07/17/2017 3:47 PM EST Narrative Resulting Agency Comment Spec In Lab Ambreen Vora APRN URINE ORDERABLES [facility] [place] [address] * LDL Cholesterol, Direct (07/17/2017 3:34 PM EST) LDL Cholesterol, Direct 120 <=190 mg/dL [facility] Blood specimen (specimen) 07/17/2017 3:34 PM EST 07/17/2017 3:45 PM EST Narrative Resulting Agency Comment Spec In Lab Ambreen E Bilotta DIVISION OPERATIONS SPECIALIST CHEMISTRY ORDERABLE S Performing Organization Address City/[facility]/ZIP Co de Phone Number [facility] [place] [address] * (ABNORMAL) HDL/Cholesterol Profile (07/17/2017 3:34 PM EST) Cholesterol, Total 160 <=239 mg/dL [facility] HDL Cholesterol 23(L) >=40 mg/dL [facility] Cholesterol/HDL Ratio 7.0 ratio [facility] Chol/HDL Interpretation See Note [facility] Comment: Lipid management should be guided by a patient? s ASCVD risk, goals and preferences. ACC/AHA Guidelines recommend high intensity statin if clinical ASCVD or LDL greater than or equal to 190 mg/dL. http://CityFibreurl.com/LUT-HXQ-Zkldfllci Measure LDL if Total Cholesterol minus HDL Cholesterol is greater than 220 mg/dL. Adults aged 40-75 with LDL 70-189 mg/dL should have their 10 year ASCVD risk estimated with the ACC/AHA ASCVD risk shooter helper http://tools.acc.org/ADDKQ-Splp-Vucxvswjx/ Statin should be discussed if risk greater [...] Resulting Agency Comment Spec In Lab Ambreen Lory Bilotta DIVISION OPERATIONS SPECIALIST CHEMISTRY ORDERABLE S Performing Organization Address City/[facility]/ZIP Co de Phone Number [facility] [place] [address] * TSH (07/17/2017 3:34 PM EST) Thyroid Stimulating Hormone 2.95 0.27 - 4.20 mlU/ML [facility] Blood specimen (specimen) 07/17/2017 3:34 PM EST 07/17/2017 3:45 PM EST Narrative Resulting Agency Comment Spec In Lab Ambreen Lory Vielka MARIE CHEMISTRY ORDERABLE S [facility] [place] [address] * (ABNORMAL) Hemoglobin A1c (07/17/2017 3:34 PM EST) Pathologist [facility] Hemoglobin A1c 7.7(H) 4.3 - 5.6 % [facility] Comment: Reference Range: 4.3 - [...] Mellitus, Diabetes Care 2013; 36: Suppl. 1, S67-74 Estimated Average Glucose 174 mg/dL [facility] Comment: eAG equivalents for HbA1c [...] into estimated average glucose values. ??Diabetes Care 2008:31(8):2274-2810. Blood specimen (specimen) 07/17/2017 3:34 PM EST 07/17/2017 3:45 PM EST Narrative Resulting Agency Comment Spec In Lab Ambreen Vora APRN CHEMISTRY ORDERABLE S [facility] [place] [address] * Basic Metabolic Panel (non-fasting) (07/17/2017 3:34 PM EST) Glucose 177 65 - 199 mg/dL [facility] Comment:Diabetes: >=200 mg/d L plus symptoms Blood Urea Nitrogen 11 8 - 18 mg/dL [facility] Creatinine 0.75 0.70 - 1.20 mg/dL [facility] Sodium 140 135 - 145 mmol/L [facility] Potassium 3.8 3.5 - 5.0 mmol/L [facility] Comment: Please note: ??Patients with WBC >100,000 may have falsely elevated Potassium levels. ??For accurate Potassium quantification in these patients send serum separator tube (gold top) for subsequent determinations. ??Contact the Clinical Chemistry Laboratory if there are any questions. Chloride 103 98 - 107 mmol/L [facility] Carbon Dioxide 23 22 - 31 mmol/L [facility] Anion Gap 14 5 - 15 mmol/L [facility] Calcium 9.0 8.5 - 10.5 mg/dL [facility] Est Glomerular Filtration Rate >60 >=60 [facility] Comment: The reported eGFR should be multiplied by 1.2 for patients. The MDRD is not an appropriate measure of renal function for patients with body mass extremes or in patients with acute kidney failure. http://Bright!Tax.[employer]/DHnkdep http://[employer]/DHMCnkf Blood specimen (specimen) 07/17/2017 3:34 PM EST 07/17/2017 3:45 PM EST Narrative Resulting Agency Comment Spec In Lab Ambreen Vora APRN CHEMISTRY ORDERABLE S [facility] [place] [address] documented in this encounter Visit Diagnoses Diagnosis Type 2 diabetes mellitus without complication, unspecified longwall foreman insulin use status documented in this encounter Care Teams Weapons Electrical Engineering Officer Relationship Specialty Start Date End Date Lyn Sinclair APRN PCP - General Family Medicine 07/17/17 04/20/24 documented as of this encounter
--- OUTSIDE RECORDS SUMMARY | 2024-05-15 09:47 | XMS_ITS | Encounter Summary ---
Author Organization [facility] Address [facility] [place] [address] Care Team Providers Care Call Center Trainer Name Role Phone KarlaMarcela CYNTHIA Primary Care Provider [phone] Encounter Details Date Type Department Care Team (Late st Contact Info) Description 04/26/2014 8:30 AM EDT Office [place] [id number] Idalmis Westfall MD [facility] [address] Diabetes mellitus type 2, uncomplicated; Hypothyroidism; Hyperlipidemia; Vitamin D deficiency; Anemia Discharge Disposition: Home Social History Tobacco Use Types Packs/Day Years Used Date Smoking Tobacco: Never Sex and Gender Information Value Date Recorded Sex Assigned at Female 10/25/2022 12:28 AM EDT Gender Identity Female 10/25/2022 12:28 AM EDT Sexual Orientation Straight 10/25/2022 12 :28 AM EDT documented as of this encounter Last Filed Vital Signs Vital Sign Reading Time Taken Comments Blood Pressure 119/67 04/26/2014 9:21 AM EDT Pulse 68 04/26/2014 9:21 AM EDT Temperature - - Respiratory Rate - - Oxygen Saturation - - Inhaled Oxygen Concentration - - Weight 96.5 kg (212 lb 12.8 oz) 04/26/2014 9:21 AM EDT Height - - Body Mass Index 35.41 05/05/2012 9:04 AM EDT documented in this encounter Patient Instructions * Patient Instructions* Idalmis Westfall MD - 04/26/2014 9:23 AM EDT Recent Results (from the past 24 hour(s)) HEMOGLOBIN A1C Component Value Range Hemoglobin A1C 7.9 (*) <=5.6 % Est Avg Gluc 180 Recent Results (from the past 24 hour(s)) HEMOGLOBIN A1C Component Value Range Hemoglobin A1C 7.9 (*) <=5.6 % Est Avg Gluc 180 CREATININE Component Value Range Creatinine 0.87 0.70 - 1.20 mg/dL Estimated GFR >60 >=60 LDL CHOLESTEROL, DIRECT Component Value Range LDL Chol Direct 139 (*) <=99 mg/dL HDL/CHOL PROFILE Component Value Range Chol, Total 193 <=199 mg/dL HDL 32 (*) >=40 mg/dL Chol/HDL Ratio 6.0 TSH Component Value Range TSH 4.98 (*) 0.27 - 4.20 mcIU/mL MICROALBUMIN, URINE, RANDOM Component Value Range U Creatinine 155 U Ran Malb Conc <3.0 U Ran Malb Calc <2 documented in this encounter Progress Notes * Idalmis Westfall MD - 04/23/2014 8:34 PM EDT PRIMARY CARE PROVIDER: Aleksander Perla MD CC: Here for f/u of type 2 DM, hypothyroidism and vit D deficiency Dx: 1996 Regimen ___x_ oral agents only ____ basal insulin ____ basal and meal insulin/pump Diagnosis codes 250.03 ___ Type 1 250.02 _x___Type 2 Glucose test strip brand: accuchek aviva Number of Tests prescribed per day _x__ 1- 2 ___ 3 ___ 4 ___ 5-8 ___>8 Prescriber: _ DANIEL Wilkerson MD _HAMILTON Kirkland _ Marcio Glaser MD _ Tabatha Tolentino MD _ines Westfall MD Justification for more than 3 tests a day ____ prevent severe hypoglycemia ____ prevent severe hyperglycemia ____ widely fluctuating blood sugars ____ overnight hypoglycemia Duration of need ___ lifetime until ___/___/___ Last Hga1c 7.9, 05/04; 7, 12/01; 6.9%, 05/02; 6.5%, 09/30; 6.7%, 05/01 Regimen: metformin 1000 bid,( acarbose 50 bid- didn't work, glipizide- low blood sugars) Complications: dentist- 11/02; eyes- 03/01, no DR; Cr- 0.87, 05/04;ma- 2, 05/04; neuropathy- ulnar and carpal tunnel neuropathy on emg, improved with workspace adjustment, no peripheral nor autonomic; CAD- neg ETT 2010; lipids- TChol- 193 , HDL- 32, LDL- 139, 05/04 on lovastatin 40- increased to 80. DM health maintenance: beta jerrell-no ; ASA 81 ; MAGNOLIA/ARB- Lisinopril 2.5/d; statin- lovvastatin 40/d; flu shot-2013; pneomovax-ut ; smoking- no; TSH-4.98, 05/04 not taking levothyroxine will restart 0.1 mg/d; HTN- lisinopril 2.5 Since her last visit, Ms. Garcia said her depression has been worse. She injured her posterior tibial tendon. She has been having some social issues with her son at home, so she has not been taking as good care of herself. She stopped taking her levothyroxine because she ran out of it and she is not exercising as much, so blood sugars are up. She is checking her blood sugars usually two or three times a day. Fastings are running 95 to 150, two hours after usually 180 to 220, although they can be as high as 300. Hypoglycemia once or twice a month, most often it will happen mid morning when she does not have a snack or much of her breakfast. Exercise has been limited by her tibial tendon tear. DIET: For breakfast usually a cup of tea and a doughnut. For lunch, she eats at the hospital a taco or roast beef sandwich with hot meal. Snack in the afternoon, chips or cheese crackers. For supper last night, she had tuna wiggle, creamed tuna over mashed potatoes and evening snack, chocolate-covered ryley crackers. COMPLICATION EVALUATION: She needs to see her eye doctor. Renal function has been fine. She has ulnar and carpal tunnel syndrome, which are better with changes in her workspace and no peripheral or autonomic neuropathy. No recent angina. Lipids are elevated as noted above. PAST MEDICAL HISTORY: Type 2 diabetes, hypertension, hypothyroidism, vitamin D deficiency, history of depression, B12 deficiency, hyperlipidemia, asthma, GERD, folliculitis on the scalp, and torn posterior tibial tendon. PAST SURGICAL HISTORY: Tibial fracture and ORIF, uterine ablation, rectocele complicated by an arterial bleed, gastric bypass, panniculectomy, x2, and ventral hernia. Current Outpatient Prescriptions Medication Sig Dispense Refill ??? ibuprofen (ADVIL;MOTRIN) 200 mg Tablet Take 600 mg by mouth 2 times daily. ??? glucagon, human recombinant, (GLUCAGON EMERGENCY) 1 mg Kit Inject 1 mL subcutaneously as needed. 1 mL prn ??? buPROPion (WELLBUTRIN SR) 150 mg Tablet Sustained Release Take 1-2 tablets by mouth 2 times daily. 300mg in AM, 150mg at HS 60 tablet ??? lovastatin (MEVACOR) 40 mg Tablet Take 2 tablets by mouth nightly. 180 tablet 4 ??? Blood Sugar Diagnostic (ACCU-CHEK WANDER PLUS TEST STRP) Strip Use as instructed -23 times [id number] strip 3 ??? metFORMIN (GLUCOPHAGE) 500 mg tablet take 2 tablets by mouth twice a day 120 tablet 11 ??? Lancets (ACCU-CHEK MULTICLIX LANCET) Misc 1 each by Misc.(Non-Drug; Combo Route) route 2 times daily. Diagnosis code 250.00 180 each 3 ??? pantoprazole (PROTONIX) 40 mg tablet Take 1 tablet by mouth daily. 90 tablet 3 ??? Blood-Glucose Meter Misc Use 1-2 times daily 1 each 0 ??? citalopram (CELEXA) 20 mg tablet Take 40 mg by mouth daily. ??? LORazepam (ATIVAN) 0.5 mg tablet 0.5mg, PO, Q8H,PRN ??? lisinopril (PRINIVIL;ZESTRIL) 2.5 mg tablet ??? aspirin 81 mg EC tablet ??? minocycline (MINOCIN;DYNACIN) 100 mg Capsule 1 capsule Daily. ??? temazepam (RESTORIL) 15 mg Capsule 1 capsule nightly. ??? levothyroxine (SYNTHROID) 100 mcg Tablet Take 1 tablet by mouth daily. 90 tablet 4 ??? glipiZIDE (GLUCOTROL) 2.5 mg Tablet Extended Rel 24 hr Take 1 tablet by mouth daily. 30 tablet 11 ??? albuterol (VENTOLIN HFA) 90 mcg/Actuation inhaler Allergies Allergen Reactions ??? Doxycycline Hcl Tongue swelling ??? Morphine Sulfate CIS - Urticaria ??? Oxycodone-Acetaminophen CIS - hallucinations ??? Trazodone Anxiety SOCIAL HISTORY: , four children, triplets 16-year-old, two girls and a boy and a 12-year-old boy. 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 Nonsmoker. Quit drinking five years ago. COMPLETE REVIEW OF SYSTEMS: Right ankle pain. Worsening depression. The remainder of the review of systems is negative. On physical exam, blood pressure 119/67 and pulse 68. Weight 212. In general, she looks well. Skin: Her skin is smooth, warm, and dry. No ulcerations. Her right ankle is slightly edematous and tender to palpation. Cardiovascular: 2+ pulses. No peripheral edema. Neurologic Exam: She has excellent light touch sensation to the monofilament. Psych: Mood is somewhat down, but she is interactive, makes good eye contact. Speech is fluent. Affect appropriate. LABORATORY TEST: Hemoglobin A1c 7.9, TSH 4.98, creatinine 0.87, and microalbumin less than 2. IMPRESSION: 1. Diabetes. Little bit of worsening control with some dietary noncompliance. We will restart glipizide 2.5 gm for supper meal. She is going to continue to watch her diet. 2. Hypothyroidism. We will restart levothyroxine 100 mcg a day. 3. Hyperlipidemia. We will increase lovastatin to 80 mg a day. PLAN: Follow up in four months with hemoglobin A1c, TSH, and lipids in the quick draw lab. documented in this encounter Plan of Treatment Not on file documented as of this encounter Procedures Procedure Name Priority Date/Time Associated Diagnosis Comments U ALBUMIN/CRE RATIO STAT 04/26/2014 8 :56 AM EDT Diabetes mellitus type 2, uncomplicated HEMOGRAM Routine 04/26/2014 8:53 AM EDT DIFFERENTIAL, AUTOMATED Routine 04/26/2014 8:53 AM EDT CREATININE STAT 04/26/2014 8:53 AM EDT Diabetes mellitus type 2, uncomplicated VITAMIN D, 25-HYDROXY Routine 04/26/2014 8:53 AM EDT Vitamin D deficiency TSH STAT 04/26/2014 8:53 AM EDT Hypothyroidism LDL CHOLESTEROL, DIRECT STAT 04/26/2014 8:53 AM EDT Hyperlipidemia HDL/CHOL PROFILE STAT 04/26/2014 8:53 AM EDT Hyperlipidemia HEMOGLOBIN A1C STAT 04/26/2014 8:53 AM EDT Diabetes mellitus type 2, uncomplicated documented in this encounter Results * Microalbumin, urine, random (04/26/2014 8:56 AM EDT) Creatinine, Urine 155 mg/dL CE CORKY MILLENNIUM Albumin, Urine <3.0 mg/L JUNI Perez MILLENNIUM Albumin / Creatinin Ratio, Urine <2 mcg/mg Cr ANTHONY ALCALAENNIUM Comment: Reference Range* Random collection (mcg/mg creatinine) Normal ?<30 Microalbuminuria ?? 30 - 300 Clinical Albuminuria ?? >300 *[place] Diabetes Association. Diabetic Nephropathy. Diabetes Care 1997;(Suppl 1):S24-S27 Exercise within 24 hour, infection, fever, CHF, marked hyperglycemia, and marked hypertension may elevate urinary albumin excretion over baseline values. Urine specimen (specimen) 04/26/2014 8:56 AM EDT 04/26/2014 9:03 AM EDT Narrative Resulting Agency Comment Spec In Lab Idalmis Westfall MD URINE ORDERABLES CERNER MILLENNIUM * (ABNORMAL) Differential, Automated (04/26/2014 8:53 AM EDT) Neutrophil % 69.1 34.0 - 71.0 % CERNER MILLENNIUM Neutrophil Absolute 6.42(H) 1.50 - 6.30 x10(3)/mc L CERNER MILLENNIUM Lymph % 17.4(L) 19.0 - 53.0 % CERNER MILLENNIUM Lymphocytes Abs 1.6 1.0 - 3.6 x10(3)/mc L CERNER MILLENNIUM Monocyte % 6.5 4.0 - 13.0 % CERNER MILLENNIUM Monocyte Abs 0.6 0.2 - 1.0 x10(3)/mc L CERNER MILLENNIUM Eos % 6.3 0.0 - 7.0 % CERNER MILLENNIUM Eosinophils Abs 0.6(H) 0.0 - 0.5 x10(3)/mc L CERNER MILLENNIUM Basophil % 0.3 0.0 - 2.0 % CERNER MILLENNIUM Baso Absolute 0.0 0.0 - 0.2 x10(3)/mc L CERNER MILLENNIUM Immature Gran % 0.40 0.00 - 0.66 % CERNER MILLENNIUM Comment: Immature granulocytes(IG's)percentage and absolute count will include metamyelocytes, myelocytes, and promyelocytes. Blood smears from CBCs yielding IG's will be scanned manually for concordance. If this scan disagrees with the automated IG or if promyelocytes are noted, a manual differential will be performed. Immature Gran Absolute 0.04 0.00 - 0.05 x10(3)/mc L CERNER MILLENNIUM Blood specimen (specimen) 04/26/2014 8:53 AM EDT 04/26/2014 9:03 AM EDT Narrative Resulting Agency Comment Spec In Lab Idalmis Westfall MD HEMATOLOGY ORDERA BLES CERROSY ALCALAENNIUM * (ABNORMAL) Hemogram (04/26/2014 8:53 AM EDT) White Blood Cell 9.3 4.0 - 10.0 x10(3)/mc L CERNER MILLENNIUM Red Blood Cell 4.10 3.93 - 5.22 x10(6)/mc L CERNER MILLENNIUM Hemoglobin 10.1(L) 11.2 - 15.7 gm/dL CERNER MILLENNIUM Hematocrit 31.9(L) 34.0 - 45.0 % CERNER MILLENNIUM Mean Cell Volume 77.8(L) 79.0 - 94.0 fL CERNER MILLENNIUM Mean Cell Hemoglobin 24.6(L) 26.6 - 32.2 pg CERNER MILLENNIUM Mean Cell Hemoglobin Concentration 31.7(L) 32.0 - 36.5 gm/dL CERNER MILLENNIUM Platelet 247 145 - 370 x10(3)/mc L CERNER MILLENNIUM RDW Standard Deviation 42.3 35.0 - 46.0 fL CERNER MILLENNIUM RDW coefficient of variation 14.8(H) 10.9 - 14.4 % CERNER MILLENNIUM Mean Platelet Volume 11.5 9.0 - 12.0 fL CERNER MILLENNIUM Blood specimen (specimen) 04/26/2014 8:53 AM EDT 04/26/2014 9:43 AM EDT Narrative Resulting Agency Comment Spec In Lab Idalmis Westfall MD HEMATOLOGY ORDERA BLES CERROSY ALCALAENNIUM * (ABNORMAL) VIT D Total Evaluation (04/26/2014 8:53 AM EDT) Vitamin D Total 25 OH 25(L) 30 - 100 ng/mL CERNER MILLENNIUM Comment: Deficient <10 ng/mL Insufficient 10 to 29 ng/mL Sufficient 30 to 100 ng/mL Potential Intoxication >100 ng/mL According to the [place] National Osteoporosis Foundation, Vitamin D concentrations >30 ng/mL are sufficient to protect bone health. ??The National Kidney Foundation has similarly stated that patients with Vitamin D concentrations <30ng/mL should be considered to be insufficient or deficient. http://Netrada/DHMCnatlkidneyfoundation http://Netrada/DHMCVitD The IDS iSYS Vitamin D Immunoassay detects both 25-OH Vitamin D2 and 25-OH Vitamin D3, but only a total Vitamin D concentration is reported. Blood specimen (specimen) 04/26/2014 8:53 AM EDT 04/26/2014 9:02 AM EDT Narrative Resulting Agency Comment Spec In Lab Idalmis Westfall MD CHEMISTRY ORDERAB LES Performing Organization Address City/[facility]/ZIP Co de Phone Number [facility] * (ABNORMAL) TSH (04/26/2014 8:53 AM EDT) Thyroid Stimulating Hormone 4.98(H) 0.27 - 4.20 mcIU/mL [facility] Blood specimen (specimen) 04/26/2014 8:53 AM EDT 04/26/2014 9:02 AM EDT Narrative Resulting Agency Comment Spec In Lab Idalmis Westfall MD CHEMISTRY ORDERAB LES Performing Organization Address City/[facility]/ZIP Co de Phone Number [facility] * (ABNORMAL) HDL/Cholesterol Profile (04/26/2014 8:53 AM EDT) Cholesterol, Total 193 <=199 mg/dL [facility] Comment: Recommendations of the NCEP Adult Treatment Panel for the following risk cutoff thresholds for the [place] population: Desirable: <200 mg/dL Borderline High: 200-239 mg/dL High: > or = 240 mg/dL HDL Cholesterol 32(L) >=40 mg/dL [facility] Comment: Reference range: ??Low HDL: ?? < 40 mg/dL ??Normal: ?40-60 mg/dL ??Desirable: > 60 mg/dL BRITTANI 2001; 285(19):3720-8566 Cholesterol/HDL Ratio 6.[address] [facility] Comment: A Cholesterol to HDL ratio below 4:1 is desirable. ??Studies suggest that increased CAD risk occurs at ratios above 5 for females and above 6 for men. ? [place] Heart Association ??(http://www.americanheart.org) ? [place]alle Int Med, 1994; 121:641 ? AM J Med, 1998; 105(1A):48S Blood specimen (specimen) 04/26/2014 8:53 AM EDT 04/26/2014 9:02 AM EDT Narrative Resulting Agency Comment Spec In Lab Idalmis Westfall MD CHEMISTRY ORDERAB LES Performing Organization Address [facility] de Phone Number [facility] * (ABNORMAL) LDL Cholesterol, Direct (04/26/2014 8:53 AM EDT) LDL Cholesterol, Direct 139(H) <=99 mg/dL [facility] Comment: The National Cholesterol Education Program (NCEP) has set the following guidelines for LDL Cholesterol: Reference range: ?? Optimal: ?<100 mg/dL ?? Near Optimal/Above Optimal: ?? 100-129 mg/dL ?? Borderline high: ?130-159 mg/dL ?? High: ? 160-189 mg/dL ?? Very high: ?>oz=772 mg/dL BRITTANI 2001: 285(19):8570-8861 Blood specimen (specimen) 04/26/2014 8:53 AM EDT 04/26/2014 9:02 AM EDT Narrative Resulting Agency Comment Spec In Lab Idalmis Westfall MD CHEMISTRY ORDERAB LES Performing Organization Address [facility] Co de Phone Number [facility] * Creatinine (04/26/2014 8:53 AM EDT) Creatinine 0.87 0.70 - 1.20 mg/dL ANTHONY AGUSTIN Comment: Please note that the pediatric reference intervals supplied above were not validated at [facility]. Results from pediatric patients should be interpreted in conjunction to the patient's age, height and muscle mass. Est Glomerular Filtration Rate >60 >=60 ANTHONY AGUSTIN Comment: This estimated GFR (eGFR) value was calculated using the MDRD equation which has been validated on patients between the ages of 18 and 70. The MDRD should not be used to assess kidney function in patients < 18 years of age or in patients with extremes of body mass, or in patients with acute kidney failure. This value should be multiplied by 1.2 for patients. For further information please copy and paste the following links into your internet browser. http://Netrada/DHnkdep http://Netrada/[facility] Blood specimen (specimen) 04/26/2014 8:53 AM EDT 04/26/2014 9:02 AM EDT Narrative Resulting Agency Comment Spec In Lab Idalmis Westfall MD CHEMISTRY ORDERAB LES [facility] * (ABNORMAL) Hemoglobin A1c (04/26/2014 8:53 AM EDT) Hemoglobin A1c 7.9(H) <=5.6 % JUNI AGUSTIN Comment: Reference Range: 4.3 - 5.6% 5.7 - 6.4% - Increased Risk of Developing Diabetes Mellitus 6.5% - Consistent with diagnosis of Diabetes Mellitus In the absence of hyperglycemia (i.e. plasma glucose > 200 mg/dL) or classic symptoms of hyperglycemia a repeat measurement of HbA1c should be performed on a separate sample to confirm the diagnosis. Diagnosis and Classification of Diabetes Mellitus, Diabetes Care 2013; 36: Suppl. 1, S22-39 Estimated Average Glucose 180 mg/dL [facility] Comment: eAG equivalents for HbA1c percentages: HbA1c(%) ?eAG(mg/dL) 6.0 ?126 6.5 ?140 7.0 ?154 7.5 ?169 8.0 ?183 8.5 ?197 9.0 ?212 9.5 ?226 10.0 ? 240 Limitations: The eAG calculation has not been validated on women, individuals below 18 years old and above 70 years old, and individuals with hemoglobinopathies. Additional resources are available on the ADA website: http://baimos technologies.zeenworld/DHMCadacalc Mayank BRISENO, Tomeka J, Hussein R, et al. ??Translating the A1C assay into estimated average glucose values. ??Diabetes Care 2008:31(8):1625-5984. Blood specimen (specimen) 04/26/2014 8:53 AM EDT 04/26/2014 9:02 AM EDT Narrative Resulting Agency Comment Spec In Lab Idalmis Westfall MD CHEMISTRY ORDERAB LES Performing Organization Address City/State/[facility] Co nm Phone Number [facility] documented in this encounter Visit Diagnoses Diagnosis Diabetes mellitus type 2, uncomplicated Type II or unspecified type diabetes mellitus without mention of complication, not stated as uncontrolled Hypothyroidism Unspecified hypothyroidism Hyperlipidemia Other and unspecified hyperlipidemia Vitamin D deficiency Unspecified vitamin D deficiency Anemia Anemia, unspecified documented in this encounter Care Teams Call Center Trainer Relationship Specialty Start Date End Date Marcela Acosta APRN [address] [place] [address] PCP - General 09/01/12 07/16/17 documented as of this encounter
--- OUTSIDE RECORDS SUMMARY | 2024-05-15 09:47 | XMS_ITS | Encounter Summary ---
[place] [address] Care Team Providers Care Investment Analyst Name Role Phone DoloresMarcela schilling CYNTHIA Primary Care Provider [phone] Encounter Details Date Type Department Care Team (Late st Contact Info) Description 05/31/2014 Telephone [place] [id number] Carla Turner LPN Social History Tobacco Use Types Packs/Day Years Used Date Smoking Tobacco: Never Sex and Gender Information Value Date Recorded Sex Assigned at Female 10/25/2022 12:28 AM EDT Gender Identity Female 10/25/2022 12:28 AM EDT Sexual Orientation Straight 10/25/2022 12 :28 AM EDT documented as of this encounter Miscellaneous Notes * Telephone Encounter - Carla Turner LPN - 05/31/2014 2:42 PM EST Returning call to Morgan @ [facility]. Rx for glipizide XR 2.5 was filled in error with 5 mg tablets for one month. Rx filled with 2.5 mg tablets on Saturday. Called patient not at work. Called home number not available left message with daughter January for patient to return call. documented in this encounter Plan of Treatment Not on file documented as of this encounter Visit Diagnoses Not on filedocumented in this encounter Care Teams Investment Analyst Relationship Specialty Start Date End Date Marcela Acosta APRN [address] [place] [address] PCP - General 09/01/12 07/16/17 documented as of this encounter
--- OUTSIDE RECORDS SUMMARY | 2024-05-15 09:47 | XMS_ITS | Encounter Summary ---
Author Organization [facility] [place] [address] Care Team Providers Care Boot Turner Name Role Phone CatrachoMarcela Nguyen CYNTHIA Primary Care Provider [phone] Reason for Visit * Reason Comments Diabetes Encounter Details Date Type Department Care Team (Late st Contact Info) Description 11/24/2012 7:30 AM EDT Office [place] [address] Idalmis Westfall MD [facility] [place] [address] DM type 2 (diabetes mellitus, type 2) (Primary Dx); Hypothyroid; Vitamin d deficiency Discharge Disposition: Home Social History Tobacco Use Types Packs/Day Years Used Date Smoking Tobacco: Never Sex and Gender Information Value Date Recorded Sex Assigned at Female 10/25/2022 12:28 AM EDT Gender Identity Female 10/25/2022 12:28 AM EDT Sexual Orientation Straight 10/25/2022 12 :28 AM EDT documented as of this encounter Last Filed Vital Signs Vital Sign Reading Time Taken Comments Blood Pressure 123/65 11/24/2012 8:39 AM EDT Pulse 66 11/24/2012 8:39 AM EDT Temperature - - Respiratory Rate - - Oxygen Saturation - - Inhaled Oxygen Concentration - - Weight 91 kg (200 lb 9.6 oz) 11/24/2012 8:39 AM EDT Height - - Body Mass Index 33.38 05/05/2012 9:04 AM EDT documented in this encounter Progress Notes * Idalmis Westfall MD - 11/22/2012 7:19 PM EDT PRIMARY CARE PROVIDER: Aleksander Perla [...] Marcio Glaser MD _ Tabatha Tolentino MD _x Roberta Westfall MD Justification for more than 3 tests a day ____ prevent severe hypoglycemia ____ prevent severe hyperglycemia ____ widely fluctuating blood sugars ____ overnight hypoglycemia Duration of need ___ lifetime until ___/___/___ Last Hga1c 6.9%, 05/02; 6.5%, 09/30; 6.7%, 05/01 Regimen: metformin 1000 bid,( acarbose 50 bid- didn't work, glipizide- low blood sugars) Complications: dentist- 11/01; eyes- 03/01, no DR; Cr- 0.69, 05/02;ma- 2, 12/01; 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 She continues to monitor sugars once or twice a day, fastings are 85 to 120, postprandial usually about 130, after pasta they may go up to 170. No hypoglycemia. Her diet is unchanged. For breakfast, toast and granola. For lunch usually through the hospital. Mid afternoon, fruit or fiber bar; and then for supper, meat and potatoes. Last night, she had chicken fried steak, potatoes, and salad, not much snacking. She is due for eye exam, otherwise, up-to-date with her complications. LDL cholesterol is pending and she is really feeling quite well. With respect to her hypothyroidism, she has not noticed any difference on thyroid hormone replacement. She denies fatigue, lethargy, cold intolerance, constipation, change in her skin, hair, mood or bowels, myalgias, arthralgias, nervousness, irritability, tremors, or palpitations. PAST MEDICAL HISTORY: Type 2 diabetes, hypertension, hyperlipidemia, primary hypothyroidism, vitamin D deficiency, depression, B12 deficiency, asthma, GERD, and folliculitis on her scalp. PAST SURGICAL HISTORY: Uterine ablation, rectocele complicated by an arterial bleed, gastric bypass, x2, panniculectomy, ventral hernia, and tonsillectomy. Current Outpatient Prescriptions on File Prior to Visit Medication Sig Dispense Refill ??? imiquimod (ALDARA) 5 % cream Apply to warts nightly 12 each 3 ??? metFORMIN (GLUCOPHAGE) 500 mg tablet Take 2 tablets by mouth 2 times daily. 360 tablet 4 ??? citalopram (CELEXA) 20 mg tablet Take 40 mg by mouth daily. ??? buPROPion (WELLBUTRIN SR) 150 mg 12 hr tablet Take 200 mg by mouth 2 times daily. ??? LORazepam (ATIVAN) 0.5 mg tablet 0.5mg, PO, Q8H,PRN ??? CYANOCOBALAMIN, VITAMIN B-12, (VITAMIN B-12 INJ) ??? lisinopril (PRINIVIL;ZESTRIL) 2.5 mg tablet ??? aspirin 81 mg EC tablet ??? tretinoin (RETIN-A) 0.05 % cream Apply to warts on chin and nose nightly 45 g 0 ??? Iron 40 mg Cap Take by mouth. ??? glucagon, human recombinant, (GLUCAGON EMERGENCY) 1 mg injection Inject 1 mL subcutaneously as needed. 1 mL prn ??? CALCIUM ORAL ??? albuterol (VENTOLIN HFA) 90 mcg/Actuation inhaler Allergies Allergen Reactions ??? Morphine Sulfate CIS - Urticaria ??? Oxycodone-Acetaminophen CIS - hallucinations ??? Trazodone Anxiety SOCIAL HISTORY: Nonsmoker. Alcohol, less than five times a year. She has four children, triplets, age 15, two girls and a boy and a 11-year-old son. 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 Complete review of systems is negative. PHYSICAL EXAMINATION: On physical exam, blood pressure 123/65, pulse 66, weight 200 pounds, decreased 5 pounds in the past year. In general, she looks well. Her skin is smooth, warm, and dry. No ulcerations. Extremities: No edema. Cardiovascular: Good pulses. Psych: Mood and affect appropriate. LABORATORY TESTS: Hemoglobin A1c 7%, TSH 4.6, microalbumin is 2, total cholesterol 180, HDL 33, LDL and vitamin D are pending. IMPRESSION: 1. Diabetes, under good control. We will continue metformin at 1000 mg twice a day. Linda knows her goals, premeal below 132 or post meals below 180. 2. Hypothyroidism, still mildly hypothyroid with a TSH of 4.6. We will increase levothyroxine from 75 to 100 mcg a day and check TSH at her next visit. 3. Hyperlipidemia, is well controlled on her lovastatin. We will await LDL cholesterol. 4. Vitamin D deficiency. We will await vitamin D level and adjust dose if needed. I renewed her 50,000 units weekly for now. PLAN: 1. Increase levothyroxine to 100 mcg a day. 2. Continue home blood glucose testing. 3. Await LDL cholesterol and vitamin D levels. 4. Follow up in six months with hemoglobin A1c and TSH in the quick draw lab. Recent Results (from the past 72 hour(s)) HEMOGLOBIN A1C Component Value Range Hemoglobin A1C 7.0 (*) 4.3 - 6.1 % Est Avg Gluc 154 TSH Component Value Range TSH 4.60 (*) 0.27 - 4.20 mcIU/mL HDL/CHOL PROFILE Component Value Range Chol, Total 180 <=199 mg/dL HDL 33 (*) >=40 mg/dL Chol/HDL Ratio 5.5 LDL CHOLESTEROL, DIRECT Component Value Range LDL Chol Direct 137 (*) <=99 mg/dL VIT D TOTAL EVALUATION Component Value Range 25-OH Vit D Total 35 30 - 100 ng/mL MICROALBUMIN, URINE, RANDOM Component Value Range U Creatinine 198 U Ran Malb Conc 4.3 U Ran Malb Calc 2 documented in this encounter Plan of Treatment Not on file documented as of this encounter Procedures Procedure Name Priority Date/Time Associated Diagnosis Comments U ALBUMIN/CRE RATIO STAT 11/24/2012 7 :51 AM EDT DM type 2 (diabetes mellitus, type 2) VITAMIN D, 25-HYDROXY Routine 11/24/2012 7:50 AM EDT Vitamin d deficiency TSH STAT 11/24/2012 7:50 AM EDT Hypothyroid LDL CHOLESTEROL, DIRECT STAT 11/24/2012 7:50 AM EDT DM type 2 (diabetes mellitus, type 2) HDL/CHOL PROFILE STAT 11/24/2012 7:50 AM EDT DM type 2 (diabetes mellitus, type 2) HEMOGLOBIN A1C STAT 11/24/2012 7:50 AM EDT DM type 2 (diabetes mellitus, type 2) documented in this encounter Results * Microalbumin, urine, random (11/24/2012 7:51 AM EDT) Creatinine, Urine 198 mg/dL CE RNER MILLENNIUM Albumin, Urine 4.3 mg/L JUNI Perez MILLENNIUM Albumin / Creatinin Ratio, Urine 2 mcg/mg Cr [facility] Comment: Reference Range* Random collection (mcg/mg creatinine) Normal ?<30 Microalbuminuria ?? 30 - 300 Clinical Albuminuria ?? >300 *[place] Diabetes Association. Diabetic Nephropathy. Diabetes Care 1997;(Suppl 1):S24-S27 Exercise within 24 hour, infection, fever, CHF, marked hyperglycemia, and marked hypertension may elevate urinary albumin excretion over baseline values. Urine specimen (specimen) 11/24/2012 7:51 AM EDT 11/24/2012 7:55 AM EDT Narrative Resulting Agency Comment Spec In Lab Idalmis Westfall MD URINE ORDERABLES Performing Organization Address [facility] [[email or web address]] de Phone Number [facility] * VIT D Total Evaluation (11/24/2012 7:50 AM EDT) Vitamin D Total 25 OH 35 30 - 100 ng/mL [facility] Comment: Deficient <10 ng/mL Insufficient 10 to 29 ng/mL Sufficient 30 to 100 ng/mL Potential Intoxication >100 ng/mL According to the US National Osteoporosis Foundation, Vitamin D concentrations >30 ng/mL are sufficient to protect bone health. ??The National Kidney Foundation has similarly stated that patients with Vitamin D concentrations <30ng/mL should be considered to be insufficient or deficient. http://www.kidney.org/professionals/KDOQI/guidelines_bone/Guide7.htm http://www.nof.org/professionals/clinical-guidelines The IDS iSYS Vitamin D Immunoassay detects both 25-OH Vitamin D2 and 25-OH Vitamin D3, but only a total Vitamin D concentration is reported. Blood specimen (specimen) 11/24/2012 7:50 AM EDT 11/24/2012 8:02 AM EDT Narrative Resulting Agency Comment Spec In Lab Idalmis Westfall MD CHEMISTRY ORDERAB LES Performing Organization Address [facility] Co de Phone Number [facility] * (ABNORMAL) LDL Cholesterol, Direct (11/24/2012 7:50 AM EDT) LDL Cholesterol, Direct 137(H) <=99 mg/dL [facility] Comment: The National Cholesterol Education Program (NCEP) has set the following guidelines for LDL Cholesterol: Reference range: ?? Optimal: ?<100 mg/dL ?? Near Optimal/Above Optimal: ?? 100-129 mg/dL ?? Borderline high: ?130-159 mg/dL ?? High: ? 160-189 mg/dL ?? Very high: ?>te=459 mg/dL BRITTANI 2001: 285(19):8896-4776 Blood specimen (specimen) 11/24/2012 7:50 AM EDT 11/24/2012 8:02 AM EDT Narrative Resulting Agency Comment Spec In Lab Idalmis Westfall MD CHEMISTRY ORDERAB LES [facility] * (ABNORMAL) HDL/Cholesterol Profile (11/24/2012 7:50 AM EDT) Cholesterol, Total 180 <=199 mg/dL [facility] Comment: Recommendations of the NCEP Adult Treatment Panel for the following risk cutoff thresholds for the [place] population: Desirable: <200 mg/dL Borderline High: 200-239 mg/dL High: > or = 240 mg/dL HDL Cholesterol 33(L) >=40 mg/dL [facility] Comment: Reference range: ??Low HDL: ?? < 40 mg/dL ??Normal: ?40-60 mg/dL ??Desirable: > 60 mg/dL BRITTANI 2001; 285(19):6277-5828 Cholesterol/HDL Ratio 5.5 ratio [facility] Comment: A Cholesterol to HDL ratio below 4:1 is desirable. ??Studies suggest that increased CAD risk occurs at ratios above 5 for females and above 6 for men. ? [place] Heart Association ??(http://www.americanheart.org) ? Halle Int Med, 1994; 121:641 ? AM J Med, 1998; 105(1A):48S Blood specimen (specimen) 11/24/2012 7:50 AM EDT 11/24/2012 8:02 AM EDT Narrative Resulting Agency Comment Spec In Lab Idalmis Westfall MD CHEMISTRY ORDERAB LES Performing Organization Address [facility] Co de Phone Number [facility] * (ABNORMAL) TSH (11/24/2012 7:50 AM EDT) Thyroid Stimulating Hormone 4.60(H) 0.27 - 4.20 mcIU/mL [facility] Blood specimen (specimen) 11/24/2012 7:50 AM EDT 11/24/2012 8:02 AM EDT Narrative Resulting Agency Comment Spec In Lab Idalmis Westfall MD CHEMISTRY ORDERAB LES Performing Organization Address [facility] Co de Phone Number [facility] * (ABNORMAL) Hemoglobin A1c (11/24/2012 7:50 AM EDT) Hemoglobin A1c 7.0(H) 4.3 - 6.1 % [facility] Comment: The [place] Diabetes Association (ADA) has stated that HbA1c values >or= 6.5% are consistent with the diagnosis of diabetes mellitus. In the absence of hyperglycemia (i.e. plasma glucose > 200 mg/dL) or classic symptoms of hyperglycemia a repeat measurement of HbA1c should be performed on a separate sample to confirm the diagnosis. The ADA also considers an HbA1c value between 5.7% and 6.4% to be consistent with an increased risk of diabetes (prediabetes). Patients with an HbA1c value in this range should be counseled about their increased risk of progressing to diabetes. Reference: Position Statement: Standards of Medical Care in Diabetes 2013. Diabetes Care 2013:36;suppl 1:S11-S66. Estimated Average Glucose 154 mg/dL [facility] Comment: eAG equivalents for HbA1c percentages: HbA1c(%) ?eAG(mg/dL) 6.0 ?126 6.5 ?140 7.0 ?154 7.5 ?169 8.0 ?183 8.5 ?197 9.0 ?212 9.5 ?226 10.0 ? 240 Limitations: The eAG calculation has not been validated on women, individuals below 18 years old and above 70 years old, and individuals with hemoglobinopathies. Additional resources are available on the ADA website: ??http://professional.diabetes.org/glucosecalculator.aspx Mayank BRISENO, Tomeka J, Hussein R, et al. ??Translating the A1C assay into estimated average glucose values. ??Diabetes Care 2008:31(8):1612-6569. Blood specimen (specimen) 11/24/2012 7:50 AM EDT 11/24/2012 8:02 AM EDT Narrative Resulting Agency Comment Spec In Lab Idalmis Westfall MD CHEMISTRY ORDERAB LES [facility] documented in this encounter Visit Diagnoses Diagnosis DM type 2 (diabetes mellitus, type 2)- Primary Type II or unspecified type diabetes mellitus without mention of complication, not stated as uncontrolled Hypothyroid Unspecified hypothyroidism Vitamin D deficiency Unspecified vitamin D deficiency documented in this encounter Care Teams Boot Turner Relationship Specialty Start Date End Date Marcela Acosta APRN [address] [facility] [address] PCP - General 09/01/12 07/16/17 documented as of this encounter
--- OUTSIDE RECORDS SUMMARY | 2024-05-15 09:47 | XMS_ITS | Encounter Summary ---
[place] [address] Care Team Providers Care Air Tool Operator Name Role Phone Lyn Sinclair APRN Primary Care Provider [phone] Encounter Details Date Type Department Care Team (Late st Contact Info) Description 06/06/2021 2:15 PM EST Procedure visit Dermatology at [address] [address] Indra Paez MD [address] [place] [address], [facility] [place], [place] [id number] Pilar cyst; Nevus Social History Tobacco Use Types Packs/Day Years Used Date Smoking Tobacco: Never Smokeless Tobacco: Never Sex and Gender Information Value Date Recorded Sex Assigned at Female 10/25/2022 12:28 AM EDT Gender Identity Female 10/25/2022 12:28 AM EDT Sexual Orientation Straight 10/25/2022 12 :28 AM EDT documented as of this encounter Progress Notes * Indra Paez MD - 06/06/2021 2:15 PM EST Clinical impression: A. Pilar cyst, right temporal scalp B. Nevus left nasal alar crease. Size: Site A 1 cm Site B 6 mm Deep suture: None Surface suture: Site A 4-0 Prolene Site B 4 0 Ethilon Follow-up: In 1 week for suture removal and biopsy results Indications for surgery, possible adverse outcomes, and activity restrictions discussed. Informed verbal consent was obtained. Skin surface was prepared with 4% chlorhexidine and draped in the usual sterile manner. Local anesthesia with 1% lidocaine, 1 / 100,000 epinephrine and 0.1 mEq/mL bicarbonate. Using a 15 blade and 1 mm margins, an elliptical solution was carried out around the nevus site B. This was submitted for pathologic analysis. Then using similar technique elliptical excision was carried out over the top ofthe pilar cyst, site A and this was removed and submitted for pathologic analysis as well. Wound dressed, wound care reviewed. Both specimens were submitted to pathology. Return to clinic in 1 week for suture removal and biopsy results. CC: Lyn Sinclair APRN documented in this encounter Plan of Treatment Not on file documented as of this encounter Visit Diagnoses Diagnosis Pilar cyst Nevus Benign neoplasm of skin, site unspecified documented in this encounter Care Teams Air Tool Operator Relationship Specialty Start Date End Date Lyn Sinclair APRN PCP - General Family Medicine 07/17/17 04/20/24 documented as of this encounter
--- OUTSIDE RECORDS SUMMARY | 2024-05-15 09:47 | XMS_ITS | Encounter Summary ---
Author Organization [facility] [place] [address] Care Team Providers Care Instructional Technology Coach Name Role Phone Marcela Acosta APRN Primary Care Provider [phone] Reason for Visit * Reason Onset Date Comments Medication Refill 05/02/2017 Encounter Details Date Type Department Care Team (Late st Contact Info) Description 05/02/2017 Refill [place] [address] Ambreen Vora SIGNALS INTELLIGENCE ANALYST [facility] [place] [address] Social History Tobacco Use Types Packs/Day Years [...] on filedocumented in this encounter Care Teams Instructional Technology Coach Relationship Specialty Start Date End Date Marcela Acosta APRN [address] [place] [id number] PCP - General 09/01/12 07/16/17 documented as of this encounter
--- OUTSIDE RECORDS SUMMARY | 2024-05-15 09:47 | XMS_ITS | Encounter Summary ---
[place] [address] Care Team Providers Care Institutional Research Coordinator Name Role Phone Lyn Sinclair APRN Primary Care Provider Reason for Visit * Reason Onset Date Comments Other 04/20/2019 Encounter Details Date Type Department Care Team (Late st Contact Info) Description 04/20/2019 Telephone [place] [address] Deric Davila Other Social History Tobacco Use Types Packs/Day Years Used Date Smoking Tobacco: Never Smokeless Tobacco: Never Sex and Gender Information Value Date Recorded Sex Assigned at Female 10/25/2022 12:28 AM EDT Gender Identity Female 10/25/2022 12:28 AM EDT Sexual Orientation Straight 10/25/2022 12 :28 AM EDT documented as of this encounter Miscellaneous Notes * Telephone Encounter - Deric Davila - 04/20/2019 3:05 PM EDT Caller and relationship to patient (if other than patient): Linda Garcia Best time to reach caller: anytime Message or Reason for Call: patient asked if labs are needed prior to her appointment on 06/12. Appt Needed and Reason: fuv Provider: Mariam documented in this encounter Plan of Treatment Not on file documented as of this encounter Visit Diagnoses Not on filedocumented in this encounter Care Teams Institutional Research Coordinator Relationship Specialty Start Date End Date Lyn Sinclair, CYNTHIA PCP - General Family Medicine 07/17/17 04/20/24 documented as of this encounter
--- OUTSIDE RECORDS SUMMARY | 2024-05-15 09:47 | XMS_ITS | Encounter Summary ---
[place] [address] Care Team Providers Care Service Girl Name Role Phone Lyn Sinclair APRN Primary Care Provider [phone] Reason for Visit * Reason Onset Date Comments Appointment 03/03/2019 Encounter Details Date Type Department Care Team (Late st Contact Info) Description 03/03/2019 Telephone [place] [phone] Deric Davila Appointment Social History Tobacco Use Types Packs/Day Years Used Date Smoking Tobacco: Never Smokeless Tobacco: Never Sex and Gender Information Value Date Recorded Sex Assigned at Female 10/25/2022 12:28 AM EDT Gender Identity Female 10/25/2022 12:28 AM EDT Sexual Orientation Straight 10/25/2022 12 :28 AM EDT documented as of this encounter Miscellaneous Notes * Telephone Encounter - Umu Contreras - 03/17/2019 1:06 PM EDT Caller and relationship to patient (if other than patient): Linda Best time to reach caller: Today Message or Reason for Call: Linda called back. She left a message to schedule an appointment with Ambreen Vora on March 03 and she hasn't heard back from anyone. She really needs to be seen as she is experiencing symptoms. Appt Needed and Reason: yes, follow up Provider: Ambreen Vora * Telephone Encounter - Deric Davila - 03/03/2019 1:40 PM EDT Caller and relationship to patient (if other than patient): Linda Garcia Best time to reach caller: anytime Message or Reason for Call: Patient called to schedule follow up appointments. Her pasted away last year and did not follow up on appointments. Appt Needed and Reason: fuv Provider: Vielka documented in this encounter Plan of Treatment Not on file documented as of this encounter Visit Diagnoses Not on filedocumented in this encounter Care Teams Service Girl Relationship Specialty Start Date End Date Lyn Sinclair, PRECIPITATE WASHER PCP - General Family Medicine 07/17/17 04/20/24 documented as of this encounter
--- OUTSIDE RECORDS SUMMARY | 2024-05-15 09:47 | XMS_ITS | Encounter Summary ---
Author Organization [facility] [place] [address] Care Team Providers Care Circular Saw Edge Fuser Name Role Phone Aleksander Perla MD Primary Care Provider [phone] Reason for Visit * Reason Comments Follow-up diabete Encounter Details Date Type Department Care Team (Late st Contact Info) Description 05/07/2011 9:30 AM EDT Office Visit [place]ocr[place] [address] Idalmis Westfall MD [facility] [place] [address] Diabetes; DM type 2 (diabetes mellitus, type 2) Discharge Disposition: Home Social History Tobacco Use Types Packs/Day Years Used Date Smoking Tobacco: Never Sex and Gender Information Value Date Recorded Sex Assigned at Female 10/25/2022 12:28 AM EDT Gender Identity Female 10/25/2022 12:28 AM EDT Sexual Orientation Straight 10/25/2022 12 :28 AM EDT documented as of this encounter Last Filed Vital Signs Vital Sign Reading Time Taken Comments Blood Pressure 147/82 05/07/2011 10:24 AM EDT Pulse 82 05/07/2011 10:24 AM EDT Temperature - - Respiratory Rate 18 05/07/2011 10:24 AM EDT Oxygen Saturation - - Inhaled Oxygen Concentration - - Weight 98 kg (216 lb) 05/07/2011 10:24 AM EDT Height 165.1 cm (5' 5) 05/07/2011 10:24 AM EDT Body Mass Index 35.94 05/07/2011 10:24 AM EDT documented in this encounter Patient Instructions * Patient Instructions* Idalmis Westfall MD - 05/07/2011 11:16 AM EDT Stop glipizide. Precose 25 mg am for 4-6 days the 25 mg breakfast and lunch for 4-6 days the 25 mg with 3 meals Then 50 mg with 3 meals. I'll let you know the results of the lab tests documented in this encounter Progress Notes * Idalmis Westfall MD - 05/07/2011 11:28 AM EDT DATE OF : 1965 PRIMARY CARE PROVIDER: Aleksander Perla M.D. Mrs. Garcia is here for followup of her type 2 diabetes. She had been seeing Dr. Reynolds, one of our endocrine fellows who has now completed his fellowship, and I will be assuming care. She was diagnosed with diabetes in 1994, on oral agents. Had a gastric bypass in 2006 with a weight loss from 290 pounds to 170 pounds, was off meds until 2005. She has regained about 50 pounds and now her weight has been stable. Her hemoglobin A1c in July was 7.5%, and her current regimen is metformin 1000 mg twice a day and glipizide 2.5 mg twice a day. She lowered her glipizide from 5 mg twice a day to 2.5 mg twice a day a month or two ago because she was having a lot of hypoglycemic reactions, sometimes in the middle of the night, late morning, or late afternoon, quite symptomatic and would eat and then have swings in blood sugars up to the 300s. Since she lowered the dose, it is better, although sometimes she will still go lowish around 10:30 or 11 in the morning and around 4 p.m. down to the 70s and 80s and be symptomatic. Her fasting sugar is usually 80 to 130, two hours after lunch and supper 130 to 180. EXERCISE: None. Her diet, around 9 a.m. she will have breakfast, a cappuccino and breakfast bar and yogurt or sometimes even a donut. Around 11:30, she has lunch with sandwich and yogurt or a hot meal in the hospital, meat, starch and a vegetable. Around 4 p.m., she will have some Triscuits or gram crackers and milk. For supper, last night she had a pasta casserole and a cucumber salad. No evening snack for the most part. COMPLICATIONS: She saw her dentist in 11/2010, had oral crowns on her upper teeth and is anticipating the same on her lower teeth. She saw her eye doctor in the summer. No retinopathy. Microalbumin is pending. I do not have a recent creatinine. 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 No peripheral neuropathy. She had some episodes of chest pain, stress test was negative, and it was felt perhaps related to anxiety. Since her anxiety and depression are better, her symptoms have resolved. Her lipids in 2009, total cholesterol 171 and LDL 115. DIABETIC HEALTH MAINTENANCE: Beta-Hernesto: No. Aspirin: 81 mg. MAGNOLIA Inhibitor: Lisinopril 2.5 mg. Statin: Simvastatin 40 mg. Flu shot is declined. She is up to date with her Pneumovax. She is a nonsmoker. TSH 3.6 in 10/2009. It has been a rough six months for Ms. Garcia. She had significant GI symptoms and worked up and also had an inpatient psychiatric admission for severe depression; that is under much better control. PAST MEDICAL HISTORY: Vitamin D deficiency, type 2 diabetes, hyperlipidemia, depression, GERD, anemia, gastric bypass in 1999 in [place], , tubal ligation, ventral hernia, and ankle surgery. Current outpatient prescriptions ordered prior to encounter Medication Sig Dispense Refill ??? CIS Free Text Med - One a day Vit ??? LORazepam (ATIVAN) 0.5 mg tablet 0.5mg, PO, Q8H,PRN ??? CYANOCOBALAMIN, VITAMIN B-12, (VITAMIN B-12 INJ) ??? ergocalciferol (VITAMIN D) 50,000 unit capsule 29698 UNIT = 1 Capsule(s), PO, QWEEK ??? lisinopril (PRINIVIL;ZESTRIL) 2.5 mg tablet ??? CALCIUM ORAL ??? aspirin 81 mg EC tablet ??? lovastatin (MEVACOR) 40 mg tablet ??? albuterol (VENTOLIN HFA) 90 mcg/Actuation inhaler Allergies Allergen Reactions ??? Oxycodone-acetaminophen CIS - hallucinations ??? Morphine Sulfate CIS - Urticaria ??? Trazodone Anxiety SOCIAL HISTORY: She is for 28 years, has 13-year-old triplets, two girls and a boy; and a 9-year-old son as well. 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 FAMILY HISTORY: Mother had CABG and stroke in her 60s. Father had his first AK at 51. Her review of systems is unremarkable. On physical exam, her blood pressure is 147/82, and on repeat 148/78; pulse 82; weight 98 kg; height 165 cm. In general, she is a well-developed, overweight woman in no acute distress. Her skin shows no ulcerations. Extremities: No edema. Laboratory tests are pending. IMPRESSION: 1. Diabetes. By home blood glucose testing, she is having a lot of hypoglycemia postprandially and could benefit from some acarbose rather than glipizide to see if we slow down carbohydrate absorption, she can prevent the hypoglycemia. I will have her stop glipizide and start acarbose 25 mg once a day for a week, then twice a day for a week, then three times a day, and then she will increase to 50 mg twice a day. She will let me know if she is having problems with it. We discussed the side effects. She will continue her metformin. 2. Hypertension. Blood pressure is a little high today. She says at home it tends to run 120/60 to 120/70, so she is going to keep an eye on that. If it stays up, we can increase her lisinopril. 3. Hyperlipidemia. We will check her lipids at our next visit. PLAN: 1. Discontinue glipizide. 2. Start Precose. 3. Follow up in three months with hemoglobin A1c, lipids, TSH, and creatinine in the quick draw lab. Visit time 25 minutes, counseling time 20 minutes regarding diabetes management Recent Results (from the past 72 hour(s)) HEMOGLOBIN A1C Component Value Range ??? Hemoglobin A1C 6.7 (*) 4.3 - 6.1 (%) ??? Est Avg Gluc 146 (mg/dL) VITAMIN D2 AND D3 25 HYDROXY Component Value Range ??? 25-Hydroxy D2-Peterson 6.2 (ng/mL) ??? 25-Hydroxy D3-Ruston 17 (ng/mL) ??? 25Hydrox D-Peterson 23 (*) (ng/mL) MICROALBUMIN, URINE, RANDOM Component Value Range ??? U Creatinine 105 (mg/dL) ? ? U Ran Malb Conc <3.0 (mg/L) ? ? U Ran Malb Calc <3 (mcg/mg Cr) documented in this encounter Plan of Treatment Not on file documented as of this encounter Procedures Procedure Name Priority Date/Time Associated Diagnosis Comments U ALBUMIN/CRE RATIO Routine 05/07/2011 1 0:13 AM EDT DM type 2 (diabetes mellitus, type 2) VITAMIN D, 25-HYDROXY Routine 05/07/2011 10:07 AM EDT DM type 2 (diabetes mellitus, type 2) HEMOGLOBIN A1C Routine 05/07/2011 10:07 AM EDT Diabetes documented in this encounter Results * (ABNORMAL) Creatinine, serum (10/01/2011 9:20 AM EDT) Creatinine 0.69(L) 0.70 - 1.20 mg/dL [facility] Est Glomerular Filtration Rate >60 >=60 [facility]ten Comment: The National Kidney Disease Education Program (NKDEP) has recommended all laboratories report estimated GFR (eGFR) along with plasma creatinine measurements to assist you with recognition of early kidney disease. Caveats: ??Plasma creatinine should be at steady-state (unchanged within the past week). For patients multiply eGFR by 1.2. The MDRD equation has not been validated for pediatric patients and is only valid for patients with age >= 18 years. At present, NKDEP does NOT recommend using the MDRD equation for drug dosing purposes and pharmacists should continue to use their current dosing methods. In addition, numerical eGFR values greater than 60 ml/min/1.73 square meters should be treated as > 60, and not an exact number due to greater inaccuracies at these higher values. Per NKDEP, they classify normal renal function as any GFR >60ml/min/1.73 square meters; chronic kidney disease when GFR <60, and renal failure when GFR <15. ??This calculation may not be valid for patients with atypical muscle mass (very lean or obese), acute renal failure, and in patients with diabetic kidney disease. References: http://nkdep.nih.gov/resources/NKDEP_Suggestn4Labs_0606_508.pdf http://www.kidney.org/professionals/kls/pdf/faq_gfr.pdf Blood specimen (specimen) 10/01/2011 9:20 AM EDT 10/01/2011 9:25 AM EDT Narrative Resulting Agency Comment Spec In Lab Idalmis Westfall MD CHEMISTRY ORDERAB LES [facility] * LDL Cholesterol, Direct (10/01/2011 9:20 AM EDT) LDL Cholesterol, Direct 86 <=99 mg/dL [facility] Comment: The National Cholesterol Education Program (NCEP) has set the following guidelines for LDL Cholesterol: Reference range: ?? Optimal: ?<100 mg/dL ?? Near Optimal/Above Optimal: ?? 100-129 mg/dL ?? Borderline high: ?130-159 mg/dL ?? High: ? 160-189 mg/dL ?? Very high: ?>kk=790 mg/dL BRITTANI 2001: 285(19):3518-7748 Blood specimen (specimen) 10/01/2011 9:20 AM EDT 10/01/2011 9:25 AM EDT Narrative Resulting Agency Comment Spec In Lab Idalmis Westfall MD CHEMISTRY ORDERAB LES Performing Organization Address [facility]/ZIP Co de Phone Number ANTHONY AGUSTIN * (ABNORMAL) HDL/Cholesterol Profile (10/01/2011 9:20 AM EDT) Cholesterol, Total 132 <=199 mg/dL [facility]ILL[facility]NIUM Comment: Recommendations of the NCEP Adult Treatment Panel for the following risk cutoff thresholds for the [place] population: Desirable: <200 mg/dL Borderline High: 200-239 mg/dL High: > or = 240 mg/dL HDL Cholesterol 29(L) >=40 mg/dL [facility] NER MILLENNIUM Comment: Reference range: ??Low HDL: ?? < 40 mg/dL ??Normal: ?40-60 mg/dL ??Desirable: > 60 mg/dL BRITTANI 2001; 285(19):4534-3187 Cholesterol/HDL Ratio 4.6 ratio CERNER MILLENNIUM Comment: A Cholesterol to HDL ratio below 4:1 is desirable. ??Studies suggest that increased CAD risk occurs at ratios above 5 for females and above 6 for men. ? [place] Heart Association ??(http://www.americanheart.org) ? Halle Int Med, 1994; 121:641 ? AM J Med, 1998; 105(1A):48S Blood specimen (specimen) 10/01/2011 9:20 AM EDT 10/01/2011 9:25 AM EDT Narrative Resulting Agency Comment Spec In Lab Idalmis Westfall MD CHEMISTRY ORDERAB LES Performing Organization Address City/[facility]/ZIP Co de Phone Number ANTHONY AGUSTIN * (ABNORMAL) TSH (10/01/2011 9:20 AM EDT) Thyroid Stimulating Hormone 6.14(H) 0.27 - 4.20 mcIU/mL ANTHONY ALCALAENNIUM Blood specimen (specimen) 10/01/2011 9:20 AM EDT 10/01/2011 9:25 AM EDT Narrative Resulting Agency Comment Spec In Lab Idalmis Westfall MD CHEMISTRY ORDERAB LES [facility] * (ABNORMAL) Hemoglobin A1c (10/01/2011 9:20 AM EDT) Hemoglobin A1c 6.5(H) 4.3 - 6.1 % [facility] Estimated Average Glucose 140 mg/dL [facility] Comment: eAG equivalents for HbA1c percentages: HbA1c(%) ?eAG(mg/dL) 6.0 ?126 6.5 ?140 7.0 ?154 7.5 ?169 8.0 ?183 8.5 ?197 9.0 ?212 9.5 ?226 10.0 ? 240 Limitations: The eAG calculation has not been validated on women, individuals below 18 years old and above 70 years old, and individuals with hemoglobinopathies. Additional resources are available on the ADA website: ??http://professional.diabetes.org/glucosecalculator.aspx Reference: Mayank BRISENO, Tomeka J, Hussein R, et al. ??Translating the A1C assay into estimated average glucose values. ??Diabetes Care 2008:31(8):6993-4207. Blood specimen (specimen) 10/01/2011 9:20 AM EDT 10/01/2011 9:25 AM EDT Narrative Resulting Agency Comment Spec In Lab Idalmis Westfall MD CHEMISTRY ORDERAB LES Performing Organization Address City/[facility] Co de Phone Number [facility] * Microalbumin, urine, random (05/07/2011 10:13 AM EDT) Creatinine, Urine 105 mg/dL CE RNER MILLENNIUM Albumin, Urine <3.0 mg/L CERNE R MILLENNIUM Albumin / Creatinin Ratio, Urine <3 mcg/mg Cr CERNER MILLENNIUM Comment: Reference Range* Random collection (mcg/mg creatinine) Normal ?<30 Microalbuminuria ?? 30 - 300 Clinical Albuminuria ?? >300 *[place] Diabetes Association. Diabetic Nephropathy. Diabetes Care 1997;(Suppl 1):S24-S27 Exercise within 24 hour, infection, fever, CHF, marked hyperglycemia, and marked hypertension may elevate urinary albumin excretion over baseline values. Urine specimen (specimen) 05/07/2011 10:13 AM EDT 05/07/2011 10:38 AM EDT Idalmis Westfall MD URINE ORDERABLES Performing Organization Address [facility] Co de Phone Number [facility] * (ABNORMAL) Vitamin D 25 hydroxy (05/07/2011 10:07 AM EDT) 25-Hydroxy D2 6.2 ng/mL [facility] Comment: Test Performed by: [place] [address] Chlorobutadiene Scrubber Operator: Kath Estrada, Ph.D. 25-Hydroxy D3 17 ng/mL [facility] Comment: Test Performed by: [place] [address] Chlorobutadiene Scrubber Operator: Kath Estrada, Ph.D. Vitamin D Total 25 OH 23(L) ng/mL [facility] Comment: Interpretation: 10-24 (mild to moderate deficiency) -- REFERENCE VALUE -- 25-HYDROXY D TOTAL (D2+D3) Optimum levels in the normal population are 25-80 Test Performed by: [place] [address] Chlorobutadiene Scrubber Operator: Kath Estrada, Ph.D. Blood specimen (specimen) 05/07/2011 10:07 AM EDT 05/07/2011 1:02 PM EDT Idalmis Westfall MD CHEMISTRY ORDERAB LES [facility] * (ABNORMAL) Hemoglobin A1c (05/07/2011 10:07 AM EDT) Hemoglobin A1c 6.7(H) 4.3 - 6.1 % [facility] Estimated Average Glucose 146 mg/dL [facility] Comment: eAG equivalents for HbA1c percentages: HbA1c(%) ?eAG(mg/dL) 6.0 ?126 6.5 ?140 7.0 ?154 7.5 ?169 8.0 ?183 8.5 ?197 9.0 ?212 9.5 ?226 10.0 ? 240 Limitations: The eAG calculation has not been validated on women, individuals below 18 years old and above 70 years old, and individuals with hemoglobinopathies. Additional resources are available on the ADA website: ??http://professional.diabetes.org/glucosecalculator.aspx Reference: Mayank BRISENO, Tomeka J, Hussein R, et al. ??Translating the A1C assay into estimated average glucose values. ??Diabetes Care 2008:31(8):4712-0852. Blood specimen (specimen) 05/07/2011 10:07 AM EDT 05/07/2011 10:37 AM EDT Idalmis Westfall MD CHEMISTRY ORDERAB LES [facility] documented in this encounter Visit Diagnoses Diagnosis Diabetes Type II or unspecified type diabetes mellitus without mention of complication, not stated as uncontrolled DM type 2 (diabetes mellitus, type 2) Type II or unspecified type diabetes mellitus without mention of complication, not stated as uncontrolled documented in this encounter Care Teams Circular Saw Edge Fuser Relationship Specialty Start Date End Date Aleksander Perla MD [address] [place] [address] PCP - General 06/13/10 08/31/12 documented as of this encounter
--- OUTSIDE RECORDS SUMMARY | 2024-05-15 09:47 | XMS_ITS | Encounter Summary ---
Author Organization [facility] [place] [address] Care Team Providers Care Minesweeping Officer Name Role Phone Marcela Acosta APRN Primary Care Provider [phone] Reason for Visit * Reason Onset Date Comments Medication Refill 04/06/2014 Encounter Details Date Type Department Care Team (Late st Contact Info) Description 04/06/2014 [place] [address] Idalmis Westfall MD [facility] [place] [address] Social History Tobacco Use Types Packs/Day Years [...] on filedocumented in this encounter Care Teams Minesweeping Officer Relationship Specialty Start Date End Date Marcela Acosta APRN [address] [place] [id number] PCP - General 09/01/12 07/16/17 documented as of this encounter
--- OUTSIDE RECORDS SUMMARY | 2024-05-15 09:47 | XMS_ITS | Encounter Summary ---
Author Organization [facility] [place] [address] Care Team Providers Care Advertising Rep Name Role Phone CatrachoMarcela Nguyen CYNTHIA Primary Care Provider [phone] Reason for Visit * Reason Comments Diabetes Encounter Details Date Type Department Care Team (Late st Contact Info) Description 04/25/2016 2:00 PM EDT Office [place] [address] Ambreen Vora INVESTMENT COUNSELOR [facility] [place] [address] Subclinical iodine-deficiency hypothyroidism; Type 2 diabetes mellitus without complication, without long-term current use of insulin Social History Tobacco Use Types Packs/Day Years Used Date Smoking Tobacco: Never Sex and Gender Information Value Date Recorded Sex Assigned at Female 10/25/2022 12:28 AM EDT Gender Identity Female 10/25/2022 12:28 AM EDT Sexual Orientation Straight 10/25/2022 12 :28 AM EDT documented as of this encounter Last Filed Vital Signs Vital Sign Reading Time Taken Comments Blood Pressure 141/56 04/25/2016 1:38 PM EDT Pulse 79 04/25/2016 1:38 PM EDT Temperature - - Respiratory Rate - - Oxygen Saturation - - Inhaled Oxygen Concentration - - Weight 96.2 kg (212 lb) 04/25/2016 1:38 PM EDT Height 165.1 cm (5' 5) 04/25/2016 1:38 PM EDT Body Mass Index 35.28 04/25/2016 1:38 PM EDT documented in this encounter Patient Instructions * Patient Instructions* Ambreen Vora APRN - 04/25/2016 2:00 PM EDT [facility] learning coach bus Daily walking is your best friend! Schedule dilated eye exam Vit D 1,000 iu's daily documented in this encounter Progress Notes * Ambreen Vora APRN - 04/25/2016 2:00 PM EDT DATE OF VISIT: 04/25/16 REASON FOR VISIT: Follow up type 2 DM in good overall control, hyperlipidemia close to goal, overweight, vitamin D insufficiency, hypothyroidism. BRIEF HISTORY: She presents and states she is tired. She has stopped the levothyroxine for the past 5 months. She states a recent TSH result at PCP office was 5. DATE OF DIAGNOSIS OF DIABETES: 1994. DIABETES REGIMEN: Metformin 1000 mg twice a day, sulfonylurea 2.5 mg daily in a.m. PREVENTION STRATEGIES: She had a flu vaccine yesterday. She is due for a dilated eye exam. She does go to the dentist. She takes a statin, takes a low dose MAGNOLIA inhibitor. REVIEW OF SYSTEMS: Depression and mood followed by PCP and has counseling for depression. She takes medication. Triplets recently entered freshman year in college. One is in [place]. The other 2 are in [place]. Her youngest son is a freshman in high school. TWENTY-FOUR HOUR MEAL PLAN: Breakfast: She either omits it or has oatmeal. Lunch is daily at the hospital cafeteria. 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 Evening meal was fried green tomatoes. PHYSICAL ACTIVITY: She states not enough but she is going to try to start walking when she is at her son's football practice. PAST MEDICAL HISTORY: Type 2 DM, hypertension, hypothyroidism, vitamin D deficiency, history of depression, B12 deficiency, hyperlipidemia, asthma, GERD, folliculitis on the scalp, torn posterior tibial tendon. PAST SURGICAL HISTORY: Tibial fracture and ORIF, uterine ablation, rectocele complicated by an arterial bleed, gastric bypass 1998, panniculectomy, x2, and ventral hernia. PHYSICAL EXAM: APPEARANCE: She appears in very good health. Weight 212 pounds. Blood pressure 141/56. EYES: No retinopathy with green light exam. NECK: No thyromegaly or lymphadenopathy. HEART: Regular rate and rhythm. LUNGS: Lungs are clear to auscultation. FEET: Skin is normal. Pulses are normal. NEURO: Normal sensation to 10 g of pressure. Several labs were done today. Hemoglobin A1C is 7.7%. TSH was 3.9. LDL of 121. IMPRESSION AND PLAN: DM type 2 in good overall control with adding walking most days of the week, most likely will be able to lower hemoglobin A1C closer to 7%. The patient had requested a refill of her previous dose of levothyroxine. SHEET TAILER called pharmacy and canceled that prescription. We will do prescription for levothyroxine 25 mcg daily. LDL close to goal. Hopefully, walking will get that closer to 100. Immunization up date. [id number] given. Advised to take vitamin D at 1000 international units daily. Given lab slip to check TSH the first week in June at her local lab and results faxed to Endocrinology. She plans to return to Endocrinology in 1 year. We will recheck the labs that were done today and B12. This was a 38 minute office visit with 37 minutes spent counseling [id number] with the patient in the management of glucose levels, writing several prescriptions. SBGM 2 times a day. Recent Results (from the past 72 hour(s)) Creatinine Result Value Ref Range Creatinine 0.94 0.70 - 1.20 mg/dL Estimated GFR >60 >=60 Hemoglobin A1c Result Value Ref Range Hemoglobin A1C 7.7 (H) 4.3 - 5.6 % Est Avg Gluc 174 mg/dL TSH Result Value Ref Range TSH 3.69 0.27 - 4.20 mcIU/mL HDL/Cholesterol Profile Result Value Ref Range Chol, Total 165 <=199 mg/dL HDL 27 (L) >=40 mg/dL Chol/HDL Ratio 6.1 ratio LDL Cholesterol, Direct Result Value Ref Range LDL Chol Direct 121 (H) <=99 mg/dL U Albumin/Cre Ratio Result Value Ref Range Alb/Cr Ratio, Random 4 0 - 29 mcg/mg Cr U Albumin Conc, Random 6.3 mg/L U Creatinine 160 mg/dL documented in this encounter Plan of Treatment Not on file documented as of this encounter Visit Diagnoses Diagnosis Subclinical iodine-deficiency hypothyroidism Other specified acquired hypothyroidism Type 2 diabetes mellitus without complication, without long-term current use of insulin documented in this encounter Care Teams Advertising Rep Relationship Specialty Start Date End Date Marcela Acosta APRN [address] [place] [address] PCP - General 09/01/12 07/16/17 documented as of this encounter
--- OUTSIDE RECORDS SUMMARY | 2024-05-15 09:47 | XMS_ITS | Encounter Summary ---
[place] [address] Care Team Providers Care Fire Sprinkler Service Technician Name Role Phone Lyn Sinclair APRN Primary Care Provider Encounter Details Date Type Department Care Team (Latest Contact Info) Description 07/17/2017 3:00 PM EST Laboratory Appointment Lab [address] [id number] Type 2 diabetes mellitus without complication, unspecified [...] Associated Diagnosis Comments U ALBUMIN/CRE RATIO Routine 07/17/2017 3 :41 PM EST Type 2 diabetes mellitus without complication, unspecified prison insulin use status TSH Routine 07/17/2017 3:34 PM EST Type 2 diabetes mellitus without complication, unspecified prison insulin use status LDL CHOLESTEROL, DIRECT Routine 07/17/2017 3:34 PM EST Type 2 diabetes mellitus without complication, unspecified long wall shear operator insulin use status HDL/CHOL PROFILE Routine 07/17/2017 3:34 PM EST Type 2 diabetes mellitus without complication, unspecified prison insulin use status HEMOGLOBIN A1C Routine 07/17/2017 3:34 PM EST Type 2 diabetes mellitus without complication, unspecified long wall shear operator insulin use status BASIC METABOLIC PANEL Routine 07/17/2017 3:34 PM EST Type 2 diabetes mellitus without complication, unspecified long wall shear operator insulin use status documented in this encounter Results * U Albumin/Cre Ratio (07/17/2017 3:41 PM EST) Albumin / Creatinin Ratio, Urine 3 0 - 29 mcg/mg Cr [facility] Comment: Reference Ranges: <30 mcg/mg: Normal [...] 2, 357? 362 Albumin, Urine 3.3 mg/L [facility] Creatinine, Urine 126 mg/dL [facility] Urine specimen (specimen) 07/17/2017 3:41 PM EST 07/17/2017 3:47 PM EST Narrative Resulting Agency Comment Spec In Lab Ambreen E Bilotta GROUTMAN URINE ORDERABLES [facility] [place] [address] * LDL Cholesterol, Direct (07/17/2017 3:34 PM EST) LDL Cholesterol, Direct 120 <=190 mg/dL [facility] Blood specimen (specimen) 07/17/2017 3:34 PM EST 07/17/2017 3:45 PM EST Narrative Resulting Agency Comment Spec In Lab Ambreen E Kela GROUTMAN CHEMISTRY ORDERABLE S [facility] [place] [address] * (ABNORMAL) HDL/Cholesterol Profile (07/17/2017 3:34 PM EST) Cholesterol, Total 160 <=239 mg/dL [facility] HDL Cholesterol 23(L) >=40 mg/dL [facility] Cholesterol/HDL Ratio 7.0 ratio [facility] Chol/HDL Interpretation See Note [facility] Comment: Lipid management should be guided by a patient? s ASCVD risk, goals and preferences. ACC/AHA Guidelines recommend high intensity statin if clinical ASCVD or LDL greater than or equal to 190 mg/dL. http://Kolorific.com/TAT-RSJ-Cyjjglcck Measure LDL if Total Cholesterol minus HDL Cholesterol is greater than 220 mg/dL. Adults aged 40-75 with LDL 70-189 mg/dL should have their 10 year ASCVD risk estimated with the ACC/AHA ASCVD risk welding manager http://tools.acc.org/ZYSMP-Rpir-Tlovbtwne/ Statin should be discussed if risk greater [...] Comment Spec In Lab Ambreen E Bilotta GROUTMAN CHEMISTRY ORDERABLE S Performing Organization Address [facility] Co de Phone Number [facility] [place] [address] * TSH (07/17/2017 3:34 PM EST) Thyroid Stimulating Hormone 2.95 0.27 - 4.20 mlU/ML [facility] Blood specimen (specimen) 07/17/2017 3:34 PM EST 07/17/2017 3:45 PM EST Narrative Resulting Agency Comment Spec In Lab Ambreen Vora GROUTMAN CHEMISTRY ORDERABLE S Performing Organization Address [facility] de Phone Number [facility] [place] [address] * (ABNORMAL) Hemoglobin A1c (07/17/2017 3:34 PM EST) Pathologist [facility] Hemoglobin A1c 7.7(H) 4.3 - 5.6 % [facility] Comment: Reference Range: 4.3 - 5.6% [...] Mellitus, Diabetes Care 2013; 36: Suppl. 1, X17-83 Estimated Average Glucose 174 mg/dL [facility] Comment: eAG equivalents for HbA1c percentages: [...] into estimated average glucose values. ??Diabetes Care 2008:31(8):9376-6735. Blood specimen (specimen) 07/17/2017 3:34 PM EST 07/17/2017 3:45 PM EST Narrative Resulting Agency Comment Spec In Lab Ambreen Vora APRN CHEMISTRY ORDERABLE S [facility] [place] [address] * Basic Metabolic Panel (non-fasting) (07/17/2017 3:34 PM EST) Glucose 177 65 - 199 mg/dL [facility] Comment:Diabetes: >=200 mg/d L plus symptoms Blood Urea Nitrogen 11 8 - 18 mg/dL [facility] Creatinine 0.75 0.70 - 1.20 mg/dL [facility] Sodium 140 135 - 145 mmol/L [facility] Potassium 3.8 3.5 - 5.0 mmol/L [facility] Comment: Please note: ??Patients with WBC >100,000 may have falsely elevated Potassium levels. ??For accurate Potassium quantification in these patients send serum separator tube (gold top) for subsequent determinations. ??Contact the Clinical Chemistry Laboratory if there are any questions. Chloride 103 98 - 107 mmol/L [facility] Carbon Dioxide 23 22 - 31 mmol/L [facility] Anion Gap 14 5 - 15 mmol/L [facility] Calcium 9.0 8.5 - 10.5 mg/dL [facility] Est Glomerular Filtration Rate >60 >=60 [facility] Comment: The reported eGFR should be multiplied by 1.2 for patients. The MDRD is not an appropriate measure of renal function for patients with body mass extremes or in patients with acute kidney failure. http://MobilePaks/DHnkdep http://MobilePaks/DHMCnkf Blood specimen (specimen) 07/17/2017 3:34 PM EST 07/17/2017 3:45 PM EST Narrative Resulting Agency Comment Spec In Lab Ambreen Vora APRN CHEMISTRY ORDERABLE S [facility] [place] [phone] documented in this encounter Visit Diagnoses Diagnosis Type 2 diabetes mellitus without complication, unspecified long wall shear operator insulin use status documented in this encounter Care Teams Fire Sprinkler Service Technician Relationship Specialty Start Date End Date Lyn Sinclair APRN PCP - General Family Medicine 07/17/17 04/20/24 documented as of this encounter
--- OUTSIDE RECORDS SUMMARY | 2024-05-15 09:47 | XMS_ITS | Encounter Summary ---
Author Organization [facility] Address [facility] [place] [address] Care Team Providers Care Security System Technician Name Role Phone Aleksander Perla MD Primary Care Provider [phone] Encounter Details Date Type Department Care Team (Late st Contact Info) Description 12/12/2011 Orders [place] [address] Idalmis Westfall MD [facility] [address] Hypothyroid (Primary Dx) Social History Tobacco Use Types Packs/Day Years Used Date Smoking Tobacco: Never Sex and Gender Information Value Date Recorded Sex Assigned at Female 10/25/2022 12:28 AM EDT Gender Identity Female 10/25/2022 12:28 AM EDT Sexual Orientation Straight 10/25/2022 12 :28 AM EDT documented as of this encounter Plan of Treatment Scheduled Orders Name Type Priority Associated Diagnoses Orde r Schedule TSH Lab Routine Hypothyroid Expected: 01/23/2012 (Approximate), Expi res: 12/12/2012 documented as of this encounter Visit Diagnoses Diagnosis Hypothyroid- Primary Unspecified hypothyroidism documented in this encounter Care Teams Security System Technician Relationship Specialty Start Date End Date Aleksander Perla MD [address] [place] [address] PCP - General 06/13/10 08/31/12 documented as of this encounter
--- OUTSIDE RECORDS SUMMARY | 2024-05-15 09:47 | XMS_ITS | Encounter Summary ---
[place] [address] Care Team Providers Care Sustainability Manager Name Role Phone Marcela Acosta APRN Primary Care Provider [phone] Reason for Visit * Reason Onset Date Comments Medication Refill 03/09/2013 Encounter Details Date Type Department Care Team (Late st Contact Info) Description 03/09/2013 Refill [place] [address] Della Mckoy, [facility] [place] [address] Social History Tobacco Use Types Packs/Day Years [...] on filedocumented in this encounter Care Teams Sustainability Manager Relationship Specialty Start Date End Date Marcela Acosta APRN [address] [place] [id number] PCP - General 09/01/12 07/16/17 documented as of this encounter
--- OUTSIDE RECORDS SUMMARY | 2024-05-15 09:47 | XMS_ITS | Encounter Summary ---
Author Organization [facility] [place] [address] Care Team Providers Care Drill Press Set Up Operator Name Role Phone Aleksander Perla MD Primary Care Provider [phone] Reason for Visit * Reason Onset Date Comments Labs Only 02/19/2011 Encounter Details Date Type Department Care Team (Late st Contact Info) Description 02/19/2011 Telephone [place] [address] Idalmis Westfall MD [facility] [place] [address] Labs Only Social History Tobacco Use Types Packs/Day Years Used Date Smoking Tobacco: Never Assessed Sex and Gender Information Value Date Recorded Sex Assigned at Female 10/25/2022 12:28 AM EDT Gender Identity Female 10/25/2022 12:28 AM EDT Sexual Orientation Straight 10/25/2022 12 :28 AM EDT documented as of this encounter Miscellaneous Notes * Telephone Encounter - Idalmis Westfall MD - 02/20/2011 8:48 PM EDT labs documented in this encounter Plan of Treatment Scheduled Orders Name Type Priority Associated Diagnoses Orde r Schedule Hemoglobin A1c Lab Routine DM type 2 (diabetes mellitus, type 2) Expected: 03/21/2011, Expires: 02/20/2012 documented as of this encounter Results * Microalbumin, urine, random (05/07/2011 10:13 AM EDT) Creatinine, Urine 105 mg/dL [facility] Albumin, Urine <3.0 mg/L JUNI R MILLENNIUM Albumin / Creatinin Ratio, Urine <3 mcg/mg Cr [facility] Comment: Reference Range* Random collection (mcg/mg creatinine) Normal ?<30 Microalbuminuria ?? 30 - 300 Clinical Albuminuria ?? >300 *[place] Diabetes Association. Diabetic Nephropathy. Diabetes Care 1997;(Suppl 1):S24-S27 Exercise within 24 hour, infection, fever, CHF, marked hyperglycemia, and marked hypertension may elevate urinary albumin excretion over baseline values. Urine specimen (specimen) 05/07/2011 10:13 AM EDT 05/07/2011 10:38 AM EDT Idalmis Westfall MD URINE ORDERABLES [facility] * (ABNORMAL) Vitamin D 25 hydroxy (05/07/2011 10:07 AM EDT) 25-Hydroxy D2 6.2 ng/mL [facility] Comment: Test Performed by: [place] [address] Cashier Manager: Kath Estrada, Ph.D. 25-Hydroxy D3 17 ng/mL [facility] Comment: Test Performed by: [facility] [employer] [address] [address] Cashier Manager: Kath Estrada, Ph.D. Vitamin D Total 25 OH 23(L) ng/mL [facility] Comment: Interpretation: 10-24 (mild to moderate deficiency) -- REFERENCE VALUE -- 25-HYDROXY D TOTAL (D2+D3) Optimum levels in the normal population are 25-80 Test Performed by: [place] [address] Cashier Manager: Kath Estrada, Ph.D. Blood specimen (specimen) 05/07/2011 10:07 AM EDT 05/07/2011 1:02 PM EDT Idalmis Westfall MD CHEMISTRY ORDERAB LES Performing Organization Address City/State/[facility] Co de Phone Number [facility] documented in this encounter Visit Diagnoses Diagnosis DM type 2 (diabetes mellitus, type 2) Type II or unspecified type diabetes mellitus without mention of complication, not stated as uncontrolled documented in this encounter Care Teams Drill Press Set Up Operator Relationship Specialty Start Date End Date Aleksander Perla MD [address] [place] [address] PCP - General 06/13/10 08/31/12 documented as of this encounter
--- OUTSIDE RECORDS SUMMARY | 2024-05-15 09:47 | XMS_ITS | Encounter Summary ---
Author Organization [facility] [place] [address] Care Team Providers Care Postmaster Name Role Phone DoloresMarcela schilling CYNTHIA Primary Care Provider [phone] Encounter Details Date Type Department Care Team (Late st Contact Info) Description 02/09/2016 Orders [place] [address] Ambreen Vora [facility] [address] Diabetes mellitus type 2, uncomplicated; Hypothyroidism, unspecified type Social History Tobacco Use Types [...] this encounter Results * U Albumin/Cre Ratio (04/25/2016 1:12 PM EDT) Albumin / Creatinin Ratio, Urine 4 0 - 29 mcg/mg [facility] [...] Supplements (2012) 2, 357? 362 Albumin, Urine 6.3 mg/L [facility] Creatinine, Urine 160 mg/dL [facility] Urine specimen (specimen) 04/25/2016 1:12 PM EDT 04/25/2016 1:20 PM EDT Narrative Resulting Agency Comment Spec In Lab Babar Wilkersno MD URINE ORDERABLES [facility] [place] [address] * (ABNORMAL) LDL Cholesterol, Direct (04/25/2016 1:07 PM EDT) LDL Cholesterol, Direct 121(H) <=99 mg/dL [facility] Comment: The National Cholesterol Education Program (NCEP) has set the following guidelines for LDL Cholesterol: Reference range: ?? Optimal: ?<100 mg/dL ?? Near Optimal/Above Optimal: ?? 100-129 mg/dL ?? Borderline high: ?130-159 mg/dL ?? High: ? 160-189 mg/dL ?? Very high: ?>uw=858 mg/dL BRITTANI 2001: 285(19):7108-7856 Blood specimen (specimen) 04/25/2016 1:07 PM EDT 04/25/2016 1:20 PM EDT Narrative Resulting Agency Comment Spec In Lab Babar Wilkerson MD CHEMISTRY ORDERABLES Performing Organization Address [facility] de Phone Number [facility] [place] [address] * (ABNORMAL) HDL/Cholesterol Profile (04/25/2016 1:07 PM EDT) Cholesterol, Total 165 <=199 mg/dL [facility] Comment: Recommendations of the NCEP Adult Treatment Panel for the following risk cutoff thresholds for the [place] population: Desirable: <200 mg/dL Borderline High: 200-239 mg/dL High: > or = 240 mg/dL HDL Cholesterol 27(L) >=40 mg/dL [facility] Comment: Reference range: ??Low HDL: ?? < 40 mg/dL ??Normal: ?40-60 mg/dL ??Desirable: > 60 mg/dL BRITTANI 2001; 285(19):7807-2502 Cholesterol/HDL Ratio 6.[address] [facility] Comment: A Cholesterol to HDL ratio below 4:1 is desirable. ??Studies suggest that increased CAD risk occurs at ratios above 5 for females and above 6 for men. ? [place] Heart Association ??(http://www.americanheart.org) ? [place] Int Med, 1994; 121:641 ? AM J Med, 1998; 105(1A):48S Blood specimen (specimen) 04/25/2016 1:07 PM EDT 04/25/2016 1:20 PM EDT Narrative Resulting Agency Comment Spec In Lab Babar Wilkerson MD CHEMISTRY ORDERABLES Performing Organization Address [facility] Co de Phone Number [facility] [place] [address] * TSH (04/25/2016 1:07 PM EDT) Thyroid Stimulating Hormone 3.69 0.27 - 4.20 mcIU/mL [facility] Blood specimen (specimen) 04/25/2016 1:07 PM EDT 04/25/2016 1:20 PM EDT Narrative Resulting Agency Comment Spec In Lab Babar Wilkerson MD CHEMISTRY ORDERABLES [facility] [place] [address] * (ABNORMAL) Hemoglobin A1c (04/25/2016 1:07 PM EDT) Hemoglobin A1c 7.7(H) 4.3 - 5.6 % [...] Mellitus, Diabetes Care 2013; 36: Suppl. 1, S32-84 Estimated Average Glucose 174 mg/dL [facility] [...] resources are available on the ADA website: http://Same Day Serves.Expert/MCadacalc Mayank BRISENO, Tomeka J, Hussein R, et al. ??Translating the A1C assay into estimated average glucose values. ??Diabetes Care 2008:31(8):7863-5744. Blood specimen (specimen) 04/25/2016 1:07 PM EDT 04/25/2016 1:20 PM EDT Narrative Resulting Agency Comment Spec In Lab Babar Wilkerson MD CHEMISTRY ORDERABLES Performing Organization Address [facility] de Phone Number [facility] [place] [address] * Creatinine (04/25/2016 1:07 PM EDT) Creatinine 0.94 0.70 - 1.20 mg/dL [facility] Comment: Please note that the pediatric reference intervals supplied above were not validated at [facility]. Results from pediatric patients should be interpreted in conjunction to the patient's age, height and muscle mass. Est Glomerular Filtration Rate >60 >=60 [facility] Comment: This estimated GFR (eGFR) value was [...] the following links into your internet browser. http://[employer]/DHnkdep [email or web address] Blood specimen (specimen) 04/25/2016 1:07 PM EDT 04/25/2016 1:20 PM EDT Narrative Resulting Agency Comment Spec In Lab Babar Wilkerson MD CHEMISTRY ORDERABLES Performing Organization Address [facility] Co de Phone Number [facility] [place] [address] documented in this encounter Visit Diagnoses Diagnosis Diabetes mellitus type 2, uncomplicated Type II or unspecified type diabetes mellitus without mention of complication, not stated as uncontrolled Hypothyroidism, unspecified type documented in this encounter Care Teams Postmaster Relationship Specialty Start Date End Date Marcela Acosta APRN [address] [place] [address] PCP - General 09/01/12 07/16/17 documented as of this encounter
--- OUTSIDE RECORDS SUMMARY | 2024-05-15 09:47 | XMS_ITS | Encounter Summary ---
[place] [address] Care Team Providers Care Web Applications Developer Name Role Phone Aleksander Perla MD Primary Care Provider [phone] Reason for Visit * Reason Onset Date Comments Other 12/10/2011 Encounter Details Date Type Department Care Team (Late st Contact Info) Description 12/10/2011 Telephone [place] [address] [facility] [place] [address] Other Social History Tobacco Use Types Packs/Day Years Used Date Smoking Tobacco: Never Sex and Gender Information Value Date Recorded Sex Assigned at Female 10/25/2022 12:28 AM EDT Gender Identity Female 10/25/2022 12:28 AM EDT Sexual Orientation Straight 10/25/2022 12 :28 AM EDT documented as of this encounter Miscellaneous Notes * Telephone Encounter - Carla Turner LPN - 12/12/2011 11:40 AM EDT Labs received and forward to Dr Westfall * Telephone Encounter - Carla Turner LPN - 12/12/2011 11:37 AM EDT Patient calls had labs done at [facility]. Did not have PE. Is asking if she can restart her Metformin. Called [facility] to have results. * Telephone Encounter - Idalmis Westfall MD - 12/10/2011 11:16 AM EDT Creatinine tomorrow, lab slip on printer, fax to local lab. Does she have a PE? * Telephone Encounter - Kizzy Sanchez RN - 12/10/2011 9:37 AM EDT This patient had a CT scan with contrast to rule out a PE last night. They told her to not take her metformin for 48 hours and to contact you to see if you wanted any kidney function tests done. [phone] documented in this encounter Plan of Treatment Scheduled Orders Name Type Priority Associated Diagnoses Orde r Schedule Creatinine, serum Lab Routine DM type 2 (diabetes mellitus, type 2) Expected: 12/10/2011 (Approximate), Expires: 12/09/2012 documented as of this encounter Visit Diagnoses Diagnosis DM type 2 (diabetes mellitus, type 2) Type II or unspecified type diabetes mellitus without mention of complication, not stated as uncontrolled documented in this encounter Care Teams Web Applications Developer Relationship Specialty Start Date End Date Aleksander Perla MD [address] [place] [address] PCP - General 06/13/10 08/31/12 documented as of this encounter
--- OUTSIDE RECORDS SUMMARY | 2024-05-15 09:47 | XMS_ITS | Encounter Summary ---
Author Organization [facility] [place] [address] Care Team Providers Care Marine Electrician Helper Name Role Phone Marcela Acosta APRN Primary Care Provider [phone] Reason for Visit * Reason Comments Medication Refill Encounter Details Date Type Department Care Team (Late st Contact Info) Description 04/05/2014 Refill [place] [address] Fernando Wong, [facility] [place] [address] Social History Tobacco Use Types Packs/Day Years [...] on filedocumented in this encounter Care Teams Marine Electrician Helper Relationship Specialty Start Date End Date Marcela Acosta APRN [address] [place] [id number] PCP - General 09/01/12 07/16/17 documented as of this encounter
--- OUTSIDE RECORDS SUMMARY | 2024-05-15 09:47 | XMS_ITS | Encounter Summary ---
Author Organization [facility] Address [facility] [place] [address] Care Team Providers Care Manual Writer Name Role Phone Marcela Acosta APRN Primary Care Provider [phone] Reason for Visit * Reason Comments Verrucous Vulgaris Encounter Details Date Type Department Care Team (Late st Contact Info) Description 09/01/2012 1:20 PM EST Office Visit Dermatology at [facility] [address] [place] [address] Uday Rivas MD [facility] [place] [address] Warts (Primary Dx); Xerosis cutis Discharge Disposition: Home Social History Tobacco Use Types Packs/Day Years Used Date Smoking Tobacco: Never Sex and Gender Information Value Date Recorded Sex Assigned at Female 10/25/2022 12:28 AM EDT Gender Identity Female 10/25/2022 12:28 AM EDT Sexual Orientation Straight 10/25/2022 12 :28 AM EDT documented as of this encounter Progress Notes * Sue Kelly MD - 09/01/2012 5:28 PM EST I was the supervising physician working with dermatology resident Dr. Javi Rivas in the dermatologyclinic during this patient visit. The level of Resident supervision for this patient visit was indirect supervision with direct supervision immediately available. (definition: [facility] Policy Statement on Graduate Medical Education, Supervision of Graduate Medical Trainees) I was immediately available to Dr. Rivas for questions and discussion regarding this visit. I have reviewed his encounter note details and level of service. * Uday Rivas - 09/01/2012 1:36 PM EST DERMATOLOGY - NEW PATIENT NOTE Date of service: 09/01/2012 Linda Garcia : 1965 Dermatology Resident Note: Uday Rivas MD Chief Problem: warts Chief Complaint Patient presents with ??? Verrucous Vulgaris Ms. Linda Garcia is a 47 y.o. female. This is a new patient to me. Seen in consultation at the request of Aleksander Perla specifically for the evaluation and management of the above problem. HPI: Ms. Garcia presents for warts bilateral hands Onset: 2 years Location: bilateral hands, nose, chin Symptoms: tender at times, especially the warts around her fingernails. Treatments tried: OTC SA and Freeze off, no improvement Her hands are dry. Uses lotion only intermittently. Shaves her chin for long dark hairs. Picks at the spots on her nose. Past Skin History: Negative Medical History: Patient Active Problem List Diagnoses Code ??? CIS - anemia T999.0 ??? CIS - depression T999.0 ??? CIS - dyslipidemia T999.0 ??? CIS - GERD T999.0 ??? CIS - hypertension T999.0 ??? CIS - obesity T999.0 ??? CIS - type 2 DM T999.0 ??? CIS - Vitamin D deficiency T999.0 Medications: Current Outpatient Prescriptions Medication Sig Dispense Refill ??? ergocalciferol (VITAMIN D) 50,000 unit capsule Take 1 capsule by mouth once a week. 12 capsule 1 ??? metFORMIN (GLUCOPHAGE) 500 mg tablet Take 2 tablets by mouth 2 times daily. 360 tablet 4 ??? levothyroxine (SYNTHROID) 75 mcg tablet Take 1 tablet by mouth daily. 90 tablet 4 ??? Cholecalciferol, Vitamin D3, (VITAMIN D) 2,000 unit Cap Take by mouth. ??? citalopram (CELEXA) 20 mg tablet Take 30 mg by mouth daily. ??? Iron 40 mg Cap Take by mouth. ??? buPROPion (WELLBUTRIN SR) 150 mg 12 hr tablet Take 200 mg by mouth 2 times daily. ??? glucagon, human recombinant, (GLUCAGON EMERGENCY) 1 mg injection Inject 1 mL subcutaneously as needed. 1 mL prn ??? CIS Free Text Med - One a day Vit ??? LORazepam (ATIVAN) 0.5 mg tablet 0.5mg, PO, Q8H,PRN ??? CYANOCOBALAMIN, VITAMIN B-12, (VITAMIN B-12 INJ) ??? lisinopril (PRINIVIL;ZESTRIL) 2.5 mg tablet ??? CALCIUM ORAL ??? aspirin 81 mg EC tablet ??? lovastatin (MEVACOR) 40 mg tablet ??? albuterol (VENTOLIN HFA) 90 mcg/Actuation inhaler Allergies: Allergies Allergen Reactions ??? Morphine Sulfate CIS - Urticaria ??? Oxycodone-Acetaminophen CIS - hallucinations ??? 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 Review of Systems: General: Feels well Skin: As per HPI; no other skin concerns Examination: Constitutional: Patient was alert, well-appearing and in no noticeable distress. Skin: An exam of face, including nose and chin, and bilateral hands was performed. Specific skin findings: 1. Verrucous papules bilateral hands: - Left hand: 2nd digit - 2 dorsal(D), 1 paronychial (P), 3rd digit - 1 p, 4th - 2p - Right hand: 2nd digit - 1 p, 3rd - 1 dorsal, 4th 1 dorsal, - Right dorsal hand x 5 2, Flat warts on chin and nose 3. Dry, scaly, cracked skin bilateral hands Diagnosis/Assessment/Treatment Plan: 1. Warts - Procedure(s): Destruction of lesion(s) with cryotherapy. Number: 14 Location: as above Discussed procedure and expectations including risks (including risk of hypopigmentation) and benefits. Verbal consent obtained. Frozen with LN2, 15-30 second thaw time, TWICE. There were no complications; the patient tolerated the procedure well. Post-procedure expectations and wound care were reviewed. - RX: Aldara apply to warts on hands nightly, wash off in am - RX: Tretinoin 0.05% cream apply to warts on chin and nose nightly - Stop picking. - Stop shaving. Patient says she cannot do this. I encouraged plucking or using depilatory cream. Patient has scheduled epilation at another facility. We discussed that even though unlikely, this mayspread warts. - Keep hands well-moisturized to stop spread through cracks in skin. 2. Xerosis Recommendations: Increase daily moisturization with thick cream multiple times throughout the day, especially after washing. Follow-up: RTC in 1 month for repeat treatment. Patient made appointment on discharge. Instructed to call for questions or concerns. Uday Rivas MD Resident in Dermatology [facility] Staff sales consultant residential manager: Sue Kelly MD Section of Dermatology [facility] documented in this encounter Plan of Treatment Not on file documented as of this encounter Visit Diagnoses Diagnosis Warts- Primary Viral warts, unspecified Xerosis cutis Other specified disease of sebaceous glands documented in this encounter Care Teams Manual Writer Relationship Specialty Start Date End Date Marcela Acosta APRN [address] [place] [id number] PCP - General 09/01/12 07/16/17 documented as of this encounter
--- OUTSIDE RECORDS SUMMARY | 2024-05-15 09:47 | XMS_ITS | Encounter Summary ---
[place] [address] Care Team Providers Care Paste Mixer Liquid Name Role Phone Lyn Sinclair APRN Primary Care Provider Encounter Details Date Type Department Care Team (Late st Contact Info) Description 04/23/2018 Telephone [place] [id number] Luis Currie RN Social History Tobacco Use Types Packs/Day Years Used Date Smoking Tobacco: Never Smokeless Tobacco: Never Sex and Gender Information Value Date Recorded Sex Assigned at Female 10/25/2022 12:28 AM EDT Gender Identity Female 10/25/2022 12:28 AM EDT Sexual Orientation Straight 10/25/2022 12 :28 AM EDT documented as of this encounter Miscellaneous Notes * Telephone Encounter - Luis Currie RN - 04/23/2018 8:08 AM EDT Patient's pharmacy faxed submission for refill on Glipizide ER 2.5mg Tablets (one by mouth daily, Qty of 90 with three refills). Patient's medication was D/C'ed on 07/17/2017, on last office visit. Forwarding to Ambreen Vora APRN. documented in this encounter Plan of Treatment Not on file documented as of this encounter Visit Diagnoses Not on filedocumented in this encounter Care Teams Paste Mixer Liquid Relationship Specialty Start Date End Date Lyn Sinclair APRN PCP - General Family Medicine 07/17/17 04/20/24 documented as of this encounter
--- OUTSIDE RECORDS SUMMARY | 2024-05-15 09:47 | XMS_ITS | Encounter Summary ---
Author Organization [facility] Address [place] [address] Care Team Providers Care Barrel Reamer Name Role Phone Valentina Garnica APRN Primary Care Provider [phone] Reason for Visit * Reason Comments Medication Refill Encounter Details Date Type Department Care Team (Late st Contact Info) Description 06/22/2013 [place] [address] Sarina Sanchez MD [facility] [place] [address] Social History Tobacco Use Types Packs/Day Years [...] on filedocumented in this encounter Care Teams Barrel Reamer Relationship Specialty Start Date End Date Valentina Garnica APRN [address] [place] [id number] PCP - General Internal Medicine 04/21/24 documented as of this encounter
--- OUTSIDE RECORDS SUMMARY | 2024-05-15 09:47 | XMS_ITS | Encounter Summary ---
Author Organization [facility] [place] [address] Care Team Providers Care Tire Trimmer Hand Name Role Phone Marcela Acosta CYNTHIA Primary Care Provider [phone] Reason for Visit * Reason Onset Date Comments Medication Refill 06/28/2014 Encounter Details Date Type Department Care Team (Late st Contact Info) Description 06/28/2014 Refill [place] [address] Idalmis Westfall MD [facility] [place] [address] Social History Tobacco Use Types Packs/Day Years Used Date Smoking Tobacco: Never Sex and Gender Information Value Date Recorded Sex Assigned at Female 10/25/2022 12:28 AM EDT Gender Identity Female 10/25/2022 12:28 AM EDT Sexual Orientation Straight 10/25/2022 12 :28 AM EDT documented as of this encounter Miscellaneous Notes * Telephone Encounter - Muriel Rodríguez RN - 06/28/2014 5:01 PM EST Faxed in request from pharmacy documented in this encounter Plan of Treatment Not on file documented as of this encounter Visit Diagnoses Not on filedocumented in this encounter Care Teams Tire Trimmer Hand Relationship Specialty Start Date End Date Marcela Acosta APRN [address] [place] [address] PCP - General 09/01/12 07/16/17 documented as of this encounter
--- OUTSIDE RECORDS SUMMARY | 2024-05-15 09:47 | XMS_ITS | Encounter Summary ---
Author Organization [facility] [place] [address] Care Team Providers Care Shoemaker Apprentice Name Role Phone Marcela Acosta APRN Primary Care Provider [phone] Reason for Visit * Reason Onset Date Comments Medication Refill 06/05/2017 Encounter Details Date Type Department Care Team (Late st Contact Info) Description 06/05/2017 [place] [address] Ambreen Vora SUPERVISOR [facility] [place] [address] Social History Tobacco Use Types Packs/Day Years [...] on filedocumented in this encounter Care Teams Shoemaker Apprentice Relationship Specialty Start Date End Date Marcela Acosta APRN [address] [place] [id number] PCP - General 09/01/12 07/16/17 documented as of this encounter
--- OUTSIDE RECORDS SUMMARY | 2024-05-15 09:47 | XMS_ITS | Encounter Summary ---
Author Organization [facility] Address [facility] [place] [address] Care Team Providers Care Rotary Shear Cutter Name Role Phone Aleksander Perla MD Primary Care Provider [phone] Encounter Details Date Type Department Care Team (Late st Contact Info) Description 04/09/2011 Orders [place] [address] Idalmis Westfall MD [facility] [place]IN[place] [address] Social History Tobacco Use Types Packs/Day Years [...] Procedure Name Priority Date/Time Associated Diagnosis Comments FILM LIBRARY STORAGE ONLY DX GI STUDY Routine 04/09/2011 11:05 AM EDT documented in this encounter Results * FILM LIBRARY- STORAGE ONLY DX GI STUDY (04/09/2011 11:05 AM EDT) Anatomical Region Laterality Modality Other 04/09/2011 11:0 5 AM EDT Narrative 09/10/2013 9:50 PM EST This is a non-reportable exam. Procedure Note Fariha, Ben - 09/10/2013 This is a non-reportable exam. Idalmis Westfall MD IM FILM LIBRARY ORDERABLES documented in this encounter Visit Diagnoses Not on filedocumented in this encounter Care Teams Rotary Shear Cutter Relationship Specialty Start Date End Date Aleksander Perla MD [address] [facility] [place] [address] PCP - General 06/13/10 08/31/12 documented as of this encounter
--- OUTSIDE RECORDS SUMMARY | 2024-05-15 09:47 | XMS_ITS | Encounter Summary ---
Author Organization [facility] [place] [address] Care Team Providers Care Chucking And Sawing Machine Operator Name Role Phone Aleksander Perla MD Primary Care Provider [phone] Encounter Details Date Type Department Care Team (Late st Contact Info) Description 07/24/2010 [place] [address] Armin Reynolds MD [facility] ENDOCRINOLOGY DEPT. [place], [place] [id number] Social History Tobacco Use Types Packs/Day Years [...] Procedure Name Priority Date/Time Associated Diagnosis Comments HEMOGLOBIN A1C SMITA 07/24/2010 2:59 PM EST documented in this encounter Results * (ABNORMAL) HEMOGLOBIN A1C (07/24/2010 2:59 PM EST) Hemoglobin A1c 7.5(H) 4.3 - 6.1 % [facility] Estimated Average Glucose 169 mg/dL [facility] Comment: eAG equivalents for HbA1c percentages: HbA1c(%) [...] into estimated average glucose values. ??Diabetes Care 2008:31(8):7025-5123. Blood specimen (specimen) 07/24/2010 2:59 PM EST 07/24/2010 3:07 PM EST Armin Reynolds MD CHEMISTRY ORDERABLES ANTHONY AGUSTIN documented in this encounter Visit Diagnoses Not on filedocumented in this encounter Care Teams Chucking And Sawing Machine Operator Relationship Specialty Start Date End Date Aleksander Perla MD [address] [place] [address] PCP - General 06/13/10 08/31/12 documented as of this encounter
--- OUTSIDE RECORDS SUMMARY | 2024-05-15 09:47 | XMS_ITS | Encounter Summary ---
Author Organization [facility] [place] [address] Care Team Providers Care Research Worker Kitchen Name Role Phone Marcela Acosta APRN Primary Care Provider [phone] Reason for Visit * Reason Comments Medication Refill Encounter Details Date Type Department Care Team (Late st Contact Info) Description 09/08/2015 [place] [address] Idalmis Westfall MD [facility] DR [place] [address] Social History Tobacco Use Types Packs/Day Years [...] on filedocumented in this encounter Care Teams Research Worker Kitchen Relationship Specialty Start Date End Date Marcela Acosta APRN [address] [place] [id number] PCP - General 09/01/12 07/16/17 documented as of this encounter
--- OUTSIDE RECORDS SUMMARY | 2024-05-15 09:47 | XMS_ITS | Encounter Summary ---
Author Organization [facility] [place] [address] Care Team Providers Care Cutting And Creasing Press Operator Name Role Phone Marcela Acosta APRN Primary Care Provider [phone] Reason for Visit * Reason Comments Medication Refill Encounter Details Date Type Department Care Team (Late st Contact Info) Description 06/21/2013 [place] [address] Idalmis Westfall MD [facility] [place] [address] Social History Tobacco Use Types Packs/Day Years [...] on filedocumented in this encounter Care Teams Cutting And Creasing Press Operator Relationship Specialty Start Date End Date Marcela Acosta APRN [address] [place] [phone] PCP - General 09/01/12 07/16/17 documented as of this encounter
--- OUTSIDE RECORDS SUMMARY | 2024-05-15 09:47 | XMS_ITS | Encounter Summary ---
[place] [address] Care Team Providers Care Cupola Hoist Operator Name Role Phone Lyn Sinclair APRN Primary Care Provider Reason for Visit * Reason Onset Date Comments Medication Refill 07/10/2017 Encounter Details Date Type Department Care Team (Late st Contact Info) Description 07/10/2017 Refill [place] [address] Rachael Tello I, JASBIR Social History Tobacco Use Types Packs/Day Years [...] on filedocumented in this encounter Care Teams Cupola Hoist Operator Relationship Specialty Start Date End Date Lyn Sinclair APRN PCP - General Family Medicine 07/17/17 04/20/24 documented as of this encounter
--- OUTSIDE RECORDS SUMMARY | 2024-05-15 09:47 | XMS_ITS | Encounter Summary ---
Author Organization [facility] [place] [address] Care Team Providers Care News Video Editor Name Role Phone Marcela Acosta APRN Primary Care Provider [phone] Reason for Visit * Reason Onset Date Comments Medication Refill 05/16/2017 Encounter Details Date Type Department Care Team (Late st Contact Info) Description 05/16/2017 [place] [address] Ambreen Vora UNIVERSAL WORKER ASSISTED [facility] DR [place] [address] Social History Tobacco Use Types Packs/Day Years [...] on filedocumented in this encounter Care Teams News Video Editor Relationship Specialty Start Date End Date Marcela Acosta APRN [address] [place] [id number] PCP - General 09/01/12 07/16/17 documented as of this encounter
--- OUTSIDE RECORDS SUMMARY | 2024-05-15 09:47 | XMS_ITS | Encounter Summary ---
Author Organization [place] [address] Care Team Providers Care Pottery Decoration Designer Name Role Phone Lyn Sinclair APRN Primary Care Provider [phone] Reason for Visit * Consultation (Routine) - Closed Specialty Diagnoses / Procedures Referred By Sean rojas Referred To Contact Infectious Diseases Diagnoses Latent tuberculosis Lyn Sinclair APRN [address] [phone] [facility] Infectious Dis [address] [place] [phone] Referral ID Status Reason Start Date Expiration Date V isits Requested Visits Authorized [id number] Closed Consult, [facility] PCP Updated and/or Approved 05/29/2020 05/29/2021 6 6 Encounter Details Date Type Department Care Team (Late st Contact Info) Description 06/09/2020 9:00 AM EST Office [place] [address] Rob Delgado MD [facility] [place] [address] Positive QuantiFERON-TB Gold test Social History Tobacco Use Types Packs/Day Years Used Date Smoking Tobacco: Never Smokeless Tobacco: Never Sex and Gender Information Value Date Recorded Sex Assigned at Female 10/25/2022 12:28 AM EDT Gender Identity Female 10/25/2022 12:28 AM EDT Sexual Orientation Straight 10/25/2022 12 :28 AM EDT documented as of this encounter Last Filed Vital Signs Vital Sign Reading Time Taken Comments Blood Pressure 142/64 06/09/2020 9:01 AM EST Pulse 63 06/09/2020 9:01 AM EST Temperature 36.3 ??C (97.3 ??F) 06/09/2020 9:01 AM ES T Respiratory Rate 16 06/09/2020 9:01 AM EST Oxygen Saturation 100% 06/09/2020 9:01 AM EST Inhaled Oxygen Concentration - - Weight 71.2 kg (157 lb) 06/09/2020 9:01 AM EST Height 165.1 cm (5' 5) 06/09/2020 9:01 AM EST Body Mass Index 26.13 06/09/2020 9:01 AM EST documented in this encounter Progress Notes * Rob Delgado MD - 06/09/2020 9:00 AM EST INFECTIOUS DISEASE CLINIC - OUTPATIENT CONSULTATION NOTE Reason for Consult: Positive Quantiferon GOLD test History of Present Illness: Linda Garcia is a 55 y.o. female with history of DMII, obesity, hypertension, depression, anxiety, who was referred to us for latent TB. Per chart review, patient has been tested for TB for her job with [employer], positive x 2 with negative CXR. She was started on rifampin for 4 months for latent TB, but has been asked to see ID by her employer. Job was testing for some sort of certification. Did not get a TST, and has not had one for at least6 or 7 years while working at [employer]. No history of positive TB test. She has never been out of the country other than [place], never worked in homeless shelters or prisons. She has been on rifampin for about the past 3 weeks - first week had quite a bit of headache with some GI upset, but now has improved. 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 She has never seen an active TB patient. She thinks that she does have some weight loss due to losing her a few years ago, night sweats due to menopause. No hemoptysis, back pain. Past Medical History: DMII, depression, anxiety, vitamin deficiencies with history of gastric bypass, hypothyroidism Past Surgical History: Past Surgical History: Procedure Laterality Date ??? CREATED BY INTERFACE -BP / WITH TUBAL Procedure Date: 07/29/2001 ??? CREATED BY INTERFACE Entered not Verified Procedure Date: 09/05/2010 ??? CREATED BY INTERFACE gastric bypass Procedure Date: 07/21/1999 ??? CREATED BY INTERFACE PANNICULECTOMY(PLASTICS) / ABDOMINAL Procedure Date: 01/20/2003 ??? CREATED BY INTERFACE VENTRAL HERNIA REPAIR Procedure Date: 01/20/2003 No known hardware. Medications: Pertinent medications include: Rifampin alksdfj Allergies: Allergies Allergen Reactions ??? Doxycycline Hcl Tongue swelling ??? Morphine Sulfate CIS - Urticaria ??? Oxycodone-Acetaminophen CIS - hallucinations ??? Trazodone Anxiety flagyl Amoxicillin - swelling/edema Family History: No history of TB in family Social History: [place]. Has also lived in [facility]. Worked in [employer] for a few years. 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 Smoking: As a teenager Drinking: Very very rarely Drugs: No history of drug use ROS: 14 point ROS (-) except as above Vital signs: Patient Vitals for the past 24 hrs: Temp Pulse Resp BP SpO2 06/09/20 0901 36.3 ??C (97.3 ??F) 63 16 142/64 100 % General: Alert and oriented, pleasant Head: NC AT EENT: EOMI, no nasal secretions, no tonsillar exudates Neck: no LAD, no JVD Cardiovascular: RRR no obvious MRG no S3 S4 cap refill <2 seconds Pulmonary: Nonlabored respirations. No wheezing, rhonchi, crackles Abdomen: BS + ND NT no rebound tenderness no guarding Ext: UE and LE WWP. Distal pulses palpable throughout, no spinal masses or tenderness Skin: no rashes, no splinter hemorrhages Neuro: alert and oriented to person place time and situation. No facial droop. No dysarthia Psych: normal affect Labs: Labs reviewed in chart and significant for: 05/17: WBC 7.2, hgb 11, plt 255, cr 0.81 Microbiology: 05/10 Quantiferon gold TB1 antigen 0.55, TB2 antigen 0.51 Imaging: Imaging reviewed in chart and significant for: 05/17 CXR - no evidence of pulmonary TB Assessment/Plan: This is a 55yo woman with mildly positive Quantiferon GOLD TB tests, currently being treated with rifampin, who presents for evaluation of possible latent TB. She has no pulmonary symptoms or risk factors for development of TB and no known exposure history. 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 Her Quantiferon GOLD is weakly positive - often times we recommend treating only for antigen numbers over 1.0. However, she is already on rifampin treatment and tolerating it well, without any known drug interactions. It is reasonable for her to continue her current treatment to prevent the need for further treatment in the future. Her Quantiferon GOLD will remain positive despite treatment with rifampin, and this test should only be ordered again if the patient has exposure/high pretest probability of disease. - continue rifampin 600mg daily for a total of 4 months of treatment for TB - follow-up juan Delgado MD 06/09/2020 10:00 AM Plan discussed with Dr. Mathews. * Lizette Mathews MD - 06/09/2020 9:00 AM EST ID Attending I reviewed the patient's history with Dr. Delgado during the visit and I agree with her history, as detailed above. In brief, we were asked by Dr. Sinclair to see this 55 y.o. female because of possible latent tuberculosis. Ms. Garcia had a QuantiFERON-TB test as part of a employment evaluation and wasfound to have a low-positive result. She has diabetes and is status post gastric bypass. She has norisk factors for having contracted tuberculosis. She was started on rifampin three weeks ago and istolerating it well. I interviewed and examined the patient myself, and my examination confirms Dr. Delgado's findings. Dr. Delgado's assessment and plan were formulated in discussion with me at the time of the visit, and Iagree with them as documented. Is possible that the test result is a false-positive, given the absence of identified risk factors for tuberculosis, but the patient has been started on rifampin and istolerating it well, so it makes sense to continue it at this time. In the absence of symptoms, she need not have laboratory testing to screen for toxicity, but we discussed possible adverse effects with the patient and instructed her to call us or her PCP should she have concerns. documented in this encounter Miscellaneous Notes * Addendum Note - Lizette Mathews MD - 06/09/2020 9:00 AM ESTAddended by: LIZETTE MATHEWS on: 06/14/2020 12:00 PM Modules accepted: Level of Service documented in this encounter Plan of Treatment Not on file documented as of this encounter Visit Diagnoses Diagnosis Positive QuantiFERON-TB Gold test Nonspecific reaction to cell mediated immunity measurement of gamma interferon antigen response without active tuberculosis documented in this encounter Care Teams Pottery Decoration Designer Relationship Specialty Start Date End Date Lyn Sinclair APRN PCP - General Family Medicine 07/17/17 04/20/24 documented as of this encounter
--- OUTSIDE RECORDS SUMMARY | 2024-05-15 09:47 | XMS_ITS | Encounter Summary ---
[place] [address] Care Team Providers Care Field C[employer] Farmworker Name Role Phone Marcela Acosta APRN Primary Care Provider [phone] Reason for Visit * Reason Onset Date Comments Medication Refill 04/30/2017 Encounter Details Date Type Department Care Team (Late st Contact Info) Description 04/30/2017 [place] [phone] Rachael Tello MA Social History Tobacco Use Types Packs/Day Years [...] on filedocumented in this encounter Care Teams Field [employer] Farmworker Relationship Specialty Start Date End Date Marcela Acosta APRN [address], [place] [id number] PCP - General 09/01/12 07/16/17 documented as of this encounter
--- OUTSIDE RECORDS SUMMARY | 2024-05-15 09:47 | XMS_ITS | Encounter Summary ---
Author Organization [facility] [place] [address] Care Team Providers Care Contact Officer Name Role Phone Aleksander Perla MD Primary Care Provider [phone] Reason for Visit * Reason Comments Diabetes Encounter Details Date Type Department Care Team (Late st Contact Info) Description 10/01/2011 9:00 AM EDT Office [place] [address] Idalmis Westfall MD [facility] [place] [address] DM type 2 (diabetes mellitus, type 2) (Primary Dx) Discharge Disposition: Home Social History Tobacco Use Types Packs/Day Years Used Date Smoking Tobacco: Never Sex and Gender Information Value Date Recorded Sex Assigned at Female 10/25/2022 12:28 AM EDT Gender Identity Female 10/25/2022 12:28 AM EDT Sexual Orientation Straight 10/25/2022 12 :28 AM EDT documented as of this encounter Last Filed Vital Signs Vital Sign Reading Time Taken Comments Blood Pressure 144/79 10/01/2011 9:53 AM EDT Pulse 75 10/01/2011 9:53 AM EDT Temperature - - Respiratory Rate - - Oxygen Saturation - - Inhaled Oxygen Concentration - - Weight 93.1 kg (205 lb 3.2 oz) 10/01/2011 9:53 A M EDT Height 165.1 cm (5' 5) 10/01/2011 9:53 AM EDT Body Mass Index 34.15 10/01/2011 9:53 AM EDT documented in this encounter Patient Instructions * Patient Instructions* Idalmis Westfall MD - 10/01/2011 10:21 AM EDT Recent Results (from the past 24 hour(s)) HEMOGLOBIN A1C Component Value Range ??? Hemoglobin A1C 6.5 (*) 4.3 - 6.1 (%) ??? Est Avg Gluc 140 (mg/dL) TSH Component Value Range ??? TSH 6.14 (*) 0.27 - 4.20 (mcIU/mL) HDL/CHOL PROFILE Component Value Range ? ? Chol, Total 132 <=199 (mg/dL) ? ? HDL 29 (*) >=40 (mg/dL) ??? Chol/HDL Ratio 4.6 (ratio) CREATININE, SERUM Component Value Range ??? Creatinine 0.69 (*) 0.70 - 1.20 (mg/dL) ? ? Estimated GFR >60 >=60 documented in this encounter Progress Notes * Idalmis Westfall MD - 09/29/2011 7:04 PM EST CC: Here for f/u of type 2 DM Dx: 1996 Last Hga1c 6.7%, 05/01; 6.5%, 09/30 Regimen: metformin 1000 bid, acarbose 50 bid- didn't work, glipizide- low blood sugars Complications: dentist- 08/02; eyes- 03/01, no DR; Cr- 0.69, 09/30;ma- <3, 04/01; neuropathy- ulnar and carpal tunnel neuropathy on emg, improved with workspace adjustment, no peripheral; CAD- neg [id number]; lipids- TChol 171, HDL- , LDL- 115, 2009; DM health maintenance: beta jerrell-no ; ASA 81 ; MAGNOLIA/ARB- Lisinopril 2.5/d; statin- simvastatin 40/d; flu shot-declined ; pneomovax-utd ; smoking- no; TSH- 3.6, 10/29; 6.14, 09/30 At the last visit we Had her stop glipizide and start acarbose 25 mg once a day for a week, then twice a day for a week, then three times a day, and then she will increase to 50 mg twice a day. Linda has been doing well since her last visit. We tried acarbose. She said it was not working, was not doing anything to keep her blood sugars down. She restarted the glipizide 2.5 mg once or twice a day and was having lot of hypoglycemia. So now she is just on metformin 1000 mg twice a day and with that fasting sugars usually 90 to 120, after breakfast 150 to 170, after lunch 130 to 140 and after supper usually are her highest of the day 180 to 200 particularly when she has a bigger meal. Her diet for breakfast usually a granola bar and yogurt, lunch leftovers or a sandwich, sometimes a hot meal at the hospital and for supper last night she had two meatballs with spaghetti, but this morning blood sugar was 94. Since she is off the glipizide, no hypoglycemia. Exercise is limited. She is not really doing much, but she has lost 11 pounds since April. She is on Wellbutrin for her mood and she has had a little less appetite and been feeling well with this. She does have some carpal tunnel and ulnar nerve symptoms and had EMGs which confirmed that. They did some adjustments of her work space and symptoms are better. 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 She has an elevated TSH today. Clinically, she has some fatigue, but really few other hypothyroid symptoms other than some dry skin. Current outpatient prescriptions ordered prior to encounter Medication Sig Dispense Refill ??? buPROPion (WELLBUTRIN SR) 150 mg 12 hr tablet Take 150 mg by mouth 2 times daily. ??? metFORMIN (GLUCOPHAGE) 500 mg tablet Take 2 tablets by mouth 2 times daily. 540 tablet 4 ??? glucagon, human recombinant, (GLUCAGON EMERGENCY) 1 mg injection Inject 1 mL subcutaneously as needed. 1 mL prn ??? LORazepam (ATIVAN) 0.5 mg tablet 0.5mg, PO, Q8H,PRN ??? CYANOCOBALAMIN, VITAMIN B-12, (VITAMIN B-12 INJ) ??? lisinopril (PRINIVIL;ZESTRIL) 2.5 mg tablet ??? CALCIUM ORAL ??? aspirin 81 mg EC tablet ??? lovastatin (MEVACOR) 40 mg tablet ??? albuterol (VENTOLIN HFA) 90 mcg/Actuation inhaler ??? CIS Free Text Med - One a day Vit Allergies Allergen Reactions ??? Oxycodone-acetaminophen CIS - hallucinations ??? Morphine Sulfate CIS - Urticaria ??? Trazodone Anxiety Patient Active Problem List Diagnoses Code ??? CIS - anemia ??? CIS - depression ??? CIS - dyslipidemia ??? CIS - GERD ??? CIS - hypertension ??? CIS - obesity ??? CIS - type 2 DM ??? CIS - Vitamin D deficiency PHYSICAL EXAMINATION: Blood pressure 144/79, pulse 75, weight 205 pounds, height 5 feet 5-1/2 inches. In general, she looks well. Skin: Smooth, warm, and dry. There are no ulcerations. Cardiovascular, 2+ pulses. No edema. Neurologic Exam: She has excellent light touch sensation. Her neck is supple. Thyroid gland is barely palpable. LABORATORY TESTS: Hemoglobin A1c 6.5, TSH 6.14, HDL 29, LDL 86, and creatinine 0.69. IMPRESSION: 1. Diabetes remains in good control. We will continue the metformin 1000 mg twice a day, I expect with the weight loss, it has really helped with the blood sugar. If she is finding postprandial sugars are consistently above 180 to 200, we could try some Prandin for that meal. So perhaps just Prandin for an evening meal, but right now with her hemoglobin A1c of 6.5, I would not add anything. 2. Hypothyroidism. She has an elevated TSH, clinically few symptoms. She does have two sisters with hypothyroidism, but she is inclined to just watch and wait. We will recheck her TSH at her local lab in two or three months. If she becomes more symptomatic or the TSH goes higher we could consider some thyroid hormone replacement. 3. Hyperlipidemia is well controlled. 4. Hypertension, blood pressure is just mildly elevated today. It was a busy hectic morning. She has appointments with her children and home pressure has been running fine, so we will just keep an eye on it and continue the low dose lisinopril. PLAN: 1. Continue metformin 1000 mg twice a day. Check TSH in two months. 2. Follow up in six months with hemoglobin A1c and TSH in the quick draw lab. documented in this encounter Miscellaneous Notes * Communication Body - Idalmis Westfall MD - 10/01/2011 10:39 AM EDT PRIMARY CARE PROVIDER: Aleksander Perla M.D. Linda has been doing well since her last visit. We tried acarbose. She said it was not working, was not doing anything to keep her blood sugars down. She restarted the glipizide 2.5 mg once or twice a day and was having lot of hypoglycemia. So now she is just on metformin 1000 mg twice a day and with that fasting sugars usually 90 to 120, after breakfast 150 to 170, after lunch 130 to 140 and after supper usually are her highest of the day 180 to 200 particularly when she has a bigger meal. Her diet for breakfast usually a granola bar and yogurt, lunch leftovers or a sandwich, sometimes a hot meal at the hospital and for supper last night she had two meatballs with spaghetti, but this morning blood sugar was 94. Since she is off the glipizide, no hypoglycemia. Exercise is limited. She is not really doing much, but she has lost 11 pounds since April. She is on Wellbutrin for her mood and she has had a little less appetite and been feeling well with this. She does have some carpal tunnel and ulnar nerve symptoms and had EMGs which confirmed that. They did some adjustments of her work space and symptoms are better. 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 She has an elevated TSH today. Clinically, she has some fatigue, but really few other hypothyroid symptoms other than some dry skin. Current outpatient prescriptions ordered prior to encounter Medication Sig Dispense Refill ??? buPROPion (WELLBUTRIN SR) 150 mg 12 hr tablet Take 150 mg by mouth 2 times daily. ??? metFORMIN (GLUCOPHAGE) 500 mg tablet Take 2 tablets by mouth 2 times daily. 540 tablet 4 ??? glucagon, human recombinant, (GLUCAGON EMERGENCY) 1 mg injection Inject 1 mL subcutaneously as needed. 1 mL prn ??? LORazepam (ATIVAN) 0.5 mg tablet 0.5mg, PO, Q8H,PRN ??? CYANOCOBALAMIN, VITAMIN B-12, (VITAMIN B-12 INJ) ??? lisinopril (PRINIVIL;ZESTRIL) 2.5 mg tablet ??? CALCIUM ORAL ??? aspirin 81 mg EC tablet ??? lovastatin (MEVACOR) 40 mg tablet ??? albuterol (VENTOLIN HFA) 90 mcg/Actuation inhaler ??? CIS Free Text Med - One a day Vit Allergies Allergen Reactions ??? Oxycodone-acetaminophen CIS - hallucinations ??? Morphine Sulfate CIS - Urticaria ??? Trazodone Anxiety Patient Active Problem List Diagnoses Code ??? CIS - anemia [address]00 ??? CIS - depression ??? CIS - dyslipidemia ??? CIS - GERD ??? CIS - hypertension ??? CIS - obesity ??? CIS - type 2 DM ??? CIS - Vitamin D deficiency PHYSICAL EXAMINATION: Blood pressure 144/79, pulse 75, weight 205 pounds, height 5 feet 5-1/2 inches. In general, she looks well. Skin: Smooth, warm, and dry. There are no ulcerations. Cardiovascular, 2+ pulses. No edema. Neurologic Exam: She has excellent light touch sensation. Her neck is supple. Thyroid gland is barely palpable. LABORATORY TESTS: Hemoglobin A1c 6.5, TSH 6.14, HDL 29, LDL 86, and creatinine 0.69. IMPRESSION: 1. Diabetes remains in good control. We will continue the metformin 1000 mg twice a day, I expect with the weight loss, it has really helped with the blood sugar. If she is finding postprandial sugars are consistently above 180 to 200, we could try some Prandin for that meal. So perhaps just Prandin for an evening meal, but right now with her hemoglobin A1c of 6.5, I would not add anything. 2. Hypothyroidism. She has an elevated TSH, clinically few symptoms. She does have two sisters with hypothyroidism, but she is inclined to just watch and wait. We will recheck her TSH at her local lab in two or three months. If she becomes more symptomatic or the TSH goes higher we could consider some thyroid hormone replacement. 3. Hyperlipidemia is well controlled. 4. Hypertension, blood pressure is just mildly elevated today. It was a busy hectic morning. She has appointments with her children and home pressure has been running fine, so we will just keep an eye on it and continue the low dose lisinopril. PLAN: 1. Continue metformin 1000 mg twice a day. Check TSH in two months. 2. Follow up in six months with hemoglobin A1c and TSH in the quick draw lab. documented in this encounter Plan of Treatment Scheduled Orders Name Type Priority Associated Diagnoses Orde r Schedule TSH Lab Routine DM type 2 (diabetes mellitus, type 2) Expected: 11/30/2011 (Approximate), Expires: 10/01/2012 documented as of this encounter Procedures Procedure Name Priority Date/Time Associated Diagnosis Comments CREATININE Routine 10/01/2011 9:20 AM EDT DM type 2 (diabetes mellitus, type 2) TSH [facility] 10/01/2011 9:20 AM EDT DM type 2 (diabetes mellitus, type 2) LDL CHOLESTEROL, DIRECT [facility] 10/01/2011 9:20 AM EDT DM type 2 (diabetes mellitus, type 2) HDL/CHOL PROFILE [facility] 10/01/2011 9:20 AM EDT DM type 2 (diabetes mellitus, type 2) HEMOGLOBIN A1C [facility] 10/01/2011 9:20 AM EDT DM type 2 (diabetes mellitus, type 2) documented in this encounter Results * (ABNORMAL) Hemoglobin A1c (05/05/2012 8:30 AM EDT) [facility] Hemoglobin A1c 6.9(H) 4.3 - 6.1 % [facility] Estimated Average Glucose 151 mg/dL [facility] Comment: eAG equivalents for HbA1c percentages: HbA1c(%) [...] into estimated average glucose values. ??Diabetes Care 2008:31(8):9938-4479. Blood specimen (specimen) 05/05/2012 8:30 AM EDT 05/05/2012 8:49 AM EDT Narrative Resulting Agency Comment Spec In Lab Idalmis Westfall MD CHEMISTRY ORDERAB LES [facility] * (ABNORMAL) VIT D Total 25 Hydroxy (05/05/2012 8:30 AM EDT) [facility] Vitamin D Total 25 OH 28(L) 30 - 100 ng/mL [facility] Comment: Deficient <10 ng/mL Insufficient 10 to [...] D concentration is reported. Blood specimen (specimen) 05/05/2012 8:30 AM EDT 05/05/2012 8:49 AM EDT Narrative Resulting Agency Comment Spec In Lab Idalmis Westfall MD CHEMISTRY ORDERAB LES [facility] * (ABNORMAL) Creatinine, serum (10/01/2011 9:20 AM EDT) Creatinine 0.69(L) 0.70 - 1.20 mg/dL [facility] Est Glomerular Filtration Rate >60 >=[address] [facility] Comment: The National Kidney Disease Education Program [...] MD CHEMISTRY ORDERAB LES Performing Organization Address [facility] Co de Phone Number [facility] [employer] [facility] * LDL Cholesterol, Direct (10/01/2011 9:20 AM EDT) LDL Cholesterol, Direct 86 <=99 mg/dL [facility] Comment: The National Cholesterol Education Program (NCEP) has set the following guidelines for LDL Cholesterol: Reference range: ?? Optimal: ?<100 mg/dL ?? Near Optimal/Above Optimal: ?? 100-129 mg/dL ?? Borderline high: ?130-159 mg/dL ?? High: ? 160-189 mg/dL ?? Very high: ?>ow=627 mg/dL BRITTANI 2001: 285(19):5966-4408 Blood specimen (specimen) 10/01/2011 9:20 AM EDT 10/01/2011 9:25 AM EDT Narrative Resulting Agency Comment Spec In Lab Idalmis Westfall MD CHEMISTRY ORDERAB LES Performing Organization Address [facility]/ZIP Co de Phone Number [facility] * (ABNORMAL) HDL/Cholesterol Profile (10/01/2011 9:20 AM EDT) Cholesterol, Total 132 <=199 mg/dL [facility] Comment: Recommendations of the NCEP Adult Treatment Panel for the following risk cutoff thresholds for the [place] population: Desirable: <200 mg/dL Borderline High: 200-239 mg/dL High: > or = 240 mg/dL HDL Cholesterol 29(L) >=40 mg/dL [facility] Comment: Reference range: ??Low HDL: ?? < 40 mg/dL ??Normal: ?40-60 mg/dL ??Desirable: > 60 mg/dL BRITTANI 2001; 285(19):1991-8600 Cholesterol/HDL Ratio 4.6 ratio [facility] Comment: A Cholesterol to HDL ratio below 4:1 is desirable. ??Studies suggest that increased CAD risk occurs at ratios above 5 for females and above 6 for men. ? [place] Heart Association ??(http://www.americanheart.org) ? [place] Int Med, 1994; 121:641 ? AM J Med, 1998; 105(1A):48S Blood specimen (specimen) 10/01/2011 9:20 AM EDT 10/01/2011 9:25 AM EDT Narrative Resulting Agency Comment Spec In Lab Idalmis Westfall MD CHEMISTRY ORDERAB LES [facility] * (ABNORMAL) TSH (10/01/2011 9:20 AM EDT) Thyroid Stimulating Hormone 6.14(H) 0.27 - 4.20 mcIU/mL [facility] Blood specimen (specimen) 10/01/2011 9:20 AM EDT 10/01/2011 9:25 AM EDT Narrative Resulting Agency Comment Spec In Lab Idalmis Westfall MD CHEMISTRY ORDERAB LES [facility] * (ABNORMAL) Hemoglobin A1c (10/01/2011 9:20 AM EDT) Hemoglobin A1c 6.5(H) 4.3 - 6.1 % [facility] Estimated Average Glucose 140 mg/dL [facility] Comment: eAG equivalents for HbA1c percentages: HbA1c(%) [...] into estimated average glucose values. ??Diabetes Care 2008:31(8):5818-6111. Blood specimen (specimen) 10/01/2011 9:20 AM EDT 10/01/2011 9:25 AM EDT Narrative Resulting Agency Comment Spec In Lab Idalmis Westfall MD CHEMISTRY ORDERAB LES [facility] documented in this encounter Visit Diagnoses Diagnosis DM type 2 (diabetes mellitus, type 2)- Primary Type II or unspecified type diabetes mellitus without mention of complication, not stated as uncontrolled documented in this encounter Care Teams Contact Officer Relationship Specialty Start Date End Date Aleksander Perla MD [address] [place] [address] PCP - General 06/13/10 08/31/12 documented as of this encounter
--- OUTSIDE RECORDS SUMMARY | 2024-05-15 09:47 | XMS_ITS | Encounter Summary ---
[place] [address] Care Team Providers Care Nurses' Aide Name Role Phone Lyn Sinclair APRN Primary Care Provider [phone]- [phone] Reason for Visit * Reason Comments Follow-up * Consultation (Routine) - Closed Specialty Diagnoses / Procedures Referred By Sean rojas Referred To Contact Dermatology Diagnoses Localized swelling, mass and lump, head Follicular disorder, unspecified Folliculitis, Lump behind RT Ear; Est. Patient-Notes Received Procedures Consult Lyn Sinclair APRN [address] [address] Indra Paez MD [address] [place] [address], [place] [address] Referral ID Status Reason Start Date Expiration Date Visits Re quested Visits Authorized [id number] Closed 01/31/2021 01/31/2022 1 1 Encounter Details Date Type Department Care Team (Late st Contact Info) Description 05/26/2021 9:30 AM EDT Office Visit Dermatology at [address] [place] [address] Indra Paez MD [address], [place] [address] Folliculitis; Pilar cyst; Nevus Social History Tobacco Use Types Packs/Day Years Used Date Smoking Tobacco: Never Smokeless Tobacco: Never Sex and Gender Information Value Date Recorded Sex Assigned at Female 10/25/2022 12:28 AM EDT Gender Identity Female 10/25/2022 12:28 AM EDT Sexual Orientation Straight 10/25/2022 12 :28 AM EDT documented as of this encounter Progress Notes * Saima Mills LPN - 05/26/2021 9:30 AM EDT min * Indra Paez MD - 05/26/2021 9:30 AM EDT Problem: 1. 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 Pilar cyst left temporal scalp 3. Irritated nevus left nasal alar crease Linda follows up is now 56. 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 She still having issues with her scalp folliculitis. This is been an issue since 2005. She is we have tried numerous different shampoos corticosteroid creams and what works for her is oral minocycline even just 1 dosing a day. She complains that without it every 2 to 3 weeks she will get new areas of folliculitis within her scalp that are painful and she cannot avoid digging and scratching at. She was on rifampin for latent TB and for those 6 months had no issues either with her scalp. Unfortunately she lost her recently. Her triplets went to school at the [employer] and graduated in 2016. Physical examination reveals a pleasant 56-year-old woman who has excoriated erythematous papules scattered diffusely through the scalp most prominently today on the posterior parietal and occipital scalp areas. She has a pilar cyst on the right temporal scalp and a compound was intradermal nevus in the left nasal alar crease. Assessment plan: Acne excoriated/scalp folliculitis 1. Patient understands with the potential side effects are of chronic antibiotics in particular long-term minocycline. We discussed this at some length 2. Recommend we begin minocycline 100 mg 1 p.o. daily dispense 30 with 3 refills. This be called [facility] pharmacy Pilar cyst/irritated nevus 1. We will plan a 45-minute appointment for excision of a pilar cyst of the right mosque scalp and of the nevus on the left nasal ala crease CC: Lyn Sinclair APRN documented in this encounter Plan of Treatment Not on file documented as of this encounter Visit Diagnoses Diagnosis Folliculitis Other specified disease of hair and hair follicles Pilar cyst Nevus Benign neoplasm of skin, site unspecified documented in this encounter Care Teams Nurses' Aide Relationship Specialty Start Date End Date Lyn Sinclair APRN PCP - General Family Medicine 07/17/17 04/20/24 documented as of this encounter
--- OUTSIDE RECORDS SUMMARY | 2024-05-15 09:47 | XMS_ITS | Encounter Summary ---
[place] [address] Care Team Providers Care Jar Filler Name Role Phone Lyn Sinclair APRN Primary Care Provider Encounter Details Date Type Department Care Team (Late st Contact Info) Description 04/29/2018 Telephone [place] [phone] Luis Currie RN Social History Tobacco Use Types Packs/Day Years Used Date Smoking Tobacco: Never Smokeless Tobacco: Never Sex and Gender Information Value Date Recorded Sex Assigned at Female 10/25/2022 12:28 AM EDT Gender Identity Female 10/25/2022 12:28 AM EDT Sexual Orientation Straight 10/25/2022 12 :28 AM EDT documented as of this encounter Miscellaneous Notes * Telephone Encounter - Luis Currie RN - 04/29/2018 8:52 AM EDT Called and notified Pharmacist that patient had not been seen here in prolonged period, EBAY RESELLER requesting refill request for Glipizide should be sent to patient's PCP. documented in this encounter Plan of Treatment Not on file documented as of this encounter Visit Diagnoses Not on filedocumented in this encounter Care Teams Jar Filler Relationship Specialty Start Date End Date Lyn Sinclair APRN PCP - General Family Medicine 07/17/17 04/20/24 documented as of this encounter
--- OUTSIDE RECORDS SUMMARY | 2024-05-15 09:47 | XMS_ITS | Encounter Summary ---
[place] [address] Care Team Providers Care Labor Employment Associate Name Role Phone Lyn Sinclair APRN Primary Care Provider Encounter Details Date Type Department Care Team (Late st Contact Info) Description 06/12/2019 Telephone [place] [phone] Kayy Davis Social History Tobacco Use Types Packs/Day Years Used Date Smoking Tobacco: Never Smokeless Tobacco: Never Sex and Gender Information Value Date Recorded Sex Assigned at Female 10/25/2022 12:28 AM EDT Gender Identity Female 10/25/2022 12:28 AM EDT Sexual Orientation Straight 10/25/2022 12 :28 AM EDT documented as of this encounter Miscellaneous Notes * Telephone Encounter - Kayy Davis - 06/12/2019 12:36 PM EST Called to reschedule appt. Letter sent documented in this encounter Plan of Treatment Not on file documented as of this encounter Visit Diagnoses Not on filedocumented in this encounter Care Teams Labor Employment Associate Relationship Specialty Start Date End Date Lyn Sinclair APRN PCP - General Family Medicine 07/17/17 04/20/24 documented as of this encounter
--- OUTSIDE RECORDS SUMMARY | 2024-05-15 09:47 | XMS_ITS | Encounter Summary ---
Author Organization Formerly [facility] [place] [address] Care Team Providers Care Boot Repairer Name Role Phone Aleksander Perla MD Primary Care Provider [phone] Reason for Visit * Reason Onset Date Comments Labs Only 12/26/2010 Encounter Details Date Type Department Care Team (Late st Contact Info) Description 12/26/2010 Telephone [place] [id number] Armin Reynolds MD [facility] [address] [place] [address] Labs Only Social History Tobacco Use Types [...] as of this encounter Results * (ABNORMAL) Hemoglobin A1c (05/07/2011 10:07 AM EDT) Hemoglobin A1c 6.7(H) 4.3 - 6.1 % [facility] Estimated Average Glucose 146 mg/dL [facility] MILLENNIUM Comment: eAG equivalents for HbA1c percentages: HbA1c(%) [...] into estimated average glucose values. ??Diabetes Care 2008:31(8):9366-4631. Blood specimen (specimen) 05/07/2011 10:07 AM EDT 05/07/2011 10:37 AM EDT Idalmis Westfall MD CHEMISTRY ORDERAB LES [facility] documented in this encounter Visit Diagnoses Diagnosis Diabetes- Primary Type II or unspecified type diabetes mellitus without mention of complication, not stated as uncontrolled documented in this encounter Care Teams Boot Repairer Relationship Specialty Start Date End Date Aleksander Perla MD [address] [place] [address] PCP - General 06/13/10 08/31/12 documented as of this encounter
--- OUTSIDE RECORDS SUMMARY | 2024-05-15 09:47 | XMS_ITS | Encounter Summary ---
Author Organization [facility] [address] Care Team Providers Care Message Clerk Name Role Phone Marcela Acosta APRN Primary Care Provider [phone] Reason for Visit * Reason Onset Date Comments Medication Refill 06/27/2017 Encounter Details Date Type Department Care Team (Late st Contact Info) Description 06/27/2017 [place] [address] Ambreen Vora CONSULTING PRACTICE DIRECTOR [facility] [place] [address] Social History Tobacco Use Types Packs/Day Years [...] on filedocumented in this encounter Care Teams Message Clerk Relationship Specialty Start Date End Date Marcela Acosta APRN [address] [place] [id number] PCP - General 09/01/12 07/16/17 documented as of this encounter
--- OUTSIDE RECORDS SUMMARY | 2024-05-15 09:47 | XMS_ITS | Encounter Summary ---
[place] [address] Care Team Providers Care Client Integration Manager Name Role Phone Aleksander Perla MD Primary Care Provider [phone] Reason for Visit * Reason Onset Date Comments Other 04/20/2011 possible referra l Encounter Details Date Type Department Care Team (Late st Contact Info) Description 04/20/2011 Telephone [place] [address] Umu Cervantes, SHOT PEENING OPERATOR [facility] [place] [address] Other (possible referral) Social History Tobacco Use Types Packs/Day Years Used Date Smoking Tobacco: Never Assessed Sex and Gender Information Value Date Recorded Sex Assigned at Female 10/25/2022 12:28 AM EDT Gender Identity Female 10/25/2022 12:28 AM EDT Sexual Orientation Straight 10/25/2022 12 :28 AM EDT documented as of this encounter Miscellaneous Notes * Telephone Encounter - Umu Cervantes - 04/20/2011 5:[address] Wright called to discuss Ms. Baldauf for possible referral. She is S/P open Gastric bypass in May 2000 in [place]. She was seen with vague epigastric complaints ~[address] Wright. An EGD at that time showed ? anastomotic stricture, which was dilated. A recent barium swallow was done for complaints of epigastric pressure with eating- the barium pill could not pass through the GJ anastomosis (less than 13 mm). Additional PSH (via [facility]): c section, BTL and ventral hernia repair 2002 P. I requested that the results of the prior testing and disk of barium swallow be sent for review.Dr Wright will contact the patient regarding evaluation at [facility]. She will call us if interested in further evaluation. documented in this encounter Plan of Treatment Not on file documented as of this encounter Visit Diagnoses Not on filedocumented in this encounter Care Teams Client Integration Manager Relationship Specialty Start Date End Date Aleksander Perla MD [address] [facility] [place] [address] PCP - General 06/13/10 08/31/12 documented as of this encounter
--- OUTSIDE RECORDS SUMMARY | 2024-05-15 09:47 | XMS_ITS | Encounter Summary ---
[place] [address] Care Team Providers Care Sales Promoter Name Role Phone Lyn Sinclair APRN Primary Care Provider [phone] Encounter Details Date Type Department Care Team (Late st Contact Info) Description 10/22/2018 4:20 PM EDT Interpretation Only Cardiology at [address] [address] Brady Baker Jr., MD [address] [place] [id number] Chest pain, unspecified type Social History Tobacco [...] Priority Date/Time Associated Diagnosis Comments ECG SCAN 11/10/2018 12:00 AM EDT documented in this encounter Results * SCAN DOC: ECG (11/10/2018 12:00 AM EDT) Narrative 11/10/2018 12:00 AM EDT Ordered by an unspecified provider. Scanning Provider MEDIA MGR SCAN EXT O RDR/RSLT documented in this encounter Visit Diagnoses Diagnosis Chest pain, unspecified type documented in this encounter Care Teams Sales Promoter Relationship Specialty Start Date End Date Lyn Sinclair, MANUFACTURING MAINTENANCE MANAGER PCP - General Family Medicine 07/17/17 04/20/24 documented as of this encounter
--- OUTSIDE RECORDS SUMMARY | 2024-05-15 09:47 | XMS_ITS | Encounter Summary ---
[place] [address] Care Team Providers Care Kidney Puller Name Role Phone Karla Marcela MARIE Primary Care Provider [phone] Encounter Details Date Type Department Care Team (Latest Contact Info) Description 04/25/2016 1:00 PM EDT [place] [phone] Diabetes mellitus type 2, uncomplicated; Hypothyroidism, unspecified [...] Associated Diagnosis Comments U ALBUMIN/CRE RATIO Routine 04/25/2016 1 :12 PM EDT Diabetes mellitus type 2, uncomplicated CREATININE Routine 04/25/2016 1:07 PM EDT Diabetes mellitus type 2, uncomplicated TSH Routine 04/25/2016 1:07 PM EDT Hypothyroidism, unspecified type LDL CHOLESTEROL, DIRECT Routine 04/25/2016 1:07 PM EDT Diabetes mellitus type 2, uncomplicated HDL/CHOL PROFILE Routine 04/25/2016 1:07 PM EDT Diabetes mellitus type 2, uncomplicated HEMOGLOBIN A1C Routine 04/25/2016 1:07 PM EDT Diabetes mellitus type 2, uncomplicated documented in this encounter Results * U Albumin/Cre Ratio (04/25/2016 1:12 PM EDT) Albumin / Creatinin Ratio, Urine 4 0 - 29 mcg/mg Cr [facility] Comment: Reference Ranges: <30 [...] 2, 357? 362 Albumin, Urine 6.3 mg/L [facility] Creatinine, Urine 160 mg/dL [facility] Urine specimen (specimen) 04/25/2016 1:12 PM EDT 04/25/2016 1:20 PM EDT Narrative Resulting Agency Comment Spec In Lab Babar Wilkerson MD URINE ORDERABLES [facility] [place] [address] * (ABNORMAL) LDL Cholesterol, Direct (04/25/2016 1:07 PM EDT) LDL Cholesterol, Direct 121(H) <=99 mg/dL [facility] Comment: The National Cholesterol Education Program (NCEP) has set the following guidelines for LDL Cholesterol: Reference range: ?? Optimal: ?<100 mg/dL ?? Near Optimal/Above Optimal: ?? 100-129 mg/dL ?? Borderline high: ?130-159 mg/dL ?? High: ? 160-189 mg/dL ?? Very high: ?>db=473 mg/dL BRITTANI 2001: 285(19):1896-7838 Blood specimen (specimen) 04/25/2016 1:07 PM EDT 04/25/2016 1:20 PM EDT Narrative Resulting Agency Comment Spec In Lab Babar Wilkerson MD CHEMISTRY ORDERABLES [facility] [place] [address] * (ABNORMAL) HDL/Cholesterol Profile (04/25/2016 1:07 PM EDT) Cholesterol, Total 165 <=199 mg/dL [facility] Comment: Recommendations of the NCEP Adult Treatment Panel for the following risk cutoff thresholds for the [place] population: Desirable: <200 mg/dL Borderline High: 200-239 mg/dL High: > or = 240 mg/dL HDL Cholesterol 27(L) >=40 mg/dL [facility] Comment: Reference range: ??Low HDL: ?? < 40 mg/dL ??Normal: ?40-60 mg/dL ??Desirable: > 60 mg/dL BRITTANI 2001; 285(19):3696-3021 Cholesterol/HDL Ratio 6.1 ratio [facility] Comment: A Cholesterol to HDL ratio below 4:1 is desirable. ??Studies suggest that increased CAD risk occurs at ratios above 5 for females and above 6 for men. ? [place] Heart Association ??(http://www.americanheart.org) ? [place] Int Med, 1994; 121:641 ? AM J Med, 1998; 105(1A):48S Blood specimen (specimen) 04/25/2016 1:07 PM EDT 04/25/2016 1:20 PM EDT Narrative Resulting Agency Comment Spec In Lab Babar Wilkerson MD CHEMISTRY ORDERABLES Performing Organization Address [facility] Co de Phone Number [facility] [place] [address] * TSH (04/25/2016 1:07 PM EDT) Thyroid Stimulating Hormone 3.69 0.27 - 4.20 mcIU/mL [facility] Blood specimen (specimen) 04/25/2016 1:07 PM EDT 04/25/2016 1:20 PM EDT Narrative Resulting Agency Comment Spec In Lab Babar Wilkerson MD CHEMISTRY ORDERABLES Performing Organization Address [facility] Co de Phone Number [facility] [place] [address] * (ABNORMAL) Hemoglobin A1c (04/25/2016 1:07 PM EDT) Hemoglobin A1c 7.7(H) 4.3 - 5.6 % [facility] Comment: Reference Range: 4.3 [...] Mellitus, Diabetes Care 2013; 36: Suppl. 1, A07-25 Estimated Average Glucose 174 mg/dL [facility] Comment: eAG equivalents for HbA1c percentages: HbA1c(%) ?eAG(mg/dL) 6.0 ?126 6.5 ?140 7.0 ?154 7.5 ?169 8.0 ?183 8.5 ?197 9.0 ?212 9.5 ?226 10.0 ? 240 Limitations: The eAG calculation has not been validated on women, individuals below 18 years old and above 70 years old, and individuals with hemoglobinopathies. Additional resources are available on the [facility] website: [email or web address]/[facility] Mayank BRISENO, Tomeka J, Hussein R, et al. ??Translating the A1C assay into estimated average glucose values. ??Diabetes Care 2008:31(8):7638-2716. Blood specimen (specimen) 04/25/2016 1:07 PM EDT 04/25/2016 1:20 PM EDT Narrative Resulting Agency Comment Spec In Lab Babar Wilkerson MD CHEMISTRY ORDERABLES Performing Organization Address City/State/[facility] Co de Phone Number [facility] [place] [address] * Creatinine (04/25/2016 1:07 PM EDT) [facility] Creatinine 0.94 0.70 - 1.20 mg/dL [facility] Comment: Please note that the pediatric reference intervals supplied above were not validated at [facility]. Results from pediatric patients should be interpreted in conjunction to the patient's age, height and muscle mass. Est Glomerular Filtration Rate >60 >=60 [facility] Comment: This estimated [...] the following links into your internet browser. [email or web address] Blood specimen (specimen) 04/25/2016 1:07 PM EDT 04/25/2016 1:20 PM EDT Narrative Resulting Agency Comment Spec In Lab Babar iWlkerson MD CHEMISTRY ORDERABLES [facility] [place] [address] documented in this encounter Visit Diagnoses Diagnosis Diabetes mellitus type 2, uncomplicated Type II or unspecified type diabetes mellitus without mention of complication, not stated as uncontrolled Hypothyroidism, unspecified type documented in this encounter Care Teams Kidney Puller Relationship Specialty Start Date End Date Marcela Acosta APRN [address] [place] [address] PCP - General 09/01/12 07/16/17 documented as of this encounter
--- OUTSIDE RECORDS SUMMARY | 2024-05-15 09:47 | XMS_ITS | Encounter Summary ---
[place] [address] Care Team Providers Care Marine Operations Coordinator Name Role Phone Aleksander Perla MD Primary Care Provider [phone] Reason for Referral * Consultation (Routine) - Closed Specialty Diagnoses / Procedures Referred By Sean rojas Referred To Contact Dermatology Diagnoses Subungual warts Idalmis Westfall MD [facility] [address] [place] [address] [facility] [address] [place] [id number] Referral ID Status Reason Start Date Expiration Date V isits Requested Visits Authorized [id number] Closed Assume Subset of Care 05/05/2012 11/01/2012 1 1 Reason for Visit * Reason Comments Follow-up Encounter Details Date Type Department Care Team (Late st Contact Info) Description 05/05/2012 8:00 AM EDT Office [place] [address] Idalmis Westfall MD [facility] [address] [place] [address] DM type 2 (diabetes mellitus, type 2); Hypothyroid; DM (diabetes mellitus); Subungual warts Discharge Disposition: Home Social History Tobacco Use Types Packs/Day Years Used Date Smoking Tobacco: Never Sex and Gender Information Value Date Recorded Sex Assigned at Female 10/25/2022 12:28 AM EDT Gender Identity Female 10/25/2022 12:28 AM EDT Sexual Orientation Straight 10/25/2022 12 :28 AM EDT documented as of this encounter Last Filed Vital Signs Vital Sign Reading Time Taken Comments Blood Pressure 126/69 05/05/2012 9:04 AM EDT Pulse 74 05/05/2012 9:04 AM EDT Temperature - - Respiratory Rate - - Oxygen Saturation - - Inhaled Oxygen Concentration - - Weight 92 kg (202 lb 12.8 oz) 05/05/2012 9:04 AM EDT Height 165.1 cm (5' 5) 05/05/2012 9:04 AM EDT Body Mass Index 33.75 05/05/2012 9:04 AM EDT documented in this encounter Progress Notes * Idalmis Westfall MD - 05/03/2012 8:20 PM EDT PRIMARY CARE PROVIDER: Aleksander Perla MD CC: Here for f/u of type 2 DM Dx: 1996 Last Hga1c 6.9%, 05/02; 6.5%, 09/30; 6.7%, 05/01 Regimen: metformin 1000 bid,( acarbose 50 bid- didn't work, glipizide- low blood sugars) Complications: dentist- 04/02; eyes- 03/01, no DR; Cr- 0.69, 09/30;ma- <3, 04/01; 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 It was complicated by wound breakdown and arterial bleed, and then subsequently by episode of chest pain and acute anemia. So, it has taken her most of this summer to get over that and feel better. With respect to her diabetes, she is doing very well. Fasting sugars are usually 90 to 115 (this morning, it was 170, but she awoke in the night and felt like she might be going a little low and had a snack). After meals are 90 to 160. Sometimes if she is down to 90, she may feel a little hypoglycemic and she thinks probably just has a little postprandial syndrome, and she tends to find that if she has more carbohydrate in the meal. If she eats her meals regularly and makes sure she incorporates enough protein and fiber in the meals, she is less apt to have the hypoglycemic symptoms. She has continued to lose weight, another 3 pounds. Exercise has been limited over the summer when she was recovering from surgery. Her diet, for breakfast, toast and Granola. For lunch, usually a hospital meal, meat, starch, and vegetable. Afternoon Snack: Fruit bar or fiber bar, pretzels, sometimes a little candy if she is going a little low and for supper last night, she had pot roast potatoes, carrots, onions. No evening snack. At her last visit, we also diagnosed hypothyroidism with a TSH of 6.14 and we started levothyroxine 50 mcg a day. She really does not notice any change in her symptoms. She has some fatigue and constipation. She also had vitamin D deficiency and we prescribed some vitamin D 50,000 units twice a week. She has completed that and is actually not taking any thqm-frx-pkembdv vitamin D right now because of the expense. We will see where her vitamin D levels are. She does get some calcium in her milk and yogurt. Current outpatient prescriptions ordered prior to encounter Medication Sig Dispense Refill ??? citalopram (CELEXA) 20 mg tablet Take 30 mg by mouth daily. ??? buPROPion (WELLBUTRIN [...] albuterol (VENTOLIN HFA) 90 mcg/Actuation inhaler ??? ergocalciferol (VITAMIN D) 50,000 unit capsule Take 1 capsule by mouth once a week. 12 capsule 0 ??? Cholecalciferol, Vitamin D3, (VITAMIN D) 2,000 unit Cap Take by mouth. ??? Iron 40 mg Cap Take by mouth. ??? CIS Free Text Med - One a day Vit ??? CALCIUM ORAL Allergies Allergen Reactions ??? Oxycodone-acetaminophen CIS - hallucinations ??? Morphine Sulfate CIS - Urticaria ??? Trazodone Anxiety PROBLEM LIST: Diabetes, hypothyroidism, hyperlipidemia, history of depression, asthma/allergies, GERD, B12 deficiency, vitamin D deficiency. PAST SURGICAL HISTORY: Uterine ablation and rectocele repair. PHYSICAL EXAMINATION: Her blood pressure is 126/69, pulse 74, weight 202, height 5 feet 5 inches. In general, she looks well. Her skin is smooth, warm, dry. She has warts on her hands up to her nail beds on her second fingers which are painful, but no ulcerations. Cardiovascular: 2+ pulses. No edema. On neurologic exam, she has excellent light touch sensation to the monofilament. Gait is normal. Psych: Mood and affect are appropriate. LABORATORY TESTS: Hemoglobin A1c 6.9%. TSH, vitamin D, and creatinine are pending. IMPRESSION: 1. Diabetes is well controlled on metformin 1000 mg twice a day. We will continue that for now and Linda will continue her home blood glucose testing once or twice a day, varying the times. 2. Hypothyroidism. We will await TSH. If it is still elevated, we can push the dose of levothyroxine. 3. Warts on her hands. Will put in a referral to dermatology. 4. Vitamin D deficiency. We will await vitamin D level. If it is within the normal range, we can lower her 50,000 units vitamin D to probably once a month. PLAN: 1. Await laboratory tests. 2. Continue metformin 1000 mg twice a day. 3. Dermatology referral for warts. 4. Followup in six months with hemoglobin A1c, lipids, microalbumin, TSH in the quick draw lab. Recent Results (from the past 72 hour(s)) VIT D TOTAL 25 HYDROXY Component Value Range ??? 25-OH Vit D Total 28 (*) 30 - 100 (ng/mL) HEMOGLOBIN A1C Component Value Range ??? Hemoglobin A1C 6.9 (*) 4.3 - 6.1 (%) ??? Est Avg Gluc 151 (mg/dL) TSH Component Value Range ??? TSH 3.39 0.27 - 4.20 (mcIU/mL) CREATININE, SERUM Component Value Range ??? Creatinine 0.69 (*) 0.70 - 1.20 (mg/dL) ? ? Estimated GFR >60 >=60 documented in this encounter Plan of Treatment Scheduled Referrals Name Type Priority Associated Diagnoses Order Schedule Referral to Dermatology Outpatient Referral Routine Subungual warts Ordered: 05/05/2012 documented as of this encounter Procedures Procedure Name Priority Date/Time Associated Diagnosis Comments CREATININE Routine 05/05/2012 8:30 AM EDT VITAMIN D, 25-HYDROXY Routine 05/05/2012 8:30 AM EDT DM type 2 (diabetes mellitus, type 2) TSH Routine 05/05/2012 8:30 AM EDT HEMOGLOBIN A1C STAT 05/05/2012 8:30 AM EDT DM type 2 (diabetes mellitus, type 2) documented in this encounter Results * Microalbumin, urine, random (11/24/2012 7:51 AM EDT) Creatinine, Urine 198 mg/dL POLA FRIED MILLENNIUM Albumin, Urine 4.3 mg/L JUNI Perez MILLENNIUM Albumin / Creatinin Ratio, Urine 2 mcg/mg Cr [facility] Comment: Reference Range* Random collection (mcg/mg creatinine) Normal ?<30 Microalbuminuria ?? 30 - 300 Clinical Albuminuria ?? >300 *Japanese Diabetes Association. Diabetic Nephropathy. Diabetes Care 1997;(Suppl 1):S24-S27 Exercise within 24 hour, infection, fever, CHF, marked hyperglycemia, and marked hypertension may elevate urinary albumin excretion over baseline values. Urine specimen (specimen) 11/24/2012 7:51 AM EDT 11/24/2012 7:55 AM EDT Narrative Resulting Agency Comment Spec In Lab Idalmis Westfall MD URINE ORDERABLES Performing Organization Address [facility] Co de Phone Number [facility] * (ABNORMAL) LDL Cholesterol, Direct (11/24/2012 7:50 AM EDT) LDL Cholesterol, Direct 137(H) <=99 mg/dL [facility] Comment: The National Cholesterol Education Program (NCEP) has set the following guidelines for LDL Cholesterol: Reference range: ?? Optimal: ?<100 mg/dL ?? Near Optimal/Above Optimal: ?? 100-129 mg/dL ?? Borderline high: ?130-159 mg/dL ?? High: ? 160-189 mg/dL ?? Very high: ?>wj=000 mg/dL BRITTANI 2001: 285(19):2479-6073 Blood specimen (specimen) 11/24/2012 7:50 AM EDT 11/24/2012 8:02 AM EDT Narrative Resulting Agency Comment Spec In Lab Idalmis Westfall MD CHEMISTRY ORDERAB LES Performing Organization Address [facility] Co de Phone Number [facility] * (ABNORMAL) HDL/Cholesterol Profile (11/24/2012 7:50 AM EDT) Cholesterol, Total 180 <=199 mg/dL CERNER MILLENNIUM Comment: Recommendations of the NCEP Adult Treatment Panel for the following risk cutoff thresholds for the [place] population: Desirable: <200 mg/dL Borderline High: 200-239 mg/dL High: > or = 240 mg/dL HDL Cholesterol 33(L) >=40 mg/dL [facility]ER NER MILLENNIUM Comment: Reference range: ??Low HDL: ?? < 40 mg/dL ??Normal: ?40-60 mg/dL ??Desirable: > 60 mg/dL BRITTANI 2001; 285(19):3084-9007 Cholesterol/HDL Ratio 5.5 ratio CERNER MILLENNIUM Comment: A Cholesterol to HDL ratio below 4:1 is desirable. ??Studies suggest that increased CAD risk occurs at ratios above 5 for females and above 6 for men. ? Japanese Heart Association ??(http://www.americanheart.org) ? Halle Int Med, 1994; 121:641 ? AM J Med, 1998; 105(1A):48S Blood specimen (specimen) 11/24/2012 7:50 AM EDT 11/24/2012 8:02 AM EDT Narrative Resulting Agency Comment Spec In Lab Idalmis Westfall MD CHEMISTRY ORDERAB LES Performing Organization Address City/[facility] Co de Phone Number [facility] CARIBANNER[facility]UM * (ABNORMAL) TSH (11/24/2012 7:50 AM EDT) Thyroid Stimulating Hormone 4.60(H) 0.27 - 4.20 mcIU/mL [facility] MILLENNIUM Blood specimen (specimen) 11/24/2012 7:50 AM EDT 11/24/2012 8:02 AM EDT Narrative Resulting Agency Comment Spec In Lab Idalmis Westfall MD CHEMISTRY ORDERAB LES [facility] * (ABNORMAL) Hemoglobin A1c (11/24/2012 7:50 AM EDT) [facility] Hemoglobin A1c 7.0(H) 4.3 - 6.1 % [facility] Comment: The [place] Diabetes Association (ADA) has stated that HbA1c [...] 2013:36;suppl 1:S11-S66. Estimated Average Glucose 154 mg/dL [facility] Comment: eAG equivalents for HbA1c percentages: [...] into estimated average glucose values. ??Diabetes Care 2008:31(8):0040-6453. Blood specimen (specimen) 11/24/2012 7:50 AM EDT 11/24/2012 8:02 AM EDT Narrative Resulting Agency Comment Spec In Lab Idalmis Westfall MD CHEMISTRY ORDERAB LES [email or web address] * (ABNORMAL) CREATININE, SERUM (05/05/2012 8:30 AM EDT) Creatinine 0.69(L) 0.70 - 1.20 mg/dL [facility] Comment: Please note that the pediatric reference intervals supplied above were not validated at [facility]. Results from pediatric patients should be interpreted in conjunction to the patient's age, height and muscle mass. Est Glomerular Filtration Rate >60 >=60 [facility] Comment: The National Kidney Disease Education Program (NKDEP) has recommended all laboratories report estimated GFR (eGFR) along with plasma creatinine measurements to assist you with recognition of early kidney disease. Caveats: ??Plasma creatinine should be at steady-state (unchanged within the past week). For patients multiply eGFR by 1.2. The MDRD equation was developed using patients between the ages of 18 and 70 years. ?? The MDRD equation has not been validated for patients < 18 years of age and should not be used to assess renal function in the pediatric population. ??The MDRD eGFR equation will also overestimate the true GFR of patients above the age of 70. ??This overestimation is variable but increases with age. At present, NKDEP does NOT recommend using [...] with diabetic kidney disease. References: http://nkdep.nih.gov/resources/NKDEP_Suggestn4Labs_0606_508.pdf http://www.kidney.org/professionals/kls/pdf/faq_gfr.pdf Viji K, Pili NA, Aramis AK, Leon TS, Elijah AD, Valdez ONEIL. Relative performance of the MDRD and CKD-EPI equations for estimating glomerular filtration rate among patients with varied clinical presentations. Clin J Am Soc Nephrol;6:1963-72. Blood specimen (specimen) 05/05/2012 8:30 AM EDT 05/05/2012 8:49 AM EDT Narrative Resulting Agency Comment Spec In Lab Idalmis Westfall MD CHEMISTRY ORDERAB LES Performing Organization Address [facility]/ZIP Co de Phone Number [facility] * TSH (05/05/2012 8:30 AM EDT) Thyroid Stimulating Hormone 3.39 0.27 - 4.20 mcIU/mL [facility] Blood specimen (specimen) 05/05/2012 8:30 AM EDT 05/05/2012 8:49 AM EDT Narrative Resulting Agency Comment Spec In Lab Idalmis Westfall MD CHEMISTRY ORDERAB LES Performing Organization Address [facility] Co de Phone Number [facility] * (ABNORMAL) Hemoglobin A1c (05/05/2012 8:30 AM EDT) Hemoglobin A1c 6.9(H) 4.3 - 6.1 % [facility] Estimated Average Glucose 151 mg/dL [facility] Comment: eAG equivalents for HbA1c percentages: [...] into estimated average glucose values. ??Diabetes Care 2008:31(8):3088-7208. Blood specimen (specimen) 05/05/2012 8:30 AM EDT 05/05/2012 8:49 AM EDT Narrative Resulting Agency Comment Spec In Lab Idalmis Westfall MD CHEMISTRY ORDERAB LES [facility] * (ABNORMAL) VIT D Total 25 Hydroxy (05/05/2012 8:30 AM EDT) Vitamin D Total 25 OH 28(L) 30 - 100 ng/mL [facility] Comment: Deficient <10 ng/mL Insufficient 10 to [...] Idalmis Westfall MD CHEMISTRY ORDERAB LES [facility] documented in this encounter Visit Diagnoses Diagnosis DM type 2 (diabetes mellitus, type 2) Type II or unspecified type diabetes mellitus without mention of complication, not stated as uncontrolled Hypothyroid Unspecified hypothyroidism DM (diabetes mellitus) Type II or unspecified type diabetes mellitus without mention of complication, not stated as uncontrolled Subungual warts Viral warts, unspecified documented in this encounter Care Teams Marine Operations Coordinator Relationship Specialty Start Date End Date Aleksander Perla MD [address] [place] [address] PCP - General 06/13/10 08/31/12 documented as of this encounter
--- OUTSIDE RECORDS SUMMARY | 2024-05-15 09:48 | XMS_ITS | Encounter Summary ---
Author Organization [facility] Address [facility] [place] [address] Care Team Providers Care Furniture Mover Helper Name Role Phone Aleksander Perla MD Primary Care Provider [phone] Encounter Details Date Type Department Care Team (Late st Contact Info) Description 07/24/2010 3:00 PM EST Office [place] [address] Armin Reynolds MD [facility] [address] Discharge Disposition: Home Social History Tobacco Use [...] on filedocumented in this encounter Care Teams Furniture Mover Helper Relationship Specialty Start Date End Date Aleksander Perla MD [address] [place], [place] [id number] PCP - General 11/23/10 2/10/13 documented as of this encounter
[2024-05-15 10:10] LABS: Iron 30 ug/dL (50-170)
[2024-05-15 10:12] LABS: ALT 22 U/L (14-59); AST 22 U/L (15-37); Albumin 3.3 g/dL (3.4-5.0); Alkaline Phosphatase 91 U/L (46-116); Anion Gap 5.9 mmol/L (3-11); BUN 19 mg/dL (7-18); Bilirubin, Total 0.54 mg/dL (0.2-1.0); CO2 31.1 mmol/L (21.0-32.0); CREATININE 1.1 mg/dL (0.55-1.02); Calcium 9.3 mg/dL (8.5-10.1); Calculated LDL 59 mg/dL (<100); Chloride 108 mmol/L (98-107); Cholesterol 110 mg/dL (<200); Estimated GFR 57.17 (mL/min/1.73m2); Ferritin 6 ng/mL (8-252); Glucose 109 mg/dL (74-106); HDL Cholesterol 35 mg/dL (40-60); Potassium 4.2 mmol/L (3.5-5.1); Sodium 145 mmol/L (136-145); Total Protein 6.6 g/dL (6.4-8.2); Triglyceride 84 mg/dL (<150)
[2024-05-15 10:13] LABS: Vitamin B12 > 2000 pg/mL (193-986)
== END 2024-05-15 09:41 | disposition home or self-care (01) ==
LOC: LBO 09:43
PROVIDERS: PCP Nurse Practitioner Family; Visit Provider Nurse Practitioner
DX: D50.8 Other iron deficiency anemias (principal); D64.9 Anemia, unspecified; E11.9 Type 2 diabetes mellitus without complications; E03.9 Hypothyroidism, unspecified; E78.5 Hyperlipidemia, unspecified; E53.8 Deficiency of other specified B group vitamins
CPT/HCPCS: 36415; 80053; 80061; 82607; 82728; 83036; 83540; 85025

== ENCOUNTER 2024-08-07 00:50 | Outpatient (RCR) | payer OTHER, SELFPAY ==
--- OUTSIDE RECORDS SUMMARY | 2024-08-07 00:52 | XMS_ITS | Encounter Summary ---
Author [facility] [place] [address] Care Team Providers Care School Bus Dispatcher Name Role Phone Lyn Sinclair APRN Primary [...] on filedocumented in this encounter Care Teams School Bus Dispatcher Relationship Specialty Start Date End Date Lyn Sinclair APRN PCP - General Family Medicine 07/17/17 04/20/24 documented as of this encounter
--- OUTSIDE RECORDS SUMMARY | 2024-08-07 00:52 | XMS_ITS | Encounter Summary ---
[place] [address] Care Team Providers Care Retirement Officer Name Role Phone Lyn Sinclair APRN Primary Care Provider Encounter Details Date Type Department Care Team (Late st Contact Info) Description 03/11/2024 Telephone [place] [id number] Demetra Rao LNA Social History Tobacco Use [...] on filedocumented in this encounter Care Teams Retirement Officer Relationship Specialty Start Date End Date Lyn Sinclair, CAMPAIGN MANAGER PCP - General Family Medicine 07/17/17 04/20/24 documented as of this encounter
--- OUTSIDE RECORDS SUMMARY | 2024-08-07 00:52 | XMS_ITS | Encounter Summary ---
Author Organization [facility] Address [address] [place] [address] Care Team Providers Care Cobbler Apprentice Name Role Phone Lashae Castaneda NP Primary Care Provider [phone] Encounter Details Date Type Department Care Team (Late st Contact Info) Description 09/07/2020 Results Only [facility] [place] [address] [place], [place] [address] Joselo Segura MD [address] [place] [address] [address] [place] [address] Social History Tobacco Use Types Packs/Day Years Used Date Smoking Tobacco: Never Assessed Interpersonal Safety Answer Date Record ed Physically Hurt Never 2020 Verbally Threaten Not on file 2020 Comments Unknown Sex and Gender Information Value Date Recorded Sex Assigned at Not on file Legal Sex Female 18:27 EST Gender Identity Not on file Sexual Orientation [...] 70 - 100 mg/dL 09/07/2020 16:[address] [facility] 09/07/2020 14:4 5 EST 09/07/2020 16:15 EST us Joselo Segura MD POINT OF CARE TEST ORDERABLES Fi nal Result [facility] [address] [place] [address] documented in this encounter Visit Diagnoses Not on filedocumented in this encounter Care Teams Cobbler Apprentice Relationship Specialty Start Date End Date Lashae Castaneda, NEWSPAPER PHOTOGRAPHER [facility] [address] [place] [address] PCP - General 07/10/10 documented as of this encounter
--- OUTSIDE RECORDS SUMMARY | 2024-08-07 00:52 | XMS_ITS | Encounter Summary ---
Author Organization [facility] [place] [address] Care Team Providers Care Lumber Salvager Name Role Phone Lyn Sinclair APRN Primary Care Provider [phone] Encounter Details Date Type Department Care Team [...] on filedocumented in this encounter Care Teams Lumber Salvager Relationship Specialty Start Date End Date Lyn Sinclair APRN PCP - General Family Medicine 07/17/17 04/20/24 documented as of this encounter
--- OUTSIDE RECORDS SUMMARY | 2024-08-07 00:52 | XMS_ITS | Encounter Summary ---
Author Organization [facility] [place] [address] Care Team Providers Care Ball Shagger Name Role Phone Valentina Garnica APRN Primary Care Provider [phone] Encounter Details Date Type Department Care Team [...] on filedocumented in this encounter Care Teams Ball Shagger Relationship Specialty Start Date End Date Valentina Garnica APRN [address] [place], [place] [address] PCP - General Internal Medicine 04/21/24 documented as of this encounter
--- OUTSIDE RECORDS SUMMARY | 2024-08-07 00:52 | XMS_ITS | Encounter Summary ---
Author Organization [facility] Address [address] [place] [address] Care Team Providers Care Breaker Off Name Role Phone Unavailable Primary Care Provider Unavailabl e Encounter Details Date Type Department Care Team (Late st Contact Info) Description 10/22/2006 Results Only [facility] [address] [place] [address] Dakota Resendez, DO [address] [facility] [address] [place], [place] [id number] Social History Tobacco Use Types Packs/Day Years Used Date Smoking Tobacco: Never Assessed Comments Unknown Sex and Gender Information Value [...] ? LINDA GARCIA ? Accession #: ? [id number] ? : ? 1965 (Age: 41) ??F ? N #: ? [id number] ? Collect Date: ? 10/22/2006 ? Location: ? [facility] ? Receive Date: ? 10/22/2006 ? Provider: DAKOTA RESENDEZ DO Copy to: DIA Troy PARDO [employer] ? Final Pathologic Diagnosis: A. ?Stomach, antrum, [...] Description: ? Received in Hollande's fixative labelled Boldauf and bx antrum #1 is a giordano-pink [...] is submitted entirely as (D). ??(Dr. Dela Cruz)/[facility] End of Report ADEL[facility] CAMPOVERDE 10/22/2006 10/22/2006 15: 32 EDT us Dakota Resendez DO PATHOLOGY ORDERABLES Fi nal Result ADEL[facility] [address] [place] [address] documented in this encounter Visit Diagnoses Not on filedocumented in this encounter
--- OUTSIDE RECORDS SUMMARY | 2024-08-07 00:52 | XMS_ITS | Encounter Summary ---
Author Organization [facility] [place] [address] Care Team Providers Care Beer Cooler Name Role Phone Lyn Sinclair APRN Primary [...] on filedocumented in this encounter Care Teams Beer Cooler Relationship Specialty Start Date End Date Lyn Sinclair APRN PCP - General Family Medicine 07/17/17 04/20/24 documented as of this encounter
--- OUTSIDE RECORDS SUMMARY | 2024-08-07 00:52 | XMS_ITS | Encounter Summary ---
Author Organization [facility] Address [address] [place] [address] Care Team Providers Care Phlebotomy Services Representative Name Role Phone Lashae Castaneda SOCIAL WORK JOB TITLES Primary Care Provider Encounter Details Date Type Department Care Team (Latest Contact Info) Description 02/26/2017 8:14 EDT - 02/26/2017 23:59 EDT Hospital Encounter [address] [address] Tami Steevn MD Discharge Disposition: Home or Self Care Social [...] Code Departure Means Destination Home or Self Usp documented in this encounter Plan of Treatment Not on file documented as of this encounter Visit Diagnoses Not on filedocumented in this encounter Care Teams Phlebotomy Services Representative Relationship Specialty Start Date End Date Lashae Castaneda NP [address] [place] [id number] PCP - General 07/10/10 documented as of this encounter
--- OUTSIDE RECORDS SUMMARY | 2024-08-07 00:52 | XMS_ITS | Encounter Summary ---
Author Organization [facility] Address [address] [place] [address] Care Team Providers Care Gamma Facilities Operator Name Role Phone Unavailable Primary Care Provider Unavailabl e Encounter Details Date Type Department Care Team (Late st Contact Info) Description 08/06/2006 Results Only [facility] - Maple conversion [address] [place] [address] Lashae Pardo, RADIOLOGIC TECHNOLOGY TEACHER [address] [place] [address] Social History Tobacco Use Types [...] ? LINDA GARCIA ? Accession #: ? [id number] : ? 1965 (Age: 41) ??F ?Collect Date: ? 08/06/2006 Location: ? [facility] ? Receive Date: ? 08/07/2006 Provider: ?LASHAE PARDO RADIOLOGIC TECHNOLOGY TEACHER Copy to: ? Specimen/Source: ?ThinPrep Pap Test, Cervix/Endocervix, processed on [employer] ThinPrep Imaging System, with manual evaluation Last Menstrual Period: ? 07/31/06 Other: ? HPVA - HPV testing requested if ASC-US on the current ThinPrep Pap test. ? SPECIMEN ADEQUACY ? Satisfactory for Evaluation - transformation zone component present GENERAL CATEGORIZATION ? Negative for Intraepithelial Lesion or Malignancy ? Document reviewed and electronically signed by: ? Roshni Marin, PEREZ(ASCP) ? Report Date: ??08/09/2006 09:47 End of Report [facility] 08/06/2006 08/07/2006 us Lashae Pardo NP PATHOLOGY ORDERABLES Final Result [facility] [address] [place] [address] documented in this encounter Visit Diagnoses Not on filedocumented in this encounter
--- OUTSIDE RECORDS SUMMARY | 2024-08-07 00:52 | XMS_ITS | Encounter Summary ---
Author Organization [facility] Address [facility] [place] [address] Care Team Providers Care Funeral Prearrangement Counselor Name Role Phone Lyn Sinclair APRN Primary Care Provider Encounter Details Date Type Department Care Team (Late st Contact Info) Description 04/14/2024 Orders [place] [address] Dixon Yee MD [facility] [place] [address] Counseling about travel Social History Tobacco Use [...] counseling documented in this encounter Care Teams Funeral Prearrangement Counselor Relationship Specialty Start Date End Date Lyn Sinclair APRN PCP - General Family Medicine 07/17/17 04/20/24 documented as of this encounter
--- OUTSIDE RECORDS SUMMARY | 2024-08-07 00:52 | XMS_ITS | Referral Summary ---
Author Organization [facility] Address [address] [place] [address] Care Team Providers Care Ad Operations Intern Name Role Phone Lashae Castaneda NP Primary Care Provider Social History Tobacco Use Types Packs/Day [...] C Antibody Negative Negative 08/08/2020 10:04 EST [facility] Blood VENOUS BLOOD / Unknown 08/05/2020 16:55 EST 08/07/2020 16:23 EST us Provider Outr Resulting Lab CHEMISTRY & BLOOD GA S ORDERABLES Final Result [facility] [address] [place] [address] from Last 3 Months or Most Recently Relevant to Health Maintenance Care Teams Ad Operations Intern Relationship Specialty Start Date End Date Lashae Castaneda, MACHINE TOOL MECHANIC [address] [place] [phone] [facility] - General 07/10/10
--- OUTSIDE RECORDS SUMMARY | 2024-08-07 00:52 | XMS_ITS | Encounter Summary ---
[place] [address] Care Team Providers Care It Admin Name Role Phone Valentina Garnica APRN Primary Care Provider [phone] Reason for Visit * Reason Onset Date Comments Appointment 03/03/2024 Encounter Details Date Type Department Care Team (Late st Contact Info) Description 03/03/2024 [place]phone [place] [phone] Unknown None Appointment Social History Tobacco Use [...] requesting to [facility] 05[facility]24 Reason for travel: work Caller Name (If other than patient): Self Relationship to Patient (if other than self): Patient Callback number: [phone]- [phone] Best time you are available: Any Route Per Clinic Coverage Page documented in this encounter Plan of Treatment Not on file documented as of this encounter Visit Diagnoses Not on filedocumented in this encounter Care Teams It Admin Relationship Specialty Start Date End Date Valentina Garnica, CYNTHIA [address] [place] [place] [address] PCP - General Internal Medicine 04/21/24 documented as of this encounter
--- OUTSIDE RECORDS SUMMARY | 2024-08-07 00:52 | XMS_ITS | Encounter Summary ---
[place] [address] Care Team Providers Care Enamel Dipper Name Role Phone Lyn Sinclair APRN Primary Care Provider [phone] Encounter Details Date Type Department Care Team (Late st Contact Info) Description 04/14/2024 Telephone [place] [phone] Aleksander Arellano, RN Social History Tobacco Use [...] her upcoming trip, she may be leaving [facility] at some point and was inquiring about Yellow Fever Vaccine. Recent guidelines do show that if patient was to leave [facility] for other local [place], [...] on filedocumented in this encounter Care Teams Enamel Dipper Relationship Specialty Start Date End Date Lyn Sinclair, CYNTHIA PCP - General Family Medicine 07/17/17 04/20/24 documented as of this encounter
--- OUTSIDE RECORDS SUMMARY | 2024-08-07 00:52 | XMS_ITS | Encounter Summary ---
Author Organization [facility] Address [address] [place] [address] Care Team Providers Care Strip Picker Name Role Phone Lashae Castaneda NP Primary Care Provider [phone] Encounter Details Date Type Department Care Team (Late st Contact Info) Description 08/06/2020 Lab Requisition [facility] Pathology & Laboratory Medicine - [facility] [address] [place] [address] Outr Resulting Lab, Provider Social History Tobacco [...] C Antibody Negative Negative 08/08/2020 10:04 EST [facility] Blood VENOUS BLOOD / Unknown 08/05/2020 16:55 EST 08/07/2020 16:23 EST us Provider Outr Resulting Lab CHEMISTRY & BLOOD GA S ORDERABLES Final Result [facility] [address] [place] [address] documented in this encounter Visit Diagnoses Not on filedocumented in this encounter Care Teams Strip Picker Relationship Specialty Start Date End Date Lashae Castaneda, SEMICONDUCTOR TECHNICIAN [address] [place] [address] PCP - General 07/10/10 documented as of this encounter
--- OUTSIDE RECORDS SUMMARY | 2024-08-07 00:52 | XMS_ITS | Clinical Summary ---
Author Organization [facility] Address [address] [place] [address] Care Team Providers Care Support Teacher Name Role Phone Lashae Castaneda NP Primary [...] Health Maintenance Due Date Last Done Comments COVID-19 Vaccine ( season) 03/22/202411/2023 RSV Immunization ( o r 60+ Years) (1 - 1-dose 75+ series) 2038 Hepatitis C Screen Completed 08/05/2020 Procedures Procedure Name Priority Date/Time Associated Diagnosis Comments HEPATITIS C AB W REFLEX TO HCV RNA BY PCR Routine 08/05/2020 16:55 EST from Last 3 Months or Most Recently Relevant to Health Maintenance Results * HEPATITIS C AB W REFLEX TO HCV RNA BY PCR (08/05/2020 16:55 EST) Hep C Antibody Negative Negative 08/08/2020 10:04 EST [facility] Blood VENOUS BLOOD / Unknown 08/05/2020 16:55 EST 08/07/2020 16:23 EST us Provider Outr Resulting Lab CHEMISTRY & BLOOD GA S ORDERABLES Final Result [facility] [address] [place] [address] from Last 3 Months or Most Recently Relevant to Health Maintenance Care Teams Support Teacher Relationship Specialty Start Date End Date Lashae Castaneda NP [address] [place] [address] PCP - General 07/10/10
--- OUTSIDE RECORDS SUMMARY | 2024-08-07 00:52 | XMS_ITS | Encounter Summary ---
Author Organization [facility] Address [address] [place] [address] Care Team Providers Care Upholstery Tech Name Role Phone Lashae Castaneda NP Primary Care Provider [phone] Encounter Details Date Type Department Care Team (Late st Contact Info) Description 07/02/2017 Results Only [facility] [phone] Dakota Resendez, DO [address] [facility] [address] [place], [place] [phone] Social History Tobacco Use Types Packs/Day Years [...] ? LINDA GARCIA ? Accession #: ? [id number] ? : ? 1965 (Age: 52) ??F ? Collect Date: ? 07/02/2017 ? Location: ? [facility] ? Receive Date: ? 07/02/2017 ? Provider: DAKOTA RESENDEZ DO Copy to: ANAY [employer]ON[employer] SERVICES ASSOCIATE ? Final Pathologic Diagnosis: GASTROJEJUNAL ANASTOMOSIS, BIOPSY: - Enteric and gastric-type mucosa with marked chronic inflammation and regenerative changes. - See comment. Comment: These biopsies show changes consistent with an anastomotic site. ??There is a marked degree of chronic inflammation and regenerative hyperplasia. Immunohistochemical stain for Helicobacter pylori performed on a previous biopsy from this site ([id number]; February 2017) and was found to be [...] Trejo 07/03/2017 9:04 AM End of Report [facility] 07/02/2017 18:3 1 EST 07/02/2017 18:31 EST Dakota Resendez DO PATHOLOGY ORDERABLES Fi nal Result [facility] [address] [place] [address] documented in this encounter Visit Diagnoses Not on filedocumented in this encounter Care Teams Upholstery Tech Relationship Specialty Start Date End Date Lashae Castaneda, LEAD PROGRAMMER [address] [place] [address] PCP - General 07/10/10 documented as of this encounter
--- OUTSIDE RECORDS SUMMARY | 2024-08-07 00:52 | XMS_ITS | Encounter Summary ---
Author Organization [facility] Address [address] [place] [address] Care Team Providers Care Record Changer Assembler Name Role Phone Lashae Castaneda NP Primary Care Provider [phone] Encounter Details Date Type Department Care Team (Late st Contact Info) Description 08/06/2020 Lab Requisition [facility] Pathology & Laboratory Medicine - [facility] [address] [place] [address] Outr Resulting Lab, Provider Social History Tobacco [...] 4th Generation Negative Negative 08/08/2020 11:13 EST [facility] Comment: If acute HIV-1 infection is suspected in a high risk ??patient, submit plasma specimen for HIV-1 RNA quantitation test. Fourth Generation assay performed on the Siemens [employer]. Blood VENOUS BLOOD / Unknown 08/05/2020 16:55 EST 08/07/2020 16:23 EST us Provider Outr Resulting Lab IMMUNOLOGY AND SEROL OGY ORDERABLES Final Result [facility] [address] [place] [address] documented in this encounter Visit Diagnoses Not on filedocumented in this encounter Care Teams Record Changer Assembler Relationship Specialty Start Date End Date Lashae Castaneda NP [address] [place] [address] PCP - General 07/10/10 documented as of this encounter
--- OUTSIDE RECORDS SUMMARY | 2024-08-07 00:52 | XMS_ITS | Encounter Summary ---
Author Organization [facility] Address [address] [place] [address] Care Team Providers Care Department Sales Manager Name Role Phone Lashae Castaneda DIRECTOR OF INDUSTRIAL RELATIONS Primary Care Provider Encounter Details Date Type Department Care Team (Latest Contact Info) Description 04/12/2016 8:16 EDT - 04/12/2016 23:59 EDT Hospital Encounter [address] [address] Tami Steven MD Discharge Disposition: Home or Self Care [...] on filedocumented in this encounter Care Teams Department Sales Manager Relationship Specialty Start Date End Date Lashae Castaneda NP [address] [place] [address] PCP - General 07/10/10 documented as of this encounter
--- OUTSIDE RECORDS SUMMARY | 2024-08-07 00:52 | XMS_ITS | Encounter Summary ---
Author Organization [facility] Address [address] [place] [address] Care Team Providers Care Transport Company Manager Name Role Phone Unavailable Primary Care Provider Unavailabl e Encounter Details Date Type Department Care Team (Late st Contact Info) Description 10/06/2007 Results Only [facility] - Maple conversion [address] [place] [address] Lashae Pardo, DATA COORDINATOR [address] [place] [address] Social History Tobacco Use Types [...] when reading/interpreti ng unformatted reports. Name: ? JOSE LINDA ? Accession #: ? [id number] : ? 1965 (Age: 42) ??F ?Collect Date: ? 10/06/2007 Location: ? [facility] ? Receive Date: ? 10/06/2007 Provider: ?LASHAE PARDO DATA COORDINATOR Copy to: ? Specimen/Source: ?ThinPrep Pap Test, Endocervix, processed on [employer] ThinPrep Imaging System, with manual evaluation Last [...] End of Report [facility] 10/06/2007 10/06/2007 us Lashae Pardo NP PATHOLOGY ORDERABLES Final Result [facility] [address] [place] [address] documented in this encounter Visit Diagnoses Not on filedocumented in this encounter
--- OUTSIDE RECORDS SUMMARY | 2024-08-07 00:52 | XMS_ITS | Encounter Summary ---
Author Organization [facility] Address [address] [place] [address] Care Team Providers Care Balancing Machine Set Up Worker Name Role Phone Lashae Castaneda NP Primary Care Provider [phone] Encounter Details Date Type Department Care Team (Late st Contact Info) Description 04/11/2016 Results Only [facility] [phone] Ryan Hylton MD [address] [place] [address] Social History Tobacco Use Types Packs/Day Years [...] when reading/interpret ing unformatted reports. Name: ? CLIFTONLINDA CONNELLY ? Accession #: ? [id number] ? : ? 1965 (Age: 51) ??F ? Collect Date: ? 04/11/2016 ? Location: ? [facility] ? Receive Date: ? 04/13/2016 ? Provider: RYAN HYLTON MD Copy to: ED JANE PROJECT MANAGER INDUSTRIAL ? Final Pathologic Diagnosis: ENDOMETRIUM, BIOPSY: - [...] Peters 04/14/2016 8:56 AM End of Report [facility] 04/11/2016 18:2 1 EDT 04/13/2016 18:21 EDT us Ryan Hylton MD PATHOLOGY ORDERABLES Final Res ult [facility] [address] [place] [address] documented in this encounter Visit Diagnoses Not on filedocumented in this encounter Care Teams Balancing Machine Set Up Worker Relationship Specialty Start Date End Date Lashae Castaneda NP [address] [place] [address] PCP - General 07/10/10 documented as of this encounter
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
--- OUTSIDE RECORDS SUMMARY | 2024-08-07 00:52 | XMS_ITS | Encounter Summary ---
Author Organization [facility] Address [address] [place] [address] Care Team Providers Care Temporary Help Agency Referral Clerk Name Role Phone Unavailable Primary Care Provider Unavailabl e Encounter Details Date Type Department Care Team (Late st Contact Info) Description 06/21/2005 Results Only [facility] - Maple conversion [address] [place] [address] Lashae Pardo, INVESTMENT CONSULTANT [address] [place] [address] Social History Tobacco Use Types [...] ? LINDA GARCIA ? Accession #: ? [id number] : ? 1965 (Age: 40) ??F ?Collect Date: ? 06/21/2005 Location: ? [facility] ? Receive Date: ? 06/22/2005 Provider: ?LASHAE PARDO INVESTMENT CONSULTANT Copy to: ? Specimen/Source: ?ThinPrep Pap Test, Cervix, processed on Sasken Communication TechnologiesPrep Imaging System, with manual evaluation Last Menstrual Period: ? 05/28/05 ? SPECIMEN ADEQUACY ? Satisfactory for Evaluation - transformation zone component present GENERAL CATEGORIZATION ? Negative for Intraepithelial Lesion or Malignancy ? Document reviewed and electronically signed by: ? PEREZ Joyce(ASCP) ? Report Date: ??06/25/2005 16:09 End of Report [facility] 06/21/2005 06/22/2005 us Lashae Pardo NP PATHOLOGY ORDERABLES Final Result [facility] [address] [place] [address] documented in this encounter Visit Diagnoses Not on filedocumented in this encounter
--- OUTSIDE RECORDS SUMMARY | 2024-08-07 00:52 | XMS_ITS | Encounter Summary ---
Author Organization [facility] Address [address] [place] [address] Care Team Providers Care Single Pass Soil Stabilizer Operator Name Role Phone Unavailable Primary Care Provider Unavailabl e Encounter Details Date Type Department Care Team (Late st Contact Info) Description 07/07/2010 Results Only [facility] Laboratory Services - [facility] [address] [place], [place] [phone] Dakota Resendez, DO [address] [facility] [address] [place], [place] [phone] Social History Tobacco Use Types Packs/Day Years [...] ? LINDA GARCIA ? Accession #: ? [id number] ? : ? 1965 (Age: 45) ??F ? Collect Date: ? 07/07/2010 ? Location: ? [facility] ? Receive Date: ? 07/07/2010 ? Provider: DKAOTA RESENDEZ DO ? Copy to: DIA PARDO WASTE TREATMENT OPERATOR ? Final Pathologic Diagnosis: ? A. ?Gastrojejunostom [...] anemia ? Gross Description: ? Received in [place] Beache's fixative labelled Linda Garcia and ? gastrojejunostomy anastomosis are two irregular pieces of giordano-pink soft tissue measuring 0.3 x 0.2 x 0.2 cm and 0.3 x 0.2 x 0.2 cm. ??The specimens are entirely submitted in (A). ? Received in Gianluca's fixative labelled Linda Garcia and distal esophagus biopsy are two irregular pieces of giordano-pink soft tissue measuring 0.2 x 0.2 x ?? 0.2 cm and 0.3 x 0.3 x 0.3 cm. ??The specimens are entirely submitted in (B). (A. Horn). ? End of Report ? [facility] 07/07/2010 07/07/2010 19: 36 EST us Dakota Resendez DO PATHOLOGY ORDERABLES Fi nal Result [facility] [address] [place] [address] documented in this encounter Visit Diagnoses Not on filedocumented in this encounter
--- OUTSIDE RECORDS SUMMARY | 2024-08-07 00:52 | XMS_ITS | Encounter Summary ---
Author Organization [facility] Address [address] [place] [address] Care Team Providers Care Database Developer Name Role Phone Lashae Pardo NP Primary Care Provider [phone] Encounter Details Date Type Department Care Team (Late st Contact Info) Description 05/30/2015 Results Only [facility] [phone] Dakota Resendez, DO [address] [facility] [address] [place], [place] [id number] Social History Tobacco Use Types Packs/Day Years [...] ? CLIFTONLINDA CONNELLY ? Accession #: ? [id number] ? : ? 1965 (Age: 50) ??F ? Collect Date: ? 05/30/2015 ? Location: ? [facility] ? Receive Date: ? 05/30/2015 ? Provider: DAKOTA RESENDEZ DO Copy to: LASHAE PARDO PIPE SUPERVISOR ? Final Pathologic Diagnosis: A. ??STOMACH, GASTRIC [...] Shanks 05/31/2015 9:01 AM End of Report [facility] 05/30/2015 18:1 6 EST 05/30/2015 18:16 EST us Dakota Resendez DO PATHOLOGY ORDERABLES Fi nal Result [facility] [address] [place] [address] documented in this encounter Visit Diagnoses Not on filedocumented in this encounter Care Teams Database Developer Relationship Specialty Start Date End Date Lashae Pardo, PIPE SUPERVISOR [address] [place] [address] PCP - General 07/10/10 documented as of this encounter
--- OUTSIDE RECORDS SUMMARY | 2024-08-07 00:52 | XMS_ITS | Encounter Summary ---
Author Organization [facility] Address [address] [place] [address] Care Team Providers Care Stoker Installer Name Role Phone Lashae Castaneda ROASTER HELPER Primary Care Provider Encounter Details Date Type Department Care Team (Latest Contact Info) Description 05/30/2015 15:34 EST - 05/30/2015 23:59 EST Hospital Encounter [address] [address] Tami Steven MD Discharge Disposition: Home or [...] Code Departure Means Destination Home or Self [facility] documented in this encounter Plan of Treatment Not on file documented as of this encounter Visit Diagnoses Not on filedocumented in this encounter Care Teams Stoker Installer Relationship Specialty Start Date End Date Lashae Castaneda NP [address] [place] [address] PCP - General 07/10/10 documented as of this encounter
--- OUTSIDE RECORDS SUMMARY | 2024-08-07 00:52 | XMS_ITS | Encounter Summary ---
Author Organization [facility] Address [address] [place] [address] Care Team Providers Care Pattern Weaver Name Role Phone Unavailable Primary Care Provider Unavailabl e Encounter Details Date Type Department Care Team (Late st Contact Info) Description 12/22/2002 Results Only [facility] [address] [place] [address] Lashae Pardo, CORPORATE DEVELOPMENT ANALYST [address] [place] [address] Social History Tobacco Use Types [...] ? JOSE LINDA ? Accession #: ? [id number] : ? 1965 (Age: 37) ??F ?Collect Date: ? 12/22/2002 Location: ? [facility] ? Receive Date: ? 12/25/2002 Provider: ?LASHAE PARDO CORPORATE DEVELOPMENT ANALYST Copy to: ? Specimen/Source: ?ThinPrep Pap Test, Cervix/Endocervix Last Menstrual Period: ? 11/21/02 ? SPECIMEN ADEQUACY ? Satisfactory for Evaluation - transformation zone component present GENERAL CATEGORIZATION ? Negative for Intraepithelial Lesion or Malignancy ? Document reviewed and electronically signed by: ? PEREZ Mendez(ASCP) ? Report Date: ??12/29/2002 08:23 End of Report [facility] 12/22/2002 12/25/2002 us Lashae Pardo NP PATHOLOGY ORDERABLES Final Result [facility] [address] [place] [address] documented in this encounter Visit Diagnoses Not on filedocumented in this encounter
--- OUTSIDE RECORDS SUMMARY | 2024-08-07 00:52 | XMS_ITS | Encounter Summary ---
Author Organization [facility] [place] [address] Care Team Providers Care Criminal Justice Program Director Name Role Phone Lyn Sinclair APRN [...] on filedocumented in this encounter Care Teams Criminal Justice Program Director Relationship Specialty Start Date End Date Lyn Sinclair APRN PCP - General Family Medicine 07/17/17 04/20/24 documented as of this encounter
--- OUTSIDE RECORDS SUMMARY | 2024-08-07 00:52 | XMS_ITS | Encounter Summary ---
Author Organization [facility] Address [facility] [place] [address] Care Team Providers Care Supervisor Blueprinting And Photocopy Name Role Phone Lyn Sinclair APRN Primary Care Provider [phone] Encounter Details Date Type Department Care Team (Latest Contact Info) Description 06/06/2023 4:07 PM EST - 06/06/2023 4:[address] [facility] Hospital Encounter XRay at [address] [place] [address] Suzanne Traore APRN [facility] [place] [address] Pain in right wrist; Right hand pain [...] mouth daily. 06/06/2020 [employer]Style Carina 14 Day [place] Misc 05/30/2020 FreeStyle Carina 14 Day Sensor [...] who have questions please contact the health critical care nurse that requested your imaging first. [...] patients who have questions please contactthe health critical care nurse that requested your imaging first. Suzanne Traore APRN IMG DX ORDERABLES documented in this encounter Visit Diagnoses Diagnosis Pain in right wrist Pain in joint, forearm Right hand pain Pain in limb documented in this encounter Care Teams Supervisor Blueprinting And Photocopy Relationship Specialty Start Date End Date Lyn Sinclair APRN PCP - General Family Medicine 07/17/17 04/20/24 documented as of this encounter
--- OUTSIDE RECORDS SUMMARY | 2024-08-07 00:52 | XMS_ITS | Encounter Summary ---
Author Organization Count Includes [facility] Address [facility] [place] [address] Care Team Providers Care Manual Arts Therapy Teacher Name Role Phone Lyn Sinclair APRN Primary Care Provider Encounter Details Date Type Department Care Team (Latest Contact Info) Description 06/06/2023 4:30 PM EST - 06/06/2023 11:59 PM [facility] Hospital Encounter XRay at [address] [place] [address] Suzanne Traore APRN [facility] [place] [address] Right hand pain Discharge Disposition: Home Social [...] mouth daily. 06/06/2020 FreeStyle Carina 14 Day [place] Misc 05/30/2020 FreeStyle Carina 14 Day Sensor [...] who have questions please contact the health tire care manager that requested your imaging first. ? Electronically signed by: Alanis Georges MD, [facility] ([phone]), at 06/06/2023 10:03 PM Narrative 06/06/2023 10:03 [...] patients who have questions please contactthe health tire care manager that requested your imaging first. Suzanne Traore APRN IMG DX ORDERABLES documented in this encounter Visit Diagnoses Diagnosis Right hand pain Pain in limb documented in this encounter Care Teams Manual Arts Therapy Teacher Relationship Specialty Start Date End Date Lyn Sinclair APRN PCP - General Family Medicine 07/17/17 04/20/24 documented as of this encounter
--- OUTSIDE RECORDS SUMMARY | 2024-08-07 00:52 | XMS_ITS | Encounter Summary ---
Author Organization [facility] Address [address] [place] [address] Care Team Providers Care Meat Stuffer Name Role Phone Lashae Castaneda NP Primary Care Provider [phone] Encounter Details Date Type Department Care Team (Late st Contact Info) Description 02/26/2017 Results Only [facility] [phone] Dakota Resendez, DO [address] [facility] [address] [place], [place] [id number] Social History Tobacco Use Types Packs/Day Years [...] ? LINDA GARCIA ? Accession #: ? [id number] ? : ? 1965 (Age: 52) ??F ? Collect Date: ? 02/26/2017 ? Location: ? [facility] ? Receive Date: ? 02/26/2017 ? Provider: DAKOTA RESENDEZ DO Copy to: ANAY IYER GASOLINE ATTENDANT ? Final Pathologic Diagnosis: GASTRIC JEJUNUM ANASTOMOSIS, BIOPSY: - ??Ulcer bed and necroinflammatory exudate. See comment. - ??Gastric oxyntic mucosa with reactive (chemical) gastropathy. Comment: ----- Immunoperoxidase staining was performed on this case to further characterize the lesion. ? ANTIBODY(CLONE)(BLOC K):RESULT H. pylori (Rabbit Monoclonal (SP48), [place]) (1) negative: ? NOTE: ??One or more [...] performance characteristics have been determined by the [facility]. ??The positive and negative controls worked appropriately. [...] (ASCP) 02/27/2017 8:24 AM End of Report [facility] 02/26/2017 17:2 9 EDT 02/26/2017 17:29 EDT us Dakota Resendez DO PATHOLOGY ORDERABLES Fi nal Result [facility] [address] [place] [address] documented in this encounter Visit Diagnoses Not on filedocumented in this encounter Care Teams Meat Stuffer Relationship Specialty Start Date End Date Lashae Castaneda NP [address] [place] [id number] PCP - General 07/10/10 documented as of this encounter
--- OUTSIDE RECORDS SUMMARY | 2024-08-07 00:52 | XMS_ITS | Encounter Summary ---
Author Organization [facility] [place] [address] Care Team Providers Care Distributor Cleaner Name Role Phone Valentina Garnica APRN Primary Care Provider [phone] Encounter Details Date Type Department Care Team [...] on filedocumented in this encounter Care Teams Distributor Cleaner Relationship Specialty Start Date End Date Valentina Garnica APRN [address] [place], [place] [address] PCP - General Internal Medicine 04/21/24 documented as of this encounter
--- OUTSIDE RECORDS SUMMARY | 2024-08-07 00:52 | XMS_ITS | Data Portability ---
Author Organization [facility] Address [place] [address] Care Team Providers Care Cask Maker Name Role Phone [facility] Primary Care Provider Assessment No assessment recorded. Plan of Treatment Reminders Order Date Submit Date Provider Last Modified By Organization Details Last Modified Time Details Appointments None recorded. Lab CBC w/ auto diff 2022 023 [facility] (Registration ), [address] [place] [address] [place], [address], 3 15:07:58 CMP, serum or plasma - Specimen collected in the office at [facility]. 2022 023 [facility] (Registration ), [address] [place] [address] [place], [address], 15:25:00 lipase, serum or plasma - Specimen collected in the office at [facility]. 2022 023 [facility] (Registration ), [address] [place] [address] [place], [address], 3 15:49:13 influenza virus A + B + SARS-CoV-2 (COVID19) Ag panel, rapid IA, upper respiratory specimen 2022 023 [email or web address] [facility], [address] [place] [address], [address], [place], [address], 3 10:53:12 Referral None recorded. Procedures None recorded. Surgeries None recorded. Imaging None recorded. Medication Orders None recorded. Patient TargetsNo targets recorded. Patient Instructions Encounter Date Encounter Id Patient Instructions Last Modified By Organization Details Last Modified Time 07/16/2023 [id number] specimen collection & handling* [email or web address] Not available 07/16/2023 10:53:12 venous blood draw* [email or web address] Not available 07/23/2023 09:34:39 Reason for Referral None Reported. Results Created Date Observation Date Name Description Value Unit Range Abnormal Flag Note LastModifiedBy Organization Detail LastModifiedTime 07/16/20 23 07/16/2023 COMPL ETE BLOOD COUNT W/DIF F WBC 6.89 10_3/ uL 4.4-10 .8 normal Not Available [address] [place], [address] 07/16/2023 15:07:58 07/16/20 23 07/16/2023 COMPL ETE BLOOD COUNT W/DIF F RBC 4.13 10_6/ uL 3.93-5 .22 normal Not Available [address] [place], [address] 07/16/2023 15:07:58 07/16/20 23 07/16/2023 COMPL ETE BLOOD COUNT W/DIF F HGB 10.4 g/dL 11.2-1 5.7 low Not Available [address] [place], [address] 07/16/2023 15:07:58 07/16/20 23 07/16/2023 COMPL ETE BLOOD COUNT W/DIF F HCT 33.7 % 36.0-4 6.0 low Not Available [address] [place], [address] 07/16/2023 15:07:58 07/16/20 23 07/16/2023 COMPL ETE BLOOD COUNT W/DIF F MCV 82 fL 80-95 normal Not Available Tobin mauro [address] [place], [address] 07/16/2023 15:07:58 07/16/20 23 07/16/2023 COMPL ETE BLOOD COUNT W/DIF F MCH 25.2 pg 27.0-3 3.0 low Not Available [address] [place], [address] 07/16/2023 15:07:58 07/16/20 23 07/16/2023 COMPL ETE BLOOD COUNT W/DIF F MCHC 30.9 % 32.0-3 6.0 low Not Available [address] [place], [address] 07/16/2023 15:07:58 07/16/20 23 07/16/2023 COMPL ETE BLOOD COUNT W/DIF F RDW 14.2 % 11.7-1 4.6 normal Not Available [address] [place], [address] 07/16/2023 15:07:58 07/16/20 23 07/16/2023 COMPL ETE BLOOD COUNT W/DIF F platelet count 236 10_3/ uL 130-40 0 normal Not Available [address] [place], [address] 07/16/2023 15:07:58 07/16/20 23 07/16/2023 COMPL ETE BLOOD COUNT W/DIF F MPV 12.1 fL 8.0-11 .0 high Not Available [address] [place], [address] 07/16/2023 15:07:58 07/16/20 23 07/16/2023 COMPL ETE BLOOD COUNT W/DIF F neutrophils % 62.6 Not Available [address] [place], [address] 07/16/2023 15:07:58 07/16/20 23 07/16/2023 COMPL ETE BLOOD COUNT W/DIF F lymphocytes % 18.1 Not Available [address] [place], [address] 07/16/2023 15:07:58 07/16/20 23 07/16/2023 COMPL ETE BLOOD COUNT W/DIF F monocytes % 8.0 Not Available [address] [place], [address] 07/16/2023 15:07:58 07/16/20 23 07/16/2023 COMPL ETE BLOOD COUNT W/DIF F eosinophils % 9.7 Not Available [address] [place], [address] 07/16/2023 15:07:58 07/16/20 23 07/16/2023 COMPL ETE BLOOD COUNT W/DIF F basophils % 1.2 Not Available [address] [place], [address] 07/16/2023 15:07:58 07/16/20 23 07/16/2023 COMPL ETE BLOOD COUNT W/DIF F immature grans % 0.4 Not Available [address] [place], [address] 07/16/2023 15:07:58 07/16/20 23 07/16/2023 COMPL ETE BLOOD COUNT W/DIF F nucleated RBC 0.0 % 0.0-0. 3 normal Not Available [address] [place], [address] 07/16/2023 15:07:58 07/16/20 23 07/16/2023 COMPL ETE BLOOD COUNT W/DIF F absolute neutrophil count 4.31 10_3/ uL 1.2-6. 7 normal Not Available [address] [place], [address] 07/16/2023 15:07:58 07/16/20 23 07/16/2023 COMPL ETE BLOOD COUNT W/DIF F absolute lymphocyte count 1.25 10_3/ uL 1.2-3. 4 normal Not Available [address] [place], [address] 07/16/2023 15:07:58 07/16/20 23 07/16/2023 COMPL ETE BLOOD COUNT W/DIF F absolute monocyte count 0.55 10_3/ uL 0.1-0. 8 normal Not Available [address] [place], [address] 07/16/2023 15:07:58 07/16/20 23 07/16/2023 COMPL ETE BLOOD COUNT W/DIF F absolute eosinophil count 0.67 10_3/ uL 0.0-0. 7 normal Not Available [address] [place], [address] 07/16/2023 15:07:58 07/16/20 23 07/16/2023 COMPL ETE BLOOD COUNT W/DIF F absolute basophil count 0.08 10_3/ uL 0.0-0. 2 normal Not Available [address] [place], [address] 07/16/2023 15:07:58 07/16/20 23 07/16/2023 COMPR EHENS IZABEL METAB OLIC PANEL calcium 9.0 mg/dL 8.5-10 .1 normal Not Available [address] [place], [address] 07/16/2023 15:25:00 07/16/20 23 07/16/2023 COMPR EHENS IZABEL METAB OLIC PANEL glucose 189 mg/dL 74-106 high Not Available Tobin [address] [place], [address] 07/16/2023 15:25:00 07/16/20 23 07/16/2023 COMPR EHENS IZABEL METAB OLIC PANEL BUN 19 mg/dL 7-18 high Not Available Tobin [address] [place], [address] 07/16/2023 15:25:00 07/16/20 23 07/16/2023 COMPR EHENS IZABEL METAB OLIC PANEL creatinine 1.0 mg/dL 0.55-1 .02 normal Not Available [address] [place], [address] 07/16/2023 15:25:00 07/16/20 23 07/16/2023 COMPR EHENS IZABEL METAB OLIC PANEL estimated GFR 64.49 mL/min /1.73m 2 The eGFR is calcu lated from a serum creat inine using the CKD-E PI 2020 equat ion. Other varia bles requi red for the equat ion are gende r and age; this equat ion does not inclu de a race coeff icien t. This equat ion has simil ar overa ll perfo rmanc e to previ ous equat ions excep t value s may diffe r, in parti cular , in patie nts with highe r value s of eGFR and young er-ag ed adult s. Not Available [address] [place], [address] 07/16/2023 15:25:00 07/16/2007/16/2023 COMPR EHENS IZABEL METAB OLIC PANEL total protein 6.4 g/dL 6.4-8. 2 normal Not Available [address] [place], [address] 07/16/2023 15:25:00 07/16/2007/16/2023 COMPR EHENS IZABEL METAB OLIC PANEL albumin 3.5 g/dL 3.4-5. 0 normal Not Available [address] [place], [address] 07/16/2023 15:25:00 07/16/2007/16/2023 COMPR EHENS IZABEL METAB OLIC PANEL bilirubin, total 0.4 mg/dL 0.2-1. 0 normal Not Available [address] [place], [address] 07/16/2023 15:25:00 07/16/2007/16/2023 COMPR EHENS IZABEL METAB OLIC PANEL alk phos 120 U/L 46-116 high Not Available [address] [place], [address] 07/16/2023 15:25:00 07/16/2007/16/2023 COMPR EHENS IZABEL METAB OLIC PANEL sodium 143 mmol/ L 136-14 5 normal Not Available [address] [place], [address] 07/16/2023 15:25:00 07/16/2007/16/2023 COMPR EHENS IZABEL METAB OLIC PANEL potassium 4.4 mmol/ L 3.5-5. 1 normal Not Available [address] [place], [address] 07/16/2023 15:25:00 07/16/2007/16/2023 COMPR EHENS IZABEL METAB OLIC PANEL chloride 106 mmol/ L 98-107 normal Not Available [address] [place], [address] 07/16/2023 15:25:00 12/26/20 23 07/16/2023 COMPR EHENS IZABEL METAB OLIC PANEL CO2 29.3 mmol/ L 21.0-3 2.0 normal Not Available [address] [place], [address] 07/16/2023 15:25:00 07/16/20 23 07/16/2023 COMPR EHENS IZABEL METAB OLIC PANEL anion gap 7.7 mmol/ L 3-11 normal Not Available [address] [place], [address] 07/16/2023 15:25:00 07/16/20 23 07/16/2023 COMPR EHENS IZABEL METAB OLIC PANEL AST 21 U/L 15-37 normal Not Available Tobin mauro [address] [facility] [place], [address] 07/16/2023 15:25:00 07/16/20 23 07/16/2023 COMPR EHENS IZABEL METAB OLIC PANEL ALT 29 U/L 14-59 normal Not Available Tobin mauro [address] [place], [address] 07/16/2023 15:25:00 07/16/20 23 07/16/2023 LIPAS E lipase 60 U/L 16-77 normal Not Available [facility] (Registration ) [address] [place] [address] Dr [facility] [place], [address], 07/16/2023 15:25:01 07/16/20 23 07/16/2023 speci men colle ction & handl ing* Specimen collection and handling performed today: Yes Not Available Ondina [address], [address], 07/16/2023 10:27:45 07/16/20 23 07/16/2023 influ harrison virus A + B + SARS- CoV-2 (COVI D19) Ag panel , rapid IA, upper respi rator y speci men Influenza A negati ve Not Available [address], [place], [address], 07/16/2023 10:20:38 07/16/20 23 07/16/2023 influ harrison virus A + B + SARS- CoV-2 (COVI D19) Ag panel , rapid IA, upper respi rator y speci men Influenza B negati ve Not Available [address], [place], [address], 07/16/2023 10:20:38 07/16/20 23 07/16/2023 influ harrison virus A + B + SARS- CoV-2 (COVI D19) Ag panel , rapid IA, upper respi rator y speci men SARS-COV-2 negati ve Not Available [address], [place], [address], 07/16/2023 10:20:38 07/18/20 23 07/18/2023 colon oscop y outco mes repor ting* No observ ation record ed. BARCODE Not Available 2022 12:47:19 07/18/20 23 07/18/2023 MAMMO , diagn ostic , bilat eral No observ ation record ed. BARCODE Not Available 2022 13:06:24 Result Notes None recorded. Procedures Surgical History None recorded. Imaging Results Imaging Date Name Status LastModified by Organiz ation Details LastModified Time 07/18/2023 colonoscopy outcomes reporting* completed [facility] Information not available 07/18/2023 12:47:19 07/18/2023 MAMMO, diagnostic, bilateral completed BARCODE Information not available 07/18/2023 13:06:24 Procedure Notes None recorded. Medical Equipment None Reported. Allergies Allergen ID Allergen Name Allergen Category Reaction Reaction Severity Criticality Documentation Date Start Date Code Code System Note Provider Name and Address Organization Details Recorded Time 74757 acetamino phen / oxycodone medicatio n Not available Not available Not available 07/16/2023 89789 3 RxNorm SABINA valdovinos [facility] 09:44:30 76393 doxycycli ne Not available Not available Not available Not available 07/16/2023 3640 RxNorm SABINA EGAN null, [facility] 3 09:44:35 80559 trazodone medicatio n Not available Not available Not available 07/16/2023 07416 RxNorm SABINA EGAN null, [facility] 3 09:44:41 42678 amoxicill in medicatio n Not available Not available Not available 07/16/2023 723 RxNorm SABINA EGAN null, [facility] 3 10:08:23 42071 morphine medicatio n Not available Not available Not available 07/16/2023 7052 RxNorm SABINA EGAN null, [facility] 3 10:08:32 62539 Ambien medicatio n Not available Not available Not available 07/16/2023 15499 5 RxNorm SABINA EGAN [facility], [facility] 3 10:08:44 81056 Flagyl medicatio n Not available Not available Not available 07/16/202391317 6 RxNorm SABINA EGAN null, [facility] 3 10:08:55 Medications Name Sig Start Date Stop Date Status Note LastModified by Organization Details LastModified Time atorvastatin 10 mg tablet Take 1 tablet every day by oral route. active Not Available Not Available No t Available minocycline 100 mg capsule Take 1 capsule every 12 hours by oral route. active Not Available Not Available No t Available clobetasol 0.05 % topical cream APPLY A THIN LAYER TO THE AFFECTED AREA(S) BY TOPICAL ROUTE 2 TIMES PER DAY active Not Available Not Available No t Available aspirin 81 mg tablet,delayed release Take 1 tablet every day by oral route. active Not Available Not Available No t Available chlorhexidine gluconate 4 % topical liquid active Not Available Not Availab le Not Available psyllium seed (sugar) oral packet Take by oral route. active Not Available Not Available No t Available magnesium active Not Available Not Chelsea ilable Not Available albuterol active Not Available Not Chelsea ilable Not Available levothyroxine active Not Available Not Available Not Available lorazepam active Not Available Not Chelsea ilable Not Available capsaicin active Not Available Not Chelsea ilable Not Available metformin active Not Available Not Chelsea ilable Not Available cetirizine active Not Available Not Av ailable Not Available bupropion HCl active Not Available Not Available Not Available pantoprazole active Not Available Not Available Not Available linagliptin active Not Available Not A vailable Not Available Jardiance active Not Available Not Chelsea ilable Not Available Vitals Date Recorded Body temperature Body height Oxygen saturation Oxygen saturation in Arterial blood by Pulse oximetry Body mass index (BMI) Body weight Heart rate Systolic blood pressure Diastolic blood pressure Provider Name and Address Organization Details Last Updated DateTime 3 97.2 [degF] 165.1 cm 98 % 98 % 28.6 kg/m2 40273.8 9 g 66 /min 125 mm[Hg] 79 mm[Hg] SABINA EGAN [facility] 09:46:46 Social History Question Answer Notes LastModified by Organizat ion Details LastModified Time Tobacco Smoking Status [facility] 07/16/2023 09:45:12 What Was The Date Of Your Most Recent Tobacco Screening? 07/16/2023 Information not available 07/16/2023 Has Tobacco Cessation Counseling Been Provided? No Information not available 07/16/2023 Do You Or Have You Ever Used Any Other Forms Of Tobacco Or Nicotine? No Information not available 07/16/2023 Sex: Female Functional Status None recorded. Mental Status None recorded. Family History Nothing Reported. Medical History No medical history recorded. Gynecological HistoryNo gynecological history recorded. Obstetrics History GPAL:G 0 P 0 0 0 0 Immunizations Vaccine Type Date Status Note Provider Nam e and Address Organization Details Recorded Time influenza, unspecified formulation 04/19/2023 completed RONAN Carvajal [facility] 07/18/2023 12:28:00 Tdap 04/28/2021 completed RONAN Carvajal [facility] 07/18/2023 12:28:08 pneumococcal, unspecified formulation 04/25/2016 completed RONAN Carvajal [facility] 07/18/2023 12:28:17 zoster, unspecified formulation 08/11/2021 completed Kyra Bennett RN null, [facility] 07/18/2023 12:28:25 zoster, unspecified formulation 11/03/2021 completed Kyra Bennett RN null, [facility] 07/18/2023 12:28:33 COVID-19, mRNA, LNP-S, PF, 100 mcg/0.5mL dose or 50 mcg/0.25mL dose 07/27/2020 completed Kyra Bennett RN null, [facility] 07/18/2023 12:28:46 COVID-19, mRNA, LNP-S, PF, 100 mcg/0.5mL dose or 50 mcg/0.25mL dose 08/24/2020 completed Kyra Bennett RN null, [facility] 07/18/2023 12:28:51 COVID-19, mRNA, LNP-S, PF, 100 mcg/0.5mL dose or 50 mcg/0.25mL dose 06/09/2021 completed Kyra Bennett RN null, [facility] 07/18/2023 12:28:58 Past Encounters Encounter ID Performer Location Encounter Start Date Encounter Closed Date Diagnosis/Indication Diagnosis SNOMED-CT Code Diagnosis ICD10 Code Diagnosis Note [id number] ZACH LIU PA-C [address] [address] 07/16/2023 09:26:57 07/16/2023 10:25:46 Influenza-like illness 90747627 B34.9 COVID testing negative. Influenza- like illness. Given muscle cramps and abdominal pain did offer laboratory workup which she was agreeable with. CBC CMP lipase ordered. Offered PCR testing for flu and COVID, she declined. Supportive measures reviewed. Follow-up pending laboratory results. Health Concerns Section Related Observation LastModified by Organization Detai ls LastModified Time None Recorded Concern Status LastModified by Organization Details LastModified Time None Recorded Advance Directives Directive None Recorded Payers Encounter Date Sequence Insurance Name Policy Number Policy Webster Covered Member ID Webster Member ID Guarantor Name 07/16/2023 1 [facility] Linda Garcia [id number] Linda Garcia Notes Date Note Type Note Provider Name and Address Organization Details Recorded Time 07/16/2023 text/html Patient is a 4-year-old female presenting for feeling unwell. Has been feeling unwell for the past 3 to 4 days. Reports generalized feeling unwell, fatigue body aches. No nausea or vomiting but reports some abdominal pain. States she is moving her bowels normally. No coughing wheezing or congestion. No sore throat. Mild runny nose. Some headache no dizziness. No fevers or chills. Is menopausal and reports hot flashes. 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 No known sick contacts with flu or COVID.States that she feels dry. Has been drinking tea not much water.Had muscle cramps/tremor since last night [address], [place], [address], [facility]. 07/16/2023 11:19:54 OBGyn Episode No OBEpisode recorded.
--- OUTSIDE RECORDS SUMMARY | 2024-08-07 00:52 | XMS_ITS | Encounter Summary ---
Author Organization [facility] Address [address] [place] [address] Care Team Providers Care Contracting Engineer Name Role Phone Lashae Castaneda STUDIO COORDINATOR Primary Care Provider [phone] Encounter Details Date Type Department Care Team (Latest Contact Info) Description 07/02/2017 15:42 EST - 07/02/2017 23:59 EST Hospital Encounter [address] [address] Tami tSeven MD Discharge Disposition: Home or Self Care [...] Code Departure Means Destination Home or Self Skilled Nursing documented in this encounter Plan of Treatment Not on file documented as of this encounter Visit Diagnoses Not on filedocumented in this encounter Care Teams Contracting Engineer Relationship Specialty Start Date End Date Lashae Castaneda NP [address] [place] [address] PCP - General 07/10/10 documented as of this encounter
--- OUTSIDE RECORDS SUMMARY | 2024-08-07 00:52 | XMS_ITS | Encounter Summary ---
Author Organization [facility] [place] [address] Care Team Providers Care Recorder Gravity Prospecting Name Role Phone Valentina Garnica APRN Primary Care Provider [phone] Encounter Details Date Type Department Care Team (Late st Contact Info) Description 04/21/2024 3:30 PM EDT Office Visit [place] [id number] Suzanne Traore APRN [facility] [place] [address] Coccyx contusion, subsequent encounter (Primary Dx); Contusion [...] this encounter Progress Notes * Suzanne Traore, MILLING MACHINE SET UP OPERATOR - 04/21/2024 3:30 PM EDT Occupational and [...] who have questions please contact the health family day care worker that requested your imaging first. Electronically signed by: Argentina Pruitt MD, [facility] ([phone]), at 04/09/2024 8:39 AM ASSESSMENT Linda Garcia [...] not been reached at this time. The [place] WC form was completed today; if completed, a copy was given to the employee to share with their manager audit. Causality: It is my professional opinion that [...] encounter documented in this encounter Care Teams Recorder Gravity Prospecting Relationship Specialty Start Date End Date Valentina Garnica APRN [address] [place] [address] PCP - General Internal Medicine 04/21/24 documented as of this encounter
--- OUTSIDE RECORDS SUMMARY | 2024-08-07 00:52 | XMS_ITS | Encounter Summary ---
Author Organization [facility] Address [facility] [place] [address] Care Team Providers Care Asphalt Machine Operator Name Role Phone Lyn Sinclair APRN Primary Care Provider [phone] Encounter Details Date Type Department Care Team (Latest Contact Info) Description 04/07/2024 4:10 PM EDT - 04/07/2024 11:59 PM EDT Hospital Encounter XRay at [address] [place] [address] Suzanne Traore APRN [facility] [place] [address] Coccyx contusion, initial encounter Discharge Disposition: Home [...] mouth daily. 06/06/2020 FreeStyle Carina 14 Day Crook Misc 05/30/2020 FreeStyle Carina 14 Day Sensor [...] (ACCU-CHEK MULTICLIX LANCET) Mis 1 each by [facility].(Non-Drug; Combo Route) route 2 [...] (Generic) (04/07/2024 4:29 PM EDT) WORKSTATION ID [id number] RAD Anatomical Region Laterality Modality Pelvis, Hip, L-spine N/A Digital Rad iography Impressions 04/09/2024 8:39 AM EDT Normal sacrum/coccyx radiographs. Thank you for letting us participate in the care of this patient. ??If you are a health care provider and have any questions regarding this report, please contact the number below. ??For patients who have questions please contact the health resident care director that requested your imaging first. ? Narrative [...] patients who have questions please contactthe health resident care director that requested your imaging first. Electronically signed by: Argentina Pruitt MD, [facility]([phone]), at 04/09/2024 8:39 AM Suzanne Traore HEAD PAPER TESTER IMG DX ORDERABLES documented in this encounter Visit Diagnoses Diagnosis Coccyx contusion, initial encounter documented in this encounter Care Teams Asphalt Machine Operator Relationship Specialty Start Date End Date Lyn Sinclair APRN PCP - General Family Medicine 07/17/17 04/20/24 documented as of this encounter
--- OUTSIDE RECORDS SUMMARY | 2024-08-07 00:52 | XMS_ITS | Encounter Summary ---
Author Organization [facility] [place] [address] Care Team Providers Care Electronics Utility Worker Name Role Phone Lyn Sinclair APRN Primary [...] on filedocumented in this encounter Care Teams Electronics Utility Worker Relationship Specialty Start Date End Date Lyn Sinclair APRN PCP - General Family Medicine 07/17/17 04/20/24 documented as of this encounter
--- OUTSIDE RECORDS SUMMARY | 2024-08-07 00:52 | XMS_ITS | Encounter Summary ---
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 Patient will be traveling with the [...] by mouth daily. FreeStyle Carina 14 Day [place] Misc FreeStyle Carina 14 Day Sensor Kit [...] (ACCU-CHEK MULTICLIX LANCET) Misc 1 each by [facility].(Non-Drug; Combo Route) route 2 times daily. Diagnosis [...] 06/02/2021, 05/14/2022, 04/19/2023 Moderna Covid-19 Monovalent 12Yr+ (Wood Web Weaving Machine Operator 100mcg) 07/27/2020, 08/24/2020, 06/09/2021, 03/12/2022 Pneumococcal Conjugate [...] positive while traveling. Advised traveler to contact [facility] if travel [...] counseling documented in this encounter Care Teams Watch Adjuster Relationship Specialty Start Date End Date Lyn Sinclair, CONVENTIONAL UNDERWRITER PCP - General Family Medicine 07/17/17 04/20/24 documented as of this encounter
--- OUTSIDE RECORDS SUMMARY | 2024-08-07 00:52 | XMS_ITS | Encounter Summary ---
Author Organization [facility] [address] Care Team Providers Care Loan Originator Name Role Phone Lyn Sinclair APRN Primary Care Provider [phone] Encounter Details Date Type Department Care Team (Late st Contact Info) Description 04/07/2024 3:00 PM EDT Office [place] [phone] Suzanne Traore APRN [facility] [place] [address] Coccyx contusion, initial encounter (Primary Dx); Contusion [...] 12 hours then off for 12 hours. supply chain analyst a donut pillow to sit on. Follow [...] not been reached at this time. The [place] [employer] form was completed today; if completed, a copy was given to the employee to share with their dental manager. Causality: It is my professional opinion [...] & Coccyx (Generic) (04/07/2024 4:29 PM EDT) [employer] WORKSTATION ID [id number] RAD Anatomical Region Laterality Modality Pelvis, Hip, L-spine N/A Digital Rad iography Impressions 04/09/2024 8:39 AM EDT Normal sacrum/coccyx radiographs. Thank you for letting us participate in the care of this patient. ??If you are a health care provider and have any questions regarding this report, please contact the number below. ??For patients who have questions please contact the health care services manager that requested your imaging first. ? Electronically signed by: Argentina Pruitt MD, [facility] ([phone]), at 04/09/2024 8:39 AM Narrative 04/09/2024 8:39 [...] patients who have questions please contactthe health care services manager that requested your imaging first. Electronically signed by: Argentina Pruitt MD, [facility]([phone]), at 04/09/2024 8:39 AM Suzanne Marre CYNTHIA [...] Deltoid documented in this encounter Care Teams Loan Originator Relationship Specialty Start Date End Date Lyn Sinclair, CYNTHIA PCP - General Family Medicine 07/17/17 04/20/24 documented as of this encounter
--- OUTSIDE RECORDS SUMMARY | 2024-08-07 00:52 | XMS_ITS | Encounter Summary ---
Author Organization [facility] Address [facility] [place] [address] Care Team Providers Care Plastic Die Maker Apprentice Name Role Phone Valentina Garnica APRN Primary Care Provider [phone] Reason for Visit * Reason Comments Medication Refill Encounter Details Date Type Department Care Team (Late st Contact Info) Description 07/28/2024 Refill [place] [address] Dixon Yee MD [facility] [place] [address] Counseling about travel Social History Tobacco Use [...] counseling documented in this encounter Care Teams Plastic Die Maker Apprentice Relationship Specialty Start Date End Date Valentina Garnica APRN [address] [place] [address] PCP - General Internal Medicine 04/21/24 documented as of this encounter
--- OUTSIDE RECORDS SUMMARY | 2024-08-07 00:52 | XMS_ITS | Encounter Summary ---
Author Organization [facility] Address [address] [place] [address] Care Team Providers Care Architecture Analyst Name Role Phone Unavailable Primary Care Provider Unavailabl e Encounter Details Date Type Department Care Team (Late st Contact Info) Description 06/08/2004 Results Only [facility] - [facility] [address] [place] [address] Lsahae Pardo, DIGITIZER [address] [place] [address] Social History Tobacco Use Types [...] ? LINDA GARCIA ? Accession #: ? [id number] : ? 1965 (Age: 39) ??F ?Collect Date: ? 06/08/2004 Location: ? [facility] ? Receive Date: ? 06/12/2004 Provider: ?LASHAE PARDO DIGITIZER Copy to: ? Specimen/Source: ?ThinPrep Pap Test, Cervix/Endocervix Last Menstrual Period: ? 05/10/04 ? SPECIMEN ADEQUACY ? Satisfactory for Evaluation - transformation zone component present GENERAL CATEGORIZATION ? Negative for Intraepithelial Lesion or Malignancy INTERPRETATION ? Fungal organisms present morphologically consistent with Yudelka species. ? Document reviewed and electronically signed by: ? Oscar Lowe , PEREZ(ASCP) ? Report Date: ??06/21/2004 07:40 End of Report [facility] 06/08/2004 06/12/2004 us Lashae Pardo DIGITIZER PATHOLOGY ORDERABLES Final Result [facility] [address] [place] [address] documented in this encounter Visit Diagnoses Not on filedocumented in this encounter
--- OUTSIDE RECORDS SUMMARY | 2024-08-07 00:52 | XMS_ITS | Clinical Summary ---
Author Organization [facility] [place] [address] Care Team Providers Care Clothes Drier Repairer Name Role Phone Valentina Garnica Silvia MARIE Primary Care Provider [phone] Allergies Active Allergy Reactions Criticality Noted Date [...] (ACCU-CHEK MULTICLIX LANCET) Mis 1 each by [facility]Non-Drug; Combo Route) route 2 times daily. Diagnosis [...] daily. 06/06/2020 Active FreeStyle Carina 14 Day [place] Misc 05/30/2020 Active FreeStyle Carina 14 Day [...] Encounters Date Type Department Care Team Description 07/28/2024 [place] [address] Dixon Yee MD Counseling about travel 05/08/2024 Travel from Last 3 Months Immunizations Name Administration Dates Next Due Covid-19 (Moderna Spikevax) 12yrs+ (7591-2743) 05/08/2024,07/26/2023 Hepatitis A Adult (Havrix, Vaqta) 03/17/2024 [...] yearly 07/17/2018, 04/25/2016, 04/26/2014, Additional history exists Pneumoccocal Vaccine: 50+ (3 of 3 - PCV20 or PCV21) 04/25/2021 04/25/2016, 10/06/2007 DM Creatinine yearly 03/29/2024 03/29/2023, 07/17/2017, 04/25/2016, Additional history exists Tetanus/Diphtheria/Pertussis Vaccines (2 - Td or Tdap) 04/28/2031 04/28/2021, 04/19/2011 Lipid Screening Discontinued 07/17/2017, 10/0 11/2015, 04/26/2014, Additional history exists Zoster vaccine Completed 11/03/2021, 08/11/2021 Diabetes Screening (HgbA1C o r Glucose) Discontinued 03/29/2023, 07/17/2017, 07/17/2017, Additional history exists Covid-19 Vaccine Completed 05/08/2024, 11/2023, 03/12/2022, Additional history exists Influenza (Flu) vaccine Completed 05/08/20, 04/19/2023, 05/14/2022, Additional history exists Procedures Procedure Name Priority Date/Time Associated Diagnosis Comments COMPREHENSIVE METABOLIC PANEL Routine 03/29/2023 1:42 PM EDT Restless leg syndrome U ALBUMIN/CRE RATIO Routine 07/17/2017 3 :41 PM EST Type 2 diabetes mellitus without complication, unspecified terminal manager insulin use status HDL/CHOL PROFILE Routine 07/17/2017 3:34 PM EST Type 2 diabetes mellitus without complication, unspecified correction insulin use status HEMOGLOBIN A1C Routine 07/17/2017 3:34 PM EST Type 2 diabetes mellitus without complication, unspecified terminal manager insulin use status from Last 3 Months or Most Recently Relevant to Health Maintenance Results * (ABNORMAL) Comprehensive metabolic panel (non-fasting) (03/29/2023 1:42 PM EDT) Glucose 133 65 - 199 mg/dL [facility] Comment:Diabetes: >=200 mg/d L plus symptoms Blood Urea Nitrogen 18 8 - 18 mg/dL [facility] Creatinine 0.94 0.70 - 1.20 mg/dL [facility] Sodium 142 135 - 145 mmol/L [facility] Potassium 4.5 3.5 - 5.0 mmol/L [facility] Comment: Please note: ??Patients with WBC >100,000 may have falsely elevated Potassium levels. ??For accurate Potassium quantification in these patients send serum separator tube (gold top) for subsequent determinations. ??Contact the Clinical Chemistry Laboratory if there are any questions. Chloride 105 98 - 107 mmol/L [facility] Carbon Dioxide 24 22 - 31 mmol/L [facility] Anion Gap 13 5 - 15 mmol/L [facility] Calcium 9.5 8.5 - 10.5 mg/dL [facility] Protein, Total 7.0 6.1 - 8.0 g/dL [facility] Albumin 4.3 3.2 - 5.2 g/dL [facility] Aspartate Aminotransferase 15 0 - 30 unit/L [facility] Alanine Aminotransferase 10 0 - 30 unit/L [facility] Alkaline Phosphatase 123(H) 35 - 105 unit/L [facility] Bilirubin, Total 0.3 0.2 - 1.3 mg/dL [facility] Est Glomerular Filtration Rate 69 >=60 mL/min/1. 73 m?? [facility] Comment: This patient's estimated GFR [...] APRN CHEMISTRY ORDERABLE S Performing Organization Address City/State/[facility] Co de Phone Number [facility] [address] * U Albumin/Cre Ratio (07/17/2017 3:41 PM EST) Albumin / Creatinin Ratio, Urine 3 0 - 29 mcg/mg Cr [facility] [...] 2, 357? 362 Albumin, Urine 3.3 mg/L [facility] Creatinine, Urine 126 mg/dL [facility] Urine specimen (specimen) 07/17/2017 3:41 PM EST 07/17/2017 3:47 PM EST Narrative Resulting Agency Comment Spec In Lab Ambreen Vora APRN URINE ORDERABLES [facility] [place] [address] * (ABNORMAL) HDL/Cholesterol Profile (07/17/2017 3:34 PM EST) Cholesterol, Total 160 <=239 mg/dL [facility] HDL Cholesterol 23(L) >=40 mg/dL [facility] Cholesterol/HDL Ratio 7.0 ratio [facility] Chol/HDL Interpretation See Note [facility] Comment: Lipid management should be guided by a patient? s ASCVD risk, goals and preferences. ACC/AHA Guidelines recommend high intensity statin if clinical ASCVD or LDL greater than or equal to 190 mg/dL. http://tinyurl.com/BNS-WUA-Bpsqtxegb Measure LDL if Total Cholesterol minus HDL Cholesterol is greater than 220 mg/dL. Adults aged 40-75 with LDL 70-189 mg/dL should have their 10 year ASCVD risk estimated with the ACC/AHA ASCVD risk oracle programmer analyst http://tools.acc.org/YVVZI-Lwzm-Zkrlvkttf/ Statin should be discussed if risk greater [...] Agency Comment Spec In Lab Ambreen Vora CYNTHIA CHEMISTRY ORDERABLE S [facility] [place] [address] * (ABNORMAL) Hemoglobin A1c (07/17/2017 3:34 PM [...] Mellitus, Diabetes Care 2013; 36: Suppl. 1, E57-17 Estimated Average Glucose 174 mg/dL [facility] [...] into estimated average glucose values. ??Diabetes Care 2008:31(8):5967-5237. Blood specimen (specimen) 07/17/2017 3:34 PM EST 07/17/2017 3:45 PM EST Narrative Resulting Agency Comment Spec In Lab Ambreen Vora APRN CHEMISTRY ORDERABLE S [facility] [place] [address] from Last 3 Months or Most Recently Relevant to Health Maintenance Care Teams Clothes Drier Repairer Relationship Specialty Start Date End Date Valentina Garnica APRN [address] [place] [address] PCP - General Internal Medicine 04/21/24
--- OUTSIDE RECORDS SUMMARY | 2024-08-07 00:52 | XMS_ITS | Encounter Summary ---
Author Organization [facility] Address [address] [place] [address] Care Team Providers Care Typing Checker Name Role Phone Lashae Castaneda NP Primary Care Provider [phone] Encounter Details Date Type Department Care Team (Late st Contact Info) Description 11/30/2011 Results Only [facility] Laboratory Services - [facility] ([facility]) [address], [place] [id number] Ryan Hylton MD [address] [place] [address] Social History Tobacco Use Types Packs/Day Years [...] ? LINDA GARCIA ? Accession #: ? [id number] ? : ? 1965 (Age: 46) ??F [...] Odell who agrees with the diagnosis. ??(Dr. Cancino)/[facility] Document reviewed and electronically signed by: RASTA [...] entirely submitted as (B1) through (B3). ??(Dr. Tuttle)/[facility] End of Report [facility] 11/30/2011 11/30/2011 16: 07 EDT us Ryan Hylton MD PATHOLOGY ORDERABLES Final Res ult [facility] [address] [place] [address] documented in this encounter Visit Diagnoses Not on filedocumented in this encounter Care Teams Typing Checker Relationship Specialty Start Date End Date Lashae Castaneda, MACHINE CASTINGS PLASTERER [address] [place] [address] PCP - General 07/10/10 documented as of this encounter
--- OUTSIDE RECORDS SUMMARY | 2024-08-07 00:52 | XMS_ITS | Encounter Summary ---
Author Organization [facility] Address [address] [place] [address] Care Team Providers Care Agricultural Aircraft Pilot Name Role Phone Unavailable Primary Care Provider Unavailabl e Encounter Details Date Type Department Care Team (Late st Contact Info) Description 03/09/2009 Orders Only [facility] Laboratory Services - [facility] [address] [place], [place] [id number] Lashae Pardo, KRISTI [address] [place] [address] Social History Tobacco Use Types [...] ? LINDA GARCIA ? Accession #: ? [id number] ? : ? 1965 (Age: 44) ??F ?Collect Date: ? 03/09/2009 ? Location: ? [facility] ? Receive Date: ? 03/09/2009 ? Provider: ?LASHAE L PARDO SENIOR SALES MANAGER ? Copy to: ? Specimen/Source: ?Pap Test, [...] reviewed and electronically signed by: ? Serina Carlos, CT(ASCP) ? Report Date: ??03/15/2009 10:31 ? End of Report ? ADEL[facility] CAMPOVERDE 03/09/2009 03/09/2009 us Lashae Pardo NP PATHOLOGY ORDERABLES Final Result [facility] [address] [place] [address] documented in this encounter Visit Diagnoses Not on filedocumented in this encounter
--- OUTSIDE RECORDS SUMMARY | 2024-08-07 00:52 | XMS_ITS | Encounter Summary ---
Author Organization [facility] Address [address] [place] [address] Care Team Providers Care Asphalt Paver Name Role Phone Unavailable Primary Care Provider Unavailabl e Encounter Details Date Type Department Care Team (Late st Contact Info) Description 06/19/2010 Results Only [facility] Laboratory Services - [facility] ([facility] [address], [place] [id number] Lashae Pardo, KRISTI [facility] [address] [place] [address] Social History Tobacco Use Types [...] ? LINDA GARCIA ? Accession #: ? [id number] ? : ? 1965 (Age: 45) ??F ?Collect Date: ? 06/19/2010 ? Location: ? [facility] ? Receive Date: ? 06/20/2010 ? Provider: LASHAE L PARDO CAVALRY SCOUT ? Copy to: ? Final Report ? SPECIMEN ADEQUACY ? Satisfactory for Evaluation ? - transformation zone component present ? GENERAL CATEGORIZATION ? Negative for Intraepithelial Lesion or Malignancy ? Last Menstural Period: 11/28/10 ? Specimen/Source: ??Pap Test, Cervix, ThinPrep Imaging System with manual ? evaluation ? Document reviewed and electronically signed by: ? Mikala Anderseng, CT(ASCP) ? Report ??Date: 06/22/2010 13:25 ? [...] diagnosis. ? End of Report ? ADEL[facility] CAMPOVERDE 06/19/2010 06/20/2010 us Lashae L Leonel CAVALRY SCOUT PATHOLOGY ORDERABLES Final Result [facility] [address] [place] [id number] documented in this encounter Visit Diagnoses Not on filedocumented in this encounter
--- OUTSIDE RECORDS SUMMARY | 2024-08-07 00:52 | XMS_ITS | Encounter Summary ---
Author Organization [facility] [place] [address] Care Team Providers Care Surgical Appliance Fitter Name Role Phone Lyn Sinclair APRN Primary Care Provider [phone] Encounter Details Date Type Department Care Team (Latest Contact Info) Description 04/16/2024 3:30 PM EDT Clinical Support [place] [phone] Aleksander Arellano, RN Counseling about travel Social History Tobacco Use Types Packs/Day Years Used Date Smoking Tobacco: Never Smokeless Tobacco: Never Sex and Gender Information Value Date Recorded Sex Assigned at Female 10/25/2022 12:28 AM EDT Gender Identity Female 10/25/2022 12:28 AM EDT Sexual Orientation Straight 10/25/2022 12 :28 AM EDT documented as of this encounter Progress Notes * Aleksander Arellano, RN - 04/16/2024 3:30 PM EDT Patient [...] counseling documented in this encounter Care Teams Surgical Appliance Fitter Relationship Specialty Start Date End Date Lyn Sinclair APRN PCP - General Family Medicine 07/17/17 04/20/24 documented as of this encounter
--- OUTSIDE RECORDS SUMMARY | 2024-08-07 00:53 | XMS_ITS | Encounter Summary ---
[place] [address] Care Team Providers Care Commercial Attache Name Role Phone Marcela Acosta APRN Primary Care Provider [phone] Reason for Visit * Reason Onset Date Comments Medication Refill 05/02/2017 Encounter Details Date Type Department Care Team (Late st Contact Info) Description 05/02/2017 Refill [place] [address] Ambreen Vora APRN Social History Tobacco Use Types Packs/Day Years [...] filedocumented in this encounter Care Teams Commercial Attache Relationship Specialty Start Date End Date Marcela Acosta APRN [address] [place], [place] [phone] PCP - General 09/01/12 07/16/17 documented as of this encounter
--- OUTSIDE RECORDS SUMMARY | 2024-08-07 00:53 | XMS_ITS | Encounter Summary ---
[place] [address] Care Team Providers Care Lidar Technician Name Role Phone Lyn Sinclair APRN Primary Care Provider [phone] Reason for Visit * Reason Comments Diabetes Encounter Details Date Type Department Care Team (Late st Contact Info) Description 07/17/2017 4:00 PM EST Office [place] [address] Ambreen Vora APRN Type 2 diabetes mellitus without complication, unspecified fci insulin use status Social History Tobacco Use [...] metformin 1,000mg tablet daily Simple habit Meditate [email or web address] documented in this encounter Progress Notes * Ambreen Vora APRN - 07/17/2017 4:00 PM EST Previous visit to Endocrinology on 04/26/2016. REASON FOR VISIT: Follow up type 2 DM in good overall control, hyperlipidemia, overweight, vitamin D insufficiency, hypothyroidism. BRIEF HISTORY: Presents and states she would like to fill COMMUNICATIONS PROFESSOR in on what has been happening with [...] Urine 3 0 - 29 mcg/mg Cr [facility] Comment: Reference Ranges: <30 [...] 2, 357? 362 Albumin, Urine 3.3 mg/L [facility] Creatinine, Urine 126 mg/dL [facility] Urine specimen (specimen) 07/17/2017 3:41 PM EST 07/17/2017 3:47 PM EST Narrative Resulting Agency Comment Spec In Lab Ambreen Vora APRN URINE ORDERABLES [facility] [place] [address] * LDL Cholesterol, Direct (07/17/2017 3:34 PM EST) LDL Cholesterol, Direct 120 <=190 mg/dL [facility] Blood specimen (specimen) 07/17/2017 3:34 PM EST 07/17/2017 3:45 PM EST Narrative Resulting Agency Comment Spec In Lab Ambreen Vora ONLINE EDUCATION MANAGER CHEMISTRY ORDERABLE S Performing Organization Address City/[facility]/ZIP Co de Phone Number [facility] [place] [address] * (ABNORMAL) HDL/Cholesterol Profile (07/17/2017 3:34 PM EST) Cholesterol, Total 160 <=239 mg/dL [facility] HDL Cholesterol 23(L) >=40 mg/dL [facility] Cholesterol/HDL Ratio 7.0 ratio [facility] Chol/HDL Interpretation See Note [facility] Comment: Lipid management should be guided by a patient? s ASCVD risk, goals and preferences. ACC/AHA Guidelines recommend high intensity statin if clinical ASCVD or LDL greater than or equal to 190 mg/dL. http://[employer].com/FJR-JFF-Uqgxwoeeg Measure LDL if Total Cholesterol minus HDL Cholesterol is greater than 220 mg/dL. Adults aged 40-75 with LDL 70-189 mg/dL should have their 10 year ASCVD risk estimated with the ACC/AHA ASCVD risk track repairer http://tools.acc.org/FDXHZ-Jkny-Ucijiseyx/ Statin should be discussed if risk greater [...] Agency Comment Spec In Lab Ambreen Vora ONLINE EDUCATION MANAGER CHEMISTRY ORDERABLE S Performing Organization Address [facility]/ZIP Co de Phone Number [facility] [place] [address] * TSH (07/17/2017 3:34 PM EST) Thyroid Stimulating Hormone 2.95 0.27 - 4.20 mlU/ML [facility] Blood specimen (specimen) 07/17/2017 3:34 PM EST 07/17/2017 3:45 PM EST Narrative Resulting Agency Comment Spec In Lab Ambreen Vora ONLINE EDUCATION MANAGER CHEMISTRY ORDERABLE S [facility] [place] [place] [address] * (ABNORMAL) Hemoglobin A1c (07/17/2017 3:34 PM EST) Hemoglobin A1c 7.7(H) 4.3 - 5.6 % [facility] Comment: Reference Range: 4.3 [...] Mellitus, Diabetes Care 2013; 36: Suppl. 1, S67-07 Estimated Average Glucose 174 mg/dL [facility] Comment: eAG equivalents for [...] into estimated average glucose values. ??Diabetes Care 2008:31(8):8325-8236. Blood specimen (specimen) 07/17/2017 3:34 PM EST 07/17/2017 3:45 PM EST Narrative Resulting Agency Comment Spec In Lab Ambreen Fernando Vielka MARIE CHEMISTRY ORDERABLE S [facility] [place] [address] * Basic Metabolic Panel (non-fasting) (07/17/2017 3:34 PM EST) Glucose 177 65 - 199 mg/dL [facility] Comment:Diabetes: >=200 mg/d L plus symptoms Blood Urea Nitrogen 11 8 - 18 mg/dL [facility] Creatinine 0.75 0.70 - 1.20 mg/dL [facility] Sodium 140 135 - 145 mmol/L [facility] Potassium 3.8 3.5 - 5.0 mmol/L [facility] Comment: Please note: ??Patients with WBC >100,000 may have falsely elevated Potassium levels. ??For accurate Potassium quantification in these patients send serum separator tube (gold top) for subsequent determinations. ??Contact the Clinical Chemistry Laboratory if there are any questions. Chloride 103 98 - 107 mmol/L [facility] Carbon Dioxide 23 22 - 31 mmol/L [facility] Anion Gap 14 5 - 15 mmol/L [facility] Calcium 9.0 8.5 - 10.5 mg/dL [facility] Est Glomerular Filtration Rate >60 >=60 [facility] Comment: The reported eGFR should be multiplied by 1.2 for patients. The MDRD is not an appropriate measure of renal function for patients with body mass extremes or in patients with acute kidney failure. http://[employer]/DHnkdep http://[employer]/DHMCnkf Blood specimen (specimen) 07/17/2017 3:34 PM EST 07/17/2017 3:45 PM EST Narrative Resulting Agency Comment Spec In Lab Ambreen Fernando Vielka ONLINE EDUCATION MANAGER CHEMISTRY ORDERABLE S Performing Organization Address City/State/[facility] Co de Phone Number [facility] [place] [address] documented in this encounter Visit Diagnoses Diagnosis Type 2 diabetes mellitus without complication, unspecified fci insulin use status documented in this encounter Care Teams Lidar Technician Relationship Specialty Start Date End Date Lyn Sinclair APRN PCP - General Family Medicine 07/17/17 04/20/24 documented as of this encounter
--- OUTSIDE RECORDS SUMMARY | 2024-08-07 00:53 | XMS_ITS | Encounter Summary ---
Author [facility] [place] [address] Care Team Providers Care Towboat Captain Name Role Phone Lyn Sinclair APRN Primary [...] on filedocumented in this encounter Care Teams Towboat Captain Relationship Specialty Start Date End Date Lyn Sinclair APRN PCP - General Family Medicine 07/17/17 04/20/24 documented as of this encounter
--- OUTSIDE RECORDS SUMMARY | 2024-08-07 00:53 | XMS_ITS | Encounter Summary ---
[place] [address] Care Team Providers Care Dried Yeast Supervisor Name Role Phone Marcela Acosta APRN Primary Care Provider [phone] Reason for Visit * Reason Onset Date Comments Medication Refill 05/16/2017 Encounter Details Date Type Department Care Team (Late st Contact Info) Description 05/16/2017 [place] [address] Ambreen Vora APRN Social History Tobacco Use [...] on filedocumented in this encounter Care Teams Dried Yeast Supervisor Relationship Specialty Start Date End Date Marcela Acosta APRN [address], [place] [id number] PCP - General 09/01/12 07/16/17 documented as of this encounter
--- OUTSIDE RECORDS SUMMARY | 2024-08-07 00:53 | XMS_ITS | Encounter Summary ---
[place] [address] Care Team Providers Care Cardiopulmonary Technician And Eeg Tech Name Role Phone Lyn Sinclair APRN Primary Care Provider [phone] Encounter Details Date Type Department Care Team (Late st Contact Info) Description 04/29/2018 Telephone [place] [phone] Luis Currie RN Social History Tobacco Use [...] not been seen here in prolonged period, PHARMACY CLERK requesting refill request for Glipizide should be sent to patient's PCP. documented in this encounter Plan of Treatment Not on file documented as of this encounter Visit Diagnoses Not on filedocumented in this encounter Care Teams Cardiopulmonary Technician And Eeg Tech Relationship Specialty Start Date End Date Lyn Sinclair APRN PCP - General Family Medicine 07/17/17 04/20/24 documented as of this encounter
--- OUTSIDE RECORDS SUMMARY | 2024-08-07 00:53 | XMS_ITS | Encounter Summary ---
[place] [address] Care Team Providers Care Animal Cruelty Investigation Supervisor Name Role Phone Lyn Sinclair APRN Primary Care Provider [phone] Reason for Visit * Reason Comments Follow-up * Consultation (Routine) - Closed Specialty Diagnoses / Procedures Referred By Sean rojas Referred To Contact Dermatology Diagnoses Localized swelling, mass and lump, head Follicular disorder, unspecified Folliculitis, Lump behind RT Ear; Est. Patient-Notes Received Procedures Consult Lyn Sinclair APRN [address] [address] Indra Paez MD [address] [place] [address], [place] [address] Referral ID Status Reason Start Date Expiration Date Visits Re quested Visits Authorized [id number] Closed 01/31/2021 01/31/2022 1 1 Encounter Details Date Type Department Care Team (Late st Contact Info) Description 05/26/2021 9:30 AM EDT Office Visit Dermatology at [address] [place] [address] Indra Paez MD [address], [place] [address] Folliculitis; Pilar cyst; Nevus Social History Tobacco [...] Her triplets went to school at the [employer] and graduated in 2016. Physical examination reveals [...] 30 with 3 refills. This be called [facility] pharmacy Pilar cyst/irritated nevus 1. We will plan a 45-minute appointment for excision of a pilar cyst of the right mormonism scalp and of the nevus on the left nasal ala crease CC: Lyn Sinclair APRN documented in this encounter Plan of Treatment Not on file documented as of this encounter Visit Diagnoses Diagnosis Folliculitis Other specified disease of hair and hair follicles Pilar cyst Nevus Benign neoplasm of skin, site unspecified documented in this encounter Care Teams Animal Cruelty Investigation Supervisor Relationship Specialty Start Date End Date Lyn Sinclair APRN PCP - General Family Medicine 07/17/17 04/20/24 documented as of this encounter
--- OUTSIDE RECORDS SUMMARY | 2024-08-07 00:53 | XMS_ITS | Encounter Summary ---
[place] [address] Care Team Providers Care Collaborative Physician Name Role Phone Lyn Sinclair APRN Primary Care Provider Reason for Visit * Reason Onset Date Comments Medication Refill 07/10/2017 Encounter Details Date Type Department Care Team (Late st Contact Info) Description 07/10/2017 [place] [address] Rachael Tello I, JASBIR Social History Tobacco [...] on filedocumented in this encounter Care Teams Collaborative Physician Relationship Specialty Start Date End Date Lyn Sinclair APRN PCP - General Family Medicine 07/17/17 04/20/24 documented as of this encounter
--- OUTSIDE RECORDS SUMMARY | 2024-08-07 00:53 | XMS_ITS | Encounter Summary ---
[place] [address] Care Team Providers Care Assembler Watch Train Name Role Phone Lyn Sinclair APRN Primary Care Provider Encounter Details Date Type Department Care Team (Latest Contact Info) Description 02/26/2023 10:43 AM EDT - 02/26/2023 11:59 PM EDT Hospital Encounter Non-[place] [address] Lyn Sinclair APRN [address] [place] [phone] RBBB (right bundle branch block); LVH [...] mouth daily. 06/06/2020 FreeStyle Carina 14 Day Rowe Misc 05/30/2020 FreeStyle Carina 14 Day Sensor [...] SYSTEM Hookup Time HEARTLAB SYSTEM Acquisition Duration [id number] S HEART[facility] SYSTEM #QRS COMPLEXES [id number] HEART [...] HEAR TLAB SYSTEM Max. Heart Rate Time/Date [id number] HEART[facility] SYSTEM Min. Heart Rate Time/Date [id number] [facility] INTERPRETATION Beats in tachycardia (>100 bpm) 0 % total The patient reported that there were no symptoms during the monitoring period. [facility] SYSTEM Anatomical Region Laterality Modality Other 02/26/2023 10:5 4 AM EDT Narrative 03/06/2023 3:19 PM EDT Images from the original result were not included. [facility] Holter Monitor Report Linda Montgomerylópez 1965 Study [...] tab. ??For patients accessing the study from [facility] (My Chart), click on the link or links found in the IMAGES area below the text of the report. ? Jamey Beck MD, FA, FACC Lyn Sinclair APRN CARDIAC SERVICES OR DERABLES documented in this encounter Visit Diagnoses Diagnosis RBBB (right bundle branch block) Right bundle branch block LVH (left ventricular hypertrophy) Cardiomegaly Syncope and collapse documented in this encounter Care Teams Assembler Watch Train Relationship Specialty Start Date End Date Lyn Sinclair APRN PCP - General Family Medicine 07/17/17 04/20/24 documented as of this encounter
--- OUTSIDE RECORDS SUMMARY | 2024-08-07 00:53 | XMS_ITS | Encounter Summary ---
Author Organization [facility] [place] [address] Care Team Providers Care Drywall Stripper Name Role Phone Lyn Sinclair APRN Primary Care Provider [phone] Encounter Details Date Type Department Care Team [...] on filedocumented in this encounter Care Teams Drywall Stripper Relationship Specialty Start Date End Date Lyn Sinclair APRN PCP - General Family Medicine 07/17/17 04/20/24 documented as of this encounter
--- OUTSIDE RECORDS SUMMARY | 2024-08-07 00:53 | XMS_ITS | Encounter Summary ---
[place] [address] Care Team Providers Care Juvenile Probation Officer Name Role Phone Lyn Sinclair APRN Primary Care Provider [phone] Encounter Details Date Type Department Care Team (Latest Contact Info) Description 03/28/2023 Trans[place] [address] Lyn Sinclair APRN [address] [phone] Restless leg syndrome Social History Tobacco Use [...] EDT) Glucose 133 65 - 199 mg/dL [facility] Comment:Diabetes: >=200 mg/d L plus symptoms Blood Urea Nitrogen 18 8 - 18 mg/dL [facility] Creatinine 0.94 0.70 - 1.20 mg/dL [facility] Sodium 142 135 - 145 mmol/L [facility] Potassium 4.5 3.5 - 5.0 mmol/L [facility] Comment: Please note: ??Patients with WBC >100,000 may have falsely elevated Potassium levels. ??For accurate Potassium quantification in these patients send serum separator tube (gold top) for subsequent determinations. ??Contact the Clinical Chemistry Laboratory if there are any questions. Chloride 105 98 - 107 mmol/L [facility] Carbon Dioxide 24 22 - 31 mmol/L [facility] Anion Gap 13 5 - 15 mmol/L [facility] Calcium 9.5 8.5 - 10.5 mg/dL [facility] Protein, Total 7.0 6.1 - 8.0 g/dL [facility] Albumin 4.3 3.2 - 5.2 g/dL [facility] Aspartate Aminotransferase 15 0 - 30 unit/L [facility] Alanine Aminotransferase 10 0 - 30 unit/L [facility] Alkaline Phosphatase 123(H) 35 - 105 unit/L [facility] Bilirubin, Total 0.3 0.2 - 1.3 mg/dL [facility] Est Glomerular Filtration Rate 69 >=60 mL/min/1. 73 m?? [facility] Comment: This patient's estimated GFR [...] Lab Lyn Sinclair APRN CHEMISTRY ORDERABLE S [facility] [place] [address] * TSH Cameron (03/29/2023 1:42 PM EDT) Thyroid Stimulating Hormone 3.57 0.27 - 4.20 mcIU/mL [facility] Comment: Reference Interval (mcIU/mL): Females: ??First Trimester: 0.23-3.88 ??Second Trimester: 0.22-3.90 ??Third Trimester: 0.44-4.66 Blood 03/29/2023 1:42 PM EDT 03/29/2023 1:52 PM EDT Narrative Resulting Agency Comment Spec In Lab Lyn Sinclair APRN CHEMISTRY ORDERABLE S Performing Organization Address [facility] Co de Phone Number [facility] [place] [address] * (ABNORMAL) Iron and TIBC (03/29/2023 1:42 PM EDT) Iron 44 30 - 150 mcg/dL [facility] TIBC 417 250 - 450 mcg/dL [facility] Iron Saturation 11(L) 20 - 50 % [facility] Blood 03/29/2023 1:42 PM EDT 03/29/2023 1:52 PM EDT Narrative Resulting Agency Comment Spec In Lab Lyn Sinclair APRN CHEMISTRY ORDERABLE S [facility] [place] [address] * (ABNORMAL) Ferritin (03/29/2023 1:42 PM EDT) Ferritin 9(L) 30 - 400 ng/mL [facility] Comment: Pediatric reference ranges not verified at [facility], interpret with caution. Reference ranges for females greater than 50 years of age approach values for men, i.e., 30-400 ng/mL. Blood 03/29/2023 1:42 PM EDT 03/29/2023 1:52 PM EDT Narrative Resulting Agency Comment Spec In Lab Lyn Sinclair APRN CHEMISTRY ORDERABLE S [facility] [place] [address] documented in this encounter Visit Diagnoses Diagnosis Restless leg syndrome Restless legs syndrome (RLS) documented in this encounter Care Teams Juvenile Probation Officer Relationship Specialty Start Date End Date Lyn Sinclair APRN PCP - General Family Medicine 07/17/17 04/20/24 documented as of this encounter
--- OUTSIDE RECORDS SUMMARY | 2024-08-07 00:53 | XMS_ITS | Encounter Summary ---
[place] [address] Care Team Providers Care Arch Support Maker Name Role Phone Lyn Sinclair APRN Primary Care Provider Encounter Details Date Type Department Care Team (Late st Contact Info) Description 06/12/2019 Tele[place] [phone] Kayy Davis Social History Tobacco Use Types [...] on filedocumented in this encounter Care Teams Arch Support Maker Relationship Specialty Start Date End Date Lyn Sinclair APRN PCP - General Family Medicine 07/17/17 04/20/24 documented as of this encounter
--- OUTSIDE RECORDS SUMMARY | 2024-08-07 00:53 | XMS_ITS | Encounter Summary ---
[place] [address] Care Team Providers Care Dry Wall Plasterer Name Role Phone Marcela Acosta APRN Primary Care Provider Reason for Visit * Reason Comments Medication Refill Encounter Details Date Type Department Care Team (Late st Contact Info) Description 09/08/2015 [place] [address] Idalmis Westfall MD Social History Tobacco Use Types Packs/Day Years [...] on filedocumented in this encounter Care Teams Dry Wall Plasterer Relationship Specialty Start Date End Date Marcela Acosta APRN [address] [place] [address] PCP - General 09/01/12 07/16/17 documented as of this encounter
--- OUTSIDE RECORDS SUMMARY | 2024-08-07 00:53 | XMS_ITS | Encounter Summary ---
[place] [address] Care Team Providers Care Information Security Architect Name Role Phone Marcela Acosta APRN Primary Care Provider [phone] Reason for Visit * Reason Onset Date Comments Medication Refill 04/30/2017 Encounter Details Date Type Department Care Team (Late st Contact Info) Description 04/30/2017 [place] [address] Rachael Tello MA Social History Tobacco Use [...] on filedocumented in this encounter Care Teams Information Security Architect Relationship Specialty Start Date End Date Marcela Acosta APRN [address] [place], [place] [id number] PCP - General 09/01/12 07/16/17 documented as of this encounter
--- OUTSIDE RECORDS SUMMARY | 2024-08-07 00:53 | XMS_ITS | Encounter Summary ---
[place] [address] Care Team Providers Care Marine Engine Machinist Apprentice Name Role Phone Lyn Sinclair APRN Primary Care Provider [phone] Reason for Visit * Reason Onset Date Comments Palpitations 03/27/2023 Encounter Details Date Type Department Care Team (Late st Contact Info) Description 03/27/2023 Telephone Cardiology at [address] [address] Ena Cortes, RN Palpitations Social [...] an appointment with Dr. Smith at the [facility]. Notes from the ER provider were helpful, [...] be more meaningful to her if a records management technician explained it. The Holter report showed nothing and she was asymptomatic while she wore it. She comments that perhaps the symptoms that day she went to the ER were anxiety/stress related. She still wishes to see a records management technician and prefers Dr. Smith who is known to her. She has only Mondays and Fridays off. Recommendation: AWAIT notice from PCP about a referral this Saturday; if/when referral is received anappointment could be scheduled on a Saturday. documented in this encounter Plan of Treatment Not on file documented as of this encounter Visit Diagnoses Not on filedocumented in this encounter Care Teams Marine Engine Machinist Apprentice Relationship Specialty Start Date End Date Lyn Sinclair APRN PCP - General Family Medicine 07/17/17 04/20/24 documented as of this encounter
--- OUTSIDE RECORDS SUMMARY | 2024-08-07 00:53 | XMS_ITS | Encounter Summary ---
[place] [address] Care Team Providers Care Millroom Supervisor Name Role Phone CatrachoMarcela Nguyen CYNTHIA Primary Care Provider [phone] Reason for Visit * Reason Onset Date Comments Medication Refill 06/28/2014 Encounter Details Date Type Department Care Team (Late st Contact Info) Description 06/28/2014 [place] [address] Idalmis Westfall MD Social History Tobacco Use [...] on filedocumented in this encounter Care Teams Millroom Supervisor Relationship Specialty Start Date End Date Marcela Acosta APRN [address] [place] [address] PCP - General 09/01/12 07/16/17 documented as of this encounter
--- OUTSIDE RECORDS SUMMARY | 2024-08-07 00:53 | XMS_ITS | Encounter Summary ---
[place] [address] Care Team Providers Care Chief Engineer Name Role Phone Marcela Acosta APRN Primary Care Provider [phone] Reason for Visit * Reason Onset Date Comments Medication Refill 04/06/2014 Encounter Details Date Type Department Care Team (Late st Contact Info) Description 04/06/2014 [place] [address] Idalmis Westfall MD Social History Tobacco Use [...] on filedocumented in this encounter Care Teams Chief Engineer Relationship Specialty Start Date End Date Marcela Acosta APRN [address] [place] [phone] PCP - General 09/01/12 07/16/17 documented as of this encounter
--- OUTSIDE RECORDS SUMMARY | 2024-08-07 00:53 | XMS_ITS | Encounter Summary ---
[place] [address] Care Team Providers Care Truck Safety Inspector Name Role Phone Lyn Sinclair APRN Primary Care Provider Reason for Visit * Reason Onset Date Comments Other 04/20/2019 Encounter Details Date Type Department Care Team (Late st Contact Info) Description 04/20/2019 Telephone [place] [address] Deric Davila Other Social History Tobacco Use [...] on filedocumented in this encounter Care Teams Truck Safety Inspector Relationship Specialty Start Date End Date Lyn Sinclair, CYNTHIA PCP - General Family Medicine 07/17/17 04/20/24 documented as of this encounter
--- OUTSIDE RECORDS SUMMARY | 2024-08-07 00:53 | XMS_ITS | Encounter Summary ---
[place] [address] Care Team Providers Care Swat Team Member Name Role Phone Karla Marcela MARIE Primary Care Provider [phone] Encounter Details Date Type Department Care Team (Latest Contact Info) Description 04/25/2016 1:00 PM EDT Laboratory [place] [phone] Diabetes mellitus type 2, uncomplicated; Hypothyroidism, unspecified [...] Urine 4 0 - 29 mcg/mg Cr [facility] Comment: Reference Ranges: <30 mcg/mg: [...] 2, 357? 362 Albumin, Urine 6.3 mg/L [facility] Creatinine, Urine 160 mg/dL [facility] Urine specimen (specimen) 04/25/2016 1:12 PM EDT 04/25/2016 1:20 PM EDT Narrative Resulting Agency Comment Spec In Lab Babar Wilkerson MD URINE ORDERABLES [facility] [place] [address] * (ABNORMAL) LDL Cholesterol, Direct (04/25/2016 1:07 PM EDT) LDL Cholesterol, Direct 121(H) <=99 mg/dL [facility] Comment: The National Cholesterol Education Program (NCEP) has set the following guidelines for LDL Cholesterol: Reference range: ?? Optimal: ?<100 mg/dL ?? Near Optimal/Above Optimal: ?? 100-129 mg/dL ?? Borderline high: ?130-159 mg/dL ?? High: ? 160-189 mg/dL ?? Very high: ?>er=058 mg/dL BRITTANI 2001: 285(19):0351-2103 Blood specimen (specimen) 04/25/2016 1:07 PM EDT 04/25/2016 1:20 PM EDT Narrative Resulting Agency Comment Spec In Lab Babar Wilkerson MD CHEMISTRY ORDERABLES [facility] [place] [address] * (ABNORMAL) HDL/Cholesterol Profile (04/25/2016 1:07 PM EDT) Cholesterol, Total 165 <=199 mg/dL [facility] Comment: Recommendations of the NCEP Adult Treatment Panel for the following risk cutoff thresholds for the [place] population: Desirable: <200 mg/dL Borderline High: 200-239 mg/dL High: > or = 240 mg/dL HDL Cholesterol 27(L) >=40 mg/dL [facility] Comment: Reference range: ??Low HDL: ?? < 40 mg/dL ??Normal: ?40-60 mg/dL ??Desirable: > 60 mg/dL BRITTANI 2001; 285(19):8407-3813 Cholesterol/HDL Ratio 6.1 ratio [facility] Comment: A Cholesterol to HDL ratio below 4:1 is desirable. ??Studies suggest that increased CAD risk occurs at ratios above 5 for females and above 6 for men. ? [place] Heart Association ??(http://www.americanheart.org) ? [place] Int Med, 1994; 121:641 ? AM J Med, 1998; 105(1A):48S Blood specimen (specimen) 04/25/2016 1:07 PM EDT 04/25/2016 1:20 PM EDT Narrative Resulting Agency Comment Spec In Lab Babar Wilkerson MD CHEMISTRY ORDERABLES Performing Organization Address [facility] [[email or web address]] Co de Phone Number [facility] [place] [address] * TSH (04/25/2016 1:07 PM EDT) Thyroid Stimulating Hormone 3.69 0.27 - 4.20 mcIU/mL [facility] Blood specimen (specimen) 04/25/2016 1:07 PM EDT 04/25/2016 1:20 PM EDT Narrative Resulting Agency Comment Spec In Lab Babar Wilkerson MD CHEMISTRY ORDERABLES Performing Organization Address [facility] [[email or web address]] Co de Phone Number [facility] [place] [address] * (ABNORMAL) Hemoglobin A1c (04/25/2016 1:07 PM EDT) Hemoglobin A1c 7.7(H) 4.3 - 5.6 % [facility] Comment: Reference Range: 4.3 - [...] Mellitus, Diabetes Care 2013; 36: Suppl. 1, S27-50 Estimated Average Glucose 174 mg/dL [facility] Comment: eAG equivalents for HbA1c percentages: HbA1c(%) ?eAG(mg/dL) 6.0 ?126 6.5 ?140 7.0 ?154 7.5 ?169 8.0 ?183 8.5 ?197 9.0 ?212 9.5 ?226 10.0 ? 240 Limitations: The eAG calculation has not been validated on women, individuals below 18 years old and above 70 years old, and individuals with hemoglobinopathies. Additional resources are available on the [place] website: [email or web address]acalc Mayank BRISENO, Tomeka J, Hussein R, et al. ??Translating the A1C assay into estimated average glucose values. ??Diabetes Care 2008:31(8):4392-1389. Blood specimen (specimen) 04/25/2016 1:07 PM EDT 04/25/2016 1:20 PM EDT Narrative Resulting Agency Comment Spec In Lab Babar Wilkerson MD CHEMISTRY ORDERABLES Performing Organization Address City/State/[facility] [[email or web address]] Co de Phone Number [facility] [place] [address] * Creatinine (04/25/2016 1:07 PM EDT) [facility] Signature Creatinine 0.94 0.70 - 1.20 mg/dL [facility] Comment: Please note that the pediatric reference intervals supplied above were not validated at [facility]. Results from pediatric patients should be interpreted in conjunction to the patient's age, height and muscle mass. Est Glomerular Filtration Rate >60 >=60 [facility] Comment: This estimated GFR (eGFR) value [...] the following links into your internet browser. [email or web address] Blood specimen (specimen) 04/25/2016 1:07 PM EDT 04/25/2016 1:20 PM EDT Narrative Resulting Agency Comment Spec In Lab Babar Wilkerson MD CHEMISTRY ORDERABLES [facility] [place] [place] [address] documented in this encounter Visit Diagnoses Diagnosis Diabetes mellitus type 2, uncomplicated Type II or unspecified type diabetes mellitus without mention of complication, not stated as uncontrolled Hypothyroidism, unspecified type documented in this encounter Care Teams Swat Team Member Relationship Specialty Start Date End Date Marcela Acosta APRN [address] [place] [address] PCP - General 09/01/12 07/16/17 documented as of this encounter
--- OUTSIDE RECORDS SUMMARY | 2024-08-07 00:53 | XMS_ITS | Encounter Summary ---
[place] [address] Care Team Providers Care Switchboard Operator Name Role Phone Lyn Sinclair APRN Primary Care Provider Encounter Details Date Type Department Care Team (Latest Contact Info) Description 03/29/2023 1:35 PM EDT Laboratory Appointment Lab [address] [phone] Restless leg syndrome Social History Tobacco Use [...] 1:42 PM EDT) Neutrophil % 67.3 % [facility] Neutrophil Absolute 5.01 1.70 - 6.10 x10(3)/[facility] Lymph % 19.6 % [facility] Lymphocytes Abs 1.5 0.9 - 3.2 x10(3)/[facility] Monocyte % 6.8 % [facility] Monocyte Abs 0.5 0.3 - 0.9 x10(3)/[facility] Eos % 5.0 % [facility] Eosinophils Abs 0.4 0.0 - 0.4 x10(3)/[facility] Basophil % 0.9 % [facility] Baso Absolute 0.1 0.0 - 0.1 x10(3)/[facility] Immature Gran % 0.40 % [facility] Comment: Immature granulocytes(IG's)percentage and absolute count will include metamyelocytes, myelocytes, and promyelocytes. Blood smears from CBCs yielding IG's will be scanned manually for concordance. If this scan disagrees with the automated IG or if promyelocytes are noted, a manual differential will be performed. Immature Gran Absolute 0.03 0.00 - 0.04 x10(3)/[facility] Blood 03/29/2023 1:42 PM EDT 03/29/2023 1:52 PM EDT Narrative Resulting Agency Comment Spec In Lab Lyn Sinclair APRN HEMATOLOGY ORDERABL ES Performing Organization Address City/[facility]/ZIP Co de Phone Number [facility] [place] [address] * (ABNORMAL) Hemogram (03/29/2023 1:42 PM EDT) White Blood Cell 7.4 4.0 - 9.5 x10(3)/mc L [facility] Red Blood Cell 4.11 4.00 - 5.21 x10(6)/mc L [facility] Hemoglobin 11.1(L) 11.7 - 15.5 g/dL [facility] Hematocrit 34.3(L) 35.7 - 45.8 % [facility] Mean Cell Volume 83.5 82.6 - 94.4 fL [facility] Mean Cell Hemoglobin 27.0(L) 27.1 - 32.0 pg [facility] Mean Cell Hemoglobin Concentration 32.4 31.7 - 35.0 g/dL [facility] Platelet 239 145 - 357 x10(3)/mc L [facility] RDW Standard Deviation 40.5 37.0 - 46.0 fL [facility] RDW coefficient of variation 13.3 11.5 - 14.1 % [facility] Mean Platelet Volume 11.3 7.6 - 12.9 fL [facility] NRBC% auto 0.0 % [facility] NRBC Absolute 0.000 0.000 - 0.000 x10(3)/mc L [facility] Blood 03/29/2023 1:42 PM EDT 03/29/2023 1:52 PM EDT Narrative Resulting Agency Comment Spec In Lab Lyn Sinclair APRN HEMATOLOGY ORDERABL ES Performing Organization Address City/[facility]/ZIP Co de Phone Number [facility] [place] [address] * (ABNORMAL) Ferritin (03/29/2023 1:42 PM EDT) Pathologist [facility] Ferritin 9(L) 30 - 400 ng/mL [facility] Comment: Pediatric reference ranges not verified at [facility], interpret with caution. Reference ranges for females greater than 50 years of age approach values for men, i.e., 30-400 ng/mL. Blood 03/29/2023 1:42 PM EDT 03/29/2023 1:52 PM EDT Narrative Resulting Agency Comment Spec In Lab Lyn Fernando CokerYahir DENTAL TECH CHEMISTRY ORDERABLE S Performing Organization Address City/[facility]/ZIP Co de Phone Number [facility] [place] [address] * (ABNORMAL) Iron and TIBC (03/29/2023 1:42 PM EDT) Iron 44 30 - 150 mcg/dL [facility] TIBC 417 250 - 450 mcg/dL [facility] Iron Saturation 11(L) 20 - 50 % [facility] Blood 03/29/2023 1:42 PM EDT 03/29/2023 1:52 PM EDT Narrative Resulting Agency Comment Spec In Lab Lyn Fernando Yahir HARDINGN CHEMISTRY ORDERABLE S Performing Organization Address [facility] Co de Phone Number [facility] [place] [address] * TSH [place] (03/29/2023 1:42 PM EDT) Thyroid Stimulating Hormone 3.57 0.27 - 4.20 mcIU/mL [facility] Comment: Reference Interval (mcIU/mL): Females: ??First Trimester: 0.23-3.88 ??Second Trimester: 0.22-3.90 ??Third Trimester: 0.44-4.66 Blood 03/29/2023 1:42 PM EDT 03/29/2023 1:52 PM EDT Narrative Resulting Agency Comment Spec In Lab Lyn Fernando Yahir HARDINGN CHEMISTRY ORDERABLE S Performing Organization Address [facility] Co de Phone Number [facility] [place] [address] * (ABNORMAL) Comprehensive metabolic panel (non-fasting) (03/29/2023 1:42 PM EDT) Glucose 133 65 - 199 mg/dL [facility] Comment:Diabetes: >=200 mg/d L plus symptoms Blood Urea Nitrogen 18 8 - 18 mg/dL [facility] Creatinine 0.94 0.70 - 1.20 mg/dL [facility] Sodium 142 135 - 145 mmol/L [facility] Potassium 4.5 3.5 - 5.0 mmol/L [facility] Comment: Please note: ??Patients with WBC >100,000 may have falsely elevated Potassium levels. ??For accurate Potassium quantification in these patients send serum separator tube (gold top) for subsequent determinations. ??Contact the Clinical Chemistry Laboratory if there are any questions. Chloride 105 98 - 107 mmol/L [facility] Carbon Dioxide 24 22 - 31 mmol/L [facility] Anion Gap 13 5 - 15 mmol/L [facility] Calcium 9.5 8.5 - 10.5 mg/dL [facility] Protein, Total 7.0 6.1 - 8.0 g/dL [facility] Albumin 4.3 3.2 - 5.2 g/dL [facility] Aspartate Aminotransferase 15 0 - 30 unit/L [facility] Alanine Aminotransferase 10 0 - 30 unit/L [facility] Alkaline Phosphatase 123(H) 35 - 105 unit/L [facility] Bilirubin, Total 0.3 0.2 - 1.3 mg/dL [facility] Est Glomerular Filtration Rate 69 >=60 mL/min/1. 73 m?? [facility] Comment: This patient's estimated GFR was [...] Lab Lyn Sinclair APRN CHEMISTRY ORDERABLE S [facility] [place] [address] documented in this encounter Visit Diagnoses Diagnosis Restless leg syndrome Restless legs syndrome (RLS) documented in this encounter Care Teams Switchboard Operator Relationship Specialty Start Date End Date Lyn Sinclair APRN PCP - General Family Medicine 07/17/17 04/20/24 documented as of this encounter
--- OUTSIDE RECORDS SUMMARY | 2024-08-07 00:53 | XMS_ITS | Encounter Summary ---
[place] [address] Care Team Providers Care Sap Business Objects Developer Name Role Phone Marcela Acosta APRN Primary Care Provider [phone] Reason for Visit * Reason Onset Date Comments Medication Refill 06/27/2017 Encounter Details Date Type Department Care Team (Late st Contact Info) Description 06/27/2017 Refill [place] [address] Ambreen Vora APRN Social History Tobacco Use [...] on filedocumented in this encounter Care Teams Sap Business Objects Developer Relationship Specialty Start Date End Date Marcela Acosta APRN [address] [place], [place] [id number] PCP - General 09/01/12 07/16/17 documented as of this encounter
--- OUTSIDE RECORDS SUMMARY | 2024-08-07 00:53 | XMS_ITS | Encounter Summary ---
[place] [address] Care Team Providers Care Cook'S Assistant Name Role Phone KarlaMarcela CYNTHIA Primary Care Provider [phone] Encounter Details Date Type Department Care Team (Late st Contact Info) Description 05/31/2014 [place] [phone] Carla Turner LPN Social History Tobacco Use [...] PM EST Returning call to [facility]. Rx for glipizide XR 2.5 was [...] on filedocumented in this encounter Care Teams Cook'S Assistant Relationship Specialty Start Date End Date Marcela Acosta APRN [address] [place] [address] PCP - General 09/01/12 07/16/17 documented as of this encounter
--- OUTSIDE RECORDS SUMMARY | 2024-08-07 00:53 | XMS_ITS | Encounter Summary ---
[place] [address] Care Team Providers Care Bin Filler Name Role Phone Lyn Sinclair APRN Primary Care Provider [phone] Encounter Details Date Type Department Care Team (Late st Contact Info) Description 10/25/2022 Orders Only [place] [address] Suzanne Traore LINK AND LINK KNITTING MACHINE OPERATOR [facility] [place] [address] Social History Tobacco Use Types Packs/Day Years [...] EDT) Varicella Zoster Antibody IgG Positive Positive [facility] Comment: A positive result for this assay is considered to be an indicator of positive immune status. Blood Venous Draw / Unknown 10/25/2022 11:07 AM EDT 10/25/2022 1:02 PM EDT Narrative Resulting Agency Comment Spec In Lab Suzanne Traore LINK AND LINK KNITTING MACHINE OPERATOR IMMUNOLOGY ORDERABLE S Performing Organization Address City/State/[facility] Co de Phone Number [facility] [place] [address] documented in this encounter Visit Diagnoses Not on filedocumented in this encounter Care Teams Bin Filler Relationship Specialty Start Date End Date Lyn Sinclair APRN PCP - General Family Medicine 07/17/17 04/20/24 documented as of this encounter
--- OUTSIDE RECORDS SUMMARY | 2024-08-07 00:53 | XMS_ITS | Encounter Summary ---
[place] [address] Care Team Providers Care Replenishment Analyst Name Role Phone Lyn Sinclair APRN Primary Care Provider Encounter Details Date Type Department Care Team (Late st Contact Info) Description 03/29/2023 Transcribe [place] [address] Lyn Sinclair APRN [address] [phone] Social History Tobacco Use Types Packs/Day Years [...] on filedocumented in this encounter Care Teams Replenishment Analyst Relationship Specialty Start Date End Date Lyn Sinclair APRN PCP - General Family Medicine 07/17/17 04/20/24 documented as of this encounter
--- OUTSIDE RECORDS SUMMARY | 2024-08-07 00:53 | XMS_ITS | Encounter Summary ---
[place] [address] Care Team Providers Care Accounting Lecturer Name Role Phone Lyn Sinclair APRN Primary Care Provider Reason for Visit * Reason Onset Date Comments Appointment 03/03/2019 Encounter Details Date Type Department Care Team (Late st Contact Info) Description 03/03/2019 Telephone [place] [phone] Deric Davila Appointment Social History Tobacco Use [...] on filedocumented in this encounter Care Teams Accounting Lecturer Relationship Specialty Start Date End Date Lyn Sinclair, [employer] PCP - General Family Medicine 07/17/17 04/20/24 documented as of this encounter
--- OUTSIDE RECORDS SUMMARY | 2024-08-07 00:53 | XMS_ITS | Encounter Summary ---
[place] [address] Care Team Providers Care Gang Drill Operator Name Role Phone Lyn Sinclair APRN Primary Care Provider Encounter Details Date Type Department Care Team (Late st Contact Info) Description 06/06/2021 2:15 PM EST Procedure visit Dermatology at [address] [address] Indra Paez MD [address] [place] [address], [facility] [place], [place] [phone] Pilar cyst; Nevus Social History Tobacco Use [...] unspecified documented in this encounter Care Teams Gang Drill Operator Relationship Specialty Start Date End Date Lyn Sinclair APRN PCP - General Family Medicine 07/17/17 04/20/24 documented as of this encounter
--- OUTSIDE RECORDS SUMMARY | 2024-08-07 00:53 | XMS_ITS | Encounter Summary ---
[place] [address] Care Team Providers Care Paper Counter Name Role Phone Lyn Sinclair APRN Primary Care Provider [phone] Encounter Details Date Type Department Care Team (Latest Contact Info) Description 10/22/2018 4:20 PM EDT Interpretation Only Cardiology at [address] [address] Brady Baker Jr., MD Chest pain, unspecified type Social History Tobacco [...] type documented in this encounter Care Teams Paper Counter Relationship Specialty Start Date End Date Lyn Sinclair, HAT FINISHER PCP - General Family Medicine 07/17/17 04/20/24 documented as of this encounter
--- OUTSIDE RECORDS SUMMARY | 2024-08-07 00:53 | XMS_ITS | Encounter Summary ---
Author Organization [facility] [place] [address] Care Team Providers Care Budget Report Clerk Name Role Phone Lyn Sinclair APRN Primary [...] on filedocumented in this encounter Care Teams Budget Report Clerk Relationship Specialty Start Date End Date Lyn Sinclair APRN PCP - General Family Medicine 07/17/17 04/20/24 documented as of this encounter
--- OUTSIDE RECORDS SUMMARY | 2024-08-07 00:53 | XMS_ITS | Encounter Summary ---
Author Organization [facility] [place] [address] Care Team Providers Care Monument Mason Name Role Phone Lyn Sinclair APRN Primary [...] on filedocumented in this encounter Care Teams Monument Mason Relationship Specialty Start Date End Date Lyn Sinclair APRN PCP - General Family Medicine 07/17/17 04/20/24 documented as of this encounter
--- OUTSIDE RECORDS SUMMARY | 2024-08-07 00:53 | XMS_ITS | Encounter Summary ---
Author Organization [facility] [place] [address] Care Team Providers Care Tool And Die Technician Name Role Phone Lyn Sinclair APRN Primary Care Provider [phone] Encounter Details Date Type Department Care Team (Late st Contact Info) Description 10/25/2022 Orders [place] [address] Suzanne Traore ENGRAVINGS POLISHER [facility] [place] [address] Social History Tobacco Use Types Packs/Day Years [...] AM EDT) Rubella Antibody IgG Positive Positive [facility] Comment: Please note: ??A positive result for this assay indicates that antibody levels are >or= 10.0 IU/mL and is considered to be an indicator of positive immune status. Blood Venous Draw / Unknown 10/25/2022 11:07 AM EDT 10/25/2022 11:21 AM EDT Narrative Resulting Agency Comment Spec In Lab Suzanne Traore ENGRAVINGS POLISHER CHEMISTRY ORDERABLES [facility] [place] [phone] documented in this encounter Visit Diagnoses Not on filedocumented in this encounter Care Teams Tool And Die Technician Relationship Specialty Start Date End Date Lyn Sinclair, CYNTHIA PCP - General Family Medicine 07/17/17 04/20/24 documented as of this encounter
--- OUTSIDE RECORDS SUMMARY | 2024-08-07 00:53 | XMS_ITS | Encounter Summary ---
Author Organization [facility] [place] [address] Care Team Providers Care Decorative Greens Cutter Name Role Phone Lyn Sinclair APRN Primary Care Provider [phone] Encounter Details Date Type Department Care Team (Late st Contact Info) Description 10/25/2022 Orders [place] [address] Suzanne Traore CAR OILER [facility] [place] [address] Social History Tobacco Use Types Packs/Day Years [...] AM EDT) Mumps Antibody IgG Positive Positive [facility] Comment: A positive result for this assay is considered to be an indicator of positive immune status. Blood Venous Draw / Unknown 10/25/2022 11:07 AM EDT 10/25/2022 1:02 PM EDT Narrative Resulting Agency Comment Spec In Lab Suzanne Traore CAR OILER IMMUNOLOGY ORDERABLE S Performing Organization Address City/State/[facility] Co de Phone Number [facility] [place] [address] documented in this encounter Visit Diagnoses Not on filedocumented in this encounter Care Teams Decorative Greens Cutter Relationship Specialty Start Date End Date Lyn Sinclair APRN PCP - General Family Medicine 07/17/17 04/20/24 documented as of this encounter
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
--- OUTSIDE RECORDS SUMMARY | 2024-08-07 00:53 | XMS_ITS | Encounter Summary ---
[facility] [place] [address] Care Team Providers Care Weigher Alloy Name Role Phone Lyn Sinclair APRN Primary Care Provider [phone] Encounter Details Date Type Department Care Team (Late st Contact Info) Description 10/25/2022 Orders Only [place] [phone] Suzanne Traore MILL HAND [facility] [place] [address] Social History Tobacco Use Types Packs/Day Years [...] AM EDT) Rubeola Antibody IgG Positive Positive [facility] Comment: A positive result for this assay is considered to be an indicator of positive immune status. Blood Venous Draw / Unknown 10/25/2022 11:07 AM EDT 10/25/2022 1:02 PM EDT Narrative Resulting Agency Comment Spec In Lab Suzanne Traore MILL HAND IMMUNOLOGY ORDERABLE S [facility] [place] [address] documented in this encounter Visit Diagnoses Not on filedocumented in this encounter Care Teams Weigher Alloy Relationship Specialty Start Date End Date Lyn Sinclair APRN PCP - General Family Medicine 07/17/17 04/20/24 documented as of this encounter
--- OUTSIDE RECORDS SUMMARY | 2024-08-07 00:53 | XMS_ITS | Encounter Summary ---
[place] [address] Care Team Providers Care Electric Range Preparer Name Role Phone Lyn Sinclair APRN Primary Care Provider Encounter Details Date Type Department Care Team (Late st Contact Info) Description 04/23/2018 Telephone [place] [phone] Luis Currie RN Social History Tobacco Use [...] on filedocumented in this encounter Care Teams Electric Range Preparer Relationship Specialty Start Date End Date Lyn Sinclair APRN PCP - General Family Medicine 07/17/17 04/20/24 documented as of this encounter
--- OUTSIDE RECORDS SUMMARY | 2024-08-07 00:53 | XMS_ITS | Encounter Summary ---
[place] [address] Care Team Providers Care Head Filter Tank Tender Helper Name Role Phone Marcela Acosta APRN Primary Care Provider [phone] Reason for Visit * Reason Comments Diabetes Encounter Details Date Type Department Care Team (Late st Contact Info) Description 04/25/2016 2:00 PM EDT Office [place] [address] Ambreen Vora APRN Subclinical iodine-deficiency hypothyroidism; Type 2 diabetes mellitus [...] Vora APRN - 04/25/2016 2:00 PM EDT [facility] swimming coach bus Daily walking is your best [...] freshman year in college. One is in [place]. The other 2 are in [place]. Her youngest son is a freshman in [...] refill of her previous dose of levothyroxine. BERRY PICKER MACHINE OPERATOR called pharmacy and canceled that prescription. We will do prescription for levothyroxine 25 mcg daily. LDL close to goal. Hopefully, walking will get that closer to 100. Immunization up date. [id number] given. Advised to take vitamin D at 1000 international units daily. Given lab slip to check TSH the first week in June at her local lab and results faxed to Endocrinology. She plans to return to Endocrinology in 1 year. We will recheck the labs that were done today and B12. This was a 38 minute office visit with 37 minutes spent counseling [id number] with the patient in the management of [...] insulin documented in this encounter Care Teams Head Filter Tank Tender Helper Relationship Specialty Start Date End Date Marcela Acosta APRN [address] [place] [address] PCP - General 09/01/12 07/16/17 documented as of this encounter
--- OUTSIDE RECORDS SUMMARY | 2024-08-07 00:53 | XMS_ITS | Encounter Summary ---
[place] [address] Care Team Providers Care Radius Grinder Name Role Phone Lyn Sinclair APRN Primary Care Provider [phone] Reason for Visit * Reason Comments Suture / Staple Removal Encounter Details Date Type Department Care Team (Late st Contact Info) Description 06/13/2021 3:30 PM EST Office Visit Dermatology at [address] [place] [phone] Indra Paez MD [address] [place] [address], [facility] [place], [place] [id number] Visit for suture removal Social History Tobacco [...] sutures documented in this encounter Care Teams Radius Grinder Relationship Specialty Start Date End Date Lyn Sinclair APRN PCP - General Family Medicine 07/17/17 04/20/24 documented as of this encounter
--- OUTSIDE RECORDS SUMMARY | 2024-08-07 00:53 | XMS_ITS | Encounter Summary ---
Author [facility] [place] [address] Care Team Providers Care Guide Winder Name Role Phone Lyn Sinclair APRN Primary [...] on filedocumented in this encounter Care Teams Guide Winder Relationship Specialty Start Date End Date Lyn Sinclair APRN PCP - General Family Medicine 07/17/17 04/20/24 documented as of this encounter
--- OUTSIDE RECORDS SUMMARY | 2024-08-07 00:53 | XMS_ITS | Encounter Summary ---
[place] [address] Care Team Providers Care Data Entry Analyst Name Role Phone Lyn Sinclair APRN Primary Care Provider [phone] Reason for Referral * Diagnostic Test (STAT) - Closed Specialty Diagnoses / Procedures Referred By Contac t Referred To Contact Cardiology Diagnoses LVH (left ventricular hypertrophy) RBBB (right bundle branch block) Other chest pain Syncope and collapse Procedures Echocardiogram Transthoracic Lyn Sinclair APRN [address] [address] [facility] [place] [address] Referral ID Status Reason Start Date Expiration Date V isits Requested Visits Authorized [id number] Closed Specialty Service Requested 01/24/2023 01/24/2024 1 1 Reason for Visit * Diagnostic Test (STAT) - Closed Specialty Diagnoses / Procedures Referred By Contac t Referred To Contact Cardiology Diagnoses LVH (left ventricular hypertrophy) RBBB (right bundle branch block) Other chest pain Syncope and collapse Procedures Echocardiogram Transthoracic Lyn Sinclair APRN [address] [place] [address] [facility] [place] [address] Referral ID Status Reason Start Date Expiration Date V isits Requested Visits Authorized [id number] Closed Specialty Service Requested 01/24/2023 01/24/2024 1 1 Encounter Details Date Type Department Care Team (Latest Contact Info) Description 02/26/2023 9:58 AM EDT - 02/26/2023 10:42 AM EDT Hospital Encounter [place] [address] Yahir Lyn E, DIRECTOR OF REAL ESTATE [address] [facility] [address] [place] [address] LVH (left ventricular hypertrophy); RBBB [...] mouth daily. 06/06/2020 FreeStyle Carina 14 Day [place] Misc 05/30/2020 FreeStyle Carina 14 Day Sensor [...] 1965 ? Height: 165 cm ? Account: [id number] Age: 58 yrs ? Weight: 71 kg Gender: Female ?BSA: 1.8 m2 Ordering Physician: LYN SINCLAIR Referring Physician: LYN SINCLAIR Performed By: Kai Aguilar RDCS Reason For Study: Syncope, chest pain, ECG changes Exam Location: [facility]. Interpretation Summary Left ventricle is of normal size. Left ventricular systolic function is hyperdynamic. The left ventricular ejection fraction is 74% by Valerio's biplane. There are no segmental wall motion abnormalities. The right ventricle is of normal size. Right ventricular systolic function is normal. There is no hemodynamically significant valve disease. No prior for comparison. Procedure Complete-[id number]. Satisfactory quality. There is normal sinus rhythm. [...] 82 : 1965 Height: 165 cm Account: [id number] Age: 58 yrs Weight: 71 kg Gender: Female BSA: 1.8 m2 Ordering Physician: LYN SINCLAIR Referring Physician: LYN SINCLAIR Performed By: Kai Aguilar RDCS Reason For Study: Syncope, chest pain, ECG changes Exam Location: [facility]. Interpretation Summary Left ventricle is of normal size. Left ventricular systolic function is hyperdynamic. The left ventricular ejection fraction is 74% by Valerio'sbiplane. There are no segmental wall motion abnormalities. The right ventricle is of normal size. Right ventricular systolic functionis normal. There is no hemodynamically significant valve disease. No prior for comparison. Procedure Complete-[id number]. Satisfactory quality. There is normal sinus rhythm. [...] collapse documented in this encounter Care Teams Data Entry Analyst Relationship Specialty Start Date End Date Lyn Sinclair APRN PCP - General Family Medicine 07/17/17 04/20/24 documented as of this encounter
--- OUTSIDE RECORDS SUMMARY | 2024-08-07 00:53 | XMS_ITS | Encounter Summary ---
[place] [address] Care Team Providers Care Carbon Brushes Assembler Name Role Phone Lyn Sinclair APRN Primary Care Provider Encounter Details Date Type Department Care Team (Late st Contact Info) Description 01/21/2023 Abstract Cardiology at [address] [place] [address] Ena Cortes, RN Social History [...] on filedocumented in this encounter Care Teams Carbon Brushes Assembler Relationship Specialty Start Date End Date Lyn Sinclair APRN PCP - General Family Medicine 07/17/17 04/20/24 documented as of this encounter
--- OUTSIDE RECORDS SUMMARY | 2024-08-07 00:53 | XMS_ITS | Encounter Summary ---
[place] [address] Care Team Providers Care Beadworker Name Role Phone Lyn Sinclair APRN Primary Care Provider [phone] Reason for Visit * Consultation (Routine) - Closed Specialty Diagnoses / Procedures Referred By Sean t Referred To Contact Infectious Diseases Diagnoses Latent tuberculosis Lyn Sinclair APRN [address] [address] [facility] Infectious Dis [address] [place] [address] Referral ID Status Reason Start Date Expiration Date V isits Requested Visits Authorized [id number] Closed Consult, [facility] PCP Updated and/or Approved 05/29/2020 05/29/2021 6 6 Encounter Details Date Type Department Care Team (Late st Contact Info) Description 06/09/2020 9:00 AM EST Office Visit [place] [address] Rob Delgado MD Positive 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 No history of positive TB test. She [...] history of TB in family Social History: Mikhail, [place]. Has also lived in and [place]. Worked in [place] for a few years. Most recently is [...] months of treatment for TB - follow-up prn Rob Delgado MD 06/09/2020 10:00 AM Plan discussed [...] tuberculosis documented in this encounter Care Teams Beadworker Relationship Specialty Start Date End Date Lyn Sinclair, EDUCATION COURSES SALES REPRESENTATIVE PCP - General Family Medicine 07/17/17 04/20/24 documented as of this encounter
--- OUTSIDE RECORDS SUMMARY | 2024-08-07 00:53 | XMS_ITS | Encounter Summary ---
Author [place] [address] Care Team Providers Care Lithographic Press Operator Name Role Phone Marcela Acosta APRN Primary Care Provider [phone] Reason for Visit * Reason Onset Date Comments Medication Refill 06/05/2017 Encounter Details Date Type Department Care Team (Late st Contact Info) Description 06/05/2017 Ref[place] [address] Ambreen Vora APRN Social History Tobacco Use [...] on filedocumented in this encounter Care Teams Lithographic Press Operator Relationship Specialty Start Date End Date Marcela Acosta APRN [address] [place], [place] [id number] PCP - General 09/01/12 07/16/17 documented as of this encounter
--- OUTSIDE RECORDS SUMMARY | 2024-08-07 00:53 | XMS_ITS | Encounter Summary ---
[place] [address] Care Team Providers Care Sales Management Intern Name Role Phone CatrachoMarcela Nguyen CYNTHIA Primary Care Provider [phone] Encounter Details Date Type Department Care Team (Late st Contact Info) Description 04/26/2014 8:30 AM EDT Office [place] [phone] Idalmis Westfall MD Diabetes mellitus type 2, uncomplicated; Hypothyroidism; Hyperlipidemia; [...] ___>8 Prescriber: _ DANIEL Wilkerson MD _HAMILTON Kirkland, MD _ Tabatha Tolentino MD _x K MD Dilia Justification for more than 3 tests a [...] Lisinopril 2.5/d; statin- lovvastatin 40/d; flu shot-2013; pneomovax- ; smoking- no; TSH-4.98, 05/04 not taking [...] STRP) Strip Use as instructed -23 times [id number] strip 3 ??? metFORMIN (GLUCOPHAGE) 500 mg [...] 10-year-old boy. 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 Nonsmoker. Quit drinking five years ago. [...] 8:56 AM EDT) Creatinine, Urine 155 mg/dL POLA FRIED MILLROBERTIUM Albumin, Urine <3.0 mg/L JUNI Perez MILLENNIUM Albumin / Creatinin Ratio, Urine <2 mcg/mg Cr ANTHONY MILLENNIUM Comment: Reference Range* Random collection (mcg/mg creatinine) Normal ?<30 Microalbuminuria ?? 30 - 300 Clinical Albuminuria ?? >300 *[place] Diabetes Association. Diabetic Nephropathy. Diabetes Care 1997;(Suppl 1):S24-S27 Exercise within 24 hour, infection, fever, CHF, marked hyperglycemia, and marked hypertension may elevate urinary albumin excretion over baseline values. Urine specimen (specimen) 04/26/2014 8:56 AM EDT 04/26/2014 9:03 AM EDT Narrative Resulting Agency Comment Spec In Lab Idalmis Westfall MD URINE ORDERABLES CERNER CARIENNIUM * (ABNORMAL) Differential, Automated (04/26/2014 8:53 AM [...] Lab Idalmis Westfall MD HEMATOLOGY ORDERA BLES Performing Organization Address City/[facility] de Phone Number [facility] * (ABNORMAL) Hemogram (04/26/2014 8:53 AM EDT) [...] Spec In Lab Idalmis Westfall MD HEMATOLOGY ADELIA PANDA Performing Organization Address [facility]/ZIP Co de Phone Number ANTHONY AGUSTIN * (ABNORMAL) VIT D Total Evaluation (04/26/2014 [...] be considered to be insufficient or deficient. [email or web address]://[email or web address]/DHMCVitD The IDS iSYS Vitamin D Immunoassay detects both 25-OH Vitamin D2 and 25-OH Vitamin D3, but only a total Vitamin D concentration is reported. Blood specimen (specimen) 04/26/2014 8:53 AM EDT 04/26/2014 9:02 AM EDT Narrative Resulting Agency Comment Spec In Lab Idalmis Westfall MD CHEMISTRY ORDERAB LES Performing Organization Address City/[facility]/ZIP Co de Phone Number [facility] * (ABNORMAL) TSH (04/26/2014 8:53 AM EDT) Thyroid Stimulating Hormone 4.98(H) 0.27 - 4.20 mcIU/mL [facility] Blood specimen (specimen) 04/26/2014 8:53 AM EDT 04/26/2014 9:02 AM EDT Narrative Resulting Agency Comment Spec In Lab Idalmis Westfall MD CHEMISTRY ORDERAB LES Performing Organization Address City/[facility]/ZIP Co de Phone Number [facility] * (ABNORMAL) HDL/Cholesterol Profile (04/26/2014 8:53 AM EDT) Cholesterol, Total 193 <=199 mg/dL [facility] Comment: Recommendations of the NCEP Adult Treatment Panel for the following risk cutoff thresholds for the [place] population: Desirable: <200 mg/dL Borderline High: 200-239 mg/dL High: > or = 240 mg/dL HDL Cholesterol 32(L) >=40 mg/dL [facility] Comment: Reference range: ??Low HDL: ?? < 40 mg/dL ??Normal: ?40-60 mg/dL ??Desirable: > 60 mg/dL BRITTANI 2001; 285(19):8430-9159 Cholesterol/HDL Ratio 6.0 ratio [facility] Comment: A Cholesterol to HDL ratio below 4:1 is desirable. ??Studies suggest that increased CAD risk occurs at ratios above 5 for females and above 6 for men. ? [place] Heart Association ??(http://www.americanheart.org) ? [place] Int Med, 1994; 121:641 ? AM J Med, 1998; 105(1A):48S Blood specimen (specimen) 04/26/2014 8:53 AM EDT 04/26/2014 9:02 AM EDT Narrative Resulting Agency Comment Spec In Lab Idalmis Westfall MD CHEMISTRY ORDERAB LES Performing Organization Address [facility] Co de Phone Number [facility] * (ABNORMAL) LDL Cholesterol, Direct (04/26/2014 8:53 AM EDT) LDL Cholesterol, Direct 139(H) <=99 mg/dL [facility] Comment: The National Cholesterol Education Program (NCEP) has set the following guidelines for LDL Cholesterol: Reference range: ?? Optimal: ?<100 mg/dL ?? Near Optimal/Above Optimal: ?? 100-129 mg/dL ?? Borderline high: ?130-159 mg/dL ?? High: ? 160-189 mg/dL ?? Very high: ?>ay=772 mg/dL BRITTANI 2001: 285(19):3392-3851 Blood specimen (specimen) 04/26/2014 8:53 AM EDT 04/26/2014 9:02 AM EDT Narrative Resulting Agency Comment Spec In Lab Idalmis Westfall MD CHEMISTRY ORDERAB LES Performing Organization Address City/[facility]/ZIP Co de Phone Number [facility] * Creatinine (04/26/2014 8:53 AM EDT) Creatinine 0.87 0.70 - 1.20 mg/dL [facility] Comment: Please note that the pediatric reference intervals supplied above were not validated at [facility]. Results from pediatric patients should be interpreted [...] the following links into your internet browser. [email or web address] [email or web address]/[facility] OK[facility] CITYnkf Blood specimen (specimen) 04/26/2014 8:53 AM EDT 04/26/2014 9:02 AM EDT Narrative Resulting Agency Comment Spec In Lab Idalmis Westfall MD CHEMISTRY ORDERAB LES [facility] * (ABNORMAL) Hemoglobin A1c (04/26/2014 8:53 AM [...] Mellitus, Diabetes Care 2013; 36: Suppl. 1, C07-94 Estimated Average Glucose 180 mg/dL [facility] Comment: eAG equivalents for HbA1c percentages: HbA1c(%) ?eAG(mg/dL) 6.0 ?126 6.5 ?140 7.0 ?154 7.5 ?169 8.0 ?183 8.5 ?197 9.0 ?212 9.5 ?226 10.0 ? 240 Limitations: The eAG calculation has not been validated on women, individuals below 18 years old and above 70 years old, and individuals with hemoglobinopathies. Additional resources are available on the ADA website: http://[employer].Camiant/DHadacalc Mayank BRISENO, Tomeka J, Hussein R, et al. ??Translating the A1C assay into estimated average glucose values. ??Diabetes Care 2008:31(8):0101-2874. Blood specimen (specimen) 04/26/2014 8:53 AM EDT 04/26/2014 9:02 AM EDT Narrative Resulting Agency Comment Spec In Lab Idalmis Westfall MD CHEMISTRY ORDERAB LES Performing Organization Address City/State/[facility] Co sc Phone Number [facility] documented in this encounter Visit Diagnoses Diagnosis Diabetes mellitus type 2, uncomplicated Type II or unspecified type diabetes mellitus without mention of complication, not stated as uncontrolled Hypothyroidism Unspecified hypothyroidism Hyperlipidemia Other and unspecified hyperlipidemia Vitamin D deficiency Unspecified vitamin D deficiency Anemia Anemia, unspecified documented in this encounter Care Teams Sales Management Intern Relationship Specialty Start Date End Date Marcela Acosta APRN [address] [place] [address] PCP - General 09/01/12 07/16/17 documented as of this encounter
--- OUTSIDE RECORDS SUMMARY | 2024-08-07 00:53 | XMS_ITS | Encounter Summary ---
[place] [address] Care Team Providers Care Copyist Name Role Phone KarlaMarcela CYNTHIA Primary Care Provider [phone] Encounter Details Date Type Department Care Team (Late st Contact Info) Description 02/09/2016 Orders [place] [phone] Ambreen Vora APRN Diabetes mellitus type 2, uncomplicated; Hypothyroidism, unspecified [...] Urine 4 0 - 29 mcg/mg Cr [facility] 2, 357? 362 Albumin, Urine 6.3 mg/L [facility] Creatinine, Urine 160 mg/dL [facility] Urine specimen (specimen) 04/25/2016 1:12 PM EDT 04/25/2016 1:20 PM EDT Narrative Resulting Agency Comment Spec In Lab Babar Wilkerson MD URINE ORDERABLES [facility] [place] [address] * (ABNORMAL) LDL Cholesterol, Direct (04/25/2016 1:07 PM EDT) LDL Cholesterol, Direct 121(H) <=99 mg/dL [facility] Comment: The National Cholesterol Education Program (NCEP) has set the following guidelines for LDL Cholesterol: Reference range: ?? Optimal: ?<100 mg/dL ?? Near Optimal/Above Optimal: ?? 100-129 mg/dL ?? Borderline high: ?130-159 mg/dL ?? High: ? 160-189 mg/dL ?? Very high: ?>pg=780 mg/dL BRITTANI 2001: 285(19):8200-3556 Blood specimen (specimen) 04/25/2016 1:07 PM EDT 04/25/2016 1:20 PM EDT Narrative Resulting Agency Comment Spec In Lab Babar Wilkerson MD CHEMISTRY ORDERABLES Performing Organization Address [facility] Co de Phone Number [facility] [place] [address] * (ABNORMAL) HDL/Cholesterol Profile (04/25/2016 1:07 PM EDT) Cholesterol, Total 165 <=199 mg/dL [facility] Comment: Recommendations of the NCEP Adult Treatment Panel for the following risk cutoff thresholds for the [place] population: Desirable: <200 mg/dL Borderline High: 200-239 mg/dL High: > or = 240 mg/dL HDL Cholesterol 27(L) >=40 mg/dL [facility] Comment: Reference range: ??Low HDL: ?? < 40 mg/dL ??Normal: ?40-60 mg/dL ??Desirable: > 60 mg/dL BRITTANI 2001; 285(19):9951-0909 Cholesterol/HDL Ratio 6.1 ratio [facility] Comment: A Cholesterol to HDL ratio below 4:1 is desirable. ??Studies suggest that increased CAD risk occurs at ratios above 5 for females and above 6 for men. ? [place] Heart Association ??(http://www.americanheart.org) ? Halle Int Med, 1994; 121:641 ? AM J Med, 1998; 105(1A):48S Blood specimen (specimen) 04/25/2016 1:07 PM EDT 04/25/2016 1:20 PM EDT Narrative Resulting Agency Comment Spec In Lab Babar Wilkerson MD CHEMISTRY ORDERABLES Performing Organization Address [facility] Co de Phone Number [facility] [place] [address] * TSH (04/25/2016 1:07 PM EDT) Thyroid Stimulating Hormone 3.69 0.27 - 4.20 mcIU/mL [facility] Blood specimen (specimen) 04/25/2016 1:07 PM EDT 04/25/2016 1:20 PM EDT Narrative Resulting Agency Comment Spec In Lab Babar Wilkerson MD CHEMISTRY ORDERABLES [facility] [place] [address] * (ABNORMAL) Hemoglobin A1c (04/25/2016 1:07 PM [...] 1, S67-74 Estimated Average Glucose 174 mg/dL [facility] [...] resources are available on the ADA website: http://tinyurl.com/DHMCadacalc Mayank BRISENO, Tomeka J, Hussein R, et al. ??Translating the A1C assay into estimated average glucose values. ??Diabetes Care 2008:31(8):3396-5850. Blood specimen (specimen) 04/25/2016 1:07 PM EDT 04/25/2016 1:20 PM EDT Narrative Resulting Agency Comment Spec In Lab Babar Wilkerson MD CHEMISTRY ORDERABLES Performing Organization Address [facility] Co de Phone Number [facility] [place] [address] * Creatinine (04/25/2016 1:07 PM EDT) Creatinine 0.94 0.70 - 1.20 mg/dL [facility] Comment: Please note that the pediatric reference intervals supplied above were not validated at [facility]. Results from pediatric patients should be interpreted in conjunction to the patient's age, height and muscle mass. Est Glomerular Filtration Rate >60 >=60 [facility] Comment: This estimated GFR [...] the following links into your internet browser. http://Medicalodges/DHnkdep http://Medicalodges/DHMCnkf Blood specimen (specimen) 04/25/2016 1:07 PM EDT 04/25/2016 1:20 PM EDT Narrative Resulting Agency Comment Spec In Lab Babar Wilkerson MD CHEMISTRY ORDERABLES Performing Organization Address [facility] Co de Phone Number [facility] [place] [place] [address] documented in this encounter Visit Diagnoses Diagnosis Diabetes mellitus type 2, uncomplicated Type II or unspecified type diabetes mellitus without mention of complication, not stated as uncontrolled Hypothyroidism, unspecified type documented in this encounter Care Teams Copyist Relationship Specialty Start Date End Date Marcela Acosta APRN [address] [place] [address] PCP - General 09/01/12 07/16/17 documented as of this encounter
--- OUTSIDE RECORDS SUMMARY | 2024-08-07 00:53 | XMS_ITS | Encounter Summary ---
Author Organization [facility] [address] [place] [address] Care Team Providers Care Hardwood Floor Layer Name Role Phone Lyn Sinclair APRN Primary Care Provider [phone] Reason for Visit * Reason Comments Chest Pain Encounter Details Date Type Department Care Team (Latest Contact Info) Description 03/30/2019 3:00 PM EDT Ext Surgery or Single Event [address] [place] [address] Niles Smith MD [facility] [place] [address] Chest pain, unspecified type Social History Tobacco [...] Report ?? Linda Silvia Jose : 1965 [facility] Primary Physician: ??Lyn Sinclair APRN ??Indication: Chest [...] type documented in this encounter Care Teams Hardwood Floor Layer Relationship Specialty Start Date End Date Lyn Sinclair APRN PCP - General Family Medicine 07/17/17 04/20/24 documented as of this encounter
--- OUTSIDE RECORDS SUMMARY | 2024-08-07 00:53 | XMS_ITS | Encounter Summary ---
[place] [address] Care Team Providers Care Stator Connector Name Role Phone Lyn Sinclair APRN Primary Care Provider Encounter Details Date Type Department Care Team (Latest Contact Info) Description 07/17/2017 3:00 PM EST Laboratory Appointment Lab [address] [phone] Type 2 diabetes mellitus without complication, unspecified mcfp insulin use status Social History Tobacco Use [...] Type 2 diabetes mellitus without complication, unspecified mcfp insulin use status TSH Routine 07/17/2017 3:34 PM EST Type 2 diabetes mellitus without complication, unspecified mcfp insulin use status LDL CHOLESTEROL, DIRECT Routine 07/17/2017 3:34 PM EST Type 2 diabetes mellitus without complication, unspecified long term care pharmacist insulin use status HDL/CHOL PROFILE Routine 07/17/2017 3:34 PM EST Type 2 diabetes mellitus without complication, unspecified mcfp insulin use status HEMOGLOBIN A1C Routine 07/17/2017 3:34 PM EST Type 2 diabetes mellitus without complication, unspecified long term care pharmacist insulin use status BASIC METABOLIC PANEL Routine 07/17/2017 3:34 PM EST Type 2 diabetes mellitus without complication, unspecified long term care pharmacist insulin use status documented in this encounter Results * U Albumin/Cre Ratio (07/17/2017 3:41 PM EST) Albumin / Creatinin Ratio, Urine 3 0 - 29 mcg/mg Cr [facility] Comment: Reference Ranges: <30 mcg/mg: [...] 2, 357? 362 Albumin, Urine 3.3 mg/L [facility] Creatinine, Urine 126 mg/dL [facility] Urine specimen (specimen) 07/17/2017 3:41 PM EST 07/17/2017 3:47 PM EST Narrative Resulting Agency Comment Spec In Lab Ambreen E Bilotta PRODUCT DEVELOPMENT ECOLOGIST URINE ORDERABLES [facility] [place] [place] [address] * LDL Cholesterol, Direct (07/17/2017 3:34 PM EST) LDL Cholesterol, Direct 120 <=190 mg/dL [facility] Blood specimen (specimen) 07/17/2017 3:34 PM EST 07/17/2017 3:45 PM EST Narrative Resulting Agency Comment Spec In Lab Ambreen E Kela PRODUCT DEVELOPMENT ECOLOGIST CHEMISTRY ORDERABLE S [facility] [place] [address] * (ABNORMAL) HDL/Cholesterol Profile (07/17/2017 3:34 PM EST) Cholesterol, Total 160 <=239 mg/dL [facility] HDL Cholesterol 23(L) >=40 mg/dL [facility] Cholesterol/HDL Ratio 7.0 ratio [facility] Chol/HDL Interpretation See Note [facility] Comment: Lipid management should be guided by a patient? s ASCVD risk, goals and preferences. ACC/AHA Guidelines recommend high intensity statin if clinical ASCVD or LDL greater than or equal to 190 mg/dL. http://leemail.com/ZBX-JBC-Cbvdxqplc Measure LDL if Total Cholesterol minus HDL Cholesterol is greater than 220 mg/dL. Adults aged 40-75 with LDL 70-189 mg/dL should have their 10 year ASCVD risk estimated with the ACC/AHA ASCVD risk airline radio operator http://tools.acc.org/NTBCJ-Dvde-Nifdsioif/ Statin should be discussed if risk greater [...] Comment Spec In Lab Ambreen E Bilotta PRODUCT DEVELOPMENT ECOLOGIST CHEMISTRY ORDERABLE S Performing Organization Address [facility] Co de Phone Number [facility] [place] [address] * TSH (07/17/2017 3:34 PM EST) Thyroid Stimulating Hormone 2.95 0.27 - 4.20 mlU/ML [facility] Blood specimen (specimen) 07/17/2017 3:34 PM EST 07/17/2017 3:45 PM EST Narrative Resulting Agency Comment Spec In Lab Ambreen Vora PRODUCT DEVELOPMENT ECOLOGIST CHEMISTRY ORDERABLE S Performing Organization Address [facility] de Phone Number [facility] [place] [address] * (ABNORMAL) Hemoglobin A1c (07/17/2017 3:34 PM EST) Pathologist [facility] Hemoglobin A1c 7.7(H) 4.3 - 5.6 % [facility] Comment: Reference Range: 4.3 - [...] Mellitus, Diabetes Care 2013; 36: Suppl. 1, S27-37 Estimated Average Glucose 174 mg/dL [facility] Comment: eAG equivalents for HbA1c [...] into estimated average glucose values. ??Diabetes Care 2008:31(8):4292-7732. Blood specimen (specimen) 07/17/2017 3:34 PM EST 07/17/2017 3:45 PM EST Narrative Resulting Agency Comment Spec In Lab Ambreen Vora APRN CHEMISTRY ORDERABLE S [facility] [place] [address] * Basic Metabolic Panel (non-fasting) (07/17/2017 3:34 PM EST) Glucose 177 65 - 199 mg/dL [facility] Comment:Diabetes: >=200 mg/d L plus symptoms Blood Urea Nitrogen 11 8 - 18 mg/dL [facility] Creatinine 0.75 0.70 - 1.20 mg/dL [facility] Sodium 140 135 - 145 mmol/L [facility] Potassium 3.8 3.5 - 5.0 mmol/L [facility] Comment: Please note: ??Patients with WBC >100,000 may have falsely elevated Potassium levels. ??For accurate Potassium quantification in these patients send serum separator tube (gold top) for subsequent determinations. ??Contact the Clinical Chemistry Laboratory if there are any questions. Chloride 103 98 - 107 mmol/L [facility] Carbon Dioxide 23 22 - 31 mmol/L [facility] Anion Gap 14 5 - 15 mmol/L [facility] Calcium 9.0 8.5 - 10.5 mg/dL [facility] Est Glomerular Filtration Rate >60 >=60 [facility] Comment: The reported eGFR should be multiplied by 1.2 for patients. The MDRD is not an appropriate measure of renal function for patients with body mass extremes or in patients with acute kidney failure. http://Viptable/DHnkdep http://Viptable/DHMCnkf Blood specimen (specimen) 07/17/2017 3:34 PM EST 07/17/2017 3:45 PM EST Narrative Resulting Agency Comment Spec In Lab Ambreen Vora APRN CHEMISTRY ORDERABLE S [facility] [place] [id number] documented in this encounter Visit Diagnoses Diagnosis Type 2 diabetes mellitus without complication, unspecified long term care pharmacist insulin use status documented in this encounter Care Teams Stator Connector Relationship Specialty Start Date End Date Lyn Sinclair APRN PCP - General Family Medicine 07/17/17 04/20/24 documented as of this encounter
--- OUTSIDE RECORDS SUMMARY | 2024-08-07 00:53 | XMS_ITS | Encounter Summary ---
[place] [address] Care Team Providers Care Casing Tier Name Role Phone Lyn Sinclair APRN Primary Care Provider Encounter Details Date Type Department Care Team (Late st Contact Info) Description 01/23/2023 Telephone Cardiology at [address] [place] [address] Ena Cortes, RN Social History [...] EDT Review done of incoming documents from [facility] emergency and primary care in past [...] EDT ----- Regarding: RE: request records please: [facility] emergency summary and EKG within past 60 days Request for records was faxed. ----- Message ----- From: Ena Cortes RN Sent: 01/21/2023 2:19 PM EDT To: Ambreen Newberry Subject: request records please: [facility] emergency summa# ----- Message ----- From: Flaco Sanabria Sent: 01/21/2023 12:25 PM EDT To: [facility] [place] Akila, I have scheduled this pt for a follow up visit with Dr Smith on 04/04 but if you think you can get her in sooner, that would be great. Flaco documented in this encounter Plan of Treatment Not on file documented as of this encounter Visit Diagnoses Not on filedocumented in this encounter Care Teams Casing Tier Relationship Specialty Start Date End Date Lyn Sinclair APRN PCP - General Family Medicine 07/17/17 04/20/24 documented as of this encounter
--- OUTSIDE RECORDS SUMMARY | 2024-08-07 00:54 | XMS_ITS | Encounter Summary ---
Author Organization [facility] [place] [address] Care Team Providers Care Front Office Attendant Name Role Phone Aleksander Perla MD Primary Care Provider [phone] Reason for Visit * Reason Onset Date Comments Labs Only 12/26/2010 Encounter Details Date Type Department Care Team (Late st Contact Info) Description 12/26/2010 Telephone [place] [phone] Armin Reynolds MD [facility] [place] [address] Labs Only Social History Tobacco Use Types [...] Hemoglobin A1c 6.7(H) 4.3 - 6.1 % [facility] Estimated Average Glucose 146 mg/dL [...] into estimated average glucose values. ??Diabetes Care 2008:31(8):6083-0323. Blood specimen (specimen) 05/07/2011 10:07 AM EDT 05/07/2011 10:37 AM EDT Idalmis Westfall MD CHEMISTRY ORDERAB LES [facility] documented in this encounter Visit Diagnoses Diagnosis Diabetes- Primary Type II or unspecified type diabetes mellitus without mention of complication, not stated as uncontrolled documented in this encounter Care Teams Front Office Attendant Relationship Specialty Start Date End Date Aleksander Perla MD [address] [place] [address] PCP - General 06/13/10 08/31/12 documented as of this encounter
--- OUTSIDE RECORDS SUMMARY | 2024-08-07 00:54 | XMS_ITS | Encounter Summary ---
[place] [address] Care Team Providers Care Membership Advisor Name Role Phone CatrachoMarcela Nguyen CYNTHIA Primary Care Provider [phone] Reason for Visit * Reason Comments Diabetes Encounter Details Date Type Department Care Team (Late st Contact Info) Description 11/24/2012 7:30 AM EDT Office [place] [address] Idalmis Westfall MD DM type 2 (diabetes mellitus, type 2) [...] no peripheral; CAD- neg ETT 2010; lipids- BOxev100 , HDL- 33, LDL- p 12/01 DM [...] AM EDT) Creatinine, Urine 198 mg/dL CE CORK[facility] Albumin, Urine 4.3 mg/L JUNI Perez MILLENNIUM Albumin / Creatinin Ratio, Urine 2 mcg/mg Cr [facility] Comment: Reference Range* Random collection (mcg/mg creatinine) Normal ?<30 Microalbuminuria ?? 30 - 300 Clinical Albuminuria ?? >300 *[place] Diabetes Association. Diabetic Nephropathy. Diabetes Care 1997;(Suppl 1):S24-S27 Exercise within 24 hour, infection, fever, CHF, marked hyperglycemia, and marked hypertension may elevate urinary albumin excretion over baseline values. Urine specimen (specimen) 11/24/2012 7:51 AM EDT 11/24/2012 7:55 AM EDT Narrative Resulting Agency Comment Spec In Lab Idalmis Westfall MD URINE ORDERABLES Performing Organization Address [facility] Co de Phone Number [facility] * VIT D Total Evaluation (11/24/2012 7:50 AM EDT) Vitamin D Total 25 OH 35 30 - 100 ng/mL [facility] Comment: Deficient <10 ng/mL Insufficient 10 to [...] MD CHEMISTRY ORDERAB LES Performing Organization Address [facility] Co de Phone Number [employer] * (ABNORMAL) LDL Cholesterol, Direct (11/24/2012 7:50 AM EDT) LDL Cholesterol, Direct 137(H) <=99 mg/dL [facility] Comment: The National Cholesterol Education Program (NCEP) has set the following guidelines for LDL Cholesterol: Reference range: ?? Optimal: ?<100 mg/dL ?? Near Optimal/Above Optimal: ?? 100-129 mg/dL ?? Borderline high: ?130-159 mg/dL ?? High: ? 160-189 mg/dL ?? Very high: ?>xu=393 mg/dL BRITTANI 2001: 285(19):6970-8686 Blood specimen (specimen) 11/24/2012 7:50 AM EDT 11/24/2012 8:02 AM EDT Narrative Resulting Agency Comment Spec In Lab Idalmis Westfall MD CHEMISTRY ORDERAB LES [facility] * (ABNORMAL) HDL/Cholesterol Profile (11/24/2012 7:50 AM EDT) Cholesterol, Total 180 <=199 mg/dL [facility] Comment: Recommendations of the NCEP Adult Treatment Panel for the following risk cutoff thresholds for the [place] population: Desirable: <200 mg/dL Borderline High: 200-239 mg/dL High: > or = 240 mg/dL HDL Cholesterol 33(L) >=40 mg/dL [facility] Comment: Reference range: ??Low HDL: ?? < 40 mg/dL ??Normal: ?40-60 mg/dL ??Desirable: > 60 mg/dL BRITTANI 2001; 285(19):3498-9241 Cholesterol/HDL Ratio 5.5 ratio [facility] Comment: A Cholesterol to HDL ratio below 4:1 is desirable. ??Studies suggest that increased CAD risk occurs at ratios above 5 for females and above 6 for men. ? [place] Heart Association ??(http://www.americanheart.org) ? Halle Int Med, 1994; 121:641 ? AM J Med, 1998; 105(1A):48S Blood specimen (specimen) 11/24/2012 7:50 AM EDT 11/24/2012 8:02 AM EDT Narrative Resulting Agency Comment Spec In Lab Idalmis Westfall MD CHEMISTRY ORDERAB LES Performing Organization Address City/[facility]/ZIP Co de Phone Number [facility] * (ABNORMAL) TSH (11/24/2012 7:50 AM EDT) Thyroid Stimulating Hormone 4.60(H) 0.27 - 4.20 mcIU/mL [facility] Blood specimen (specimen) 11/24/2012 7:50 AM EDT 11/24/2012 8:02 AM EDT Narrative Resulting Agency Comment Spec In Lab Idalmis Westfall MD CHEMISTRY ORDERAB LES Performing Organization Address City/[facility] Co de Phone Number [facility] * (ABNORMAL) Hemoglobin A1c (11/24/2012 7:50 AM EDT) Hemoglobin A1c 7.0(H) 4.3 - 6.1 % [facility] Comment: The [place] Diabetes Association (ADA) has stated that HbA1c [...] 2013:36;suppl 1:S11-S66. Estimated Average Glucose 154 mg/dL [facility] Comment: eAG equivalents for HbA1c [...] into estimated average glucose values. ??Diabetes Care 2008:31(8):7629-1399. Blood specimen (specimen) 11/24/2012 7:50 AM EDT 11/24/2012 8:02 AM EDT Narrative Resulting Agency Comment Spec In Lab Idalmis Westfall MD CHEMISTRY ORDERAB LES Performing Organization Address City/State/[facility] Co ri Phone Number [facility] documented in this encounter Visit Diagnoses Diagnosis DM type 2 (diabetes mellitus, type 2)- Primary Type II or unspecified type diabetes mellitus without mention of complication, not stated as uncontrolled Hypothyroid Unspecified hypothyroidism Vitamin D deficiency Unspecified vitamin D deficiency documented in this encounter Care Teams Membership Advisor Relationship Specialty Start Date End Date Marcela Acosta APRN [address] [place] [address] PCP - General 09/01/12 07/16/17 documented as of this encounter
--- OUTSIDE RECORDS SUMMARY | 2024-08-07 00:54 | XMS_ITS | Encounter Summary ---
[place] [address] Care Team Providers Care Customer Development Manager Name Role Phone Aleksander Perla MD Primary Care Provider [phone] Reason for Visit * Reason Onset Date Comments Other 04/20/2011 possible referra l Encounter Details Date Type Department Care Team (Late st Contact Info) Description 04/20/2011 Telephone [place] [phone] Umu Cervantes, PURCHASING COORDINATOR Other (possible referral) Social History Tobacco Use [...] EDT Dr. Wright called to discuss Ms. Garcia for possible referral. She is S/P open Gastric bypass in May 2000 in [place]. She was seen with vague epigastric complaints [...] will contact the patient regarding evaluation at [facility] She will call us if interested in further evaluation. documented in this encounter Plan of Treatment Not on file documented as of this encounter Visit Diagnoses Not on filedocumented in this encounter Care Teams Customer Development Manager Relationship Specialty Start Date End Date Aleksander Perla MD [address] [place] [address] PCP - General 06/13/10 08/31/12 documented as of this encounter
--- OUTSIDE RECORDS SUMMARY | 2024-08-07 00:54 | XMS_ITS | Encounter Summary ---
[place] [address] Care Team Providers Care Blanket Cutter Hand Name Role Phone Marcela Acosta APRN Primary Care Provider Reason for Visit * Reason Comments Medication Refill Encounter Details Date Type Department Care Team (Late st Contact Info) Description 06/21/2013 [place] [address] Idalmis Westfall MD Social History Tobacco Use [...] on filedocumented in this encounter Care Teams Blanket Cutter Hand Relationship Specialty Start Date End Date Marcela Acosta APRN [address] [place] [address] PCP - General 09/01/12 07/16/17 documented as of this encounter
--- OUTSIDE RECORDS SUMMARY | 2024-08-07 00:54 | XMS_ITS | Encounter Summary ---
Author Organization [facility] Address [facility] [place] [address] Care Team Providers Care Firer Watertender Name Role Phone Marcela Acosta APRN Primary Care Provider +1 [phone] Reason for Visit * Reason Comments Verrucous Vulgaris Encounter Details Date Type Department Care Team (Late st Contact Info) Description 09/01/2012 1:20 PM EST Office Visit Dermatology at [facility] [address] [place] [address] Uday Rivas MD [facility] [address] [place] [address] Warts (Primary Dx); Xerosis cutis Discharge Disposition: [...] supervision with direct supervision immediately available. (definition: [facility] Policy Statement on Graduate Medical Education, [...] concerns. Uday Rivas MD Resident in Dermatology [facility] Staff manager intensive care: Sue Kelly MD Section of Dermatology [facility] documented in this encounter Plan of Treatment Not on file documented as of this encounter Visit Diagnoses Diagnosis Warts- Primary Viral warts, unspecified Xerosis cutis Other specified disease of sebaceous glands documented in this encounter Care Teams Firer Watertender Relationship Specialty Start Date End Date Marcela Acosta APRN [address] [place] [address] PCP - General 09/01/12 07/16/17 documented as of this encounter
--- OUTSIDE RECORDS SUMMARY | 2024-08-07 00:54 | XMS_ITS | Encounter Summary ---
[place] [address] Care Team Providers Care Owner Name Role Phone Aleksander Perla MD Primary Care Provider +1 [phone] Encounter Details Date Type Department Care Team (Late st Contact Info) Description 12/12/2011 Orders [place] [phone] Idalmis Westfall MD Hypothyroid (Primary Dx) Social History Tobacco Use [...] hypothyroidism documented in this encounter Care Teams Owner Relationship Specialty Start Date End Date Aleksander Perla MD [address] [place] [address] PCP - General 06/13/10 08/31/12 documented as of this encounter
--- OUTSIDE RECORDS SUMMARY | 2024-08-07 00:54 | XMS_ITS | Encounter Summary ---
[place] [address] Care Team Providers Care Printing Manager Name Role Phone Aleksander Perla MD Primary Care Provider +1 [phone] Reason for Visit * Reason Onset Date Comments Other 12/10/2011 Encounter Details Date Type Department Care Team (Late st Contact Info) Description 12/10/2011 [place] [address] Kizzy Sanchez, CIERAE Other Social History Tobacco Use Types Packs/Day [...] EDT Patient calls had labs done at [place]. Did not have PE. Is asking if she can restart her Metformin. Called [facility] to have results. * Telephone Encounter - [...] you wanted any kidney function tests done. [phone] documented in this encounter Plan of Treatment [...] uncontrolled documented in this encounter Care Teams Printing Manager Relationship Specialty Start Date End Date Aleksander Perla MD [address] [place] [address] PCP - General 06/13/10 08/31/12 documented as of this encounter
--- OUTSIDE RECORDS SUMMARY | 2024-08-07 00:54 | XMS_ITS | Encounter Summary ---
Author Organization [facility] Address [facility] [address] Care Team Providers Care Circulation Worker Name Role Phone Valentina Garnica APRN Primary Care Provider [phone] Reason for Visit * Reason Comments Medication Refill Encounter Details Date Type Department Care Team (Late st Contact Info) Description 06/22/2013 [place] [address] Sarina Sanchez MD [facility] [place] [address] Social History Tobacco Use Types Packs/Day Years [...] on filedocumented in this encounter Care Teams Circulation Worker Relationship Specialty Start Date End Date Valentina Garnica APRN [address] [place] [address] PCP - General Internal Medicine 04/21/24 documented as of this encounter
--- OUTSIDE RECORDS SUMMARY | 2024-08-07 00:54 | XMS_ITS | Encounter Summary ---
Author Organization [facility] Address [facility] [place] [address] Care Team Providers Care Tourist Guide Name Role Phone Aleksander Perla MD Primary Care Provider [phone] [phone] Encounter Details Date Type Department Care Team (Late st Contact Info) Description 07/24/2010 3:00 PM EST Office [place] [address] Armin Reynolds MD [facility] [address] Discharge Disposition: Home Social History Tobacco Use [...] on filedocumented in this encounter Care Teams Tourist Guide Relationship Specialty Start Date End Date Aleksander Perla MD [address] [place], [place] [id number] PCP - General 11/23/10 2/10/13 documented as of this encounter
--- OUTSIDE RECORDS SUMMARY | 2024-08-07 00:54 | XMS_ITS | Encounter Summary ---
[place] [address] Care Team Providers Care Blood Tester Fowl Name Role Phone Aleksander Perla MD Primary Care Provider +1 [phone] Reason for Visit * Reason Onset Date Comments Labs Only 02/19/2011 Encounter Details Date Type Department Care Team (Late st Contact Info) Description 02/19/2011 Telephone [place] [phone] Idalmis Westfall MD Labs Only Social History Tobacco Use Types [...] AM EDT) Creatinine, Urine 105 mg/dL [facility]ON[facility] MILL[facility]NIUM Albumin, Urine <3.0 mg/L CERNE R MILLENNIUM Albumin / Creatinin Ratio, Urine <3 mcg/mg Cr [facility] Comment: Reference Range* Random collection (mcg/mg creatinine) Normal ?<30 Microalbuminuria ?? 30 - 300 Clinical Albuminuria ?? >300 *[place] Diabetes Association. Diabetic Nephropathy. Diabetes Care 1997;(Suppl 1):S24-S27 Exercise within 24 hour, infection, fever, CHF, marked hyperglycemia, and marked hypertension may elevate urinary albumin excretion over baseline values. Urine specimen (specimen) 05/07/2011 10:13 AM EDT 05/07/2011 10:38 AM EDT Idalmis Westfall MD URINE ORDERABLES [facility] * (ABNORMAL) Vitamin D 25 hydroxy (05/07/2011 10:07 AM EDT) 25-Hydroxy D2 6.2 ng/mL [facility] Comment: Test Performed by: [place] [address] Button Cutting Machine Operator: Kath Estrada, Ph.D. 25-Hydroxy D3 17 ng/mL [facility] Comment: Test Performed by: [place] [address] Button Cutting Machine Operator: Kath Estrada, Ph.D. Vitamin D Total 25 OH 23(L) ng/mL [facility] Comment: Interpretation: 10-24 (mild to moderate deficiency) -- REFERENCE VALUE -- 25-HYDROXY D TOTAL (D2+D3) Optimum levels in the normal population are 25-80 Test Performed by: [facility] [place] [address] Button Cutting Machine Operator: Kath Estrada, Ph.D. Blood specimen (specimen) 05/07/2011 10:07 AM EDT 05/07/2011 1:02 PM EDT Idalmis Westfall MD CHEMISTRY ORDERAB LES Performing Organization Address City/State/[facility] Co de Phone Number [facility] documented in this encounter Visit Diagnoses Diagnosis DM type 2 (diabetes mellitus, type 2) Type II or unspecified type diabetes mellitus without mention of complication, not stated as uncontrolled documented in this encounter Care Teams Blood Tester Fowl Relationship Specialty Start Date End Date Aleksander Perla MD [address] [place] [address] PCP - General 06/13/10 08/31/12 documented as of this encounter
--- OUTSIDE RECORDS SUMMARY | 2024-08-07 00:54 | XMS_ITS | Encounter Summary ---
[place] [address] Care Team Providers Care Employment Agency Manager Name Role Phone Aleksander Perla MD Primary Care Provider [phone] [phone] Reason for Visit * Reason Comments Follow-up diabete Encounter Details Date Type Department Care Team (Late st Contact Info) Description 05/07/2011 9:30 AM EDT Office Visit [place] [address] Idalmis Westfall MD Diabetes; DM type 2 (diabetes mellitus, type [...] GERD, anemia, gastric bypass in 1999 in [place], , tubal ligation, ventral hernia, and ankle surgery. Current outpatient prescriptions ordered prior to encounter Medication Sig Dispense Refill ??? CIS Free Text Med - One a day Vit ??? LORazepam (ATIVAN) 0.5 mg tablet 0.5mg, PO, Q8H,PRN ??? CYANOCOBALAMIN, VITAMIN B-12, (VITAMIN B-12 INJ) ??? ergocalciferol (VITAMIN D) 50,000 unit capsule 56187 UNIT = 1 Capsule(s), PO, QWEEK ??? 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 FAMILY HISTORY: Mother had CABG and stroke in her 60s. Father had his first DE at 51. Her review of systems is [...] 25 HYDROXY Component Value Range ??? 25-Hydroxy D2-[place] 6.2 (ng/mL) ??? 25-Hydroxy D3-[place] 17 (ng/mL) ??? 25Hydrox D-[place] 23 (*) (ng/mL) MICROALBUMIN, URINE, RANDOM Component [...] EDT) Creatinine 0.69(L) 0.70 - 1.20 mg/dL [facility] Est Glomerular Filtration Rate >60 >=60 [facility] Comment: The National Kidney Disease Education [...] Lab Idalmis Westfall MD CHEMISTRY ORDERAB LES [facility] * LDL Cholesterol, Direct (10/01/2011 9:20 AM EDT) LDL Cholesterol, Direct 86 <=99 mg/dL [facility] Comment: The National Cholesterol Education Program (NCEP) has set the following guidelines for LDL Cholesterol: Reference range: ?? Optimal: ?<100 mg/dL ?? Near Optimal/Above Optimal: ?? 100-129 mg/dL ?? Borderline high: ?130-159 mg/dL ?? High: ? 160-189 mg/dL ?? Very high: ?>gz=715 mg/dL BRITTANI 2001: 285(19):9880-1249 Blood specimen (specimen) 10/01/2011 9:20 AM EDT 10/01/2011 9:25 AM EDT Narrative Resulting Agency Comment Spec In Lab Idalmis Westfall MD CHEMISTRY ORDERAB LES Performing Organization Address [facility]/ZIP Co de Phone Number [facility] * (ABNORMAL) HDL/Cholesterol Profile (10/01/2011 9:20 AM EDT) Cholesterol, Total 132 <=199 mg/dL [facility] Comment: Recommendations of the NCEP Adult Treatment Panel for the following risk cutoff thresholds for the [place] population: Desirable: <200 mg/dL Borderline High: 200-239 mg/dL High: > or = 240 mg/dL HDL Cholesterol 29(L) >=40 mg/dL [facility] Comment: Reference range: ??Low HDL: ?? < 40 mg/dL ??Normal: ?40-60 mg/dL ??Desirable: > 60 mg/dL BRITTANI 2001; 285(19):5750-8451 Cholesterol/HDL Ratio 4.6 ratio [facility] Comment: A Cholesterol to HDL ratio below 4:1 is desirable. ??Studies suggest that increased CAD risk occurs at ratios above 5 for females and above 6 for men. ? [place] Heart Association ??(http://www.americanheart.org) ? Halle Int Med, 1994; 121:641 ? AM J Med, 1998; 105(1A):48S Blood specimen (specimen) 10/01/2011 9:20 AM EDT 10/01/2011 9:25 AM EDT Narrative Resulting Agency Comment Spec In Lab Idalmis Westfall MD CHEMISTRY ORDERAB LES Performing Organization Address [facility]/ZIP Co de Phone Number [facility] * (ABNORMAL) TSH (10/01/2011 9:20 AM EDT) Thyroid Stimulating Hormone 6.14(H) 0.27 - 4.20 mcIU/mL [facility] Blood specimen (specimen) 10/01/2011 9:20 AM EDT 10/01/2011 9:25 AM EDT Narrative Resulting Agency Comment Spec In Lab Idalmis Westfall MD CHEMISTRY ORDERAB LES Performing Organization Address [facility]/ZIP Co de Phone Number [facility] * (ABNORMAL) Hemoglobin A1c (10/01/2011 9:20 AM EDT) Hemoglobin A1c 6.5(H) 4.3 - 6.1 % [facility] Estimated Average Glucose 140 mg/dL [facility] Comment: eAG equivalents for HbA1c percentages: HbA1c(%) [...] into estimated average glucose values. ??Diabetes Care 2008:31(8):6986-6916. Blood specimen (specimen) 10/01/2011 9:20 AM EDT 10/01/2011 9:25 AM EDT Narrative Resulting Agency Comment Spec In Lab Idalmis Westfall MD CHEMISTRY ORDERAB LES Performing Organization Address [facility] Co de Phone Number [facility] * Microalbumin, urine, random (05/07/2011 10:13 AM EDT) Creatinine, Urine 105 mg/dL POL[facility] AGUSTIN Albumin, Urine <3.0 mg/L JUNI R MILLENNIUM Albumin / Creatinin Ratio, Urine <3 mcg/mg Cr [facility] Comment: Reference Range* Random collection (mcg/mg creatinine) Normal ?<30 Microalbuminuria ?? 30 - 300 Clinical Albuminuria ?? >300 *[place] Diabetes Association. Diabetic Nephropathy. Diabetes Care 1997;(Suppl 1):S24-S27 Exercise within 24 hour, infection, fever, CHF, marked hyperglycemia, and marked hypertension may elevate urinary albumin excretion over baseline values. Urine specimen (specimen) 05/07/2011 10:13 AM EDT 05/07/2011 10:38 AM EDT Idalmis Westfall MD URINE ORDERABLES [facility] * (ABNORMAL) Vitamin D 25 hydroxy (05/07/2011 10:07 AM EDT) 25-Hydroxy D2 6.2 ng/mL [facility] Comment: Test Performed by: [place] [address] Card Runner: Kath Estrada, Ph.D. 25-Hydroxy D3 17 ng/mL [facility] Comment: Test Performed by: [facility] [address] Card Runner: Kath Estrada, Ph.D. Vitamin D Total 25 OH 23(L) ng/mL [facility] Comment: Interpretation: 10-24 (mild to moderate deficiency) -- REFERENCE VALUE -- 25-HYDROXY D TOTAL (D2+D3) Optimum levels in the normal population are 25-80 Test Performed by: [facility] [address] Card Runner: Kath Estrada, Ph.D. Blood specimen (specimen) 05/07/2011 10:07 AM EDT 05/07/2011 1:02 PM EDT Idalmis Westfall MD CHEMISTRY ORDERAB LES Performing Organization Address City/[facility]/ZIP Co de Phone Number [facility] * (ABNORMAL) Hemoglobin A1c (05/07/2011 10:07 AM EDT) Hemoglobin A1c 6.7(H) 4.3 - 6.1 % [facility] Estimated Average Glucose 146 mg/dL [facility] Comment: eAG equivalents for HbA1c percentages: HbA1c(%) [...] into estimated average glucose values. ??Diabetes Care 2008:31(8):7127-6798. Blood specimen (specimen) 05/07/2011 10:07 AM EDT 05/07/2011 10:37 AM EDT Idalmis Westfall MD CHEMISTRY ORDERAB LES [facility] documented in this encounter Visit Diagnoses Diagnosis Diabetes Type II or unspecified type diabetes mellitus without mention of complication, not stated as uncontrolled DM type 2 (diabetes mellitus, type 2) Type II or unspecified type diabetes mellitus without mention of complication, not stated as uncontrolled documented in this encounter Care Teams Employment Agency Manager Relationship Specialty Start Date End Date Aleksander Perla MD [address] [place] [address] PCP - General 06/13/10 08/31/12 documented as of this encounter
--- OUTSIDE RECORDS SUMMARY | 2024-08-07 00:54 | XMS_ITS | Encounter Summary ---
[place] [address] Care Team Providers Care Heating And Air Conditioning Mechanic Name Role Phone Marcela Acosta APRN Primary Care Provider [phone] [phone] Reason for Visit * Reason Onset Date Comments Medication Refill 03/09/2013 Encounter Details Date Type Department Care Team (Late st Contact Info) Description 03/09/2013 [place] [address] Della Mckoy, [facility] [place] [address] Social History Tobacco Use Types Packs/Day Years [...] on filedocumented in this encounter Care Teams Heating And Air Conditioning Mechanic Relationship Specialty Start Date End Date Marcela Acosta APRN [address] [place] [address] PCP - General 09/01/12 07/16/17 documented as of this encounter
--- OUTSIDE RECORDS SUMMARY | 2024-08-07 00:54 | XMS_ITS | Encounter Summary ---
[place] [address] Care Team Providers Care Live Study Manager Name Role Phone Aleksander Perla MD Primary Care Provider +1 [phone] Encounter Details Date Type Department Care Team (Late st Contact Info) Description 04/09/2011 Orders [place] [phone] Idalmis Westfall MD Social History Tobacco Use [...] is a non-reportable exam. Idalmis Westfall MD [facility] ORDERABLES documented in this encounter Visit Diagnoses Not on filedocumented in this encounter Care Teams Live Study Manager Relationship Specialty Start Date End Date Aleksander Perla MD [address] [place] [address] PCP - General 06/13/10 08/31/12 documented as of this encounter
--- OUTSIDE RECORDS SUMMARY | 2024-08-07 00:54 | XMS_ITS | Encounter Summary ---
[place] [address] Care Team Providers Care Marine Pipefitter Name Role Phone Aleksander Perla MD Primary Care Provider [phone] [phone] Reason for Visit * Reason Comments Diabetes Encounter Details Date Type Department Care Team (Late st Contact Info) Description 10/01/2011 9:00 AM EDT Office [place] [phone] dIalmis Westfall MD DM type 2 (diabetes mellitus, [...] with workspace adjustment, no peripheral; CAD- neg [id number]; lipids- TChol 171, HDL- , LDL- 115, [...] symptoms are better. 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 CIS - anemia [id number] ??? CIS - depression ??? CIS - [...] Hemoglobin A1c 6.9(H) 4.3 - 6.1 % [facility] Estimated Average Glucose 151 mg/dL [facility] Comment: eAG equivalents for HbA1c percentages: HbA1c(%) [...] into estimated average glucose values. ??Diabetes Care 2008:31(8):0871-1994. Blood specimen (specimen) 05/05/2012 8:30 AM EDT 05/05/2012 8:49 AM EDT Narrative Resulting Agency Comment Spec In Lab Idalmis Westfall MD CHEMISTRY ORDERAB LES [facility] * (ABNORMAL) VIT D Total 25 Hydroxy (05/05/2012 8:30 AM EDT) Vitamin D Total 25 OH 28(L) 30 - 100 ng/mL [facility] Comment: Deficient <10 ng/mL Insufficient 10 to [...] Lab Idalmis Westfall MD CHEMISTRY ORDERAB LES [facility] * (ABNORMAL) Creatinine, serum (10/01/2011 9:20 AM EDT) Creatinine 0.69(L) 0.70 - 1.20 mg/dL [facility] Est Glomerular Filtration Rate >60 >=60 [facility] Comment: The National Kidney Disease Education Program [...] ORDERAB LES Performing Organization Address [facility] de Phone Number [facility] * LDL Cholesterol, Direct (10/01/2011 9:20 AM EDT) LDL Cholesterol, Direct 86 <=99 mg/dL [facility] Comment: The National Cholesterol Education Program (NCEP) has set the following guidelines for LDL Cholesterol: Reference range: ?? Optimal: ?<100 mg/dL ?? Near Optimal/Above Optimal: ?? 100-129 mg/dL ?? Borderline high: ?130-159 mg/dL ?? High: ? 160-189 mg/dL ?? Very high: ?>ju=513 mg/dL [facility]IRTT[facility] 2001: 285(19):4708-5763 Blood specimen (specimen) 10/01/2011 9:20 AM EDT 10/01/2011 9:25 AM EDT Narrative Resulting Agency Comment Spec In Lab Idalmis Westfall MD CHEMISTRY ORDERAB LES Performing Organization Address [facility] de Phone Number [facility] * (ABNORMAL) HDL/Cholesterol Profile (10/01/2011 9:20 AM EDT) Cholesterol, Total 132 <=199 mg/dL [facility] Comment: Recommendations of the NCEP Adult Treatment Panel for the following risk cutoff thresholds for the [place] population: Desirable: <200 mg/dL Borderline High: 200-239 mg/dL High: > or = 240 mg/dL HDL Cholesterol 29(L) >=40 mg/dL [facility] Comment: Reference range: ??Low HDL: ?? < 40 mg/dL ??Normal: ?40-60 mg/dL ??Desirable: > 60 mg/dL BRITTANI 2001; 285(19):0885-8391 Cholesterol/HDL Ratio 4.6 ratio [facility] Comment: A Cholesterol to HDL ratio below 4:1 is desirable. ??Studies suggest that increased CAD risk occurs at ratios above 5 for females and above 6 for men. ? [place] Heart Association ??(http://www.americanheart.org) ? Halle Int Med, 1994; 121:641 ? AM J Med, 1998; 105(1A):48S Blood specimen (specimen) 10/01/2011 9:20 AM EDT 10/01/2011 9:25 AM EDT Narrative Resulting Agency Comment Spec In Lab Idalmis Westfall MD CHEMISTRY ORDERAB LES Performing Organization Address [facility] Co de Phone Number [facility] * (ABNORMAL) TSH (10/01/2011 9:20 AM EDT) Thyroid Stimulating Hormone 6.14(H) 0.27 - 4.20 mcIU/mL [facility] Blood specimen (specimen) 10/01/2011 9:20 AM EDT 10/01/2011 9:25 AM EDT Narrative Resulting Agency Comment Spec In Lab Idalmis Westfall MD CHEMISTRY ORDERAB LES Performing Organization Address [facility] Co de Phone Number [facility] * (ABNORMAL) Hemoglobin A1c (10/01/2011 9:20 AM EDT) Hemoglobin A1c 6.5(H) 4.3 - 6.1 % [facility] Estimated Average Glucose 140 mg/dL [facility] Comment: eAG equivalents for HbA1c percentages: [...] into estimated average glucose values. ??Diabetes Care 2008:31(8):8765-5593. Blood specimen (specimen) 10/01/2011 9:20 AM EDT 10/01/2011 9:25 AM EDT Narrative Resulting Agency Comment Spec In Lab Idalmis Westfall MD CHEMISTRY ORDERAB LES [facility] documented in this encounter Visit Diagnoses Diagnosis DM type 2 (diabetes mellitus, type 2)- Primary Type II or unspecified type diabetes mellitus without mention of complication, not stated as uncontrolled documented in this encounter Care Teams Marine Pipefitter Relationship Specialty Start Date End Date Aleksander Perla MD [address] [facility] [place] [address] PCP - General 06/13/10 08/31/12 documented as of this encounter
--- OUTSIDE RECORDS SUMMARY | 2024-08-07 00:54 | XMS_ITS | Encounter Summary ---
Author Organization [facility] [place] [address] Care Team Providers Care Sawsmith Name Role Phone Marcela Acosta APRN Primary Care Provider +1 [phone] Reason for Visit * Reason Comments Medication Refill Encounter Details Date Type Department Care Team (Late st Contact Info) Description 04/05/2014 [place] [address] Fernando Wong, [facility] [place] [address] Social History Tobacco Use Types Packs/Day Years [...] on filedocumented in this encounter Care Teams Sawsmith Relationship Specialty Start Date End Date Marcela Acosta APRN [address] [place] [id number] PCP - General 09/01/12 07/16/17 documented as of this encounter
--- OUTSIDE RECORDS SUMMARY | 2024-08-07 00:54 | XMS_ITS | Encounter Summary ---
[facility] [place] [address] Care Team Providers Care Cake Icer And Packer Name Role Phone Aleksander Perla MD Primary Care Provider [phone] Encounter Details Date Type Department Care Team (Late st Contact Info) Description 07/24/2010 [place] [address] Armin Reynolds MD [facility] ENDOCRINOLOGY DEPT. [place], [place] [id number] Social History Tobacco Use Types Packs/Day Years [...] Hemoglobin A1c 7.5(H) 4.3 - 6.1 % [facility] Estimated Average Glucose 169 mg/dL [facility] Comment: eAG equivalents for HbA1c percentages: [...] into estimated average glucose values. ??Diabetes Care 2008:31(8):2616-8202. Blood specimen (specimen) 07/24/2010 2:59 PM EST 07/24/2010 3:07 PM EST Armin Reynolds MD CHEMISTRY ORDERABLES [facility] AGUSTIN documented in this encounter Visit Diagnoses Not on filedocumented in this encounter Care Teams Cake Icer And Packer Relationship Specialty Start Date End Date Aleksander Perla MD [address] [place] [address] PCP - General 06/13/10 08/31/12 documented as of this encounter
--- OUTSIDE RECORDS SUMMARY | 2024-08-07 00:54 | XMS_ITS | Encounter Summary ---
Author Organization [place] [id number] Care Team Providers Care Fur Ironer Name Role Phone Aleksander Perla MD Primary Care Provider [phone] Reason for Referral * Consultation (Routine) - Closed Specialty Diagnoses / Procedures Referred By Sean rojas Referred To Contact Dermatology Diagnoses Subungual warts Idalmis Westfall MD [facility] [address] [place] [address] [facility] [address] [address] Referral ID Status Reason Start Date Expiration Date V isits Requested Visits Authorized [id number] Closed Assume Subset of Care 05/05/2012 11/01/2012 1 1 Reason for Visit * Reason Comments Follow-up Encounter Details Date Type Department Care Team (Late st Contact Info) Description 05/05/2012 8:00 AM EDT Office [place] [address] Idalmis Westfall MD DM type 2 (diabetes mellitus, type 2); [...] with workspace adjustment, no peripheral; CAD- neg [id number]; lipids- TChol , HDL- 29, LDL- 86, [...] that and is actually not taking any [id number] vitamin D right now because of the [...] Creatinin Ratio, Urine 2 mcg/mg Cr [facility] Comment: Reference Range* Random collection (mcg/mg creatinine) Normal ?<30 Microalbuminuria ?? 30 - 300 Clinical Albuminuria ?? >300 *[place] Diabetes Association. Diabetic Nephropathy. Diabetes Care 1997;(Suppl 1):S24-S27 Exercise within 24 hour, infection, fever, CHF, marked hyperglycemia, and marked hypertension may elevate urinary albumin excretion over baseline values. Urine specimen (specimen) 11/24/2012 7:51 AM EDT 11/24/2012 7:55 AM EDT Narrative Resulting Agency Comment Spec In Lab Idalmis Westfall MD URINE ORDERABLES Performing Organization Address [facility] Co de Phone Number [facility] * (ABNORMAL) LDL Cholesterol, Direct (11/24/2012 7:50 AM EDT) LDL Cholesterol, Direct 137(H) <=99 mg/dL [facility] Comment: The National Cholesterol Education Program (NCEP) has set the following guidelines for LDL Cholesterol: Reference range: ?? Optimal: ?<100 mg/dL ?? Near Optimal/Above Optimal: ?? 100-129 mg/dL ?? Borderline high: ?130-159 mg/dL ?? High: ? 160-189 mg/dL ?? Very high: ?>ss=724 mg/dL BRITTANI 2001: 285(19):1519-2560 Blood specimen (specimen) 11/24/2012 7:50 AM EDT 11/24/2012 8:02 AM EDT Narrative Resulting Agency Comment Spec In Lab Idalmis Westfall MD CHEMISTRY ORDERAB LES Performing Organization Address [facility] Co de Phone Number [facility] * (ABNORMAL) HDL/Cholesterol Profile (11/24/2012 7:50 AM EDT) Cholesterol, Total 180 <=199 mg/dL [facility] Comment: Recommendations of the NCEP Adult Treatment Panel for the following risk cutoff thresholds for the [place] population: Desirable: <200 mg/dL Borderline High: 200-239 mg/dL High: > or = 240 mg/dL HDL Cholesterol 33(L) >=40 mg/dL [facility] Comment: Reference range: ??Low HDL: ?? < 40 mg/dL ??Normal: ?40-60 mg/dL ??Desirable: > 60 mg/dL BRITTANI 2001; 285(19):2036-4356 Cholesterol/HDL Ratio 5.5 ratio [facility] Comment: A Cholesterol to HDL ratio below 4:1 is desirable. ??Studies suggest that increased CAD risk occurs at ratios above 5 for females and above 6 for men. ? [place] Heart Association ??(http://www.americanheart.org) ? [place] Int Med, 1994; 121:641 ? AM J Med, 1998; 105(1A):48S Blood specimen (specimen) 11/24/2012 7:50 AM EDT 11/24/2012 8:02 AM EDT Narrative Resulting Agency Comment Spec In Lab Idalmis Westfall MD CHEMISTRY ORDERAB LES Performing Organization Address City/[facility]/ZIP Co de Phone Number [facility] * (ABNORMAL) TSH (11/24/2012 7:50 AM EDT) Thyroid Stimulating Hormone 4.60(H) 0.27 - 4.20 mcIU/mL [facility] Blood specimen (specimen) 11/24/2012 7:50 AM EDT 11/24/2012 8:02 AM EDT Narrative Resulting Agency Comment Spec In Lab Idalmis Westfall MD CHEMISTRY ORDERAB LES [facility] * (ABNORMAL) Hemoglobin A1c (11/24/2012 7:50 AM EDT) Hemoglobin A1c 7.0(H) 4.3 - 6.1 % [facility] Comment: The [place] Diabetes Association (ADA) has stated that HbA1c [...] 2013:36;suppl 1:S11-S66. Estimated Average Glucose 154 mg/dL [facility] Comment: eAG equivalents for HbA1c percentages: [...] into estimated average glucose values. ??Diabetes Care 2008:31(8):6564-1262. Blood specimen (specimen) 11/24/2012 7:50 AM EDT 11/24/2012 8:02 AM EDT Narrative Resulting Agency Comment Spec In Lab Idalmis Westfall MD CHEMISTRY ORDERAB LES [facility] * (ABNORMAL) CREATININE, SERUM (05/05/2012 8:30 AM EDT) Creatinine 0.69(L) 0.70 - 1.20 mg/dL [facility] Comment: Please note that the pediatric reference intervals supplied above were not validated at [facility]. Results from pediatric patients should be interpreted in conjunction to the patient's age, height and muscle mass. Est Glomerular Filtration Rate >60 >=60 [facility] Comment: The National Kidney Disease Education [...] MD CHEMISTRY ORDERAB LES Performing Organization Address [facility] Co de Phone Number [facility] * TSH (05/05/2012 8:30 AM EDT) Thyroid Stimulating Hormone 3.39 0.27 - 4.20 mcIU/mL [facility] Blood specimen (specimen) 05/05/2012 8:30 AM EDT 05/05/2012 8:49 AM EDT Narrative Resulting Agency Comment Spec In Lab Idalmis Westfall MD CHEMISTRY ORDERAB LES Performing Organization Address [facility] de Phone Number [facility] * (ABNORMAL) Hemoglobin A1c (05/05/2012 8:30 AM EDT) Hemoglobin A1c 6.9(H) 4.3 - 6.1 % [facility] Estimated Average Glucose 151 mg/dL [facility] Comment: eAG equivalents for HbA1c percentages: [...] into estimated average glucose values. ??Diabetes Care 2008:31(8):4194-9811. Blood specimen (specimen) 05/05/2012 8:30 AM EDT 05/05/2012 8:49 AM EDT Narrative Resulting Agency Comment Spec In Lab Idalmis Westfall MD CHEMISTRY ORDERAB LES Performing Organization Address [facility] Co de Phone Number [facility] * (ABNORMAL) VIT D Total 25 Hydroxy (05/05/2012 8:30 AM EDT) Vitamin D Total 25 OH 28(L) 30 - 100 ng/mL [facility] Comment: Deficient <10 ng/mL Insufficient 10 [...] MD CHEMISTRY ORDERAB LES Performing Organization Address City/State/[facility] Co de Phone Number [facility] documented in this encounter Visit Diagnoses Diagnosis DM type 2 (diabetes mellitus, type 2) Type II or unspecified type diabetes mellitus without mention of complication, not stated as uncontrolled Hypothyroid Unspecified hypothyroidism DM (diabetes mellitus) Type II or unspecified type diabetes mellitus without mention of complication, not stated as uncontrolled Subungual warts Viral warts, unspecified documented in this encounter Care Teams Fur Ironer Relationship Specialty Start Date End Date Aleksander Perla MD [address] [address] PCP - General 06/13/10 08/31/12 documented as of this encounter
[2024-08-07] MEDS: IRON SUCROSE COMPLEX 300 MG in Normal Saline 250 ML 176.667 MG IVPB (10:23)
[2024-08-07] MEDS: Normal Saline Flush 10 ML SYR IVP (10:30)
== END 2024-08-21 23:59 | disposition home or self-care (01) ==
LOC: INF 00:50
PROVIDERS: PCP Nurse Practitioner; Visit Provider Nurse Practitioner
DX: D50.9 Iron deficiency anemia, unspecified (principal)
CPT/HCPCS: 96365; 96366; J1756